=== PATIENT | male | born 1950 | race Caucasian/White ===

== ENCOUNTER 2018-01-06 10:44 | Inpatient (IN) ==
[2018-01-06] MEDS ORDERED: Sod Chloride 0.9% Inj 1,000 ML IV.SIG ONE (11:21)
[2018-01-06 11:36] LABS: Baso % (Auto) 0.3 % (0.0-2.0); Eos # (Auto) 0.1 th/mm3 (0.0-0.4); Eos % (Auto) 0.6 % (0.0-4.0); Hematocrit 27.8 % (39.0-51.0); Hemoglobin 9.1 gm/dL (13.0-17.0); Lymph # (Auto) 0.7 th/mm3 (1.0-4.8); Lymph % (Auto) 7.6 % (9.0-44.0); Mean Corpuscular HGB Conc 32.8 % (32.0-36.0); Mean Corpuscular Volume 70.2 fL (80.0-100.0); Mean Platelet Volume 7.6 fL (7.0-11.0); Mono # (Auto) 0.8 th/mm3 (0.0-0.9); Mono % (Auto) 8.5 % (0.0-8.0); Platelet Count 319 th/mm3 (150-450); Red Blood Count 3.96 mil/mm3 (4.50-5.90); White Blood Count 9.7 th/mm3 (4.0-11.0)
[2018-01-06] MEDS ORDERED: Morphine Inj 4 MG/ML Vial IV.PUSH ONE ×2 (11:47→15:01)
[2018-01-06 11:49] LABS: Activated Partial Thrombo Time 25.4 sec (23.4-31.7); INR 1.4 Ratio; Prothrombin Time 13.7 sec (9.8-11.6)
[2018-01-06 11:59] LABS: Alanine Aminotransferase 44 U/L (12-78); Albumin 2.7 g/dL (3.4-5.0); Anion Gap 12 meq/L (5-15); Aspartate Aminotransferase 96 U/L (15-37); Blood Urea Nitrogen 20 mg/dL (7-18); Calcium 8.8 mg/dL (8.5-10.1); Carbon Dioxide 21.3 meq/L (21.0-32.0); Chloride 96 meq/L (98-107); Glomerular Filtration Rate 73 mL/min (>89); Glucose,Random 168 mg/dL (74-106); Potassium 4.2 meq/L (3.5-5.1); Sodium 129 meq/L (136-145)
[2018-01-06 12:01] LABS: Alkaline Phosphatase 162 U/L (45-117); Total Protein 7.3 g/dL (6.4-8.2)
--- NOTE | 2018-01-06 12:56 | CT ---
EXAM DATE: 01/06/2018 12:37 PM EST AGE/SEX: 67 years / Male INDICATIONS: Mid quadrant pain radiating to right side. Shortness of breath for two weeks. CLINICAL DATA: This is the patient's initial encounter. Patient reports that signs and symptoms have been present for 2 weeks and indicates a pain score of 7/10. MEDICAL/SURGICAL HISTORY: . Liver cancer. Appendectomy. CABG. RADIATION DOSE: 18.19 CTDI (mGy) COMPARISON: No prior exams available for comparison. TECHNIQUE: Volumetric scanning was performed using a multi-row detector CT scanner during bolus infu jacqueline of 100 ml Omnipaque 350 (iohexol) nonionic water-soluble contrast as a cumulative dose for mult iple exams. The data was post processed with a variety of visualization algorithms including full vol ume maximum intensity projection and sliding thin slab reformation. Using automated exposure control and adjustment of the mA and/or kV according to patient size, radiation dose was kept as low as reaso nably achievable to obtain optimal diagnostic quality images. DICOM format image data is available e lectronically for review and comparison. FINDINGS: Pulmonary Arteries: No filling defects are seen in the pulmonary arteries out to the subsegmental ve ssels. The left and right pulmonary arteries are normal in diameter. Lung: An azygos fissure is identified in the right apex. There is focal nodular thickening along the fissure measuring 6 to 7 mm in thickness. The lungs are otherwise clear without evidence of acute ai rspace disease or other nodular opacities. Effusion: None. Mediastinum: No evidence of mediastinal or hilar adenopathy. Coronary arteries are heavily calcified . Other: Multiple low density lesions are seen throughout the liver. The left adrenal gland is enlarge d. CONCLUSION: 1. Nodular thickening of an azygos fissure which may be scarring however short-term follow-up may be indicated. 2. No evidence of acute airspace disease or pulmonary emboli. 3. Multiple low density lesions in the liver and enlarged left adrenal gland. Electronically signed by: Sanjay May MD 01/06/2018 12:55 PM EST
--- NOTE | 2018-01-06 13:05 | CT ---
EXAM DATE: 01/06/2018 12:40 PM EST AGE/SEX: 67 years / Male INDICATIONS: Mid quadrant pain radiating to right side. Shortness of breath for two weeks CLINICAL DATA: This is the patient's initial encounter. Patient reports that signs and symptoms have been present for 2 weeks and indicates a pain score of 7/10. MEDICAL/SURGICAL HISTORY: . Liver cancer. CABG. Appendectomy. ORAL CONTRAST: No oral contrast ingested. RADIATION DOSE: 16.05 CTDI (mGy) COMPARISON: No prior exams available for comparison. TECHNIQUE: Multiple contiguous axial images were obtained through the abdomen and pelvis following b olus infusion of 100 ml Omnipaque 350 (iohexol) nonionic water-soluble contrast as a cumulative dos e for multiple exams. No oral contrast ingested. Using automated exposure control and adjustment of the mA and/or kV according to patient size, radiation dose was kept as low as reasonably achievable t o obtain optimal diagnostic quality images. DICOM format image data is available electronically for review and comparison. FINDINGS: Lower Lungs: The visualized lower lungs are clear. Liver: Numerous space-occupying lesions ranging in size up to 7 cm are identified in the liver. Postc holecystectomy clips are noted. There is no evidence of biliary duct dilatation. Spleen: Splenomegaly. Spleen measures 15 cm in craniocaudad dimension. Pancreas: Unremarkable without mass or calcification. Kidneys: Normal in size and shape. No evidence of mass or hydronephrosis. Adrenal Glands: The left adrenal gland is enlarged measuring 4.2 x 2.8 cm in size. The right adrena l gland is unremarkable. Aorta: Eccentric calcified plaque is present throughout the aorta. Bowel/Mesentery: Anastomotic sutures identified in the low rectal region. The bowel loops are grossly unremarkable. The cecum and sigmoid colon have a normal configuration. Abdominal Wall: Intact. Retroperitoneum: Enlarged lymph nodes are identified in the rafael hepatis, peripancreatic region and upper retroperitoneum. Lymph nodes range in size up to 16 mm. Bladder: Contours are smooth. Reproductive Organs: No abnormal masses or calcifications seen. Inguinal: The inguinal region is unremarkable without evidence of adenopathy. Bony Structures: Unremarkable. CONCLUSION: 1. Numerous hepatic lesions characteristic of metastatic disease. 2. Enlarged left adrenal gland characteristic of metastatic disease. 3. Upper retroperitoneal, rafael hepatis and peripancreatic lymphadenopathy. 4. Splenomegaly. 5. Status post cholecystectomy. Electronically signed by: Sanjay May MD 01/06/2018 1:04 PM EST
--- NOTE | 2018-01-06 15:32 | ED ---
HPI General Chief Complaint: Abdominal Pain Stated Complaint: Abd Pain Time Seen by Provider: 01/06/18 10:54 Source: patient and family Mode of arrival: ambulatory Limitations: no limitations History of Present Illness HPI narrative: The patient is a 67-year-old male with past medical history significant of coronary artery disease status post CABG x3 and diabetes presented with complaint of abdominal pain for about a week. He is ex- withdrawal from [place] to help him with his doctor's visit provide me with an ultrasound that reveals possible metastatic disease of the liver. Patient had history of hep C status post treatment. MD complaint: Reports abdominal pain Onset (ago): week(s) (1) Pain Consistency: constant Location: Reports LLQ and RLQ Severity: severe Severity scale (1-10): 8 Quality: Reports aching Radiation: Reports none Migration to: Reports no migration Relieving factors: nothing Exacerbating factors: movement Context: Denies foreign travel, possible food poisoning, sick contacts, recent antibiotic use, recent surgery/procedure, recent injury and history of similar episodes Associated symptoms: Reports nausea; Denies vomiting, diarrhea, fever, chills, constipation, dysuria, hematemesis, hematochezia, melena and hematuria Related Data Home Medications Medication Instructions Recorded Confirmed aspirin [Aspir-81] 81 mg PO DAILY 01/06/18 01/06/18 atorvastatin 80 mg PO DAILY 01/06/18 01/06/18 cetirizine 10 mg PO DAILY 01/06/18 01/06/18 fenofibrate 160 mg PO DAILY 01/06/18 01/06/18 ferrous sulfate 325 mg PO DAILY 01/06/18 01/06/18 glimepiride 4 mg PO QAM 01/06/18 01/06/18 lisinopril 10 mg PO DAILY 01/06/18 01/06/18 metformin 500 mg PO BID 01/06/18 01/06/18 metoprolol tartrate 50 mg PO BID 01/06/18 01/06/18 tadalafil [Cialis] 5 mg PO DAILY 01/06/18 01/06/18 trazodone 150 mg PO DAILY 01/06/18 01/06/18 Allergies Allergy/AdvReac Type Severity Reaction Status Date / Time No Known Allergies Allergy Verified 01/06/18 11:03 Review of Systems ROS: all other systems reviewed are negative [facility] Medical History Medical History Carpal tunnel syndrome (Acute) Cholecystectomy planned (Acute) Hepatitis C virus infection cured after antiviral drug therapy (Acute) Type 2 diabetes mellitus (Acute) Surgical History Surgical History History of open heart surgery (Acute) Social History Social History Substance History: No History of Abuse Smoking Status: Former smoker How Often Do You Have a Drink Containing Alcohol: Never Recent Travel in [facility] within the Last 8 Weeks: No Recent Out of Country Travel within the Last 8 Weeks: No Immunization History Tetanus Immunization: >5 Years Exam Narrative Exam Narrative: GENERAL:Alert and oriented in moderate distress due to pain SKIN: Focused skin assessment warm/dry. HEAD: Atraumatic. Normocephalic. EYES: Pupils equal and round. No scleral icterus. No injection or drainage. ENT: No nasal bleeding or discharge. Mucous membranes pink and moist. NECK: Trachea midline. No JVD. CARDIOVASCULAR: Sinus tachycardia with regular rhythm. No murmur appreciated. RESPIRATORY: Tachypnea without accessory muscle use. Clear to auscultation. Breath sounds equal bilaterally. GASTROINTESTINAL: Abdomen soft, tenderness to palpation over the left lower right lower quadrant with some mild distention. Distended. Hepatic and splenic margins palpable. MUSCULOSKELETAL: No obvious deformities. No clubbing. No cyanosis. No edema. NEUROLOGICAL: Awake and alert. No obvious cranial nerve deficits. Motor grossly within normal limits. Normal speech. PSYCHIATRIC: Appropriate mood and affect; insight and judgment normal. Course Initial Documented Vital Signs Temperature 98.7 F 01/06/18 10:45 Pulse Rate 127 H 01/06/18 10:45 Respiratory Rate 32 H 01/06/18 10:45 Blood Pressure 157/70 H 01/06/18 10:45 Pulse Oximetry 97 01/06/18 10:45 Last Documented Vital Signs Temperature 98.7 F 01/06/18 10:45 Pulse Rate 127 H 01/06/18 10:45 Respiratory Rate 32 H 01/06/18 10:45 Blood Pressure 157/70 H 01/06/18 10:45 Pulse Oximetry 97 01/06/18 10:45 Medical Decision Making MDM Narrative Medical decision making narrative: Patient also has hypo-natremia which was addressed with for pulmonary emboli in addition to that we also obtained a CT of abdomen and pelvis that revealed metastatic disease in the liver and adrenal glands.Patient on arrival with tachycardia and tachypnea as well as complaint of exertional dyspnea which in the setting of malignancy may be secondary to PE. Will obtain a CT Zuri of the chest that was negative fluids. He was given several doses of analgesics. Anemia of 9.1. Not appearing septic. Mild dehydration with a BUN of 20 creatinine of 1.02 was also noted. Liver enzymes include AST of 96 alk phos 162 and ALT within normal limits. Patient will be admitted for intractable pain hyponatremia as well as his tachycardia and tachypnea which improved with interventions in the emergency department. Not appearing septic alert and oriented. Medical Screen Exam Complete: Yes Emergency Medical Condition: Yes Medical Records Medical records reviewed: Yes I reviewed the patient's medical records. Lab Data Lab results reviewed: Yes I reviewed the patient's lab results. Result diagrams: 01/06/18 11:12 01/06/18 11:12 Lab Results 01/06/18 01/06/18 01/06/18 Range/Units 11:12 11:12 11:12 WBC 9.7 (4.0-11.0) th/mm3 RBC 3.96 L (4.50-5.90) mil/mm3 Hgb 9.1 L (13.0-17.0) gm/dL Hct 27.8 L (39.0-51.0) % MCV 70.2 L (80.0-100.0) fL MCH 23.0 L (27.0-34.0) pg MCHC 32.8 (32.0-36.0) % RDW 15.0 (11.6-17.2) % Plt Count 319 (150-450) th/mm3 MPV 7.6 (7.0-11.0) fL Neut % (Auto) 83.0 H (16.0-70.0) % Lymph % (Auto) 7.6 L (9.0-44.0) % [place] % (Auto) 8.5 H (0.0-8.0) % Eos % (Auto) 0.6 (0.0-4.0) % Baso % (Auto) 0.3 (0.0-2.0) % Neut # (Auto) 8.0 H (1.8-7.7) th/mm3 Lymph # (Auto) 0.7 L (1.0-4.8) th/mm3 [place] # (Auto) 0.8 (0.0-0.9) th/mm3 Eos # (Auto) 0.1 (0.0-0.4) th/mm3 Baso # (Auto) 0.0 (0.0-0.2) th/mm3 WBC Differential . Differential Comment Auto diff final PT 13.7 H (9.8-11.6) sec INR 1.4 Ratio APTT 25.4 (23.4-31.7) sec Sodium 129 L (136-145) meq/L Potassium 4.2 (3.5-5.1) meq/L Chloride 96 L (98-107) meq/L Carbon Dioxide 21.3 (21.0-32.0) meq/L Anion Gap 12 (5-15) meq/L BUN 20 H (7-18) mg/dL Creatinine 1.02 (0.60-1.30) mg/dL Estimated GFR 73 L (>89) mL/min Random Glucose 168 H (74-106) mg/dL Calcium 8.8 (8.5-10.1) mg/dL Total Bilirubin 0.8 (0.2-1.0) mg/dL AST 96 H (15-37) U/L ALT 44 (12-78) U/L Alkaline Phosphatase 162 H (45-117) U/L Troponin I (0.02-0.05) ng/mL B-Natriuretic Peptide (0-100) pg/mL Total Protein 7.3 (6.4-8.2) g/dL Albumin 2.7 L (3.4-5.0) g/dL 01/06/18 01/06/18 Range/Units 11:12 11:12 WBC (4.0-11.0) th/mm3 RBC (4.50-5.90) mil/mm3 Hgb (13.0-17.0) gm/dL Hct (39.0-51.0) % MCV (80.0-100.0) fL MCH (27.0-34.0) pg MCHC (32.0-36.0) % RDW (11.6-17.2) % Plt Count (150-450) th/mm3 MPV (7.0-11.0) fL Neut % (Auto) (16.0-70.0) % Lymph % (Auto) (9.0-44.0) % [place] % (Auto) (0.0-8.0) % Eos % (Auto) (0.0-4.0) % Baso % (Auto) (0.0-2.0) % Neut # (Auto) (1.8-7.7) th/mm3 Lymph # (Auto) (1.0-4.8) th/mm3 [place] # (Auto) (0.0-0.9) th/mm3 Eos # (Auto) (0.0-0.4) th/mm3 Baso # (Auto) (0.0-0.2) th/mm3 WBC Differential Differential Comment PT (9.8-11.6) sec INR Ratio APTT (23.4-31.7) sec Sodium (136-145) meq/L Potassium (3.5-5.1) meq/L Chloride (98-107) meq/L Carbon Dioxide (21.0-32.0) meq/L Anion Gap (5-15) meq/L BUN (7-18) mg/dL Creatinine (0.60-1.30) mg/dL Estimated GFR (>89) mL/min Random Glucose (74-106) mg/dL Calcium (8.5-10.1) mg/dL Total Bilirubin (0.2-1.0) mg/dL AST (15-37) U/L ALT (12-78) U/L Alkaline Phosphatase (45-117) U/L Troponin I Less than 0.02 L (0.02-0.05) ng/mL B-Natriuretic Peptide 77 (0-100) pg/mL Total Protein (6.4-8.2) g/dL Albumin (3.4-5.0) g/dL Imaging Data Radiologist's impression: Abdomen/Pelvis CT 01/06/18 11:04 CONCLUSION: 1. Numerous hepatic lesions characteristic of metastatic disease. 2. Enlarged left adrenal gland characteristic of metastatic disease. 3. Upper retroperitoneal, rafael hepatis and peripancreatic lymphadenopathy. 4. Splenomegaly. 5. Status post cholecystectomy. Chest CTA 01/06/18 11:04 CONCLUSION: 1. Nodular thickening of an azygos fissure which may be scarring however short- term follow-up may be indicated. 2. No evidence of acute airspace disease or pulmonary emboli. 3. Multiple low density lesions in the liver and enlarged left adrenal gland. ECG Data EKG Prior to Arrival: No Attestation: I personally reviewed and interpreted this ECG as follows: Interpretation: Normal sinus rhythm 97 bpm MT interval 121ms QTC is 399ms normal axis no specific ST-T wave abnormalities. No signs of acute ischemia. Discharge Plan Discharge Disposition Patient Disposition: 30 Still Patient Discharge Condition Condition: Stable Discharge Details Diagnosis: Intractable lower abdominal pain, Acute hyponatremia, Anemia, Acute dehydration Physicians Team ED Provider: José Christopher Primary Care Provider: Jana Dukes Attending Provider: Brett Guerra Discharge Interventions Interventions: Vital Signs Last Done: 01/06/18 10:45 Status ED Status: Admitted Patient
--- NOTE | 2018-01-06 15:33 | P.HPIM ---
History of Present Illness [facility] Physician: Jana Dukes MD Chief Complaint: Worsening abdominal pain and shortness of breath History of Present Illness: 67-year-old male with a medical history significant for hepatitis C status post treatment, coronary artery disease status post CABG, diabetes, hypertension who presented to the hospital with complaint of worsening abdominal pain, shortness of breath. Patient recently had an ultrasound of the abdomen that was ordered by his PCP which showed metastatic liver disease. He reports he has been increasingly declining at home due to worsening abdominal pain and shortness of breath due to the pain. He states he is to the point where he can no longer care for himself. His ex- came into town and brought him to the emergency room when she realized how sick he was. He does not note any change in his bowel movements. He has been very fatigued and sleeping a lot. Abdominal CT in the emergency room revealed numerous hepatic lesions characteristic of metastatic disease. He also has a lesion on his adrenal gland. Patient was also found to be hyponatremic. He was tachypneic and tachycardic on presentation. He has been given IV morphine and IV fluid with some improvement in his symptoms. Inpatient Certification: I certify that the inpatient services were ordered in accordance with Medicare regulations governing the order. This includes certification that hospital inpatient services are reasonable and necessary and in the case of services not specified as inpatient-only under 42 CFR 419.22(n), that they are appropriately provided as inpatient services in accordance to with the 2-midnight benchmark under 43 CFR 412.3(e) Review of Systems All other systems reviewed negative except as stated in HPI PMFSH - History History Provided By: Patient - Medical History Medical History: Medical History (Last Updated 01/06/18 @ 16:12 by Brett Guerra MD) CAD (coronary artery disease) Carpal tunnel syndrome Hepatitis C virus infection cured after antiviral drug therapy Type 2 diabetes mellitus - Surgical History Surgical History: Surgical History (Last Updated 01/06/18 @ 16:12 by Brett Guerra MD) History of open heart surgery Hx of cholecystectomy - Family History Family History: Family History (Last Updated 01/06/18 @ 16:14 by Brett Guerra MD) Mother Lung cancer - Tobacco History Smoking Status: Former smoker - Alcohol History How Often Do You Have a Drink Containing Alcohol: Never - Substance Use History Substance History: No History of Abuse - Travel History Recent Travel in the [place] Within the Last 8 Weeks: No Recent Travel Out of the Country Within the Last 8 Weeks: No - Immunization History Tetanus Immunization: >5 Years Medications and Allergies Active Medications: Active Medications Aspirin (Ecotrin) 81 mg PO DAILY [facility] Atorvastatin Calcium (Lipitor) 80 mg PO DAILY [facility] Cetirizine HCl (Zyrtec) 10 mg PO DAILY [facility] Fenofibrate (Tricor) 145 mg PO DAILY [facility] Ferrous Sulfate (Ferosul) 325 mg PO DAILY [facility] Lisinopril (Prinivil) 10 mg PO DAILY [facility] Metformin HCl (Glucophage) 500 mg PO BIDPC [facility] Metoprolol Tartrate (Lopressor) 50 mg PO BID [facility] Trazodone HCl (Desyrel) 150 mg PO DAILY [facility] Allergies Allergy/AdvReac Type Severity Reaction Status Date / Time No Known Allergies Allergy Verified 01/06/18 11:03 Home Medications Medication Instructions Recorded Confirmed Type aspirin [Aspir-81] 81 mg PO DAILY 01/06/18 01/06/18 History atorvastatin 80 mg PO DAILY 01/06/18 01/06/18 History cetirizine 10 mg PO DAILY 01/06/18 01/06/18 History fenofibrate 160 mg PO DAILY 01/06/18 01/06/18 History ferrous sulfate 325 mg PO DAILY 01/06/18 01/06/18 History glimepiride 4 mg PO QAM 01/06/18 01/06/18 History lisinopril 10 mg PO DAILY 01/06/18 01/06/18 History metformin 500 mg PO BID 01/06/18 01/06/18 History metoprolol tartrate 50 mg PO BID 01/06/18 01/06/18 History tadalafil [Cialis] 5 mg PO DAILY 01/06/18 01/06/18 History trazodone 150 mg PO DAILY 01/06/18 01/06/18 History Exam Vital signs: Vital Signs 01/06/18 10:45 Temperature 98.7 F Pulse Rate 127 H Respiratory Rate 32 H Blood Pressure 157/70 H Pulse Oximetry 97 Intake & Output 01/05/18 01/06/18 01/06/18 18:59 06:59 18:59 Intake Total 1000 / 1000 Balance 1000 / 1000 Weight 79.379 kg Intake: IV 1000 / 1000 NS Inj 1,000 ML @ Wide Open IV. 1000 / 1000 SIG BOLUS ONE Rx#:[id number] Narrative: CONSTITUTIONAL/GENERAL: This is an adequately nourished patient, somnolent but no acute distress. Vital signs reviewed SKIN: Mild jaundice. Not diaphoretic. HEAD: Atraumatic. Normocephalic. EYES: Pupils equal and round and reactive. Extra ocular motions are intact. No scleral icterus. No injection or drainage. NECK: Trachea midline. Neck is supple, non-tender. No palpable thyroid enlargement or nodularity. CARDIOVASCULAR: Normal rate and regular rhythm without murmurs, gallops, or rubs. No JVD. Peripheral pulses 2+ and symmetric. RESPIRATORY/CHEST: Diminished breath sounds at the bases otherwise clear to auscultation bilaterally GASTROINTESTINAL: Abdomen is distended. Diffusely tender to palpation. No guarding or rebound tenderness. Bowel sounds present. MUSCULOSKELETAL: Extremities without clubbing, cyanosis, or edema. No joint tenderness or effusion noted. No calf tenderness. No mottling or clubbing. NEUROLOGICAL: Somnolent. Motor and sensory grossly within normal limits. Follows commands. Move all extremities spontaneously. No focal deficits. PSYCHIATRIC: No obvious mood problems. No apparent hallucinations or other psychotic thought process. Results - Labs CBC & Chem 7: 01/06/18 11:12 01/06/18 11:12 Labs: Short CBC 01/06/18 Range/Units 11:12 WBC 9.7 (4.0-11.0) th/mm3 Hgb 9.1 L (13.0-17.0) gm/dL Hct 27.8 L (39.0-51.0) % Plt Count 319 (150-450) th/mm3 [facility] 01/06/18 11:12 Sodium 129 L Potassium 4.2 Chloride 96 L Carbon Dioxide 21.3 BUN 20 H Creatinine 1.02 Calcium 8.8 Cardiac Enzymes 01/06/18 Range/Units 11:12 Troponin I Less than 0.02 L (0.02-0.05) ng/mL Liver Function 01/06/18 Range/Units 11:12 Total Bilirubin 0.8 (0.2-1.0) mg/dL AST 96 H (15-37) U/L ALT 44 (12-78) U/L Alkaline Phosphatase 162 H (45-117) U/L Albumin 2.7 L (3.4-5.0) g/dL - Imaging Impressions Abdomen/Pelvis CT 01/06/18 11:04 CONCLUSION: 1. Numerous hepatic lesions characteristic of metastatic disease. 2. Enlarged left adrenal gland characteristic of metastatic disease. 3. Upper retroperitoneal, rafael hepatis and peripancreatic lymphadenopathy. 4. Splenomegaly. 5. Status post cholecystectomy. Chest CTA 01/06/18 11:04 CONCLUSION: 1. Nodular thickening of an azygos fissure which may be scarring however short- term follow-up may be indicated. 2. No evidence of acute airspace disease or pulmonary emboli. 3. Multiple low density lesions in the liver and enlarged left adrenal gland. Caprini VTE Risk Assessment Caprini VTE Risk Assessment: Moderate/High Risk (score >= 2) VTE Pharmacological Exception Reason: End Stage Liver Disease Caprini Risk Assessment Model: Point Value = 1 Point Value = 2 Point Value = 3 Point Value = 5 Age 41-60 Minor surgery BMI > 25 kg/m2 Swollen legs Varicose veins or History of unexplained or recurrent spontaneous Oral contraceptives or hormone replacement Sepsis (< 1 month) Serious lung disease, including pneumonia (< 1 month) Abnormal pulmonary function Acute myocardial infarction Congestive heart failure (< 1 month) History of inflammatory bowel disease Medical patient at bed rest Age 61-74 Arthroscopic surgery Major open surgery (> 45 min) Laparoscopic surgery (> 45 min) Malignancy Confined to bed (> 72 hours) Immobilizing plaster cast Central venous access Age >= 75 History of VTE Family history of VTE Factor V Leiden Prothrombin [id number] Lupus anticoagulant Anticardiolipin antibodies Elevated serum homocysteine Heparin-induced thrombocytopenia Other congenital or acquired thrombophilia Stroke (< 1 month) Elective arthroplasty Hip, pelvis, or leg fracture Acute spinal cord injury (< 1 month) Prophylaxis Regimen: Total Risk Factor Score Risk Level Prophylaxis Regimen 0-1 Low Early ambulation 2 Moderate Order ONE of the following: *Sequential Compression Device (SCD) *Heparin 5000 units SQ BID 3-4 Higher Order ONE of the following medications: *Heparin 5000 units SQ TID *Enoxaparin/Lovenox 40 mg SQ daily (WT < 150 kg, CrCl > 30 mL/min) *Enoxaparin/Lovenox 30 mg SQ daily (WT < 150 kg, CrCl > 10-29 mL/min) *Enoxaparin/Lovenox 30 mg SQ BID (WT < 150 kg, CrCl > 30 mL/min) AND/OR *Sequential Compression Device (SCD) 5 or more Highest Order ONE of the following medications: *Heparin 5000 units SQ TID (Preferred with Epidurals) *Enoxaparin/Lovenox 40 mg SQ daily (WT < 150 kg, CrCl > 30 mL/min) *Enoxaparin/Lovenox 30 mg SQ daily (WT < 150 kg, CrCl > 10-29 mL/min) *Enoxaparin/Lovenox 30 mg SQ BID (WT < 150 kg, CrCl > 30 mL/min) AND *Sequential Compression Device (SCD) Assessment and Plan - Plan 67-year-old male admitted with worsening abdominal pain, relatively new evidence of metastatic liver disease. Intractable abdominal pain/metastasis to the liver and adrenal gland: Primary unknown. - Consult oncology for assistance. - Consult GI. Patient previously seen by Dr. Adams. He reports his last colonoscopy was over 4 years ago and there were polyps but he does not remember the results. - Pain control with Morphine as needed. - Check ammonia. Seems to have early hepatic encephalopathy. Hyponatremia: Likely hypovolemic hyponatremia. - He has been given a liter of normal saline since he arrived to the ED. - Follow-up labs in a.m. At risk for fluid overload given liver disease. Type 2 diabetes: - Hold oral hypoglycemic agents. - Sliding scale insulin with Accu-Cheks. Microcytic anemia: - Check iron panel. Hemoccult stool in the ED negative. History of CAD/CABG: - Continue aspirin, statin, and beta-moshe. Hypertension: - Continue lisinopril, beta-moshe GI prophylaxis: Stool softener PRN constipation. DVT PPx: Lovenox Discussed Condition With: ED physician.
[2018-01-06] MEDS ORDERED: Acetaminophen 325 MG Tablet PO PRN (15:47)
[2018-01-06] MEDS ORDERED: Bisacodyl 10 MG Supp RECTAL PRN (15:47)
[2018-01-06 17:28] LABS: % Iron Saturation 5.7 % (20-50); Iron 14 mcg/dL (65-175); Total Iron Binding Capacity 246 mcg/dL (250-450)
[2018-01-06] MEDS ORDERED: PEG 3350/E-Lyte Soln 4000 ML Bottle PO ONE (17:30)
[2018-01-06 17:52] LABS: Ferritin 242 ng/mL (26-388); Vitamin B12 1495 pg/mL (193-986)
[2018-01-06] MEDS: Morphine Sulfate Inj 2 MG/ML Vial IV.PUSH PRN (18:38)
--- NOTE | 2018-01-06 18:56 | P.CONGI ---
History of Present Illness Consult date: 01/06/18 Consult reason: Metastatic disease involving the liver Chief complaint: intractable abdominal pain, Hyponatremia History of Present Illness: This patient is a 67-year-old male with past medical history significant for hepatitis C posttreatment, coronary artery disease status post CABG, diabetes and hypertension. Surgical history includes CABG and cholecystectomy. Patient presented to the emergency room at [facility] with complaint of abdominal pain. Patient states that he was sent to the hospital by his PCP due to a recent ultrasound that showed metastatic liver disease. Upon consultation, patient reports generalized abdominal pain mostly right upper quadrant times 1 week. Patient states pain has been severe over the last 2-3 nights. Patient describes pain as sharp and states it is constant in nature. Patient endorses very little appetite with nausea and denies vomiting. Patient endorses having a colonoscopy 5 years ago where polyps were found to be benign. Patient denies any history of ever having had EGD in the past. Patient denies any use of tobacco or alcohol products. Patient denies any known family history for any gastrointestinal diseases or disorders. Patient denies use of NSAIDs. Patient denies any noted bleeding. He states he has a normal soft brown bowel movement every day to every other day but has not had a bowel movement for 2-3 days prior to admission. Our service has been consulted to evaluate patient for metastatic liver disease. <Elo Ramirez - Last Filed: 01/06/18 18:43> Review of Systems All other systems reviewed negative except as stated in HPI <Elo Ramirez - Last Filed: 01/06/18 18:43> PMFSH - History History Provided By: Patient - Medical History Medical History: Medical History (Last Updated 01/06/18 @ 16:12 by Brett Guerra MD) CAD (coronary artery disease) Carpal tunnel syndrome Hepatitis C virus infection cured after antiviral drug therapy Type 2 diabetes mellitus - Surgical History Surgical History: Surgical History (Last Updated 01/06/18 @ 16:12 by Brett Guerra MD) History of open heart surgery Hx of cholecystectomy - Family History Family History: Family History (Last Updated 01/06/18 @ 16:14 by Brett Guerra MD) Mother Lung cancer - Tobacco History Second Hand Smoke Exposure: No Tobacco Use In Past 30 Days: No Smoking Status: Former smoker Tobacco Type: Cigarettes - Alcohol History How Often Do You Have a Drink Containing Alcohol: Never - Substance Use History Substance History: No History of Abuse - Travel History Recent Travel in the [place] Within the Last 8 Weeks: No Recent Travel Out of the Country Within the Last 8 Weeks: No - Immunization History Tetanus Immunization: Unsure Hx Influenza Vaccine This Season: No <Elo Ramirez - Last Filed: 01/06/18 18:43> - Medical History Medical History: Medical History (Last Updated 01/06/18 @ 16:12 by Brett Guerra MD) CAD (coronary artery disease) Carpal tunnel syndrome Hepatitis C virus infection cured after antiviral drug therapy Type 2 diabetes mellitus - Surgical History Surgical History: Surgical History (Last Updated 01/06/18 @ 16:12 by Brett Guerra MD) History of open heart surgery Hx of cholecystectomy - Family History Family History: Family History (Last Updated 01/06/18 @ 16:14 by Brett Guerra MD) Mother Lung cancer <Kamille Brooks - Last Filed: 01/07/18 10:44> Medications and Allergies Active Medications: Active Medications Acetaminophen (Tylenol) 650 mg PO Q4H PRN PRN Reason: Temp > 100.4 Al Hydroxide/Mg Hydroxide (Milk Of Magnesia Liq) 30 ml PO Q12H PRN PRN Reason: Mild Constipation Aspirin (Ecotrin) 81 mg PO DAILY [facility] Atorvastatin Calcium (Lipitor) 80 mg PO DAILY [facility] Bisacodyl (Dulcolax Supp) 10 mg RECTAL DAILY PRN PRN Reason: SEVERE CONSITIPATION Cetirizine HCl (Zyrtec) 10 mg PO DAILY [facility] Fenofibrate (Tricor) 145 mg PO DAILY [facility] Ferrous Sulfate (Ferosul) 325 mg PO DAILY [facility] Lactulose (Lactulose Liq) 30 ml PO DAILY PRN PRN Reason: SEVERE CONSITIPATION Lisinopril (Prinivil) 10 mg PO DAILY [facility] Metformin HCl (Glucophage) 500 mg PO BIDPC [facility] Metoprolol Tartrate (Lopressor) 50 mg PO BID [facility] Morphine Sulfate (Msir) 15 mg PO Q6H PRN PRN Reason: PAIN SCALE 6 TO 10 Morphine Sulfate (Morphine Inj) 2 mg IV.PUSH Q4H PRN PRN Reason: BREAKTHROUGH PAIN Last Admin: 01/06/18 18:38 Dose: 2 mg Ondansetron HCl (Zofran Inj) 4 mg IV.PUSH Q6H PRN PRN Reason: NAUSEA OR VOMITING Sennosides (Senokot) 17.2 mg PO Q12H PRN PRN Reason: Moderate Constipation Trazodone HCl (Desyrel) 150 mg PO DAILY [facility] <Elo Ramirez - Last Filed: 01/06/18 18:43> Active Medications: Active Medications Acetaminophen (Tylenol) 650 mg PO Q4H PRN PRN Reason: Temp > 100.4 Al Hydroxide/Mg Hydroxide (Milk Of Magnesia Liq) 30 ml PO Q12H PRN PRN Reason: Mild Constipation Aspirin (Ecotrin) 81 mg PO DAILY [facility] Atorvastatin Calcium (Lipitor) 80 mg PO DAILY [facility] Last Admin: 01/07/18 09:30 Dose: Not Given Bisacodyl (Dulcolax Supp) 10 mg RECTAL DAILY PRN PRN Reason: SEVERE CONSITIPATION Cetirizine HCl (Zyrtec) 10 mg PO DAILY [facility] Last Admin: 01/07/18 09:30 Dose: Not Given Fenofibrate (Tricor) 145 mg PO DAILY [facility] Last Admin: 01/07/18 09:30 Dose: Not Given Ferrous Sulfate (Ferosul) 325 mg PO DAILY [facility] Last Admin: 01/07/18 09:29 Dose: Not Given Sodium Chloride (Ns Inj) 500 mls @ 30 mls/hr IV.SIG .Q10H [facility] Lactated Ringer's (Lr 1000 Ml Inj) 1,000 mls @ 30 mls/hr IV.SIG .Q24H [facility] Stop: 01/08/18 04:14 Lactulose (Lactulose Liq) 30 ml PO DAILY PRN PRN Reason: SEVERE CONSITIPATION Lisinopril (Prinivil) 10 mg PO DAILY [facility] Last Admin: 01/07/18 08:22 Dose: 10 mg [facility] Last Admin: 01/07/18 09:30 Dose: Not Given Metoprolol Tartrate (Lopressor) 50 mg PO BID [facility] Last Admin: 01/07/18 08:22 Dose: 50 mg Morphine Sulfate (Msir) 15 mg PO Q6H PRN PRN Reason: PAIN SCALE 6 TO 10 Last Admin: 01/07/18 05:37 Dose: 15 mg Morphine Sulfate (Morphine Inj) 2 mg IV.PUSH Q4H PRN PRN Reason: BREAKTHROUGH PAIN Last Admin: 01/06/18 18:38 Dose: 2 mg Ondansetron HCl (Zofran Inj) 4 mg IV.PUSH Q6H PRN PRN Reason: NAUSEA OR VOMITING Last Admin: 01/06/18 22:33 Dose: 4 mg Sennosides (Senokot) 17.2 mg PO Q12H PRN PRN Reason: Moderate Constipation Trazodone HCl (Desyrel) 150 mg PO DAILY [facility] Last Admin: 01/07/18 09:29 Dose: Not Given <Kamille Brooks - Last Filed: 01/07/18 10:44> Allergies Allergy/AdvReac Type Severity Reaction Status Date / Time No Known Allergies Allergy Verified 01/06/18 11:03 Home Medications Medication Instructions Recorded Confirmed Type aspirin [Aspir-81] 81 mg PO DAILY 01/06/18 01/06/18 History atorvastatin 80 mg PO DAILY 01/06/18 01/06/18 History cetirizine 10 mg PO DAILY 01/06/18 01/06/18 History fenofibrate 160 mg PO DAILY 01/06/18 01/06/18 History ferrous sulfate 325 mg PO DAILY 01/06/18 01/06/18 History glimepiride 4 mg PO QAM 01/06/18 01/06/18 History lisinopril 10 mg PO DAILY 01/06/18 01/06/18 History metformin 500 mg PO BID 01/06/18 01/06/18 History metoprolol tartrate 50 mg PO BID 01/06/18 01/06/18 History tadalafil [Cialis] 5 mg PO DAILY 01/06/18 01/06/18 History trazodone 150 mg PO DAILY 01/06/18 01/06/18 History Exam Vital signs: Vital Signs 01/06/18 10:45 01/06/18 16:28 01/06/18 17:09 Temperature 98.7 F 98.0 F Pulse Rate 127 H 90 88 Respiratory Rate 32 H 18 20 Blood Pressure 157/70 H 156/68 H 159/72 H Pulse Oximetry 97 99 01/06/18 18:41 Temperature Pulse Rate Respiratory Rate 17 Blood Pressure Pulse Oximetry Intake & Output 01/05/18 01/06/18 01/06/18 18:59 06:59 18:59 Intake Total 1000 / 1000 Balance 1000 / 1000 Weight 77.3 kg Intake: IV 1000 / 1000 NS Inj 1,000 ML @ Wide Open IV. 1000 / 1000 SIG BOLUS ONE Rx#:[id number] Other: Weight On Admission 77.3 kg - Constitutional no acute distress, chronically ill appearing - Routine HEENT Exam Head: Present: normocephalic Eye: Absent: conjunctival icterus - Routine Respiratory Exam Present: CTA bilaterally. Absent: accessory muscle use - Routine Abdominal Exam Present: soft, normoactive bowel sounds, tenderness. Absent: distended, guarding, firm - Routine Skin Exam Present: dry, warm - Routine Neurological Exam Present: alert, oriented X3 <Elo Ramirez - Last Filed: 01/06/18 18:43> Vital signs: Vital Signs 01/06/18 10:45 01/06/18 16:28 01/06/18 17:09 Temperature 98.7 F 98.0 F Pulse Rate 127 H 90 88 Respiratory Rate 32 H 18 20 Blood Pressure 157/70 H 156/68 H 159/72 H Pulse Oximetry 97 99 01/06/18 18:41 01/06/18 19:17 01/06/18 20:00 Temperature 97.7 F Pulse Rate 96 H Respiratory Rate 17 17 20 Blood Pressure 148/64 H Pulse Oximetry 97 01/07/18 00:00 01/07/18 01:06 01/07/18 04:00 Temperature 98.7 F 98.3 F Pulse Rate 89 78 Respiratory Rate 20 16 20 Blood Pressure 136/75 149/65 H Pulse Oximetry 98 97 01/07/18 07:46 Temperature 98.4 F Pulse Rate 82 Respiratory Rate 20 Blood Pressure 120/57 L Pulse Oximetry 90 L Intake & Output 01/06/18 01/07/18 01/07/18 18:59 06:59 18:59 Intake Total 1600 / 1600 Balance 1600 / 1600 Weight 77.3 kg 77.6 kg Intake: IV 1000 / 1000 NS Inj 1,000 ML @ Wide Open IV. 1000 / 1000 SIG BOLUS ONE Rx#:[id number] Oral 600 / 600 Other: # Voids 5 Date of Last Bowel Movement 01/04/18 01/06/18 # Bowel Movements 2 Weight On Admission 77.3 kg <Todd,Mohammad A - Last Filed: 01/07/18 10:44> Results - Labs CBC & Chem 7: 01/06/18 11:12 01/06/18 11:12 Labs: Laboratory Results - last 24 hr 01/06/18 01/06/18 01/06/18 11:12 11:12 11:12 WBC 9.7 RBC 3.96 L Hgb 9.1 L Hct 27.8 L MCV 70.2 L MCH 23.0 L MCHC 32.8 RDW 15.0 Plt Count 319 MPV 7.6 Neut % (Auto) 83.0 H Lymph % (Auto) 7.6 L Ector % (Auto) 8.5 H Eos % (Auto) 0.6 Baso % (Auto) 0.3 Neut # (Auto) 8.0 H Lymph # (Auto) 0.7 L Ector # (Auto) 0.8 Eos # (Auto) 0.1 Baso # (Auto) 0.0 WBC Differential . Differential Comment Auto diff final PT 13.7 H INR 1.4 APTT 25.4 Sodium 129 L Potassium 4.2 Chloride 96 L Carbon Dioxide 21.3 Anion Gap 12 BUN 20 H Creatinine 1.02 Estimated GFR 73 L Random Glucose 168 H Calcium 8.8 Iron TIBC % Saturation Ferritin Total Bilirubin 0.8 AST 96 H ALT 44 Alkaline Phosphatase 162 H Ammonia Troponin I B-Natriuretic Peptide Total Protein 7.3 Albumin 2.7 L Vitamin B12 Folate 01/06/18 01/06/18 01/06/18 11:12 11:12 16:00 WBC RBC Hgb Hct MCV MCH MCHC RDW Plt Count MPV Neut % (Auto) Lymph % (Auto) Ector % (Auto) Eos % (Auto) Baso % (Auto) Neut # (Auto) Lymph # (Auto) Ector # (Auto) Eos # (Auto) Baso # (Auto) WBC Differential Differential Comment PT INR APTT Sodium Potassium Chloride Carbon Dioxide Anion Gap BUN Creatinine Estimated GFR Random Glucose Calcium Iron TIBC % Saturation Ferritin Total Bilirubin AST ALT Alkaline Phosphatase Ammonia 10 L Troponin I Less than 0.02 L B-Natriuretic Peptide 77 Total Protein Albumin Vitamin B12 Folate 01/06/18 16:00 WBC RBC Hgb Hct MCV MCH MCHC RDW Plt Count MPV Neut % (Auto) Lymph % (Auto) Ector % (Auto) Eos % (Auto) Baso % (Auto) Neut # (Auto) Lymph # (Auto) Ector # (Auto) Eos # (Auto) Baso # (Auto) WBC Differential Differential Comment PT INR APTT Sodium Potassium Chloride Carbon Dioxide Anion Gap BUN Creatinine Estimated GFR Random Glucose Calcium Iron 14 L TIBC 246 L % Saturation 5.7 L Ferritin 242 Total Bilirubin AST ALT Alkaline Phosphatase Ammonia Troponin I B-Natriuretic Peptide Total Protein Albumin Vitamin B12 1495 H Folate Greater than 20.0 H - Imaging Impressions Abdomen/Pelvis CT 01/06/18 11:04 CONCLUSION: 1. Numerous hepatic lesions characteristic of metastatic disease. 2. Enlarged left adrenal gland characteristic of metastatic disease. 3. Upper retroperitoneal, rafael hepatis and peripancreatic lymphadenopathy. 4. Splenomegaly. 5. Status post cholecystectomy. Chest CTA 01/06/18 11:04 CONCLUSION: 1. Nodular thickening of an azygos fissure which may be scarring however short- term follow-up may be indicated. 2. No evidence of acute airspace disease or pulmonary emboli. 3. Multiple low density lesions in the liver and enlarged left adrenal gland. <Elo Ramirez - Last Filed: 01/06/18 18:43> - Labs CBC & Chem 7: 01/07/18 06:39 01/07/18 06:39 Labs: Laboratory Results - last 24 hr 01/06/18 01/06/18 01/06/18 11:12 11:12 11:12 WBC 9.7 RBC 3.96 L Hgb 9.1 L Hct 27.8 L MCV 70.2 L MCH 23.0 L MCHC 32.8 RDW 15.0 Plt Count 319 MPV 7.6 Neut % (Auto) 83.0 H Lymph % (Auto) 7.6 L Ector % (Auto) 8.5 H Eos % (Auto) 0.6 Baso % (Auto) 0.3 Neut # (Auto) 8.0 H Lymph # (Auto) 0.7 L Ector # (Auto) 0.8 Eos # (Auto) 0.1 Baso # (Auto) 0.0 WBC Differential . Differential Comment Auto diff final PT 13.7 H INR 1.4 APTT 25.4 Sodium 129 L Potassium 4.2 Chloride 96 L Carbon Dioxide 21.3 Anion Gap 12 BUN 20 H Creatinine 1.02 Estimated GFR 73 L POC Glucose Random Glucose 168 H Calcium 8.8 Iron TIBC % Saturation Ferritin Total Bilirubin 0.8 AST 96 H ALT 44 Alkaline Phosphatase 162 H Ammonia Troponin I B-Natriuretic Peptide Total Protein 7.3 Albumin 2.7 L Tumor Marker AFP Carcinoembryonic Ag CA 19-9 Antigen Vitamin B12 Folate 01/06/18 01/06/18 01/06/18 11:12 11:12 16:00 WBC RBC Hgb Hct MCV MCH MCHC RDW Plt Count MPV Neut % (Auto) Lymph % (Auto) Ector % (Auto) Eos % (Auto) Baso % (Auto) Neut # (Auto) Lymph # (Auto) Ector # (Auto) Eos # (Auto) Baso # (Auto) WBC Differential Differential Comment PT INR APTT Sodium Potassium Chloride Carbon Dioxide Anion Gap BUN Creatinine Estimated GFR POC Glucose Random Glucose Calcium Iron TIBC % Saturation Ferritin Total Bilirubin AST ALT Alkaline Phosphatase Ammonia 10 L Troponin I Less than 0.02 L B-Natriuretic Peptide 77 Total Protein Albumin Tumor Marker AFP Carcinoembryonic Ag CA 19-9 Antigen Vitamin B12 Folate 01/06/18 01/06/18 01/07/18 16:00 22:43 06:39 WBC 7.6 RBC 3.75 L Hgb 8.7 L Hct 26.7 L MCV 71.1 L MCH 23.2 L MCHC 32.6 RDW 15.0 Plt Count 324 MPV 7.8 Neut % (Auto) 80.0 H Lymph % (Auto) 9.5 Ector % (Auto) 9.0 H Eos % (Auto) 1.2 Baso % (Auto) 0.3 Neut # (Auto) 6.1 Lymph # (Auto) 0.7 L Ector # (Auto) 0.7 Eos # (Auto) 0.1 Baso # (Auto) 0.0 WBC Differential . Differential Comment Auto diff final PT INR APTT Sodium Potassium Chloride Carbon Dioxide Anion Gap BUN Creatinine Estimated GFR POC Glucose 133 H Random Glucose Calcium Iron 14 L TIBC 246 L % Saturation 5.7 L Ferritin 242 Total Bilirubin AST ALT Alkaline Phosphatase Ammonia Troponin I B-Natriuretic Peptide Total Protein Albumin Tumor Marker AFP Carcinoembryonic Ag CA 19-9 Antigen Vitamin B12 1495 H Folate Greater than 20.0 H 01/07/18 01/07/18 01/07/18 06:39 06:39 08:20 WBC RBC Hgb Hct MCV MCH MCHC RDW Plt Count MPV Neut % (Auto) Lymph % (Auto) Ector % (Auto) Eos % (Auto) Baso % (Auto) Neut # (Auto) Lymph # (Auto) Ector # (Auto) Eos # (Auto) Baso # (Auto) WBC Differential Differential Comment PT INR APTT Sodium 133 L Potassium 4.1 Chloride 100 Carbon Dioxide 22.8 Anion Gap 10 BUN 17 Creatinine 0.95 Estimated GFR 79 L POC Glucose 144 H Random Glucose 121 H Calcium 8.6 Iron TIBC % Saturation Ferritin Total Bilirubin 0.6 AST 91 H ALT 45 Alkaline Phosphatase 172 H Ammonia Troponin I B-Natriuretic Peptide Total Protein 6.8 Albumin 2.6 L Tumor Marker AFP 1.0 Carcinoembryonic Ag 42.9 H CA 19-9 Antigen Less than 1.2 Vitamin B12 Folate - Imaging Impressions Abdomen/Pelvis CT 01/06/18 11:04 CONCLUSION: 1. Numerous hepatic lesions characteristic of metastatic disease. 2. Enlarged left adrenal gland characteristic of metastatic disease. 3. Upper retroperitoneal, rfaael hepatis and peripancreatic lymphadenopathy. 4. Splenomegaly. 5. Status post cholecystectomy. Chest CTA 01/06/18 11:04 CONCLUSION: 1. Nodular thickening of an azygos fissure which may be scarring however short- term follow-up may be indicated. 2. No evidence of acute airspace disease or pulmonary emboli. 3. Multiple low density lesions in the liver and enlarged left adrenal gland. <Kamille Brooks - Last Filed: 01/07/18 10:44> Assessment and Plan (1) Intractable lower abdominal pain Status: Acute Code(s): R10.30 - Lower abdominal pain, unspecified - Plan his patient is a 67-year-old male with past medical history significant for hepatitis C posttreatment, coronary artery disease status post CABG, diabetes and hypertension. Surgical history includes CABG and cholecystectomy. Patient presented to the emergency room at [facility] with complaint of abdominal pain. Patient states that he was sent to the hospital by his PCP due to a recent ultrasound that showed metastatic liver disease. Upon consultation, patient reports generalized abdominal pain mostly right upper quadrant times 1 week. Patient states pain has been severe over the last 2-3 nights. Patient describes pain as sharp and states it is constant in nature. Patient endorses very little appetite with nausea and denies vomiting. Patient endorses having a colonoscopy 5 years ago where polyps were found to be benign. Patient denies any history of ever having had EGD in the past. Patient denies any use of tobacco or alcohol products. Patient denies any known family history for any gastrointestinal diseases or disorders. Patient denies use of NSAIDs. Patient denies any noted bleeding. He states he has a normal soft brown bowel movement every day to every other day but has not had a bowel movement for 2-3 days prior to admission. Our service has been consulted to evaluate patient for abdominal pain and metastatic liver disease. Intractable abdominal pain Patient endorses 1 week history of generalized abdominal pain mostly on the right upper quadrant. Patient states pain severe over the last 2-3 nights prior to admission. 01/06/2018 CT abdomen and pelvis: 1. Numerous hepatic lesions characteristic of metastatic disease. 2. Enlarged left adrenal gland characteristic of metastatic disease. 3. Upper retroperitoneal, rafael hepatis and peripancreatic lymphadenopathy. 4. Splenomegaly. 5. Status post cholecystectomy. WBC 9.7 hemoglobin 9.1 hematocrit 27.8 platelet count 319 INR 1.4 total bilirubin 0.8 AST 96 ALT 44 alk phos 162 ammonia less than 10 Plan -N.p.o. after midnight -Obtain consent for EGD and colonoscopy -EGD and colonoscopy scheduled for 01/07/2018 -GoLYTELY prep -Antiemetics and analgesics as per attending -Hold aspirin a.m. 01/07/2018 -Supportive care -Further recommendations to follow This patient has been seen by myself and Dr. Brooks and this note is written on his behalf - Attending Attestation Dr. Brooks <Elo Ramirez - Last Filed: 01/06/18 18:43> (1) Intractable lower abdominal pain Status: Acute Code(s): R10.30 - Lower abdominal pain, unspecified - Attending Attestation Seen and examined, plan as above, will proceed with Panendoscopy to role out primary lesion. Further recommendations to follow. Thank you for the consult. <Kamille Brooks - Last Filed: 01/07/18 10:44>
--- NOTE | 2018-01-06 19:22 | MB ---
cc: Jeffrey Nichols MD DATE: 01/06/2018 ATTENDING PHYSICIAN: Brett Guerra MD REASON FOR CONSULTATION: Oncology consult to render an opinion on a patient with liver masses. HISTORY OF PRESENT ILLNESS: The patient is a 67-year-old male with history of hepatitis C, treated Harvoni 4 years ago and reportedly in remission, presented to the hospital with complaint of increased abdominal pain. On further questioning he has intermittent right upper quadrant pain for several months. Over the last 4 weeks the abdominal pain has become more constant. It is a sharp pain. He also developed nausea and vomiting. He decreased oral intake because of abdominal bloating. He has lost about 10 pounds. He has increased weakness and fatigue. He is sleeping more. He stated he has less stool output and he attributes that to eating less. He denies any melena or hematochezia. He recently was found to have anemia and his primary physician gave him iron supplement. He stated that stool was a little dark after he took the iron supplement. He saw his primary doctor recently and a liver ultrasound was done, which reportedly showed multiple liver masses. His ex- came to check in on him and found that he was very sick and brought him to the emergency room. On presentation, a CT showed numerous hepatic lesion with abdominal adenopathy and left adrenal gland enlargement. The patient states that he has dyspnea on exertion. He denies significant cough. He denies any chest pain or palpitations. He has no headache or focal weakness. He denies any change in urinary habits. PAST MEDICAL HISTORY: 1. Hepatitis C, treated with Harvoni 4 years ago. 2. Coronary artery disease. 3. Diabetes mellitus. 4. Hypertension. 5. Carpal tunnel syndrome. 6. Anemia. PAST SURGICAL HISTORY: Coronary artery bypass graft surgery, cholecystectomy, colonoscopy about 4 years ago, reportedly benign polyps was noted, head and neck surgery. FAMILY HISTORY: Mother had lung cancer. He has a brother, but he has no contact with him. He has a son and daughter, all healthy. SOCIAL HISTORY: Smoked roughly for 20 years, but quit 30 years ago. He also quit drinking alcohol 30 years ago. ALLERGIES: NO KNOWN DRUG ALLERGIES. MEDICATIONS: 1. Aspirin. 2. Lipitor. 3. Tricor. 4. Ferrous sulfate. 5. Prinivil. 6. Glucophage. 7. Lopressor. 8. Desyrel. REVIEW OF SYSTEMS: CONSTITUTIONAL: As above. EYES: Negative. ENT: Negative. CARDIOVASCULAR: No chest pressure or palpitation. RESPIRATORY: As above. GASTROINTESTINAL: As above. GENITOURINARY: As above. MUSCULOSKELETAL: Negative. HEMATOLOGIC: As above. ENDOCRINE: Negative. DERMATOLOGY: Negative. PSYCHIATRIC: Negative. NEUROLOGIC: Negative. PHYSICAL EXAMINATION: VITAL SIGNS: Temperature 98, blood pressure 159/72, O2 saturation 99% on room air. GENERAL: He is alert, oriented x3, in no acute distress, looks pale. HEENT: Atraumatic, normocephalic. Pupils are equal, round, regular. Extraocular muscles intact. No scleral icterus. Oropharynx dry mucosa. No lesion, no thrush. No mucositis. NECK: No thyromegaly. No palpable mass. LYMPHATIC: No palpable cervical, clavicular, axillary, or inguinal lymph nodes. CARDIOVASCULAR: Regular S1, S2. No murmur. LUNGS: Clear to auscultation bilaterally. No wheeze or rhonchi. ABDOMEN: Soft, tender in the upper abdomen. No rebound or rigidity. Positive bowel sounds. EXTREMITIES: No cyanosis, clubbing, or edema. BACK: No vertebral tenderness. SKIN: No rash. NEUROLOGIC: Nonfocal. LABORATORY DATA: WBC 9.7, hemoglobin 9.1, platelet count 319. INR 1.4. Creatinine 1.02. ASSESSMENT: 1. Multiple liver masses worrisome for metastatic disease. He has had right upper quadrant pain intermittently for several months. Over the last 4 weeks the pain become more constant. He also has nausea and vomiting. He lost about 10 pounds. He had anemia with microcytosis worrisome for iron deficiency anemia. He, however, denies any gross gastrointestinal bleed. His colonoscopy 4 years ago did not show any masses, but reportedly had polyps. CT of the chest did not show any metastatic disease. A CT of the abdomen and pelvis showed numerous hepatic lesions, largest measured 7 cm. There were also multiple retroperitoneal enlarged lymph nodes. There was an enlarged left adrenal gland lesion measured 4.1 cm, which could also be metastatic disease. I suspect he possibly has a primary GI tumor. I am going to check his tumor marker. We will consult radiology to biopsy the liver. He may need an EGD and colonoscopy, depending on the biopsy results. 2. Left adrenal gland lesion measured 4.1 cm. This could be metastatic disease and less likely to be a primary tumor. 3. Anemia with microcytosis suggestive of iron deficiency anemia. Iron study is pending at this point. The patient denies any gross gastrointestinal bleed. He was taking iron supplement and the stool was a little darker. 4. History of hepatitis C, treated with Harvoni 4 years ago, reportedly went into remission. His liver enzymes are still slightly elevated, but that could be due to the metastatic liver disease. 5. Coronary artery disease. 6. Diabetes mellitus. 7. Hypertension. RECOMMENDATIONS: 1. Check tumor markers. 2. Consult radiology for biopsy of the liver mass. 3. He may need a GI evaluation for EGD and colonoscopy. 4. Iron study and anemia workup is pending. 5. Extensive discussion with the patient and he agrees to proceed with the plan. Thank you, Dr. Guerra, for asking me to see this patient. MD ARGELIA Cross/ , 06:20 PM , 06:36 PM LINDY
[2018-01-06] MEDS ORDERED: Magnesium Citrate Liq 300 ML Bottle PO ONE (22:10)
[2018-01-06] MEDS: Metoprolol Tartrate 50 MG Tablet PO SCH (22:19)
[2018-01-06] MEDS: Morphine Sulfate 15 MG IR Tablet PO PRN (22:20)
[2018-01-07] MEDS ORDERED: Chlorhexidine Gluconate 2% 1 Pack (2 Cloths) TOPICAL ONE (04:14)
[2018-01-07] MEDS ORDERED: Sodium Chlor 0.9% Inj 500 ML IV.SIG SCH (05:00)
[2018-01-07] MEDS: Morphine Sulfate 15 MG IR Tablet PO PRN ×3 (05:37→20:45)
[2018-01-07 07:32] LABS: Baso % (Auto) 0.3 % (0.0-2.0); Eos # (Auto) 0.1 th/mm3 (0.0-0.4); Eos % (Auto) 1.2 % (0.0-4.0); Hematocrit 26.7 % (39.0-51.0); Hemoglobin 8.7 gm/dL (13.0-17.0); Lymph # (Auto) 0.7 th/mm3 (1.0-4.8); Lymph % (Auto) 9.5 % (9.0-44.0); Mean Corpuscular HGB Conc 32.6 % (32.0-36.0); Mean Corpuscular Hemoglobin 23.2 pg (27.0-34.0); Mean Corpuscular Volume 71.1 fL (80.0-100.0); Mean Platelet Volume 7.8 fL (7.0-11.0); Mono # (Auto) 0.7 th/mm3 (0.0-0.9); Neut # (Auto) 6.1 th/mm3 (1.8-7.7); Platelet Count 324 th/mm3 (150-450); Red Blood Count 3.75 mil/mm3 (4.50-5.90); White Blood Count 7.6 th/mm3 (4.0-11.0)
[2018-01-07 08:05] LABS: Albumin 2.6 g/dL (3.4-5.0); Anion Gap 10 meq/L (5-15); Aspartate Aminotransferase 91 U/L (15-37); Blood Urea Nitrogen 17 mg/dL (7-18); Calcium 8.6 mg/dL (8.5-10.1); Carbon Dioxide 22.8 meq/L (21.0-32.0); Chloride 100 meq/L (98-107); Glomerular Filtration Rate 79 mL/min (>89); Glucose,Random 121 mg/dL (74-106); Potassium 4.1 meq/L (3.5-5.1); Sodium 133 meq/L (136-145)
[2018-01-07 08:06] LABS: Alanine Aminotransferase 45 U/L (12-78)
[2018-01-07 08:10] LABS: Alkaline Phosphatase 172 U/L (45-117); Carcinoembryonic Antigen 42.9 ng/mL (0.2-5.0); Total Protein 6.8 g/dL (6.4-8.2)
[2018-01-07] MEDS: Metoprolol Tartrate 50 MG Tablet PO SCH ×2 (08:22→20:47)
[2018-01-07] MEDS: Lisinopril 10 MG Tablet PO SCH (08:22)
[2018-01-07] MEDS ORDERED: fentaNYL Citrate Inj 250 MCG/5 ML Ampul ONE (09:00)
[2018-01-07] MEDS: traZODone 50 MG Tablet PO SCH (09:29)
[2018-01-07] MEDS: Ferrous Sulfate 325 MG Tablet PO SCH (09:29)
[2018-01-07] MEDS: Fenofibrate 145 MG Tablet PO SCH (09:30)
--- NOTE | 2018-01-07 10:39 | GIPROC ---
[facility] [address] [facility]. [facility], [address] EGD PROCEDURE REPORT EXAM DATE: 01/07/2018 PATIENT NAME: Cr Greene MR #: [id number] BIRTHDATE: 1950 ATTENDING: Kamille Brooks MD ORDER #: [id number] LIME KILN OPERATOR: Iesha Gregorio and Karen Gerber STATUS: inpatient INDICATIONS: The patient is a 67 yr old male here for an EGD due to abdominal pain in the right upper quadrant PROCEDURE PERFORMED: EGD w/ biopsy MEDICATIONS: Per Anesthesia and None. TOPICAL ANESTHETIC: CONSENT: The patient understands the risks and benefits of the procedure and understands that these risks include, but are not limited to: sedation, allergic reaction, infection, perforation and/or bleeding. Alternative means of evaluation and treatment include, among others: physical exam, x-rays, and/or surgical intervention. The patient elects to proceed with this endoscopic procedure. medical equipment was checked for proper function. Hand hygiene and appropriate measures for infection prevention was taken. After the risks, benefits and alternatives of the procedure were thoroughly explained, Informed consent was verified, confirmed and timeout was successfully executed by the treatment team. The patient was anesthetized with topical anesthesia and the EC-3490Li (Pedi C) endoscope was introduced through the mouth and advanced to the third portion of the duodenum. Retroflexion was performed and was normal The gastroscope was then slowly withdrawn and removed. ESOPHAGUS: The esophagus was otherwise normal. STOMACH: There was mild gastritis in the gastric antrum. Multiple biopsies were performed using cold forceps. Sample sent for histology. DUODENUM: The duodenal mucosa appeared normal. ADVERSE EVENTS: There were no complications. IMPRESSIONS: 1. The esophagus was otherwise normal 2. There was mild gastritis in the gastric antrum; multiple biopsies were performed 3. Normal duodenal mucosa 4. Retroflexion was performed and was normal RECOMMENDATIONS: 1. Continue PPI 2. Await biopsy results. Biopsy results will not be ready for 7-10 days. If you don't hear from us in two weeks, call our office for biopsy results. PATIENT CONDITION: stable DISPOSITION: Observation REPEAT EXAM: NONE Kamille Brooks MD eSigned: Kamille Brooks MD 01/07/2018 10:38 AM cc: PATIENT NAME: Cr Greene Sofy MR#: [id number]
--- NOTE | 2018-01-07 10:42 | GIPROC ---
[facility] [address] [facility]. [facility], [address] COLONOSCOPY PROCEDURE REPORT EXAM DATE: 01/07/2018 PATIENT NAME: Cr Greene MR #: [id number] BIRTHDATE: 1950 ENDOSCOPIST: Kamille Brooks MD ORDER #: [id number] ORDER FILLER: Iesha Gregorio and Karen Gerber STATUS: inpatient INDICATIONS: The patient is a 67 yr old male here for a colonoscopy due to abdominal pain in the right quadrant and an abnormal CT PROCEDURE PERFORMED: Colonoscopy with biopsy MEDICATIONS: Per Anesthesia and None. PREP QUALITY: fair PREP TYPE:Magnesium Citrate ESTIMATED BLOOD LOSS: None CONSENT: The patient understands the risks and benefits of the procedure and understands that these risks include, but are not limited to: sedation, allergic reaction, infection, perforation and/or bleeding. Alternative means of evaluation and treatment include, among others: physical exam, x-rays, and/or surgical intervention. The patient elects to proceed with this endoscopic procedure. medical equipment was checked for proper function. Hand hygiene and appropriate measures for infection prevention was taken. After the risks, benefits and alternatives of the procedure were thoroughly explained, Informed consent was verified, confirmed and timeout was successfully executed by the treatment team. A digital exam revealed no abnormalities of the rectum The Pentax EC-3490Li endoscope was introduced through the anus and advanced to the cecum, which was identified by both the appendix and ileocecal valve. The instrument was then slowly withdrawn as the colon was fully examined. COLON FINDINGS: A near circumferential ulcerated, firm and fungating mass was found at the hepatic flexure. Multiple biopsies were performed using cold forceps. Small internal hemorrhoids were found. Retroflexed views revealed no abnormalities The scope was then completely withdrawn from the patient and the procedure terminated. PROCEDURE WITHDRAWAL TIME:8minutes ADVERSE EVENTS: There were no complications. IMPRESSIONS: 1. Near circumferential mass was found at the hepatic flexure; multiple biopsies were performed using cold forceps 2. Small internal hemorrhoids RECOMMENDATIONS: Await biopsy results. Biopsy results will not be ready for 7-10 days. If you don't hear from us in two weeks, call our office for results. RECALL: Colonoscopy, pending biopsy results Kamille Brooks MD eSigned: Kamille Brooks MD 01/07/2018 10:41 AM cc:
--- NOTE | 2018-01-07 12:14 | ECG ---
Date Performed: 01/06/2018 Time Performed: 12:54:19 PTAGE: 67 years EKG: Sinus rhythm NORMAL ECG NO PREVIOUS TRACING DOCTOR: Larry Morse Interpretating Date/Time 01/07/2018 12:12:15
--- NOTE | 2018-01-07 15:01 | P.DIET ---
Nutritional Evaluation Type of nutrition evaluation: initial Nutrition screening: Weight Loss > 10 lbs Subjective Subjective Comments: Reports poor appetite and weight loss. Prefers Gluten free, no hx of Celiac. Objective - Diagnosis Intractable Abdominal Pain, Hyponatremia - Objective Body Mass Index: 27.6 % IBW: 120 (IBW = 142#) Body Weight Used for Calculations: Actual (77.6 kg) Energy Needs - Lower Range (kCal/kg): 28 Energy Needs - Upper Range (kCal/kg): 32 Lower Limit kCal/kg (kCals): 2,173 Upper Limit kCal/kg (kCals): 2,483 Lower Limit Protein Factor (Grams per Kg): 1.0 Upper Limit Protein Factor (Grams per Kg): 1.5 Lower Protein Needs (Protein): 78 Upper Protein Needs (Protein): 116 Fluid Factor (ml/kg): 32 Estimated Fluid Needs (ml): 2,483 Dietitian Reviewed in Medical Record: Current diet, Curent medications, Intake & Output, Labs, Medical history Diet Order: Regular Objective Comments: Hx includes Hep C s/p treatment, CAD s/p CABG, DM, HTN Assessment Assessment: Pt is at high nutrition risk 2' to met liver dz, weight loss and reported poor po intake. Pt had EGD/Colonoscopy today and diet will be regular at dinner time. Hx of DM noted, if CHO-controlled diet is needed, recommend [address]. Pt prefers gluten free and is able to communicate preferences to Dietary when ordering. RD will monitor po intake and assess for the need of supplements. Recommendations: [address] following Dietitian to Monitor: Lab values, Intake & Output, Diet tolerance, Weight change , PO Intake, Medical course
--- NOTE | 2018-01-07 15:37 | P.PNONC ---
Subjective Interval history: Late entry. I saw the patient in the morning. He still has abdominal pain but better control. He denies any chest pain or palpitation. He has no shortness of breath or cough. He is awaiting EGD and colonoscopy. Objective Vital Signs/Intake & Output: Vital Signs 01/06/18 16:28 01/06/18 17:09 01/06/18 18:41 Temperature 98.0 F Pulse Rate 90 88 Respiratory Rate 18 20 17 Blood Pressure 156/68 H 159/72 H Pulse Oximetry 99 01/06/18 19:17 01/06/18 20:00 01/07/18 00:00 Temperature 97.7 F 98.7 F Pulse Rate 96 H 89 Respiratory Rate 17 20 20 Blood Pressure 148/64 H 136/75 Pulse Oximetry 97 98 01/07/18 01:06 01/07/18 04:00 01/07/18 07:46 Temperature 98.3 F 98.4 F Pulse Rate 78 82 Respiratory Rate 16 20 20 Blood Pressure 149/65 H 120/57 L Pulse Oximetry 97 90 L 01/07/18 10:45 01/07/18 12:00 Temperature 97.9 F 97.8 F Pulse Rate 77 84 Respiratory Rate 16 20 Blood Pressure 151/71 H 118/58 L Pulse Oximetry 94 L 100 Intake & Output 01/06/18 01/07/18 01/07/18 18:59 06:59 18:59 Intake Total 1600 / 1600 600 / 600 Balance 1600 / 1600 600 / 600 Weight 77.3 kg 77.6 kg Intake: IV 1000 / 1000 NS Inj 1,000 ML @ Wide Open IV. 1000 / 1000 SIG BOLUS ONE Rx#:[id number] Oral 600 / 600 Anesthesia Amount 600 / 600 Other: # Voids 5 Date of Last Bowel Movement 01/04/18 01/06/18 # Bowel Movements 2 Weight On Admission 77.3 kg Result Diagrams: 01/07/18 06:39 01/07/18 06:39 Laboratory Results: Laboratory Results - last 24 hr 01/06/18 01/06/18 01/06/18 16:00 16:00 22:43 WBC RBC Hgb Hct MCV MCH MCHC RDW Plt Count MPV Neut % (Auto) Lymph % (Auto) [place] % (Auto) Eos % (Auto) Baso % (Auto) Neut # (Auto) Lymph # (Auto) [place] # (Auto) Eos # (Auto) Baso # (Auto) WBC Differential Differential Comment Sodium Potassium Chloride Carbon Dioxide Anion Gap BUN Creatinine Estimated GFR POC Glucose 133 H Random Glucose Calcium Iron 14 L TIBC 246 L % Saturation 5.7 L Ferritin 242 Total Bilirubin AST ALT Alkaline Phosphatase Ammonia 10 L Total Protein Albumin Tumor Marker AFP Carcinoembryonic Ag CA 19-9 Antigen Vitamin B12 1495 H Folate Greater than 20.0 H 01/07/18 01/07/18 01/07/18 06:39 06:39 06:39 WBC 7.6 RBC 3.75 L Hgb 8.7 L Hct 26.7 L MCV 71.1 L MCH 23.2 L MCHC 32.6 RDW 15.0 Plt Count 324 MPV 7.8 Neut % (Auto) 80.0 H Lymph % (Auto) 9.5 [place] % (Auto) 9.0 H Eos % (Auto) 1.2 Baso % (Auto) 0.3 Neut # (Auto) 6.1 Lymph # (Auto) 0.[address] [place] # (Auto) 0.7 Eos # (Auto) 0.1 Baso # (Auto) 0.0 WBC Differential . Differential Comment Auto diff final Sodium 133 L Potassium 4.1 Chloride 100 Carbon Dioxide 22.8 Anion Gap 10 BUN 17 Creatinine 0.95 Estimated GFR 79 L POC Glucose Random Glucose 121 H Calcium 8.6 Iron TIBC % Saturation Ferritin Total Bilirubin 0.6 AST 91 H ALT 45 Alkaline Phosphatase 172 H Ammonia Total Protein 6.8 Albumin 2.6 L Tumor Marker AFP 1.0 Carcinoembryonic Ag 42.9 H CA 19-9 Antigen Less than 1.2 Vitamin B12 Folate 01/07/18 01/07/18 08:20 11:35 WBC RBC Hgb Hct MCV MCH MCHC RDW Plt Count MPV Neut % (Auto) Lymph % (Auto) [place] % (Auto) Eos % (Auto) Baso % (Auto) Neut # (Auto) Lymph # (Auto) [place] # (Auto) Eos # (Auto) Baso # (Auto) WBC Differential Differential Comment Sodium Potassium Chloride Carbon Dioxide Anion Gap BUN Creatinine Estimated GFR POC Glucose 144 H 153 H Random Glucose Calcium Iron TIBC % Saturation Ferritin Total Bilirubin AST ALT Alkaline Phosphatase Ammonia Total Protein Albumin Tumor Marker AFP Carcinoembryonic Ag CA 19-9 Antigen Vitamin B12 Folate Medications: Active Medications Generic Name Dose Route Start Last Admin Trade Name Freq PRN Reason Stop Dose Admin Atorvastatin Calcium 80 mg 01/07/18 09:00 01/07/18 09:30 Lipitor PO Not Given DAILY [facility] Cetirizine HCl 10 mg 01/07/18 09:00 01/07/18 09:30 Zyrtec PO Not Given DAILY [facility] Fenofibrate 145 mg 01/07/18 09:00 01/07/18 09:30 Tricor PO Not Given DAILY [facility] Ferrous Sulfate 325 mg 01/07/18 09:00 01/07/18 09:29 Ferosul PO Not Given DAILY [facility] Lactated Ringer's 1,000 mls @ 30 mls/hr 01/07/18 04:15 01/07/18 09:50 Lr 1000 Ml Inj IV.SIG 01/08/18 04:14 30 mls/hr .Q24H [place] Administration Lisinopril 10 mg 01/07/18 09:00 01/07/18 08:22 Prinivil PO 10 mg DAILY [facility] Administration Metformin HCl 500 mg 01/06/18 21:00 01/07/18 09:30 [facility] Tartrate 50 mg 01/06/18 21:00 01/07/18 08:22 Lopressor PO 50 mg BID [facility] Administration Morphine Sulfate 15 mg 01/06/18 16:25 01/07/18 14:57 Msir PO 15 mg Q6H PRN Administration PAIN SCALE 6 TO 10 Morphine Sulfate 2 mg 01/06/18 16:25 01/06/18 18:38 Morphine Inj IV.PUSH 2 mg Q4H PRN Administration BREAKTHROUGH PAIN Ondansetron HCl 4 mg 01/06/18 15:47 01/06/18 22:33 Zofran Inj IV.PUSH 4 mg Q6H PRN Administration NAUSEA OR VOMITING Trazodone HCl 150 mg 01/07/18 09:00 01/07/18 09:29 Desyrel PO Not Given DAILY [facility] Objective Remarks: GENERAL: Well-nourished, well-developed patient. SKIN: Warm and dry. HEAD: Normocephalic. EYES: No scleral icterus. No injection or drainage. NECK: Supple, trachea midline. No JVD or lymphadenopathy. LYMPHATIC: No adenopathy. CARDIOVASCULAR: Regular rate and rhythm without murmurs. RESPIRATORY: Breath sounds equal bilaterally. No accessory muscle use. GASTROINTESTINAL: Abdomen is tender in the upper abdomen more so on the right side. No rebound rigidity. EXTREMITIES: No cyanosis, or edema. MUSCULOSKELETAL: Adequate muscle tone. NEUROLOGICAL: No obvious focal deficit. Awake, alert, and oriented x3. PSYCHIATRIC: Appropriate mood and affect; insight and judgment normal. Assessment/Plan - Plan 1. Multiple liver masses worrisome for metastatic disease. He has had right upper quadrant pain intermittently for several months. Over the last 4 weeks the pain become more constant. He also has nausea and vomiting. He lost about 10 pounds. He had anemia with microcytosis worrisome for iron deficiency anemia. He, however, denies any gross gastrointestinal bleed. His colonoscopy 4 years ago did not show any masses, but reportedly had polyps. CT of the chest did not show any metastatic disease. A CT of the abdomen and pelvis showed numerous hepatic lesions, largest measured 7 cm. There were also multiple retroperitoneal enlarged lymph nodes. There was an enlarged left adrenal gland lesion measured 4.1 cm, which could also be metastatic disease. I suspect he possibly has a primary GI tumor. January 07: CEA elevated at 42.9 with normal alpha-fetoprotein and CA 19 9. This is suggestive of primary GI tumor. He is going to have EGD and colonoscopy today. 2. Left adrenal gland lesion measured 4.1 cm. This could be metastatic disease and less likely to be a primary tumor. 3. Anemia with microcytosis suggestive of iron deficiency anemia. The patient denies any gross gastrointestinal bleed. He was taking iron supplement and the stool was a little darker. 4. History of hepatitis C, treated with Harvoni 4 years ago, reportedly went into remission. His liver enzymes are still slightly elevated, but that could be due to the metastatic liver disease. RECOMMENDATIONS: 1. Reviewed tumor markers. 2. Await EGD and colonoscopy. 3. We will biopsy liver mass if EGD and colonoscopy are unremarkable.
--- NOTE | 2018-01-07 17:22 | P.PNIM ---
Subjective Interval history: Patient reports abdominal pain is improved overall. He has not eaten yet. No vomiting. Mild nausea but this is also improving. Physical Exam Vital signs: Vital Signs 01/06/18 18:41 01/06/18 19:17 01/06/18 20:00 Temperature 97.7 F Pulse Rate 96 H Respiratory Rate 17 17 20 Blood Pressure 148/64 H Pulse Oximetry 97 01/07/18 00:00 01/07/18 01:06 01/07/18 04:00 Temperature 98.7 F 98.3 F Pulse Rate 89 78 Respiratory Rate 20 16 20 Blood Pressure 136/75 149/65 H Pulse Oximetry 98 97 01/07/18 07:46 01/07/18 10:45 01/07/18 12:00 Temperature 98.4 F 97.9 F 97.8 F Pulse Rate 82 77 84 Respiratory Rate 20 16 20 Blood Pressure 120/57 L 151/71 H 118/58 L Pulse Oximetry 90 L 94 L 100 01/07/18 16:00 Temperature 98.9 F Pulse Rate 88 Respiratory Rate 20 Blood Pressure 144/65 H Pulse Oximetry 96 Intake & Output 01/06/18 01/07/18 01/07/18 18:59 06:59 18:59 Intake Total 1600 / 1600 600 / 600 Balance 1600 / 1600 600 / 600 Weight 77.3 kg 77.6 kg Intake: IV 1000 / 1000 NS Inj 1,000 ML @ Wide Open IV. 1000 / 1000 SIG BOLUS ONE Rx#:[id number] Oral 600 / 600 Anesthesia Amount 600 / 600 Other: # Voids 5 Date of Last Bowel Movement 01/04/18 01/06/18 # Bowel Movements 2 Weight On Admission 77.3 kg Narrative: CONSTITUTIONAL/GENERAL: This is an adequately nourished patient in no acute distress. Vital signs reviewed CARDIOVASCULAR: Normal rate and regular rhythm without significant murmurs. RESPIRATORY/CHEST: Diminished breath sounds at the bases otherwise clear to auscultation bilaterally GASTROINTESTINAL: Abdomen is distended. Mild, diffuse tenderness to palpation. No guarding or rebound tenderness. Bowel sounds present. MUSCULOSKELETAL: Extremities without clubbing, cyanosis, or edema. NEUROLOGICAL: Motor and sensory grossly within normal limits. Move all extremities spontaneously. No focal deficits. PSYCHIATRIC: No obvious mood problems. No apparent hallucinations or other psychotic thought process. Results - Labs CBC & Chem 7: 01/07/18 06:39 01/07/18 06:39 Laboratory Results - last 24 hr 01/06/18 01/06/18 01/07/18 16:00 22:43 06:39 WBC 7.6 RBC 3.75 L Hgb 8.7 L Hct 26.7 L MCV 71.1 L MCH 23.2 L MCHC 32.6 RDW 15.0 Plt Count 324 MPV 7.8 Neut % (Auto) 80.0 H Lymph % (Auto) 9.5 Divide % (Auto) 9.0 H Eos % (Auto) 1.2 Baso % (Auto) 0.3 Neut # (Auto) 6.1 Lymph # (Auto) 0.7 L Divide # (Auto) 0.7 Eos # (Auto) 0.1 Baso # (Auto) 0.0 WBC Differential . Differential Comment Auto diff final Sodium Potassium Chloride Carbon Dioxide Anion Gap BUN Creatinine Estimated GFR POC Glucose 133 H Random Glucose Calcium Iron 14 L TIBC 246 L % Saturation 5.7 L Ferritin 242 Total Bilirubin AST ALT Alkaline Phosphatase Total Protein Albumin Tumor Marker AFP Carcinoembryonic Ag CA 19-9 Antigen Vitamin B12 1495 H Folate Greater than 20.0 H 01/07/18 01/07/18 01/07/18 06:39 06:39 08:20 WBC RBC Hgb Hct MCV MCH MCHC RDW Plt Count MPV Neut % (Auto) Lymph % (Auto) Divide % (Auto) Eos % (Auto) Baso % (Auto) Neut # (Auto) Lymph # (Auto) Divide # (Auto) Eos # (Auto) Baso # (Auto) WBC Differential Differential Comment Sodium 133 L Potassium 4.1 Chloride 100 Carbon Dioxide 22.8 Anion Gap 10 BUN 17 Creatinine 0.95 Estimated GFR 79 L POC Glucose 144 H Random Glucose 121 H Calcium 8.6 Iron TIBC % Saturation Ferritin Total Bilirubin 0.6 AST 91 H ALT 45 Alkaline Phosphatase 172 H Total Protein 6.8 Albumin 2.6 L Tumor Marker AFP 1.0 Carcinoembryonic Ag 42.9 H CA 19-9 Antigen Less than 1.2 Vitamin B12 Folate 01/07/18 01/07/18 11:35 16:26 WBC RBC Hgb Hct MCV MCH MCHC RDW Plt Count MPV Neut % (Auto) Lymph % (Auto) Divide % (Auto) Eos % (Auto) Baso % (Auto) Neut # (Auto) Lymph # (Auto) Divide # (Auto) Eos # (Auto) Baso # (Auto) WBC Differential Differential Comment Sodium Potassium Chloride Carbon Dioxide Anion Gap BUN Creatinine Estimated GFR POC Glucose 153 H 123 H Random Glucose Calcium Iron TIBC % Saturation Ferritin Total Bilirubin AST ALT Alkaline Phosphatase Total Protein Albumin Tumor Marker AFP Carcinoembryonic Ag CA 19-9 Antigen Vitamin B12 Folate Assessment and Plan - Plan 67-year-old male admitted with worsening abdominal pain, relatively new evidence of metastatic liver disease. Intractable abdominal pain/metastasis to the liver and adrenal gland: Primary is probably colon - Appreciate Oncology and GI input - S/P Colonoscopy and EGD, A near circumferential ulcerated, firm and fungating mass was found at the hepatic flexure. Multiple biopsies were performed using cold forceps. - Pain better control with Morphine as needed. - Awaiting pathology. -Advance diet as tolerated. Hyponatremia: Likely hypovolemic hyponatremia. - Improved with IVF Type 2 diabetes: - Hold oral hypoglycemic agents. - Sliding scale insulin with Accu-Cheks. Microcytic anemia: - Iron panel pending. Hemoccult stool in the ED negative. History of CAD/CABG: - Continue aspirin, statin, and beta-moshe. Hypertension: - Continue lisinopril, beta-moshe GI prophylaxis: Stool softener PRN constipation. DVT PPx: Lovenox
[2018-01-08] MEDS: Morphine Sulfate 15 MG IR Tablet PO PRN ×3 (07:50→20:52)
--- NOTE | 2018-01-08 08:01 | P.PNONC ---
Subjective Interval history: Patient still has abdominal pain mostly in the right upper quadrant. He had colonoscopy and EGD yesterday. He denies any chest pain or shortness of breath. Objective Vital Signs/Intake & Output: Vital Signs 01/07/18 10:45 01/07/18 12:00 01/07/18 16:00 Temperature 97.9 F 97.8 F 98.9 F Pulse Rate 77 84 88 Respiratory Rate 16 20 20 Blood Pressure 151/71 H 118/58 L 144/65 H Pulse Oximetry 94 L 100 96 01/07/18 20:00 01/08/18 00:00 01/08/18 04:00 Temperature 98.8 F 98.6 F 98.1 F Pulse Rate 91 H 90 83 Respiratory Rate 18 18 18 Blood Pressure 134/65 136/68 136/59 L Pulse Oximetry 97 99 95 Intake & Output 01/07/18 01/08/18 01/08/18 18:59 06:59 18:59 Intake Total 600 / 600 Balance 600 / 600 Weight 78.8 kg Intake: Anesthesia Amount 600 / 600 Other: # Voids 3 2 # Urine Diapers 0 Date of Last Bowel Movement 01/07/18 Result Diagrams: 01/07/18 06:39 01/07/18 06:39 Laboratory Results: Laboratory Results - last 24 hr 01/07/18 01/07/18 01/07/18 06:39 06:39 08:20 Sodium 133 L Potassium 4.1 Chloride 100 Carbon Dioxide 22.8 Anion Gap 10 BUN 17 Creatinine 0.95 Estimated GFR 79 L POC Glucose 144 H Random Glucose 121 H Calcium 8.6 Total Bilirubin 0.6 AST 91 H ALT 45 Alkaline Phosphatase 172 H Total Protein 6.8 Albumin 2.6 L Tumor Marker AFP 1.0 Carcinoembryonic Ag 42.9 H CA 19-9 Antigen Less than 1.2 01/07/18 01/07/18 01/07/18 11:35 16:26 20:50 Sodium Potassium Chloride Carbon Dioxide Anion Gap BUN Creatinine Estimated GFR POC Glucose 153 H 123 H 163 H Random Glucose Calcium Total Bilirubin AST ALT Alkaline Phosphatase Total Protein Albumin Tumor Marker AFP Carcinoembryonic Ag CA 19-9 Antigen Medications: Active Medications Generic Name Dose Route Start Last Admin Trade Name Freq PRN Reason Stop Dose Admin Atorvastatin Calcium 80 mg 01/07/18 09:00 01/07/18 09:30 Lipitor PO Not Given DAILY [facility] Cetirizine HCl 10 mg 01/07/18 09:00 01/07/18 09:30 Zyrtec PO Not Given DAILY [facility] Fenofibrate 145 mg 01/07/18 09:00 01/07/18 09:30 Tricor PO Not Given DAILY [facility] Ferrous Sulfate 325 mg 01/07/18 09:00 01/07/18 09:29 Ferosul PO Not Given DAILY [facility] Sodium Chloride 500 mls @ 30 mls/hr 01/07/18 05:00 01/07/18 19:30 Ns Inj IV.SIG Not Given .Q10H [facility] Lisinopril 10 mg 01/07/18 09:00 01/07/18 08:22 Prinivil PO 10 mg DAILY [facility] Administration Metformin HCl 500 mg 01/06/18 21:00 01/07/18 17:39 Glucophage PO 500 mg BIDPC [facility] Administration Metoprolol Tartrate 50 mg 01/06/18 21:00 01/07/18 20:47 Lopressor PO 50 mg BID [facility] Administration Morphine Sulfate 15 mg 01/06/18 16:25 01/08/18 07:50 Msir PO 15 mg Q6H PRN Administration PAIN SCALE 6 TO 10 Morphine Sulfate 2 mg 01/06/18 16:25 01/06/18 18:38 Morphine Inj IV.PUSH 2 mg Q4H PRN Administration BREAKTHROUGH PAIN Ondansetron HCl 4 mg 01/06/18 15:47 01/06/18 22:33 Zofran Inj IV.PUSH 4 mg Q6H PRN Administration NAUSEA OR VOMITING Trazodone HCl 150 mg 01/07/18 09:00 01/07/18 09:29 Desyrel PO Not Given DAILY [facility] Objective Remarks: GENERAL: Well-nourished, well-developed patient. SKIN: Warm and dry. HEAD: Normocephalic. EYES: No scleral icterus. No injection or drainage. NECK: Supple, trachea midline. No JVD or lymphadenopathy. LYMPHATIC: No adenopathy. CARDIOVASCULAR: Regular rate and rhythm without murmurs. RESPIRATORY: Breath sounds equal bilaterally. No accessory muscle use. GASTROINTESTINAL: Abdomen soft, tender in the upper abdomen more so in the right upper quadrant. It is slightly distended. EXTREMITIES: No cyanosis, or edema. MUSCULOSKELETAL: Adequate muscle tone. NEUROLOGICAL: No obvious focal deficit. Awake, alert, and oriented x3. PSYCHIATRIC: Appropriate mood and affect; insight and judgment normal. Assessment/Plan - Plan 1. Multiple liver masses worrisome for metastatic disease. He has had right upper quadrant pain intermittently for several months. Over the last 4 weeks the pain become more constant. He also has nausea and vomiting. He lost about 10 pounds. He had anemia with microcytosis worrisome for iron deficiency anemia. He, however, denies any gross gastrointestinal bleed. His colonoscopy 4 years ago did not show any masses, but reportedly had polyps. CT of the chest did not show any metastatic disease. A CT of the abdomen and pelvis showed numerous hepatic lesions, largest measured 7 cm. There were also multiple retroperitoneal enlarged lymph nodes. There was an enlarged left adrenal gland lesion measured 4.1 cm, which could also be metastatic disease. I suspect he possibly has a primary GI tumor. January 07: CEA elevated at 42.9 with normal alpha-fetoprotein and CA 19 9. This is suggestive of primary GI tumor. He is going to have EGD and colonoscopy today. January 08:. Colonoscopy yesterday showed near circumferential mass at the hepatic flexure Worrisome for colon cancer. Biopsy was done and pathology is pending at this time. It appears that patient has primary colon cancer with metastasis to liver. EGD did not show any obvious mass. 2. Left adrenal gland lesion measured 4.1 cm. This could be metastatic disease and less likely to be a primary tumor. 3. Anemia with microcytosis suggestive of iron deficiency anemia. The patient denies any gross gastrointestinal bleed. He was taking iron supplement and the stool was a little darker. 4. History of hepatitis C, treated with Harvoni 4 years ago, reportedly went into remission. His liver enzymes are still slightly elevated, but that could be due to the metastatic liver disease. RECOMMENDATIONS: 1. Reviewed tumor markers. 2. Review EGD and colonoscopy result with patient. Pathology is pending. 3. We will biopsy liver mass if pathology from colon biopsy is inconclusive.
[2018-01-08] MEDS: Metoprolol Tartrate 50 MG Tablet PO SCH ×2 (09:35→20:47)
[2018-01-08] MEDS: Lisinopril 10 MG Tablet PO SCH (09:35)
[2018-01-08] MEDS: traZODone 50 MG Tablet PO SCH (09:35)
[2018-01-08] MEDS: Fenofibrate 145 MG Tablet PO SCH (09:35)
[2018-01-08] MEDS: Ferrous Sulfate 325 MG Tablet PO SCH (09:35)
--- NOTE | 2018-01-08 12:57 | P.PNIM ---
Subjective Interval history: Pt found sitting in chair in room, dressed in shirt/pajamas, NAD. Pt reports that he is feeling a little better physically and has good appetite, but describes his mood as "down" about his current health situation. Continues to endorse abdominal pain, distention, early satiety with nausea, sob and had an incontinence episode of diarrhea in bed last night. Endorses intermittent mild itching in upper extremity. Denies BURGER, fever, sore throat, chest pain, vomiting , constipation, melena/hematochezia, tenesmus, edema, delirium sx, SI/HI. Nurse Lanie reports pt seems depressed and worried, but seems to have slept well and has good appetite. She also reports that she believes there is an incorrect order in chart to give Trazodone q AM. Will report to attending Dr. Guerra her concern. Patient seen and examined. Medical student notes reviewed. Awaiting pathology, if he can tolerate PO, may consider DC home for further workup outpatient. Physical Exam Vital signs: Vital Signs 01/07/18 16:00 01/07/18 20:00 01/08/18 00:00 Temperature 98.9 F 98.8 F 98.6 F Pulse Rate 88 91 H 90 Respiratory Rate 20 18 18 Blood Pressure 144/65 H 134/65 136/68 Pulse Oximetry 96 97 99 01/08/18 04:00 01/08/18 08:00 01/08/18 12:00 Temperature 98.1 F 97.0 F L 97.5 F L Pulse Rate 83 84 85 Respiratory Rate 18 18 20 Blood Pressure 136/59 L 148/67 H 119/58 L Pulse Oximetry 95 97 96 Intake & Output 01/07/18 01/08/18 01/08/18 18:59 06:59 18:59 Intake Total 600 / 600 Balance 600 / 600 Weight 78.8 kg Intake: Anesthesia Amount 600 / 600 Other: # Voids 3 2 # Urine Diapers 0 Date of Last Bowel Movement 01/07/18 01/07/18 Narrative: Gen: pt sitting upright in chair in room, dressed in shirt/pajama pants, NAD, alert, oriented x4, cooperative HEENT: Normocephalic, Atraumatic, No conjunctival pallor, Nonicteric Sclera, No Cervical or Supraclavicular LAD Cardio: RRR, Normal S1/S2, No murmurs/rubs/gallops, Post Tibial and Dorsalis Pedis Intact +2 bilaterally, Extremities warm to touch, No edema Lungs: Clear posteriorly/anteriorly bilaterally, No rales/rhonchi/crackles/ wheezes noted GI: +BS all 4 quadrants, Distended, Tender to palpation throughout but worse over LUQ and LLQ, Negative Fluid Wave or Shifting Dullness Skin: Slight Jaundice, No rash noted, Reports Mild Itching in UE Psych: Mood ("Down"), Mood Congruent/Appropriate Affect, Good Insight/Judgment/ Reliability, Denies Anxiety, Denies a/v/t hallucinations, SI/HI Results - Labs CBC & Chem 7: 01/07/18 06:39 01/07/18 06:39 Laboratory Results - last 24 hr 01/07/18 01/07/18 01/08/18 16:26 20:50 07:49 POC Glucose 123 H 163 H 32 L* 01/08/18 07:53 POC Glucose 119 H Assessment and Plan - Plan 67 Y/O male admitted with worsening abdominal pain and evidence of metastatic disease to the liver and adrenal gland. Colonoscopy revealed a fungating colon mass, likely primary. 1) Metastasis to the liver and adrenal gland - primary is likely colon cancer * s/p Colonoscopy and EGD, A near circumferential ulcerated, firm and fungating mass was found at the hepatic flexure. Multiple biopsies were performed using cold forceps. Awaiting pathology. Appreciate Oncology input. If colon biopsy inconclusive, will need liver biopsy. May consider DC home for further workup outpatient if he can tolerate PO. 2) Intractable abdominal pain - likely due to hepatosplenomegaly and metastatic disease * Pain is slightly improved per pt, control with Morphine as needed. Change to q4hrs as needed. * Continue diet as tolerated 3) Hyponatremia - Likely hypovolemic hyponatremia. * Improved with IVF 4) Type 2 diabetes * Hold oral hypoglycemic agents. * Continue Sliding scale insulin with Accu-Cheks as ordered 5) Iron Deficiency Anemia * Serum Iron 14 (L), TIBC 246 (L), %Sat 5.7%(L), Ferritin 242 (N) * Continue Iron Supplement as directed * Follow CBC 6) History of CAD/CABG * Continue aspirin, statin, and beta-moshe 7) Hypertension * Continue lisinopril, beta-moshe * Monitor BP and HR 8) Hx of Hepatitis C * Treated w/ Shelly 4yrs ago, reportedly in remission * LFTs slightly elevated which may be secondary to liver metastasis and/or statins/fibrate therapy 9) GI prophylaxis * Stool softener PRN constipation. 10) Elevated Prothrombin Time/INR secondary to liver issues above. * Monitor for bleeds, melena/hematochezia, hematemesis The exam, history, and the medical decision-making described in the above note were completed with the assistance of the the medical student Mariangel Escamilla. I reviewed and agree with the findings presented. I attest that I had a face-to- face encounter with the patient on the same day, and personally performed and documented my assessment and findings in the medical record above.
[2018-01-09] MEDS: Morphine Sulfate 15 MG IR Tablet PO PRN ×5 (04:40→23:46)
--- NOTE | 2018-01-09 09:33 | P.PNONC ---
Subjective Interval history: Patient is complaining about his diet. He still has abdominal bloating and tenderness but controlled. He denies any nausea vomiting. He has no chest pain or shortness of breath. Objective Vital Signs/Intake & Output: Vital Signs 01/08/18 12:00 01/08/18 16:00 01/08/18 20:00 Temperature 97.5 F L 97.8 F 98.7 F Pulse Rate 85 78 90 Respiratory Rate 20 16 20 Blood Pressure 119/58 L 124/60 140/64 Pulse Oximetry 96 98 97 01/09/18 00:00 01/09/18 04:00 Temperature 98.7 F 100.2 F H Pulse Rate 88 84 Respiratory Rate 20 20 Blood Pressure 131/60 136/61 Pulse Oximetry 96 95 Intake & Output 01/08/18 01/09/18 01/09/18 18:59 06:59 18:59 Intake Total 100 / 100 Balance 100 / 100 Weight 78 kg Intake: Oral 100 / 100 Other: # Voids 2 Date of Last Bowel Movement 01/07/18 Result Diagrams: 01/07/18 06:39 01/07/18 06:39 Laboratory Results: Laboratory Results - last 24 hr 01/08/18 01/08/18 01/09/18 12:53 17:18 04:41 POC Glucose 141 H 147 H 157 H 01/09/18 08:19 POC Glucose 153 H Medications: Active Medications Generic Name Dose Route Start Last Admin Trade Name Freq PRN Reason Stop Dose Admin Aspirin 81 mg 01/07/18 09:00 01/08/18 09:35 Ecotrin PO 81 mg DAILY [facility] Administration Atorvastatin Calcium 80 mg 01/07/18 09:00 01/08/18 09:35 Lipitor PO 80 mg DAILY [facility] Administration Cetirizine HCl 10 mg 01/07/18 09:00 01/08/18 09:35 Zyrtec PO 10 mg DAILY [facility] Administration Fenofibrate 145 mg 01/07/18 09:00 01/08/18 09:35 Tricor PO 145 mg DAILY [facility] Administration Ferrous Sulfate 325 mg 01/07/18 09:00 01/08/18 09:35 Ferosul PO 325 mg DAILY [facility] Administration Sodium Chloride 500 mls @ 30 mls/hr 01/07/18 05:00 01/07/18 19:30 Ns Inj IV.SIG Not Given .Q10H [facility] Lisinopril 10 mg 01/07/18 09:00 01/08/18 09:35 Prinivil PO 10 mg DAILY [facility] Administration Metformin HCl 500 mg 01/06/18 21:00 01/08/18 18:44 Glucophage PO 500 mg BIDPC [facility] Administration Metoprolol Tartrate 50 mg 01/06/18 21:00 01/08/18 20:47 Lopressor PO 50 mg BID [facility] Administration Morphine Sulfate 2 mg 01/06/18 16:25 01/06/18 18:38 Morphine Inj IV.PUSH 2 mg Q4H PRN Administration BREAKTHROUGH PAIN Morphine Sulfate 15 mg 01/08/18 20:44 01/09/18 04:40 Msir PO 15 mg Q4H PRN Administration PAIN SCALE 6 TO 10 Ondansetron HCl 4 mg 01/06/18 15:47 01/06/18 22:33 Zofran Inj IV.PUSH 4 mg Q6H PRN Administration NAUSEA OR VOMITING Objective Remarks: GENERAL: Well-nourished, well-developed patient. SKIN: Warm and dry. HEAD: Normocephalic. EYES: No scleral icterus. No injection or drainage. NECK: Supple, trachea midline. No JVD or lymphadenopathy. LYMPHATIC: No adenopathy. CARDIOVASCULAR: Regular rate and rhythm without murmurs. RESPIRATORY: Breath sounds equal bilaterally. No accessory muscle use. GASTROINTESTINAL: Abdomen soft, tender in the upper abdomen especially in the right upper quadrant. nondistended. EXTREMITIES: No cyanosis, or edema. MUSCULOSKELETAL: Adequate muscle tone. NEUROLOGICAL: No obvious focal deficit. Awake, alert, and oriented x3. PSYCHIATRIC: Appropriate mood and affect; insight and judgment normal. Assessment/Plan - Plan 1. Multiple liver masses worrisome for metastatic disease. He has had right upper quadrant pain intermittently for several months. Over the last 4 weeks the pain become more constant. He also has nausea and vomiting. He lost about 10 pounds. He had anemia with microcytosis worrisome for iron deficiency anemia. He, however, denies any gross gastrointestinal bleed. His colonoscopy 4 years ago did not show any masses, but reportedly had polyps. CT of the chest did not show any metastatic disease. A CT of the abdomen and pelvis showed numerous hepatic lesions, largest measured 7 cm. There were also multiple retroperitoneal enlarged lymph nodes. There was an enlarged left adrenal gland lesion measured 4.1 cm, which could also be metastatic disease. I suspect he possibly has a primary GI tumor. January 07: CEA elevated at 42.9 with normal alpha-fetoprotein and CA 19 9. This is suggestive of primary GI tumor. He is going to have EGD and colonoscopy today. January 08:. Colonoscopy yesterday showed near circumferential mass at the hepatic flexure Worrisome for colon cancer. Biopsy was done and pathology is pending at this time. It appears that patient has primary colon cancer with metastasis to liver. EGD did not show any obvious mass. January 09: Biopsy from colonic mass is still pending. 2. Left adrenal gland lesion measured 4.1 cm. This could be metastatic disease and less likely to be a primary tumor. 3. Anemia with microcytosis suggestive of iron deficiency anemia. The patient denies any gross gastrointestinal bleed. He is taking iron supplement. 4. History of hepatitis C, treated with Harvoni 4 years ago, reportedly went into remission. His liver enzymes are still slightly elevated, but that could be due to the metastatic liver disease. RECOMMENDATIONS: 1. Await pathology. 2. Final recommendation will depend on the tissue diagnosis.
[2018-01-09] MEDS: Ferrous Sulfate 325 MG Tablet PO SCH (09:55)
[2018-01-09] MEDS: Lisinopril 10 MG Tablet PO SCH (09:55)
[2018-01-09] MEDS: Fenofibrate 145 MG Tablet PO SCH (09:55)
[2018-01-09] MEDS: Metoprolol Tartrate 50 MG Tablet PO SCH ×2 (09:55→21:18)
--- NOTE | 2018-01-09 11:52 | P.PNIM ---
Subjective Interval history: Pt found lying asleep in bed, in NAD. He states "my belly is giving me some trouble today" and endorses Constipation and increased bloating and abdominal discomfort since yesterday. Last BM was 2 days ago and mostly gas. He reports having a good appetite but also early satiety and only ate a small portion of eggs and cream of wheat for breakfast. Describes mood as "tired". Denies fever, BURGER, Sore Throat, Chest Pain, SOB, Diarrhea, Dysuria, Itching, or Rash. He would like to be changed from the gluten free diet and would like a stool softener to help with bowel movements. Physical Exam Vital signs: Vital Signs 01/08/18 12:00 01/08/18 16:00 01/08/18 20:00 Temperature 97.5 F L 97.8 F 98.7 F Pulse Rate 85 78 90 Respiratory Rate 20 16 20 Blood Pressure 119/58 L 124/60 140/64 Pulse Oximetry 96 98 97 01/09/18 00:00 01/09/18 04:00 01/09/18 08:00 Temperature 98.7 F 100.2 F H 97.8 F Pulse Rate 88 84 86 Respiratory Rate 20 20 20 Blood Pressure 131/60 136/61 132/63 Pulse Oximetry 96 95 97 Intake & Output 01/08/18 01/09/18 01/09/18 18:59 06:59 18:59 Intake Total 100 / 100 Balance 100 / 100 Weight 78 kg Intake: Oral 100 / 100 Other: # Voids 2 Date of Last Bowel Movement 01/07/18 01/07/18 Narrative: Gen: pt asleep in bed, dressed in shirt/pajama pants, NAD, alert, oriented x4, cooperative HEENT: Normocephalic, Atraumatic, No conjunctival pallor, Nonicteric Sclera Cardio: RRR, Normal S1/S2, No murmurs/rubs/gallops Lungs: Clear posteriorly/anteriorly bilaterally, No rales/rhonchi/crackles/ wheezes noted GI: +BS all 4 quadrants, Mildly Distended, Tender to palpation throughout but worse over LUQ and LLQ, Positive Shifting Dullness not previously noted, Minimal possible fluid wave, Less Rigid than yesterday Skin: Slight Jaundice, No rash noted Psych: Mood ("Tired"), Mood Congruent/Appropriate Affect, Good Insight/Judgment/ Reliability, Denies SI/HI Results - Labs CBC & Chem 7: 01/07/18 06:39 01/07/18 06:39 Laboratory Results - last 24 hr 01/08/18 01/08/18 01/09/18 12:53 17:18 04:41 POC Glucose 141 H 147 H 157 H 01/09/18 08:19 POC Glucose 153 H Assessment and Plan - Plan 67yo Male with Liver and Left Adrenal Gland Metastasis and Hepatosplenomegaly secondary to possible primary fungating lesion at hepatic flexure identified and biopsied via colonoscopy. Hx of Hep C, in remission per pt s/p Harvoni Treatment 3yrs ago. Now c/o constipation and early satiety. 1) Metastasis to the liver and adrenal gland - primary is likely colon cancer per GI report * s/p Colonoscopy and EGD, A near circumferential ulcerated, firm and fungating mass was found at the hepatic flexure. Multiple biopsies were performed using cold forceps. Awaiting pathology. * Monitor for Bowel Obstruction secondary to mass 2) Intractable abdominal pain - likely due to hepatosplenomegaly and metastatic disease * Pain is slightly improved per pt, control with Morphine as needed. * Change to Normal Diet, continue to feed as tolerated 3) Hyponatremia - Likely hypovolemic hyponatremia. * Improved with IVF * Monitor for AMS, Behavior Changes * Labs: Recheck CMP 4) Constipation - likely secondary to decreased PO intake and diet or paraneoplastic symptom, Last BM was 2 days ago per pt * Monitor for Small Bowel Obstruction * Start Stool Softener (Senokot) prn - *Nurse Milly reports she gave pt Senokot, also has Lactulose on board if no improvement * Imaging: Will consider X-ray or CT of Abdomen and Pelvis if no improvement or sx worsen to r/o SBO * Labs: LDH - r/o SBO, will consider if no improvement or sx worsen * If no improvement or worsening of sx, n/v, decreased flatulence, increased bloating/distention - contact Dr. Guerra and Dr. Brooks (GI) 5) Iron Deficiency Anemia * Serum Iron 14 (L), TIBC 246 (L), %Sat 5.7%(L), Ferritin 242 (N) * Continue Iron Supplement as directed * Labs: Recheck CBC 6) Type 2 diabetes * Hold oral hypoglycemic agents. * Continue Sliding scale insulin with Accu-Cheks as ordered 7) History of CAD/CABG * Continue aspirin, statin, and beta-moshe * Monitor for EKG changes, AMS 8) Hypertension * Stable, Continue lisinopril, beta-moshe * Monitor BP and HR 9) Hx of Hepatitis C * Treated w/ [facility] 4yrs ago, reportedly in remission * LFTs slightly elevated which may be secondary to liver metastasis and/or statins/fibrate therapy 10) GI prophylaxis * Stool softener PRN constipation. 11) Elevated Prothrombin Time - 13.7 * Monitor for bleeds, melena/hematochezia, hematemesis * Labs: PT/PTT, INR as directed - Attending Attestation The exam, history, and the medical decision-making described in the above note were completed with the assistance of the the medical student Mariangel Escamilla. I reviewed and agree with the findings presented. I attest that I had a face-to- face encounter with the patient on the same day, and personally performed and documented my assessment and findings in the medical record above. Patient seen and examined. Medical student notes reviewed. We will wait for final pathology and definite plan from oncology.
--- NOTE | 2018-01-09 15:58 | P.PNGI ---
Subjective Interval history: Patient laying supine in bed Reports continued generalized abdominal "soreness". Diet change to cardiac-dietary notified to assist patient with food choices <Elo Ramirez - Last Filed: 01/09/18 15:58> Physical Exam Vital signs: Vital Signs 01/08/18 16:00 01/08/18 20:00 01/09/18 00:00 Temperature 97.8 F 98.7 F 98.7 F Pulse Rate 78 90 88 Respiratory Rate 16 20 20 Blood Pressure 124/60 140/64 131/60 Pulse Oximetry 98 97 96 01/09/18 04:00 01/09/18 08:00 01/09/18 12:00 Temperature 100.2 F H 97.8 F 98.9 F Pulse Rate 84 86 83 Respiratory Rate 20 20 20 Blood Pressure 136/61 132/63 152/65 H Pulse Oximetry 95 97 96 Intake & Output 01/08/18 01/09/18 01/09/18 18:59 06:59 18:59 Intake Total 100 / 100 Balance 100 / 100 Weight 78 kg Intake: Oral 100 / 100 Other: # Voids 2 Date of Last Bowel Movement 01/07/18 01/07/18 - Constitutional chronically ill appearing - Routine HEENT Exam Head: Present: normocephalic - Routine Respiratory Exam Present: CTA bilaterally. Absent: accessory muscle use - Routine Cardiovascular Exam Present: S1, S2 - Routine Abdominal Exam Present: soft, normoactive bowel sounds. Absent: tenderness, guarding, firm - Routine Skin Exam Present: dry, warm - Routine Neurological Exam Present: alert <Elo Ramirez - Last Filed: 01/09/18 15:58> Vital signs: Vital Signs 01/08/18 20:00 01/09/18 00:00 01/09/18 04:00 Temperature 98.7 F 98.7 F 100.2 F H Pulse Rate 90 88 84 Respiratory Rate 20 20 20 Blood Pressure 140/64 131/60 136/61 Pulse Oximetry 97 96 95 01/09/18 08:00 01/09/18 12:00 Temperature 97.8 F 98.9 F Pulse Rate 86 83 Respiratory Rate 20 20 Blood Pressure 132/63 152/65 H Pulse Oximetry 97 96 Intake & Output 01/08/18 01/09/18 01/09/18 18:59 06:59 18:59 Intake Total 100 / 100 Balance 100 / 100 Weight 78 kg Intake: Oral 100 / 100 Other: # Voids 2 Date of Last Bowel Movement 01/07/18 01/07/18 <Kamille Brooks - Last Filed: 01/09/18 16:20> Results - Labs CBC & Chem 7: 01/07/18 06:39 01/07/18 06:39 Laboratory Results - last 24 hr 01/08/18 01/09/18 01/09/18 17:18 04:41 08:19 POC Glucose 147 H 157 H 153 H 01/09/18 12:32 POC Glucose 148 H <Elo Ramirez - Last Filed: 01/09/18 15:58> - Labs CBC & Chem 7: 01/07/18 06:39 01/07/18 06:39 Laboratory Results - last 24 hr 01/08/18 01/09/18 01/09/18 17:18 04:41 08:19 POC Glucose 147 H 157 H 153 H 01/09/18 12:32 POC Glucose 148 H <Kamille Brooks - Last Filed: 01/09/18 16:20> Assessment and Plan (1) Intractable lower abdominal pain Status: Acute Code(s): R10.30 - Lower abdominal pain, unspecified - Plan his patient is a 67-year-old male with past medical history significant for hepatitis C posttreatment, coronary artery disease status post CABG, diabetes and hypertension. Surgical history includes CABG and cholecystectomy. Patient presented to the emergency room at [facility] with complaint of abdominal pain. Patient states that he was sent to the hospital by his PCP due to a recent ultrasound that showed metastatic liver disease. Upon consultation, patient reports generalized abdominal pain mostly right upper quadrant times 1 week. Patient states pain has been severe over the last 2-3 nights. Patient describes pain as sharp and states it is constant in nature. Patient endorses very little appetite with nausea and denies vomiting. Patient endorses having a colonoscopy 5 years ago where polyps were found to be benign. Patient denies any history of ever having had EGD in the past. Patient denies any use of tobacco or alcohol products. Patient denies any known family history for any gastrointestinal diseases or disorders. Patient denies use of NSAIDs. Patient denies any noted bleeding. He states he has a normal soft brown bowel movement every day to every other day but has not had a bowel movement for 2-3 days prior to admission. Our service has been consulted to evaluate patient for abdominal pain and metastatic liver disease. Intractable abdominal pain Patient endorses 1 week history of generalized abdominal pain mostly on the right upper quadrant. Patient states pain severe over the last 2-3 nights prior to admission. 01/06/2018 CT abdomen and pelvis: 1. Numerous hepatic lesions characteristic of metastatic disease. 2. Enlarged left adrenal gland characteristic of metastatic disease. 3. Upper retroperitoneal, rafael hepatis and peripancreatic lymphadenopathy. 4. Splenomegaly. 5. Status post cholecystectomy. WBC 9.7 hemoglobin 9.1 hematocrit 27.8 platelet count 319 INR 1.4 total bilirubin 0.8 AST 96 ALT 44 alk phos 162 ammonia less than 10 01/09/2018 Abdominal pain Patient reports continued mild abdominal soreness. 01/07/2018 EGD: 1. The esophagus was otherwise normal 2. There was mild gastritis in the gastric antrum; multiple biopsies were performed 3. Normal duodenal mucosa 4. Retroflexion was performed and was normal 01/07/2018 colonoscopy: 1. Near circumferential mass was found at the hepatic flexure; multiple biopsies were performed using cold forceps 2. Small internal hemorrhoids Plan -Cardiac diet-diet as tolerated -Pantoprazole 40 mg po daily -Awaiting EGD and colonoscopy biopsies -Antiemetics and analgesics as per attending -Supportive care -GI will sign off, please reconsult as needed This patient has been seen by myself and Dr. Brooks and this note is written on his behalf - Attending Attestation Dr. Brooks <Elo Ramirez - Last Filed: 01/09/18 15:58> (1) Intractable lower abdominal pain Status: Acute Code(s): R10.30 - Lower abdominal pain, unspecified - Attending Attestation Agree with the above assessment and plan. Please notify us if needed again. <Kamille Brooks - Last Filed: 01/09/18 16:20>
[2018-01-09] MEDS: traZODone 50 MG Tablet PO SCH (21:18)
[2018-01-10] MEDS: Ferrous Sulfate 325 MG Tablet PO SCH (10:19)
[2018-01-10] MEDS: Lisinopril 10 MG Tablet PO SCH (10:19)
[2018-01-10] MEDS: Fenofibrate 145 MG Tablet PO SCH (10:19)
[2018-01-10] MEDS: Metoprolol Tartrate 50 MG Tablet PO SCH ×2 (10:20→21:25)
--- NOTE | 2018-01-10 11:54 | P.PNONC ---
Subjective Interval history: Patient lying in bed on approach, in no acute distress. He sits at bedside for evaluation. Reports continued abdominal tenderness. Would like pain medication adjusted to something that will not make him as groggy. Dr. Nichols discussed pathology findings with Dr. Peters, positive for malignancy, awaiting final stains. This was discussed with the pt, he is not receptive to conversation at this time. He states "come back when it is all final", discussed port placement-he states "whats my other options, I don't know about all that" Discussed with attending Dr. Guerra, patient has been in denial, his ex- has been discussing taking the patient back to [place]. Dr. Guerra will discuss with his ex- when she arrives. Objective Vital Signs/Intake & Output: Vital Signs 01/09/18 12:00 01/09/18 16:00 01/09/18 20:00 Temperature 98.9 F 99.7 F H 99.3 F Pulse Rate 83 81 87 Respiratory Rate 20 20 18 Blood Pressure 152/65 H 141/65 H 128/58 L Pulse Oximetry 96 97 96 01/10/18 00:00 01/10/18 04:00 01/10/18 08:00 Temperature 98.8 F 97.3 F L 97.5 F L Pulse Rate 80 77 80 Respiratory Rate 18 18 20 Blood Pressure 128/60 127/58 L 127/59 L Pulse Oximetry 96 96 96 Intake & Output 01/09/18 01/10/18 01/10/18 18:59 06:59 18:59 Weight 78.2 kg Other: # Voids 6 4 Date of Last Bowel Movement 01/09/18 01/10/18 # Bowel Movements 1 2 Result Diagrams: 01/10/18 11:43 01/10/18 11:43 Laboratory Results: Laboratory Results - last 24 hr 01/09/18 01/09/18 01/09/18 12:32 17:26 21:16 POC Glucose 148 H 137 H 142 H Medications: Active Medications Generic Name Dose Route Start Last Admin Trade Name Freq PRN Reason Stop Dose Admin Aspirin 81 mg 01/07/18 09:00 01/10/18 10:20 Ecotrin PO 81 mg DAILY [facility] Administration Atorvastatin Calcium 80 mg 01/07/18 09:00 01/10/18 10:20 Lipitor PO 80 mg DAILY [facility] Administration Cetirizine HCl 10 mg 01/07/18 09:00 01/10/18 10:20 Zyrtec PO 10 mg DAILY [facility] Administration Fenofibrate 145 mg 01/07/18 09:00 01/10/18 10:19 Tricor PO 145 mg DAILY [facility] Administration Ferrous Sulfate 325 mg 01/07/18 09:00 01/10/18 10:19 Ferosul PO 325 mg DAILY [facility] Administration Sodium Chloride 500 mls @ 30 mls/hr 01/07/18 05:00 01/07/18 19:30 Ns Inj IV.SIG Not Given .Q10H [facility] Lactulose 30 ml 01/06/18 15:47 01/09/18 14:31 Lactulose Liq PO 30 ml DAILY PRN Administration SEVERE CONSITIPATION Lisinopril 10 mg 01/07/18 09:00 01/10/18 10:19 Prinivil PO 10 mg DAILY [facility] Administration Metformin HCl 500 mg 01/06/18 21:00 01/10/18 10:19 Glucophage PO 500 mg BIDPC [facility] Administration Metoprolol Tartrate 50 mg 01/06/18 21:00 01/10/18 10:20 Lopressor PO 50 mg BID [facility] Administration Morphine Sulfate 2 mg 01/06/18 16:25 01/06/18 18:38 Morphine Inj IV.PUSH 2 mg Q4H PRN Administration BREAKTHROUGH PAIN Morphine Sulfate 15 mg 01/08/18 20:44 01/09/18 23:46 Msir PO 15 mg Q4H PRN Administration PAIN SCALE 6 TO 10 Ondansetron HCl 4 mg 01/06/18 15:47 01/06/18 22:33 Zofran Inj IV.PUSH 4 mg Q6H PRN Administration NAUSEA OR VOMITING Pantoprazole Sodium 40 mg 01/10/18 09:00 01/10/18 10:20 Protonix PO 40 mg DAILY [facility] Administration Sennosides 17.2 mg 01/06/18 15:47 01/09/18 12:39 Senokot PO 17.2 mg Q12H PRN Administration Moderate Constipation Trazodone HCl 100 mg 01/09/18 21:00 01/09/18 21:18 Desyrel PO 100 mg HS [facility] Administration Objective Remarks: GENERAL: Disheveled male patient, in no acute distress. SKIN: Warm and dry. HEAD: Normocephalic. EYES: No scleral icterus. No injection or drainage. NECK: Supple, trachea midline. No JVD or lymphadenopathy. CARDIOVASCULAR: Regular rate and rhythm without murmurs. RESPIRATORY: Posterior breath sounds clear, equal bilaterally. No accessory muscle use. GASTROINTESTINAL: Abdomen soft, tender, distended. EXTREMITIES: No cyanosis, or edema. MUSCULOSKELETAL: Adequate muscle tone. NEUROLOGICAL: No obvious focal deficit. Awake, alert, and oriented x3. PSYCHIATRIC: Flat affect. Assessment/Plan - Plan 1. Multiple liver masses worrisome for metastatic disease. He has had right upper quadrant pain intermittently for several months. Over the last 4 weeks the pain become more constant. He also has nausea and vomiting. He lost about 10 pounds. He had anemia with microcytosis worrisome for iron deficiency anemia. He, however, denies any gross gastrointestinal bleed. His colonoscopy 4 years ago did not show any masses, but reportedly had polyps. CT of the chest did not show any metastatic disease. A CT of the abdomen and pelvis showed numerous hepatic lesions, largest measured 7 cm. There were also multiple retroperitoneal enlarged lymph nodes. There was an enlarged left adrenal gland lesion measured 4.1 cm, which could also be metastatic disease. I suspect he possibly has a primary GI tumor. January 07: CEA elevated at 42.9 with normal alpha-fetoprotein and CA 19 9. This is suggestive of primary GI tumor. He is going to have EGD and colonoscopy today. January 08:. Colonoscopy yesterday showed near circumferential mass at the hepatic flexure Worrisome for colon cancer. Biopsy was done and pathology is pending at this time. It appears that patient has primary colon cancer with metastasis to liver. EGD did not show any obvious mass. January 09: Biopsy from colonic mass is still pending. 2. Left adrenal gland lesion measured 4.1 cm. This could be metastatic disease and less likely to be a primary tumor. 3. Anemia with microcytosis suggestive of iron deficiency anemia. The patient denies any gross gastrointestinal bleed. He is taking iron supplement. 4. History of hepatitis C, treated with Harvoni 4 years ago, reportedly went into remission. His liver enzymes are still slightly elevated, but that could be due to the metastatic liver disease. RECOMMENDATIONS: 1. Dr. Nichols spoke with Dr. Peters, pathology is malignant, awaiting final stains. discussed with pt, he is currently not receptive to this conversation until stains are finalized. Discussed possible port placement on Friday if he is still in the hospital. Patient undecided in regards to port at this time. Discussed with attending, Dr. Guerra, he reports the patient's ex- has been the main decision maker for the patient and she has mentioned taking him back up [place] with her upon discharge from the hospital. Dr. Guerra will discuss with her and see if they would like treatment here or return to home [place]. 2. Recommend port placement on Friday, if patient is agreeable. Once medically stable, from an oncology standpoint the patient may be discharged home. He will need outpatient follow-up with oncology for malignancy. Patient and family to decide if he will undergo treatment in [place] or up [place]. 3. Await final pathology staining. - Attending Statement The exam, history, and the medical decision-making described in the above note were completed with the assistance of the mid-level provider. I reviewed and agree with the findings presented. I attest that I had a [id number] encounter with the patient on the same day, and personally performed and documented my assessment and findings in the medical record. I met with the patient with his ex-. His CAT scan of the abdomen and pelvis was reviewed. I showed the images of the liver metastases. At the present time he is having increasing abdominal pain and distention. He had severe pain after he was given a laxative. He has a circumferential lesion. I am concerned that he may have an early obstruction. I am recommending a surgical consult. He may benefit from a laparoscopic, if possible, resection of the primary with anastomosis. Following this, within several weeks he could begin chemotherapy. Another approach would be to treat with chemotherapy first but one would not want to do this in the face of an obstruction. The above was also discussed with the hospitalist Dr. Guerra. The picture is most consistent with a colonic carcinoma based on the colonoscopy and the presence of signet ring cells on biopsy. I would also be careful about feeding and he might do better with clear liquids or possibly n.p.o. Will defer these decisions to the surgeon.
[2018-01-10 12:11] LABS: Hematocrit 26.5 % (39.0-51.0); Hemoglobin 8.8 gm/dL (13.0-17.0); Mean Corpuscular HGB Conc 33.2 % (32.0-36.0); Mean Corpuscular Hemoglobin 23.5 pg (27.0-34.0); Mean Corpuscular Volume 70.8 fL (80.0-100.0); Mean Platelet Volume 7.7 fL (7.0-11.0); Platelet Count 304 th/mm3 (150-450); Red Blood Count 3.74 mil/mm3 (4.50-5.90); Red Cell Distribution Width 16.1 % (11.6-17.2); White Blood Count 8.1 th/mm3 (4.0-11.0)
[2018-01-10 12:27] LABS: Calcium 8.2 mg/dL (8.5-10.1); Carbon Dioxide 25.4 meq/L (21.0-32.0); Potassium 4.8 meq/L (3.5-5.1)
[2018-01-10] MEDS: Morphine Sulfate 15 MG IR Tablet PO PRN ×2 (13:02→21:25)
--- NOTE | 2018-01-10 15:09 | P.PNIM ---
Subjective Interval history: Patient is having intermittent abdominal discomfort. No nausea or vomiting. Case discussed with oncology. Physical Exam Vital signs: Vital Signs 01/09/18 16:00 01/09/18 20:00 01/10/18 00:00 Temperature 99.7 F H 99.3 F 98.8 F Pulse Rate 81 87 80 Respiratory Rate 20 18 18 Blood Pressure 141/65 H 128/58 L 128/60 Pulse Oximetry 97 96 96 01/10/18 04:00 01/10/18 08:00 01/10/18 12:00 Temperature 97.3 F L 97.5 F L 97.7 F Pulse Rate 77 80 83 Respiratory Rate 18 20 20 Blood Pressure 127/58 L 127/59 L 125/65 Pulse Oximetry 96 96 98 Intake & Output 01/09/18 01/10/18 01/10/18 18:59 06:59 18:59 Weight 78.2 kg Other: # Voids 6 4 Date of Last Bowel Movement 01/09/18 01/10/18 # Bowel Movements 1 2 Narrative: GENERAL: This is a well-nourished, well-developed patient, in no acute distress. CARDIOVASCULAR: Normal rate and regular rhythm without murmurs, gallops, or rubs. RESPIRATORY: Good respiratory efforts. Breath sounds equal and clear to auscultation bilaterally. GASTROINTESTINAL: Abdomen soft, mild distention and diffusely tender to deep palpation. Normal active bowel sounds MUSCULOSKELETAL: Extremities without cyanosis, or edema. NEURO: Alert & Oriented x4 to person, place, time, situation. Moves all ext x4 PSYCH: Mood somewhat depressed. Results - Labs CBC & Chem 7: 01/10/18 11:43 01/10/18 11:43 Laboratory Results - last 24 hr 01/09/18 01/09/18 01/10/18 17:26 21:16 11:43 WBC 8.1 RBC 3.74 L Hgb 8.8 L Hct 26.5 L MCV 70.8 L MCH 23.5 L MCHC 33.2 RDW 16.1 Plt Count 304 MPV 7.7 Sodium Potassium Chloride Carbon Dioxide Anion Gap BUN Creatinine Estimated GFR POC Glucose 137 H 142 H Random Glucose Calcium 01/10/18 01/10/18 11:43 13:05 WBC RBC Hgb Hct MCV MCH MCHC RDW Plt Count MPV Sodium 131 L Potassium 4.8 Chloride 99 Carbon Dioxide 25.4 Anion Gap 7 BUN 21 H Creatinine 0.92 Estimated GFR 82 L POC Glucose 143 H Random Glucose 144 H Calcium 8.2 L Assessment and Plan - Plan 67 yo Male with Liver and Left Adrenal Gland Metastasis and Hepatosplenomegaly secondary to possible primary fungating lesion at hepatic flexure identified and biopsied via colonoscopy. Hx of Hep C, in remission per pt s/p Harvoni Treatment 3yrs ago. Now c/o constipation and early satiety. Colon cancer with metastasis to the liver and adrenal gland - [facility] On[facility] -s/p Colonoscopy and EGD, A near circumferential ulcerated, firm and fungating mass was found at the hepatic flexure. Multiple biopsies were performed using cold forceps. -Concern for partial bowel obstructions with risk of worsening obstruction. I discussed with Dr. Gordon. Agree with recommendations to consult general surgery to consider colon resection if indicated. Ideally laparoscopic if possible. Patient also need port placement. Change to liquid diet until he is evaluated by surgery. Hyponatremia - Likely hypovolemic hyponatremia. Liver disease also contributing. - Stable. Continue to monitor. - Follow AM labs. Iron Deficiency Anemia -Continue Iron Supplement Type 2 diabetes Hold oral hypoglycemic agents. Continue Sliding scale insulin with Accu-Cheks as ordered History of CAD/CABG Continue aspirin, statin, and beta-moshe Monitor for EKG changes, AMS Hypertension Stable, Continue lisinopril, beta-moshe Monitor BP and HR Hx of Hepatitis C Treated w/ Harvoni 4yrs ago, reportedly in remission LFTs slightly elevated which is likely to liver metastasis and/or statins/ fibrate therapy GI prophylaxis -Stool softener PRN constipation.
--- NOTE | 2018-01-10 17:45 | XR ---
EXAM DATE: 01/10/2018 5:42 PM EST AGE/SEX: 67 years / Male INDICATIONS: Abdominal Pain CLINICAL DATA: This is the patient's initial encounter. Patient reports that signs and symptoms have been present for 3 days and indicates a pain score of 5/10. MEDICAL/SURGICAL HISTORY: . Liver cancer. Appendectomy. CABG. COMPARISON: [facility] [place], CT ABDOMEN & PELVIS W CONTRAST, 01/06/2018. . FINDINGS: Supine and upright views of the abdomen were performed. The abdominal bowel gas pattern is within nor mal limits. No air-fluid levels are seen. Surgical clips in the right upper quadrant. Small phlebolit hs in the pelvis. No abnormal calcification is seen. The visualized lower lungs are clear. No evidenc e of free intraperitoneal gas. The osseous structures are intact. CONCLUSION: 1. Nonobstructive bowel gas pattern. Electronically signed by: Patrick Paz MD 01/10/2018 5:44 PM EST
--- NOTE | 2018-01-10 18:21 | P.CON ---
History of Present Illness Consult date: 01/10/18 Reason for Consult: Metastatic colon cancer Primary Care Provider: Jana Dukes MD Chief Complaint: Worsening abdominal pain and shortness of breath History of Present Illness: Patient is a 67-year-old male with multiple medical problems who presented with increasing abdominal pain and shortness of breath on 01/06/2018. Workup has demonstrated multiple hepatic lesions consistent with metastases and recent colonoscopy demonstrated carcinoma by biopsy in the hepatic flexure of the colon. I have been asked to see the patient to discuss possible surgical options. The patient develops pain whenever he is eating anything but has not had any vomiting. KUB was obtained by the undersigned after discussion with Dr. Rudy Gordon and there does not appear to be any evidence of obstruction at this time. There are no air-fluid levels or dilated loops of small bowel or colon proximal to the lesion. FOR[facility]LY [facility] - History History Provided By: Patient - Medical History Medical History: Medical History (Last Reviewed 01/08/18 @ 07:34 by Ezequiel Stoner) CAD (coronary artery disease) Carpal tunnel syndrome Hepatitis C virus infection cured after antiviral drug therapy Type 2 diabetes mellitus - Surgical History Surgical History: Surgical History (Last Reviewed 01/08/18 @ 07:34 by Ezequiel Stoner) History of open heart surgery Hx of cholecystectomy - Family History Family History: Family History (Last Reviewed 01/07/18 @ 10:50 by Brenda Herman) Mother Lung cancer - Tobacco History Second Hand Smoke Exposure: No Tobacco Use In Past 30 Days: No Smoking Status: Former smoker Tobacco Type: Cigarettes - Alcohol History How Often Do You Have a Drink Containing Alcohol: Never - Substance Use History Substance History: No History of Abuse - Travel History Recent Travel in the [place] Within the Last 8 Weeks: No Recent Travel Out of the Country Within the Last 8 Weeks: No - Immunization History Tetanus Immunization: Unsure Hx Influenza Vaccine This Season: No Medications and Allergies Active Medications: Active Medications Acetaminophen (Tylenol) 650 mg PO Q4H PRN PRN Reason: Temp > 100.4 Al Hydroxide/Mg Hydroxide (Milk Of Magnesia Liq) 30 ml PO Q12H PRN PRN Reason: Mild Constipation Aspirin (Ecotrin) 81 mg PO DAILY [facility] Last Admin: 01/10/18 10:20 Dose: 81 mg Atorvastatin Calcium (Lipitor) 80 mg PO DAILY [facility] Last Admin: 01/10/18 10:20 Dose: 80 mg Bisacodyl (Dulcolax Supp) 10 mg RECTAL DAILY PRN PRN Reason: SEVERE CONSITIPATION Cetirizine HCl (Zyrtec) 10 mg PO DAILY [facility] Last Admin: 01/10/18 10:20 Dose: 10 mg Fenofibrate (Tricor) 145 mg PO DAILY [facility] Last Admin: 01/10/18 10:19 Dose: 145 mg Ferrous Sulfate (Ferosul) 325 mg PO DAILY [facility] Last Admin: 01/10/18 10:19 Dose: 325 mg Sodium Chloride (Ns Inj) 500 mls @ 30 mls/hr IV.SIG .Q10H [facility] Last Admin: 01/07/18 19:30 Dose: Not Given Lactulose (Lactulose Liq) 30 ml PO DAILY PRN PRN Reason: SEVERE CONSITIPATION Last Admin: 01/09/18 14:31 Dose: 30 ml Lisinopril (Prinivil) 10 mg PO DAILY [facility] Last Admin: 01/10/18 10:19 Dose: 10 mg [facility] Admin: 01/10/18 10:19 Dose: 500 mg Metoprolol Tartrate (Lopressor) 50 mg PO BID [facility] Last Admin: 01/10/18 10:20 Dose: 50 mg Morphine Sulfate (Morphine Inj) 2 mg IV.PUSH Q4H PRN PRN Reason: BREAKTHROUGH PAIN Last Admin: 01/06/18 18:38 Dose: 2 mg Morphine Sulfate (Msir) 15 mg PO Q4H PRN PRN Reason: PAIN SCALE 6 TO 10 Last Admin: 01/10/18 13:02 Dose: 15 mg Ondansetron HCl (Zofran Inj) 4 mg IV.PUSH Q6H PRN PRN Reason: NAUSEA OR VOMITING Last Admin: 01/06/18 22:33 Dose: 4 mg Pantoprazole Sodium (Protonix) 40 mg PO DAILY [facility] Last Admin: 01/10/18 10:20 Dose: 40 mg Sennosides (Senokot) 17.2 mg PO Q12H PRN PRN Reason: Moderate Constipation Last Admin: 01/09/18 12:39 Dose: 17.2 mg Trazodone HCl (Desyrel) 100 mg PO [facility] Last Admin: 01/09/18 21:18 Dose: 100 mg Allergies Allergy/AdvReac Type Severity Reaction Status Date / Time No Known Allergies Allergy Verified 01/06/18 11:03 Home Medications Medication Instructions Recorded Confirmed Type aspirin [Aspir-81] 81 mg PO DAILY 01/06/18 01/06/18 History atorvastatin 80 mg PO DAILY 01/06/18 01/06/18 History cetirizine 10 mg PO DAILY 01/06/18 01/06/18 History fenofibrate 160 mg PO DAILY 01/06/18 01/06/18 History ferrous sulfate 325 mg PO DAILY 01/06/18 01/06/18 History glimepiride 4 mg PO QAM 01/06/18 01/06/18 History lisinopril 10 mg PO DAILY 01/06/18 01/06/18 History metformin 500 mg PO BID 01/06/18 01/06/18 History metoprolol tartrate 50 mg PO BID 01/06/18 01/06/18 History tadalafil [Cialis] 5 mg PO DAILY 01/06/18 01/06/18 History trazodone 150 mg PO DAILY 01/06/18 01/06/18 History Physical Exam Vital signs: Vital Signs 01/09/18 20:00 01/10/18 00:00 01/10/18 04:00 Temperature 99.3 F 98.8 F 97.3 F L Pulse Rate 87 80 77 Respiratory Rate 18 18 18 Blood Pressure 128/58 L 128/60 127/58 L Pulse Oximetry 96 96 96 01/10/18 08:00 01/10/18 12:00 Temperature 97.5 F L 97.7 F Pulse Rate 80 83 Respiratory Rate 20 20 Blood Pressure 127/59 L 125/65 Pulse Oximetry 96 98 Intake & Output 01/09/18 01/10/18 01/10/18 18:59 06:59 18:59 Weight 78.2 kg Other: # Voids 6 4 Date of Last Bowel Movement 01/09/18 01/10/18 01/10/18 # Bowel Movements 1 2 - Constitutional mild distress - Routine HEENT Exam Head: Present: normocephalic, atraumatic - Routine Neck Exam Present: supple - Routine Respiratory Exam Present: CTA bilaterally - Routine Cardiovascular Exam Present: RRR - Routine Abdominal Exam Present: soft, tenderness (Mild tenderness right upper quadrant epigastrium and left upper quadrant.), distended - Routine Skin Exam Present: intact - Routine Neurological Exam Present: alert, oriented X3 - Detailed Neurological Exam: Coma Scale Verbal Response: Oriented Motor Response: Obey commands - Routine Psychiatric Exam Present: normal affect, normal thought process, cooperative, good judgment, anxious Results - Labs CBC & Chem 7: 01/10/18 11:43 01/10/18 11:43 Labs: Laboratory Results - last 24 hr 01/09/18 01/10/18 01/10/18 21:16 11:43 11:43 WBC 8.1 RBC 3.74 L Hgb 8.8 L Hct 26.5 L MCV 70.8 L MCH 23.5 L MCHC 33.2 RDW 16.1 Plt Count 304 MPV 7.7 Sodium 131 L Potassium 4.8 Chloride 99 Carbon Dioxide 25.4 Anion Gap 7 BUN 21 H Creatinine 0.92 Estimated GFR 82 L POC Glucose 142 H Random Glucose 144 H Calcium 8.2 L 01/10/18 13:05 WBC RBC Hgb Hct MCV MCH MCHC RDW Plt Count MPV Sodium Potassium Chloride Carbon Dioxide Anion Gap BUN Creatinine Estimated GFR POC Glucose 143 H Random Glucose Calcium - Imaging Impressions Abdomen X-Ray 01/10/18 00:00 CONCLUSION: 1. Nonobstructive bowel gas pattern. Assessment and Plan - Assessment (1) Carcinoma of hepatic flexure Code(s): C18.3 - Malignant neoplasm of hepatic flexure Status: Acute Plan: Will gently hydrate patient and improve and nutrition as much as possible. I had a long discussion with the patient and his ex-; I indicated to them that the surgery would not be curative but simply palliative to prevent obstruction. He would need chemotherapy to treat the liver lesions with a fairly aggressive regimen. I did indicate that the surgery would assist in treating his anemia and would likely help prevent further blood loss. I preliminarily discussed risks of the surgery including but not limited to bleeding, infection, leakage, and possible need for resection of other areas if intra-abdominal metastatic disease was noted. I will attempt to place him on the operative schedule in the next couple of days, time permitting. Thank you Dr. Gordon for allowing me to participate in this patient's care. - Plan Discussed Condition With: Patient Dr. Gordon - Attending Attestation I attest that I had a [id number] encounter with the patient on the same day, and personally performed and documented my assessment and findings in the medical record. The following services were provided during this hospital visit: Chart data review, vital sign assessments/reviewing monitor data Review of consultation notes if present Medication orders/review and/or management Ordering and/or reviewing lab tests Ordering and/or interpreting/reviewing x-rays and/or diagnostic studies Care of the patient and discussion of the patient with the care team Documentation time To help prompt me to consider important information that might be impacting today's encounter and assessment, Information from prior notes written by myself or my colleagues may have been "brought forward/copy and pasted" into today's note.
[2018-01-10] MEDS: traZODone 50 MG Tablet PO SCH (21:25)
[2018-01-11] MEDS: Morphine Sulfate 15 MG IR Tablet PO PRN ×4 (01:37→22:28)
[2018-01-11] MEDS: Ferrous Sulfate 325 MG Tablet PO SCH (09:28)
[2018-01-11] MEDS: Fenofibrate 145 MG Tablet PO SCH (09:28)
[2018-01-11] MEDS: Lisinopril 10 MG Tablet PO SCH (09:28)
[2018-01-11] MEDS: Metoprolol Tartrate 50 MG Tablet PO SCH ×2 (09:28→21:18)
[2018-01-11 09:51] LABS: Hematocrit 29.4 % (39.0-51.0); Hemoglobin 9.6 gm/dL (13.0-17.0); Mean Corpuscular HGB Conc 32.7 % (32.0-36.0); Mean Corpuscular Hemoglobin 23.1 pg (27.0-34.0); Mean Corpuscular Volume 70.8 fL (80.0-100.0); Mean Platelet Volume 8.1 fL (7.0-11.0); Platelet Count 300 th/mm3 (150-450); Red Blood Count 4.15 mil/mm3 (4.50-5.90); Red Cell Distribution Width 16.1 % (11.6-17.2); White Blood Count 8.6 th/mm3 (4.0-11.0)
[2018-01-11 09:57] LABS: INR 1.3 Ratio; Prothrombin Time 12.9 sec (9.8-11.6)
[2018-01-11 10:07] LABS: Albumin 2.5 g/dL (3.4-5.0); Calcium 8.4 mg/dL (8.5-10.1); Carbon Dioxide 25.2 meq/L (21.0-32.0); Potassium 4.9 meq/L (3.5-5.1)
[2018-01-11 10:09] LABS: Total Protein 6.9 g/dL (6.4-8.2)
--- NOTE | 2018-01-11 11:22 | P.PNGS ---
Subjective Patient reports: tolerating liquids well Physical Exam Vital signs: Vital Signs 01/10/18 12:00 01/10/18 16:00 01/10/18 20:00 Temperature 97.7 F 98.5 F 97.4 F L Pulse Rate 83 83 87 Respiratory Rate 20 20 17 Blood Pressure 125/65 112/67 133/63 Pulse Oximetry 98 97 98 01/11/18 00:00 01/11/18 04:00 01/11/18 08:00 Temperature 98.2 F 98.0 F 98.0 F Pulse Rate 76 89 74 Respiratory Rate 20 16 20 Blood Pressure 120/57 L 144/60 H 153/78 H Pulse Oximetry 97 98 98 Intake & Output 01/10/18 01/11/18 01/11/18 18:59 06:59 18:59 Intake Total 360 / 360 Output Total 300 / 300 Balance 60 / 60 Weight 73.4 kg Intake: Oral 360 / 360 Output: Urine 300 / 300 Other: # Voids 6 5 Date of Last Bowel Movement 01/10/18 01/10/18 # Bowel Movements 3 - Routine Abdominal Exam Present: soft, normoactive bowel sounds Results - Labs 01/11/18 09:00 01/11/18 09:00 Laboratory Results - last 24 hr 01/10/18 01/10/18 01/10/18 11:43 11:43 13:05 WBC 8.1 RBC 3.74 L Hgb 8.8 L Hct 26.5 L MCV 70.8 L MCH 23.5 L MCHC 33.2 RDW 16.1 Plt Count 304 MPV 7.7 PT INR Sodium 131 L Potassium 4.8 Chloride 99 Carbon Dioxide 25.4 Anion Gap 7 BUN 21 H Creatinine 0.92 Estimated GFR 82 L POC Glucose 143 H Random Glucose 144 H Calcium 8.2 L Total Bilirubin Direct Bilirubin Indirect Bilirubin AST ALT Alkaline Phosphatase Total Protein Albumin 01/10/18 01/11/18 01/11/18 18:21 09:00 09:00 WBC 8.6 RBC 4.15 L Hgb 9.6 L Hct 29.4 L MCV 70.8 L MCH 23.1 L MCHC 32.7 RDW 16.1 Plt Count 300 MPV 8.1 PT 12.9 H INR 1.3 Sodium Potassium Chloride Carbon Dioxide Anion Gap BUN Creatinine Estimated GFR POC Glucose 165 H Random Glucose Calcium Total Bilirubin Direct Bilirubin Indirect Bilirubin AST ALT Alkaline Phosphatase Total Protein Albumin 11/25/18 11/25/18 09:00 09:25 WBC RBC Hgb Hct MCV MCH MCHC RDW Plt Count MPV PT INR Sodium 131 L Potassium 4.9 Chloride 99 Carbon Dioxide 25.2 Anion Gap 7 BUN 20 H Creatinine 0.90 Estimated GFR 84 L POC Glucose 121 H Random Glucose 124 H Calcium 8.4 L Total Bilirubin 0.7 Direct Bilirubin 0.4 H Indirect Bilirubin 0.3 AST 110 H ALT 51 Alkaline Phosphatase 212 H Total Protein 6.9 Albumin 2.5 L - Imaging Imaging: ITS Impressions Abdomen/Pelvis CT 01/06/18 11:04 CONCLUSION: 1. Numerous hepatic lesions characteristic of metastatic disease. 2. Enlarged left adrenal gland characteristic of metastatic disease. 3. Upper retroperitoneal, rafael hepatis and peripancreatic lymphadenopathy. 4. Splenomegaly. 5. Status post cholecystectomy. Chest CTA 01/06/18 11:04 CONCLUSION: 1. Nodular thickening of an azygos fissure which may be scarring however short- term follow-up may be indicated. 2. No evidence of acute airspace disease or pulmonary emboli. 3. Multiple low density lesions in the liver and enlarged left adrenal gland. Abdomen X-Ray 01/10/18 00:00 CONCLUSION: 1. Nonobstructive bowel gas pattern. Assessment and Plan - Assessment (1) Carcinoma of hepatic flexure Code(s): C18.3 - Malignant neoplasm of hepatic flexure Status: Acute - Plan PLAN OR this week with Dr Cotton Labs are ok
--- NOTE | 2018-01-11 11:46 | P.PNIM ---
Subjective Interval history: Pt found lying in bed dressed in shirt/pajamas, NAD, alert and oriented x4, Ex- at bedside. Pt describes mood as "better" and continues to endorse abdominal pain and early satiety. States he did not sleep well last night as he did not have Ambien or Trazodone. He appears to be much less confused and lethargic today than past few days, and Ex- agrees. It was discovered yesterday evening, that he was taking Ambien without the knowledge of staff in addition to his scheduled Trazodone, which explains the lethargy and confusion reported by . Denies BURGER, Fever, Chest Pain, Cough, SOB, Change in Bowel Movements, Dysuria, Rash, or Paraesthesias. He was seen by Dr. Cotton and is being scheduled for surgery, was placed on liquid diet per note in chart. Nurse Yana reports that she discussed the issue of having a nonprescribed med in room and it was removed by Ex- who took it home. Pt was c/o constipation , was given Milk of Magnesia and then c/o diarrhea. Pt has been cooperative and less lethargic. Physical Exam Vital signs: Vital Signs 01/10/18 12:00 01/10/18 16:00 01/10/18 20:00 Temperature 97.7 F 98.5 F 97.4 F L Pulse Rate 83 83 87 Respiratory Rate 20 20 17 Blood Pressure 125/65 112/67 133/63 Pulse Oximetry 98 97 98 01/11/18 00:00 01/11/18 04:00 01/11/18 08:00 Temperature 98.2 F 98.0 F 98.0 F Pulse Rate 76 89 74 Respiratory Rate 20 16 20 Blood Pressure 120/57 L 144/60 H 153/78 H Pulse Oximetry 97 98 98 Intake & Output 01/10/18 01/11/18 01/11/18 18:59 06:59 18:59 Intake Total 360 / 360 Output Total 300 / 300 Balance 60 / 60 Weight 73.4 kg Intake: Oral 360 / 360 Output: Urine 300 / 300 Other: # Voids 6 5 Date of Last Bowel Movement 01/10/18 01/10/18 # Bowel Movements 3 Narrative: GEN: WDWN, lying in bed dressed in shirt/pajamas, NAD, cooperative, pleasant, Ex - at bedside CARDIO: RRR Normal S1/S2 without murmurs, gallops, or rubs, Extremities warm to touch LUNGS: Good respiratory efforts. Breath sounds equal and clear to auscultation bilaterally. GI: Abdomen soft, mild distention and diffusely tender to deep palpation. Hypoactive BS in all 4 quadrants MSK: Extremities without cyanosis, or edema. NEURO: Alert & Oriented x4, Moves all ext x4 PSYCH: Mood "better", Good Insight/Judgement, Good Reliability, No delirium sx or confusion today. Results - Labs CBC & Chem 7: 01/11/18 09:00 01/11/18 09:00 Laboratory Results - last 24 hr 01/10/18 01/10/18 01/10/18 11:43 11:43 13:05 WBC 8.1 RBC 3.74 L Hgb 8.8 L Hct 26.5 L MCV 70.8 L MCH 23.5 L MCHC 33.2 RDW 16.1 Plt Count 304 MPV 7.7 PT INR Sodium 131 L Potassium 4.8 Chloride 99 Carbon Dioxide 25.4 Anion Gap 7 BUN 21 H Creatinine 0.92 Estimated GFR 82 L POC Glucose 143 H Random Glucose 144 H Calcium 8.2 L Total Bilirubin Direct Bilirubin Indirect Bilirubin AST ALT Alkaline Phosphatase Total Protein Albumin 01/10/18 01/11/18 01/11/18 18:21 09:00 09:00 WBC 8.6 RBC 4.15 L Hgb 9.6 L Hct 29.4 L MCV 70.8 L MCH 23.1 L MCHC 32.7 RDW 16.1 Plt Count 300 MPV 8.1 PT 12.9 H INR 1.3 Sodium Potassium Chloride Carbon Dioxide Anion Gap BUN Creatinine Estimated GFR POC Glucose 165 H Random Glucose Calcium Total Bilirubin Direct Bilirubin Indirect Bilirubin AST ALT Alkaline Phosphatase Total Protein Albumin 01/11/18 01/11/18 09:00 09:25 WBC RBC Hgb Hct MCV MCH MCHC RDW Plt Count MPV PT INR Sodium 131 L Potassium 4.9 Chloride 99 Carbon Dioxide 25.2 Anion Gap 7 BUN 20 H Creatinine 0.90 Estimated GFR 84 L POC Glucose 121 H Random Glucose 124 H Calcium 8.4 L Total Bilirubin 0.7 Direct Bilirubin 0.4 H Indirect Bilirubin 0.3 AST 110 H ALT 51 Alkaline Phosphatase 212 H Total Protein 6.9 Albumin 2.5 L - Imaging Impressions Abdomen X-Ray 01/10/18 00:00 CONCLUSION: 1. Nonobstructive bowel gas pattern. Assessment and Plan - Plan 67yo Male with Liver and Left Adrenal Gland Metastasis and Hepatosplenomegaly secondary to possible primary fungating lesion at hepatic flexure identified and biopsied via colonoscopy. preliminary pathology suggest malignancy. Hx of Hep C, in remission per pt s/p Harvoni Treatment 3yrs ago. Being scheduled for surgical resection of mass and port placement this week. 1) Metastasis to the liver and adrenal gland - primary is likely colon cancer per GI report * s/p Colonoscopy and EGD, A near circumferential ulcerated, firm and fungating mass was found at the hepatic flexure. Multiple biopsies were performed using cold forceps. * Monitor for Bowel Obstruction secondary to mass 2) Intractable abdominal pain - likely due to hepatosplenomegaly and metastatic disease * Pain is slightly improved per pt, control with Morphine as needed. * Change to Liquid Diet per Surgical Consult 3) Hyponatremia - no change, Likely hypovolemic hyponatremia. * Improved with IVF * Monitor for AMS, Behavior Changes * Labs: Recheck CMP 4) Constipation - likely secondary to decreased PO intake and diet or paraneoplastic symptom * KUB on 01/10/18 showed no obstruction, air-fluid levels, or dilation * Start Stool Softeners prn * If no improvement or worsening of sx, n/v, decreased flatulence, increased bloating/distention - contact Dr. Guerra and Dr. Brooks (GI) 5) Iron Deficiency Anemia - improving but still decreased Hemoglobin (9.6), HCT (29.4), RBC (4.15) * Serum Iron 14 (L), TIBC 246 (L), %Sat 5.7%(L), Ferritin 242 (N) * Continue Iron Supplement as directed 6) Type 2 diabetes * Hold oral hypoglycemic agents. * Continue Sliding scale insulin with Accu-Cheks as ordered 7) History of CAD/CABG * Continue aspirin, statin, and beta-moshe * Monitor for EKG changes, AMS * HOLD Aspirin - pt is being scheduled for surgery at beginning of week 8) Hypertension * Stable, Continue lisinopril, beta-moshe * Monitor BP and HR 9) Hx of Hepatitis C * Treated w/ Harvoni 3yrs ago, reportedly in remission * LFTs slightly elevated which may be secondary to liver metastasis and/or statins/fibrate therapy 10) GI prophylaxis * Stool softener PRN constipation. 11) Elevated Prothrombin Time - improving from 13.7 to 12.9, still elevated * Monitor for bleeds, melena/hematochezia, hematemesis * Labs: PT/PTT, INR as directed - Attending Attestation The exam, history, and the medical decision-making described in the above note were completed with the assistance of the the medical student Mariangel Escamilla. I reviewed and agree with the findings presented. I attest that I had a face-to- face encounter with the patient on the same day, and personally performed and documented my assessment and findings in the medical record above.
--- NOTE | 2018-01-11 15:28 | P.PNIM ---
Subjective Interval history: Patient is more awake today. He is tolerating a liquid diet. He is requesting Ambien at night to help him sleep. He states trazodone does not help him. Physical Exam Vital signs: Vital Signs 01/10/18 16:00 01/10/18 20:00 01/11/18 00:00 Temperature 98.5 F 97.4 F L 98.2 F Pulse Rate 83 87 76 Respiratory Rate 20 17 20 Blood Pressure 112/67 133/63 120/57 L Pulse Oximetry 97 98 97 01/11/18 04:00 01/11/18 08:00 01/11/18 11:57 Temperature 98.0 F 98.0 F 98.1 F Pulse Rate 89 74 78 Respiratory Rate 16 20 20 Blood Pressure 144/60 H 153/78 H 135/61 Pulse Oximetry 98 98 100 Intake & Output 01/10/18 01/11/18 01/11/18 18:59 06:59 18:59 Intake Total 360 / 360 Output Total 300 / 300 Balance 60 / 60 Weight 73.4 kg Intake: Oral 360 / 360 Output: Urine 300 / 300 Other: # Voids 6 5 Date of Last Bowel Movement 01/10/18 01/10/18 # Bowel Movements 3 Narrative: GENERAL: This is a well-nourished, well-developed patient, in no acute distress. CARDIOVASCULAR: Normal rate and regular rhythm without murmurs, gallops, or rubs. RESPIRATORY: Good respiratory efforts. Breath sounds equal and clear to auscultation bilaterally. GASTROINTESTINAL: Abdomen soft, mild distention and mild tenderness to palpation diffusely. Normal active bowel sounds MUSCULOSKELETAL: Extremities without cyanosis, or edema. NEURO: Alert & Oriented x4 to person, place, time, situation. Moves all ext x4 PSYCH: Mood somewhat depressed. Results - Labs CBC & Chem 7: 01/11/18 09:00 01/11/18 09:00 Laboratory Results - last 24 hr 01/10/18 01/11/18 01/11/18 18:21 09:00 09:00 WBC 8.6 RBC 4.15 L Hgb 9.6 L Hct 29.4 L MCV 70.8 L MCH 23.1 L MCHC 32.7 RDW 16.1 Plt Count 300 MPV 8.1 PT 12.9 H INR 1.3 Sodium Potassium Chloride Carbon Dioxide Anion Gap BUN Creatinine Estimated GFR POC Glucose 165 H Random Glucose Calcium Total Bilirubin Direct Bilirubin Indirect Bilirubin AST ALT Alkaline Phosphatase Total Protein Albumin 01/11/18 01/11/18 01/11/18 09:00 09:25 13:16 WBC RBC Hgb Hct MCV MCH MCHC RDW Plt Count MPV PT INR Sodium 131 L Potassium 4.9 Chloride 99 Carbon Dioxide 25.2 Anion Gap 7 BUN 20 H Creatinine 0.90 Estimated GFR 84 L POC Glucose 121 H 151 H Random Glucose 124 H Calcium 8.4 L Total Bilirubin 0.7 Direct Bilirubin 0.4 H Indirect Bilirubin 0.3 AST 110 H ALT 51 Alkaline Phosphatase 212 H Total Protein 6.9 Albumin 2.5 L - Imaging Impressions Abdomen X-Ray 01/10/18 00:00 CONCLUSION: 1. Nonobstructive bowel gas pattern. Assessment and Plan - Plan 67 yo Male with Liver and Left Adrenal Gland Metastasis and Hepatosplenomegaly secondary to possible primary fungating lesion at hepatic flexure identified and biopsied via colonoscopy. Hx of Hep C, in remission per pt s/p Harvoni Treatment 3yrs ago. Now c/o constipation and early satiety on presentation. Colon cancer with metastasis to the liver and adrenal gland - Oncology -s/p Colonoscopy and EGD, A near circumferential ulcerated, firm and fungating mass was found at the hepatic flexure. Multiple biopsies were performed using cold forceps. -Concern for partial bowel obstructions with risk of worsening obstruction. -Discussed with oncologist Dr. Gordon who recommended colon resection prior to initiation of chemotherapy. General surgery following and planning for colon resection and port placement this week. Hyponatremia - Likely hypovolemic hyponatremia. Liver disease also contributing. - Stable. Continue to monitor. - Follow AM labs. Iron Deficiency Anemia -Continue Iron Supplement Type 2 diabetes Hold oral hypoglycemic agents. Continue Sliding scale insulin with Accu-Cheks as ordered History of CAD/CABG Continue aspirin, statin, and beta-moshe Monitor for EKG changes, AMS Hypertension Stable, Continue lisinopril, beta-moshe Monitor BP and HR Insomnia: -Patient was taking Ambien from home in the hospital along with trazodone. He has been lethargic at times. He request that he does better with Ambien and trazodone does not help him much. I advised him to not use medications from home while in the hospital. Will discontinue trazodone and switch him over to Ambien at night as needed for insomnia. Hx of Hepatitis C Treated w/ [facility] 4yrs ago, reportedly in remission LFTs slightly elevated which is likely to liver metastasis and/or statins/ fibrate therapy GI prophylaxis -Stool softener PRN constipation.
[2018-01-12] MEDS: Morphine Sulfate 15 MG IR Tablet PO PRN ×5 (02:33→20:41)
[2018-01-12] MEDS: Lisinopril 10 MG Tablet PO SCH (10:11)
[2018-01-12] MEDS: Fenofibrate 145 MG Tablet PO SCH (10:11)
[2018-01-12] MEDS: Metoprolol Tartrate 50 MG Tablet PO SCH ×2 (10:12→20:41)
[2018-01-12] MEDS: Ferrous Sulfate 325 MG Tablet PO SCH (10:12)
--- NOTE | 2018-01-12 10:20 | P.PN ---
Subjective Interval history: Feeling bloated Tolerating clears Physical Exam Vital signs: Vital Signs 01/11/18 11:57 01/11/18 16:00 01/11/18 20:00 Temperature 98.1 F 98.2 F 97.8 F Pulse Rate 78 64 106 H Respiratory Rate 20 20 20 Blood Pressure 135/61 127/69 145/66 H Pulse Oximetry 100 96 98 01/12/18 00:00 01/12/18 04:00 01/12/18 08:00 Temperature 97.2 F L 97.7 F 98.0 F Pulse Rate 86 80 84 Respiratory Rate 19 17 20 Blood Pressure 147/62 H 148/68 H 142/63 H Pulse Oximetry 96 97 96 Intake & Output 01/11/18 01/12/18 01/12/18 18:59 06:59 18:59 Intake Total 2320 / 2320 1999 Output Total 600 / 600 Balance 1720 / 1720 1999 Weight 75.1 kg Intake: IV 1000 / 1000 1999 / 1999 LR 1000 mL Inj 1,000 ML @ 84 1000 / 1000 1999 / 1999 mls/hr IV.CONT .[id number] [facility] Rx# :[id number] Oral 720 / 720 Anesthesia Amount 600 / 600 Output: Urine 600 / 600 Other: # Voids 5 4 # Urine Diapers 0 Date of Last Bowel Movement 01/11/18 01/11/18 # Bowel Movements 3 - Constitutional no acute distress - Routine Abdominal Exam Present: soft, distended Comments: Nontender Results - Labs CBC & Chem 7: 01/11/18 09:00 01/11/18 09:00 Laboratory Results - last 24 hr 01/11/18 13:16 POC Glucose 151 H Assessment and Plan - Assessment (1) 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 Discussed risks of procedure with patient and ex-, including but not limited to: bleeding, infection, leakage, lung deflation, adhesion formation , and need for reoperation with possible need for colostomy. I have discussed remedies, consequences, alternatives and convalescence with them as well; they vocalize understanding and agree to proceed. - Plan Discussed Condition With: Patient Ex- Dr. Guerra - Attending Attestation I attest that I had a [id number] encounter with the patient on the same day, and personally performed and documented my assessment and findings in the medical record. The following services were provided during this hospital visit: Chart data review, vital sign assessments/reviewing monitor data Review of consultation notes if present Medication orders/review and/or management Ordering and/or reviewing lab tests Ordering and/or interpreting/reviewing x-rays and/or diagnostic studies Care of the patient and discussion of the patient with the care team Documentation time To help prompt me to consider important information that might be impacting today's encounter and assessment, Information from prior notes written by myself or my colleagues may have been "brought forward/copy and pasted" into today's note.
--- NOTE | 2018-01-12 12:37 | P.PNONC ---
Subjective Interval history: Afebrile. Sitting at bedside, visiting with family. Reports abdominal bloating, feeling extremely full "like I ate a steak and potatoes, but all I had was a half of an Ensure" denies bowel movement, passing gas. No nausea at this time. Pending colon resection and port placement with Dr. Cotton tomorrow. Objective Vital Signs/Intake & Output: Vital Signs 01/11/18 16:00 01/11/18 20:00 01/12/18 00:00 Temperature 98.2 F 97.8 F 97.2 F L Pulse Rate 64 106 H 86 Respiratory Rate 20 20 19 Blood Pressure 127/69 145/66 H 147/62 H Pulse Oximetry 96 98 96 01/12/18 04:00 01/12/18 08:00 Temperature 97.7 F 98.0 F Pulse Rate 80 84 Respiratory Rate 17 20 Blood Pressure 148/68 H 142/63 H Pulse Oximetry 97 96 Intake & Output 01/11/18 01/12/18 01/12/18 18:59 06:59 18:59 Intake Total 2320 / 2320 1999 Output Total 600 / 600 Balance 1720 / 1720 1999 Weight 75.1 kg Intake: IV 1000 / 1000 1999 / 2000 LR 1000 mL Inj 1,000 ML @ 84 1000 / 1000 2000 / 2000 mls/hr IV.CONT .[id number] [facility] Rx# :[id number] Oral 720 / 720 Anesthesia Amount 600 / 600 Output: Urine 600 / 600 Other: # Voids 5 4 # Urine Diapers 0 Date of Last Bowel Movement 01/11/18 01/11/18 01/11/18 # Bowel Movements 3 Result Diagrams: 01/11/18 09:00 01/11/18 09:00 Laboratory Results: Laboratory Results - last 24 hr 01/11/18 01/12/18 01/12/18 13:16 10:21 11:18 POC Glucose 151 H 193 H Blood Type O Positive Blood Type Recheck Required Medications: Active Medications Generic Name Dose Route Start Last Admin Trade Name Freq PRN Reason Stop Dose Admin Aspirin 81 mg 01/07/18 09:00 01/10/18 10:20 Ecotrin PO 81 mg DAILY [facility] Administration Atorvastatin Calcium 80 mg 01/07/18 09:00 01/12/18 10:12 Lipitor PO 80 mg DAILY [facility] Administration Cetirizine HCl 10 mg 01/07/18 09:00 01/12/18 10:11 Zyrtec PO 10 mg DAILY [facility] Administration Fenofibrate 145 mg 01/07/18 09:00 01/12/18 10:11 Tricor PO 145 mg DAILY [facility] Administration Ferrous Sulfate 325 mg 01/07/18 09:00 01/12/18 10:12 Ferosul PO 325 mg DAILY [facility] Administration Sodium Chloride 500 mls @ 30 mls/hr 01/07/18 05:00 01/07/18 19:30 Ns Inj IV.SIG Not Given .Q10H [facility] Lactated Ringer's 1,000 mls @ 84 mls/hr 01/10/18 18:30 01/12/18 06:11 Lr 1000 Ml Inj IV.CONT 84 mls/hr .[id number] [facility] Administration Lactulose 30 ml 01/06/18 15:47 01/09/18 14:31 Lactulose Liq PO 30 ml DAILY PRN Administration SEVERE CONSITIPATION Lisinopril 10 mg 01/07/18 09:00 01/12/18 10:11 Prinivil PO 10 mg DAILY [facility] Administration Metformin HCl 500 mg 01/06/18 21:00 01/12/18 10:11 Glucophage PO 500 mg BIDPC [facility] Administration Metoprolol Tartrate 50 mg 01/06/18 21:00 01/12/18 10:12 Lopressor PO 50 mg BID [facility] Administration Morphine Sulfate 2 mg 01/06/18 16:25 01/06/18 18:38 Morphine Inj IV.PUSH 2 mg Q4H PRN Administration BREAKTHROUGH PAIN Morphine Sulfate 15 mg 01/08/18 20:44 01/12/18 10:28 Msir PO 15 mg Q4H PRN Administration PAIN SCALE 6 TO 10 Ondansetron HCl 4 mg 01/06/18 15:47 01/06/18 22:33 Zofran Inj IV.PUSH 4 mg Q6H PRN Administration NAUSEA OR VOMITING Pantoprazole Sodium 40 mg 01/10/18 09:00 01/12/18 10:11 Protonix PO 40 mg DAILY [facility] Administration Sennosides 17.2 mg 01/06/18 15:47 01/09/18 12:39 Senokot PO 17.2 mg Q12H PRN Administration Moderate Constipation Objective Remarks: GENERAL: Disheveled male patient, in no acute distress. SKIN: Warm and dry. HEAD: Normocephalic. EYES: No scleral icterus. No injection or drainage. NECK: Supple, trachea midline. CARDIOVASCULAR: Regular rate and rhythm without murmurs. RESPIRATORY: Posterior breath sounds clear, equal bilaterally. No accessory muscle use. GASTROINTESTINAL: Abdomen tender, distended. EXTREMITIES: No cyanosis, or edema. MUSCULOSKELETAL: Adequate muscle tone. NEUROLOGICAL: No obvious focal deficit. Awake, alert, and oriented x3. Assessment/Plan - Plan 1. Multiple liver masses worrisome for metastatic disease. He has had right upper quadrant pain intermittently for several months. Over the last 4 weeks the pain become more constant. He also has nausea and vomiting. He lost about 10 pounds. He had anemia with microcytosis worrisome for iron deficiency anemia. He, however, denies any gross gastrointestinal bleed. His colonoscopy 4 years ago did not show any masses, but reportedly had polyps. CT of the chest did not show any metastatic disease. A CT of the abdomen and pelvis showed numerous hepatic lesions, largest measured 7 cm. There were also multiple retroperitoneal enlarged lymph nodes. There was an enlarged left adrenal gland lesion measured 4.1 cm, which could also be metastatic disease. I suspect he possibly has a primary GI tumor. January 07: CEA elevated at 42.9 with normal alpha-fetoprotein and CA 19 9. This is suggestive of primary GI tumor. He is going to have EGD and colonoscopy today. January 08:. Colonoscopy yesterday showed near circumferential mass at the hepatic flexure Worrisome for colon cancer. Biopsy was done and pathology is pending at this time. It appears that patient has primary colon cancer with metastasis to liver. EGD did not show any obvious mass. January 09: Biopsy from colonic mass is still pending. 2. Left adrenal gland lesion measured 4.1 cm. This could be metastatic disease and less likely to be a primary tumor. 3. Anemia with microcytosis suggestive of iron deficiency anemia. The patient denies any gross gastrointestinal bleed. He is taking iron supplement. 4. History of hepatitis C, treated with Harvoni 4 years ago, reportedly went into remission. His liver enzymes are still slightly elevated, but that could be due to the metastatic liver disease. RECOMMENDATIONS: 1. Pathology is malignant, awaiting final stains. Patient pending colon resection, liver biopsy and port placement tomorrow with Dr. Cotton. 2. Await final pathology staining. 3. Continue supportive care. - Attending Statement The exam, history, and the medical decision-making described in the above note were completed with the assistance of the mid-level provider. I reviewed and agree with the findings presented. I attest that I had a [id number] encounter with the patient on the same day, and personally performed and documented my assessment and findings in the medical record.No BM. Abdominal pain better controlled. Biopsy path is pending. Await resection of colonic mass for impending obstruction. Will need palliative chemo after recover from surgery. He is going to have port placement as well. Discussed with .
--- NOTE | 2018-01-12 17:27 | P.PNIM ---
Subjective Interval history: Patient reports he feels bloated today. Pain control with medications. No nausea or vomiting. Physical Exam Vital signs: Vital Signs 01/11/18 20:00 01/12/18 00:00 01/12/18 04:00 Temperature 97.8 F 97.2 F L 97.7 F Pulse Rate 106 H 86 80 Respiratory Rate 20 19 17 Blood Pressure 145/66 H 147/62 H 148/68 H Pulse Oximetry 98 96 97 01/12/18 08:00 01/12/18 12:00 Temperature 98.0 F 97.6 F Pulse Rate 84 80 Respiratory Rate 20 20 Blood Pressure 142/63 H 122/75 Pulse Oximetry 96 100 Intake & Output 01/11/18 01/12/18 01/12/18 18:59 06:59 18:59 Intake Total 2320 / 2320 1999 Output Total 600 / 600 Balance 1720 / 1720 1999 Weight 75.1 kg Intake: IV 1000 / 1000 1999 / 1999 LR 1000 mL Inj 1,000 ML @ 84 1000 / 1000 2000 / 2000 mls/hr IV.CONT .[id number] [facility] Rx# :[id number] Oral 720 / 720 Anesthesia Amount 600 / 600 Output: Urine 600 / 600 Other: # Voids 5 4 # Urine Diapers 0 Date of Last Bowel Movement 01/11/18 01/11/18 01/11/18 # Bowel Movements 3 Narrative: GENERAL: This is a well-nourished, well-developed patient, in no apparent distress. CARDIOVASCULAR: Normal rate and regular rhythm without murmurs, gallops, or rubs. RESPIRATORY: Good respiratory efforts. Breath sounds equal and clear to auscultation bilaterally. GASTROINTESTINAL: Abdomen is distended, diffusely tender to palpation, no rebound tenderness. Hypoactive bowel sounds. MUSCULOSKELETAL: Extremities without cyanosis, or edema. NEURO: Alert & Oriented x4 to person, place, time, situation. Moves all ext x4 PSYCH: Appropriate mood and affect. Results - Labs CBC & Chem 7: 01/11/18 09:00 01/11/18 09:00 Laboratory Results - last 24 hr 01/12/18 01/12/18 10:21 11:18 POC Glucose 193 H Blood Type O Positive Blood Type Recheck Required Antibody Screen Negative Assessment and Plan - Plan 67 yo Male with Liver and Left Adrenal Gland Metastasis and Hepatosplenomegaly secondary to possible primary fungating lesion at hepatic flexure identified and biopsied via colonoscopy. Hx of Hep C, in remission per pt s/p Harvoni Treatment 3yrs ago. Now c/o constipation and early satiety on presentation. Colon cancer with metastasis to the liver and adrenal gland - [facility] -s/p Colonoscopy and EGD, A near circumferential ulcerated, firm and fungating mass was found at the hepatic flexure. Multiple biopsies were performed using cold forceps. -Concern for partial bowel obstructions with risk of worsening obstruction. -Discussed with oncologist Dr. Gordon who recommended colon resection prior to initiation of chemotherapy. General surgery following and planning for colon resection, liver biopsy and port placement tomorrow. Discussed with Dr. Cotton. -Clear liquid diet. N.p.o. at midnight. Hyponatremia - Likely hypovolemic hyponatremia. Liver disease also contributing. - Stable. Continue to monitor. - Follow AM labs. Iron Deficiency Anemia -Continue Iron Supplement Type 2 diabetes Metformin Continue Sliding scale insulin with Accu-Cheks as ordered History of CAD/CABG Continue aspirin, statin, and beta-moshe Monitor for EKG changes, AMS Hypertension Stable, Continue lisinopril, beta-moshe Monitor BP and HR Insomnia: -Patient was taking Ambien from home in the hospital along with trazodone. He has been lethargic at times. He request that he does better with Ambien and trazodone does not help him much. I advised him to not use medications from home while in the hospital. Trazodone discontinued and he can use Ambien at night as needed for insomnia. Hx of Hepatitis C Treated w/ Harvoni 4yrs ago, reportedly in remission LFTs slightly elevated which is likely to liver metastasis and/or statins/ fibrate therapy GI prophylaxis -Stool softener PRN constipation. Discharge Planning: OR in a.m.
[2018-01-12] MEDS: Zolpidem Tartrate 5 MG Tablet PO PRN (21:33)
[2018-01-13] MEDS: Morphine Sulfate 15 MG IR Tablet PO PRN ×2 (01:34→05:50)
[2018-01-13] MEDS ORDERED: Metoprolol Tartrate 25 MG Tablet PO ONE (04:46)
[2018-01-13] MEDS ORDERED: Chlorhexidine Gluconate 2% 1 Pack (2 Cloths) TOPICAL ONE (04:46)
[2018-01-13] MEDS ORDERED: Sodium Chlor 0.9% Inj 500 ML IV.SIG SCH (05:00)
[2018-01-13 05:44] LABS: Hematocrit 26.9 % (39.0-51.0); Hemoglobin 8.9 gm/dL (13.0-17.0); Mean Corpuscular HGB Conc 33.1 % (32.0-36.0); Mean Corpuscular Hemoglobin 23.1 pg (27.0-34.0); Mean Corpuscular Volume 69.9 fL (80.0-100.0); Platelet Count 287 th/mm3 (150-450); Red Blood Count 3.85 mil/mm3 (4.50-5.90); Red Cell Distribution Width 15.6 % (11.6-17.2); White Blood Count 9.1 th/mm3 (4.0-11.0)
[2018-01-13 06:02] LABS: Calcium 8.3 mg/dL (8.5-10.1); Carbon Dioxide 26.3 meq/L (21.0-32.0); Potassium 5.2 meq/L (3.5-5.1)
[2018-01-13] MEDS ORDERED: Bupivacaine/Epinephrine Inj 0.25% 50 ML Vial ONE (07:20)
[2018-01-13] MEDS ORDERED: Lidocaine 1%/Epinephrine 1:100,000 Inj 30 ML Vial ONE (07:32)
[2018-01-13] MEDS ORDERED: Heparin 10,000 UNITS/10 ML Vial (for IV use) ONE (07:33)
[2018-01-13] MEDS ORDERED: ceFAZolin Inj 500 MG Vial ONE (07:36)
--- NOTE | 2018-01-13 08:07 | P.PNONC ---
Subjective Interval history: Patient is anxious about going for surgery today. Family at the bedside. Patient denies chest pain or shortness of breath. Objective Vital Signs/Intake & Output: Vital Signs 01/12/18 12:00 01/12/18 16:00 01/12/18 19:15 Temperature 97.6 F 97.2 F L 97.9 F Pulse Rate 80 87 100 H Respiratory Rate 20 20 18 Blood Pressure 122/75 137/63 129/61 Pulse Oximetry 100 99 100 01/13/18 00:05 01/13/18 04:00 Temperature 98.7 F 98.0 F Pulse Rate 85 93 H Respiratory Rate 18 20 Blood Pressure 149/62 H 157/72 H Pulse Oximetry 98 98 Intake & Output 01/12/18 01/13/18 01/13/18 18:59 06:59 18:59 Intake Total 1450 / 1450 1360 / 1360 Balance 1450 / 1450 1360 / 1360 Weight 77 kg Intake: IV 1000 / 1000 1000 / 1000 LR 1000 mL Inj 1,000 ML @ 84 1000 / 1000 1000 / 1000 mls/hr IV.CONT .[id number] [facility] Rx# :[id number] Oral 450 / 450 360 / 360 Other: # Voids 5 4 Date of Last Bowel Movement 01/11/18 01/11/18 01/11/18 # Bowel Movements 0 Result Diagrams: 01/13/18 05:20 01/13/18 05:20 Laboratory Results: Laboratory Results - last 24 hr 01/12/18 01/12/18 01/12/18 10:21 11:18 18:10 WBC RBC Hgb Hct MCV MCH MCHC RDW Plt Count MPV Sodium Potassium Chloride Carbon Dioxide Anion Gap BUN Creatinine Estimated GFR POC Glucose 193 H 117 H Random Glucose Calcium Blood Type O Positive Blood Type Recheck Required Antibody Screen Negative 01/12/18 01/13/18 01/13/18 20:44 05:20 05:20 WBC 9.1 RBC 3.85 L Hgb 8.9 L Hct 26.9 L MCV 69.9 L MCH 23.1 L MCHC 33.1 RDW 15.6 Plt Count 287 MPV 8.0 Sodium 131 L Potassium 5.2 H Chloride 101 Carbon Dioxide 26.3 Anion Gap 4 L BUN 18 Creatinine 0.91 Estimated GFR 83 L POC Glucose 174 H Random Glucose 122 H Calcium 8.3 L Blood Type Blood Type Recheck Antibody Screen Medications: Active Medications Generic Name Dose Route Start Last Admin Trade Name Freq PRN Reason Stop Dose Admin Aspirin 81 mg 01/07/18 09:00 01/10/18 10:20 Ecotrin PO 81 mg DAILY [facility] Administration Atorvastatin Calcium 80 mg 01/07/18 09:00 01/12/18 10:12 Lipitor PO 80 mg DAILY [facility] Administration Cetirizine HCl 10 mg 01/07/18 09:00 01/12/18 10:11 Zyrtec PO 10 mg DAILY [facility] Administration Fenofibrate 145 mg 01/07/18 09:00 01/12/18 10:11 Tricor PO 145 mg DAILY [facility] Administration Ferrous Sulfate 325 mg 01/07/18 09:00 01/12/18 10:12 Ferosul PO 325 mg DAILY [facility] Administration Sodium Chloride 500 mls @ 30 mls/hr 01/07/18 05:00 01/07/18 19:30 Ns Inj IV.SIG Not Given .Q10H [facility] Lactated Ringer's 1,000 mls @ 84 mls/hr 01/10/18 18:30 01/13/18 05:56 Lr 1000 Ml Inj IV.CONT 84 mls/hr .[id number] [facility] Administration Lactated Ringer's 1,000 mls @ 30 mls/hr 01/13/18 05:00 01/13/18 05:51 Lr 1000 Ml Inj IV.SIG 01/14/18 04:59 Not Given .Q24H [facility] Lactulose 30 ml 01/06/18 15:47 01/09/18 14:31 Lactulose Liq PO 30 ml DAILY PRN Administration SEVERE CONSITIPATION Lisinopril 10 mg 01/07/18 09:00 01/12/18 10:11 Prinivil PO 10 mg DAILY [facility] Administration Metformin HCl 500 mg 01/06/18 21:00 01/12/18 18:05 Glucophage PO 500 mg BIDPC [facility] Administration Metoprolol Tartrate 50 mg 01/06/18 21:00 01/12/18 20:41 Lopressor PO 50 mg BID [facility] Administration Morphine Sulfate 2 mg 01/06/18 16:25 01/06/18 18:38 Morphine Inj IV.PUSH 2 mg Q4H PRN Administration BREAKTHROUGH PAIN Morphine Sulfate 15 mg 01/08/18 20:44 01/13/18 05:50 Msir PO 15 mg Q4H PRN Administration PAIN SCALE 6 TO 10 Ondansetron HCl 4 mg 01/06/18 15:47 01/06/18 22:33 Zofran Inj IV.PUSH 4 mg Q6H PRN Administration NAUSEA OR VOMITING Pantoprazole Sodium 40 mg 01/10/18 09:00 01/12/18 10:11 Protonix PO 40 mg DAILY [facility] Administration Sennosides 17.2 mg 01/06/18 15:47 01/09/18 12:39 Senokot PO 17.2 mg Q12H PRN Administration Moderate Constipation Zolpidem Tartrate 5 mg 01/11/18 15:25 01/12/18 21:33 Ambien PO 5 mg HS PRN Administration INSOMNIA Objective Remarks: GENERAL: Well-nourished, well-developed patient. SKIN: Warm and dry. HEAD: Normocephalic. EYES: No scleral icterus. No injection or drainage. NECK: Supple, trachea midline. No JVD or lymphadenopathy. LYMPHATIC: No adenopathy. CARDIOVASCULAR: Regular rate and rhythm without murmurs. RESPIRATORY: Breath sounds equal bilaterally. No accessory muscle use. GASTROINTESTINAL: Abdomen soft, slightly tender in the right upper quadrant. Positive bowel sounds. EXTREMITIES: No cyanosis, or edema. MUSCULOSKELETAL: Adequate muscle tone. NEUROLOGICAL: No obvious focal deficit. Awake, alert, and oriented x3. PSYCHIATRIC: Appropriate mood and affect; insight and judgment normal. Assessment/Plan - Plan 1. Multiple liver masses worrisome for metastatic disease. He has had right upper quadrant pain intermittently for several months. Over the last 4 weeks the pain become more constant. He also has nausea and vomiting. He lost about 10 pounds. He had anemia with microcytosis worrisome for iron deficiency anemia. He, however, denies any gross gastrointestinal bleed. His colonoscopy 4 years ago did not show any masses, but reportedly had polyps. CT of the chest did not show any metastatic disease. A CT of the abdomen and pelvis showed numerous hepatic lesions, largest measured 7 cm. There were also multiple retroperitoneal enlarged lymph nodes. There was an enlarged left adrenal gland lesion measured 4.1 cm, which could also be metastatic disease. I suspect he possibly has a primary GI tumor. January 07: CEA elevated at 42.9 with normal alpha-fetoprotein and CA 19 9. This is suggestive of primary GI tumor. He is going to have EGD and colonoscopy today. January 08:. Colonoscopy yesterday showed near circumferential mass at the hepatic flexure Worrisome for colon cancer. Biopsy was done and pathology is pending at this time. It appears that patient has primary colon cancer with metastasis to liver. EGD did not show any obvious mass. January 09: Biopsy from colonic mass is still pending. 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 Gastric cancer cannot be ruled out but EGD did not reveal any gastric mass. Patient is going to have surgery today for impending obstruction. He is also going to have port placement for eventual chemotherapy. 2. Left adrenal gland lesion measured 4.1 cm. This could be metastatic disease and less likely to be a primary tumor. 3. Anemia with microcytosis suggestive of iron deficiency anemia. The patient denies any gross gastrointestinal bleed. He is taking iron supplement. 4. History of hepatitis C, treated with Harvoni 4 years ago, reportedly went into remission. His liver enzymes are still slightly elevated, but that could be due to the metastatic liver disease. RECOMMENDATIONS: 1. Patient is going to have colon resection for impending obstruction, liver biopsy and port placement today. 2. He is going to need palliative chemotherapy once recovered from surgery.. 3. Continue supportive care.
[2018-01-13] MEDS ORDERED: ceFAZolin 1 GM Premix Inj 1 GM/50 ML IV.SIG ONE (09:00)
[2018-01-13] MEDS ORDERED: *Meperidine Inj 25 MG/ML Vial PERIprocedural Use ONLY ONE (11:36)
[2018-01-13] MEDS ORDERED: *morphine SULFATE 4 MG/ML PERIprocedure ONLY ONE ×3 (11:36→12:07)
--- NOTE | 2018-01-13 11:42 | P.OP ---
- Preoperative Diagnosis (1) Carcinoma of hepatic flexure - Postoperative Diagnosis (1) Carcinoma of hepatic flexure Date of procedure: 01/13/18 Procedure: Xobryz-n-Prrm placement with intraoperative use of fluoroscopy Resection of hepatic flexure of the colon Emeterio-Cut liver biopsy right lobe of liver x2 Anesthesia: AMPARO Surgeon: Ezequiel Cotton MD Software Validation Technician: Xochitl Hein CFA Estimated blood loss (mL): 100 IV fluids (mL): 2,800 Pathology: other (Distal ascending colon and proximal transverse colon; Emeterio-Cut liver biopsies x2) Operation and Findings: Patient was taken to the operating room and placed on the operating table in the supine position. After an adequate level of general endotracheal anesthesia was achieved the neck and chest were shaved, prepped and draped bilaterally. Timeout was taken, confirming the correct patient, site, and procedures to be performed. The patient was placed in slight Trendelenburg position and the left subclavian region infiltrated with local anesthetic. An 18-gauge needle was passed into the subclavian vein on the first attempt and a guidewire was threaded. Real- time fluoroscopy demonstrated the guidewire to be coursing into the superior vena cava. An Xngiji-i-Ices pocket was then created inferior to this after infiltrating with local anesthetic. An incision was made in the skin in the pocket created with electrocautery. The catheter was brought through a short tunnel from the percutaneous puncture site to the pocket. An introducer and sheath were then passed over the guidewire and seen to pass smoothly into the superior vena cava by fluoroscopy. The introducer and guidewire were removed and the catheter passed down the sheath. The sheath was peeled away and the catheter withdrawn to a level in the superior vena cava. The catheter was trimmed to length and fixed to the port. This was placed into the pocket. The port was fixed to the pocket with 2 2-0 Prolene sutures. The port pocket was reinspected and seen to be hemostatic. Good blood return was achieved from the port and the port was re-flushed with 5 ml of 100 units/ml heparinized saline. The port pocket was closed in 2 layers with interrupted 3-0 Vicryl suture as was the percutaneous puncture site. The skin was closed with a 5-0 PDS suture in a running subcuticular fashion. Sponge, needle and instrument counts were reported to be correct. Wound was dressed with Steri-Strips. Attention was then turned to the abdomen. A 5 mm trocar was inserted just above the umbilicus and entered the abdominal cavity under direct vision utilizing the laparoscope uneventfully. The upper abdomen was visualized. Omentum was seen to be plastered to the anterior surface of the right lobe of the liver. A second 5 mm trocar was placed in the left upper quadrant and entered the abdominal cavity under direct vision uneventfully. Attempts at manipulation of the omentum revealed that this was affixed to tumor in the liver. Was felt that further laparoscopic manipulations would not be of any benefit to the patient and at this point an upper midline incision was made after removing the trocars. The peritoneal cavity was entered uneventfully. Wound protector was applied and the Bookwalter retractor brought up. Careful examination of the abdomen revealed no tumor in the pelvis or small bowel. Large tumor burden was noted in the liver. A small tumor in the hepatic flexure the colon was noted and was causing partial obstruction of the colon. Dissection was carried out proximal and distal to this after the omentum was taken off of the liver utilizing the harmonic scalpel. The colon was divided proximal to the tumor and distal after mobilizing the entire hepatic flexure utilizing blunt dissection and the harmonic scalpel. Care was taken to avoid any dissection near the duodenum. When this had been completed, the colon was also then dissected with the blood supply ligated and divided. The specimen was passed off the table. The ascending colon and distal transverse colon were then placed side to side. 2 colotomies were made and the stapler fired down the antimesenteric border. The staple line was seen to be hemostatic. The toe of the staple line was reinforced with a 3-0 silk suture. The colocolostomy was then closed with a DX 60 type stapler. One small bleeding point on a corner was controlled with a 3- 0 silk suture ligature. When this was completed, the mesenteric defect was closed with 3-0 silk sutures in a kyefft-np-kuetf fashion. The abdomen was then irrigated with warm saline and this was then all aspirated. The liver was then biopsied in the right lobe with a Emeterio-Cut needle. 2 cores were taken with good specimen obtained. These sites were made hemostatic with electrocautery. The abdomen was then closed with a running number #1 PDS looped suture. Local anesthetic was injected into the fascia. The skin was closed with henrik. The wound was dressed with a jatinder dressing. Sponge, needle, and instrument counts were reported to be correct. The patient was extubated and taken back to the recovery room in stable condition.
[2018-01-13] MEDS ORDERED: Naloxone Inj 0.4 MG/ML Vial IV.PUSH PRN (11:43)
[2018-01-13] MEDS ORDERED: Naloxone Inj 0.4 MG/ML Vial ONE (11:46)
[2018-01-13] MEDS ORDERED: Sugammadex Inj 200 MG/2 ML Vial IV.PUSH ONE (11:49)
--- NOTE | 2018-01-13 12:13 | XR ---
EXAM DATE: 01/13/2018 12:08 PM EST AGE/SEX: 67 years / Male INDICATIONS: Post infusor placement. CLINICAL DATA: This is the patient's subsequent encounter. Patient reports that signs and symptoms h ave been present for 1 week and indicates a pain score of 10/10. MEDICAL/SURGICAL HISTORY: Diabetes mellitus type II. Hepatitis C. CAD. CABG. Cholecystectomy . COMPARISON: POI, XR CHEST PA AND LAT, 01/01/2018. . FINDINGS: The patient is post median sternotomy. The cardiac and mediastinal contours are within normal limits. The lungs appear clear. The visualized bony structures are grossly intact. There is an Mkuvee-v-Kmow in the left chest. The tip of the catheter tubing overlies the SVC. CONCLUSION: Ggevth-r-Vqhh appears in satisfactory position. No pneumothorax identified. Electronically signed by: Jc Joel MD 01/13/2018 12:12 PM EST
[2018-01-13] MEDS ORDERED: *HYDROmorphone PF Inj 1 MG/ML Ampul PERIprocedural Use ONLY ONE ×3 (12:15→12:47)
[2018-01-13] MEDS ORDERED: HYDROmorphone PF Inj 2 MG/ML Vial ONE ×3 (13:03→15:45)
[2018-01-13] MEDS: Morphine Inj 30 MG/30 ML PCA.VIAL PCA PRN (13:33)
[2018-01-13] MEDS: Sodium Chloride 0.9% 2 ML Flush BID IV.FLUSH SCH ×2 (14:19→21:21)
[2018-01-13] MEDS: Ferrous Sulfate 325 MG Tablet PO SCH (14:19)
[2018-01-13] MEDS: Fenofibrate 145 MG Tablet PO SCH (14:19)
[2018-01-13] MEDS: Metoprolol Tartrate 50 MG Tablet PO SCH ×2 (14:39→21:21)
[2018-01-13] MEDS: Lisinopril 10 MG Tablet PO SCH (14:39)
[2018-01-13] MEDS: Morphine Sulfate Inj 2 MG/ML Vial IV.PUSH PRN ×2 (17:17→22:04)
--- NOTE | 2018-01-13 17:22 | P.PNIM ---
Subjective Interval history: Patient seen postoperatively in his room. He complains of pain at the surgical site. I instructed him on using the CUSTOMER RESOLUTION SPECIALIST. He denies nausea. Tolerated some water during my visit. Physical Exam Vital signs: Vital Signs 01/12/18 19:15 01/13/18 00:05 01/13/18 04:00 Temperature 97.9 F 98.7 F 98.0 F Pulse Rate 100 H 85 93 H Respiratory Rate 18 18 20 Blood Pressure 129/61 149/62 H 157/72 H Pulse Oximetry 100 98 98 01/13/18 08:00 01/13/18 11:31 01/13/18 11:45 Temperature 98.4 F 97.3 F L Pulse Rate 95 H 125 H 137 H Respiratory Rate 20 30 H 18 Blood Pressure 146/67 H 205/74 H 186/85 H Pulse Oximetry 97 98 91 L 01/13/18 12:00 01/13/18 14:42 Temperature Pulse Rate 130 H Respiratory Rate 32 H 16 Blood Pressure 170/79 H Pulse Oximetry 99 Intake & Output 01/12/18 01/13/18 01/13/18 18:59 06:59 18:59 Intake Total 1450 / 1450 1360 / 1360 3010 / 3010 Output Total 1100 / 1100 Balance 1450 / 1450 1360 / 1360 1910 / 1910 Weight 77 kg Intake: IV 1000 / 1000 1000 / 1000 150 / 150 LR 1000 mL Inj 1,000 ML @ 84 1000 / 1000 1000 / 1000 mls/hr IV.CONT .[id number] [facility] Rx# :[id number] Ancef 1 GM Premix Inj 1 gm In 50 / 50 50 ml @ 100 mls/hr IV.SIG ONCE ONE Rx#:[id number] Flagyl 500 MG Inj 100 ML @ 0 100 / 100 mls/hr IV.SIG .STK-MED ONE Rx#: [id number] Oral 450 / 450 360 / 360 60 / 60 Anesthesia Amount 2800 / 2800 Output: Estimated Blood Loss 100 / 100 Urine Amount (Catheter) 1000 / 1000 Indwelling Urethral Catheter 1000 / 1000 Other: # Voids 5 4 Date of Last Bowel Movement 01/11/18 01/11/18 01/11/18 # Bowel Movements 0 Narrative: GENERAL: Somewhat drowsy. Postop. CARDIOVASCULAR: Normal rate and regular rhythm without murmurs, gallops, or rubs. RESPIRATORY: Breath sounds equal and clear to auscultation anteriorly. GASTROINTESTINAL: Midline abdominal SURI dressing in place. Abdomen is soft. Appropriately tender MUSCULOSKELETAL: Extremities without cyanosis, or edema. NEURO: Drowsy. Moves all ext x4 - Urinary Catheter Management Indwelling Urethral Catheter Cath placed during this visit: yes Reason for continuing: Hourly intake/output Insertion date: 01/13/18 Insertion time: 08:20 Results - Labs CBC & Chem 7: 01/13/18 05:20 01/13/18 05:20 Laboratory Results - last 24 hr 01/12/18 01/12/18 01/13/18 18:10 20:44 05:20 WBC 9.1 RBC 3.85 L Hgb 8.9 L Hct 26.9 L MCV 69.9 L MCH 23.1 L MCHC 33.1 RDW 15.6 Plt Count 287 MPV 8.0 Sodium Potassium Chloride Carbon Dioxide Anion Gap BUN Creatinine Estimated GFR POC Glucose 117 H 174 H Random Glucose Calcium MTS Gel Crossmatch 01/13/18 01/13/18 01/13/18 05:20 08:34 11:37 WBC RBC Hgb Hct MCV MCH MCHC RDW Plt Count MPV Sodium 131 L Potassium 5.2 H Chloride 101 Carbon Dioxide 26.3 Anion Gap 4 L BUN 18 Creatinine 0.91 Estimated GFR 83 L POC Glucose 175 H Random Glucose 122 H Calcium 8.3 L MTS Gel Crossmatch See Detail 01/13/18 16:46 WBC RBC Hgb Hct MCV MCH MCHC RDW Plt Count MPV Sodium Potassium Chloride Carbon Dioxide Anion Gap BUN Creatinine Estimated GFR POC Glucose 161 H Random Glucose Calcium MTS Gel Crossmatch - Imaging Impressions Chest X-Ray 01/13/18 00:00 CONCLUSION: Rfnshe-v-Idon appears in satisfactory position. No pneumothorax identified. Assessment and Plan - Plan 67 yo Male with Liver and Left Adrenal Gland Metastasis and Hepatosplenomegaly secondary to possible primary fungating lesion at hepatic flexure identified and biopsied via colonoscopy. Hx of Hep C, in remission per pt s/p Harvoni Treatment 3yrs ago. Patient presented with persistent abdominal pain and symptoms consistent with impending obstruction. He underwent colon resection with Dr. Cotton, Vdgreh-z-Qulq placement and Emeterio-Cut liver biopsy right lobe of liver x2 today 01/13/18. Colon cancer with metastasis to the liver and adrenal gland - S/P colon resection -s/p Colonoscopy and EGD, A near circumferential ulcerated, firm and fungating mass was found at the hepatic flexure. Multiple biopsies were performed using cold forceps. -Concern for partial bowel obstructions with risk of worsening obstruction. -Oncology recommended colon resection prior to initiation of chemotherapy. -General surgery following and patient underwent colon resection, liver biopsy and port placement -Will need palliative chemo once he recovers form the surgery - Diet per surgery. Pain control. Hyponatremia - Likely hypovolemic hyponatremia. Liver disease may be contributing. - Stable. Continue to monitor. - Follow AM labs. Iron Deficiency Anemia -Continue Iron Supplement Type 2 diabetes Metformin Continue Sliding scale insulin with Accu-Cheks as ordered History of CAD/CABG Continue aspirin, statin, and beta-moshe Monitor for EKG changes, AMS Hypertension Stable, Continue lisinopril, beta-moshe Monitor BP and HR Insomnia: -Patient was taking Ambien from home in the hospital along with trazodone. He has been lethargic at times. He does better with Ambien and trazodone does not help him much. I advised him to not use medications from home while in the hospital. Trazodone discontinued and he can use Ambien at night as needed for insomnia. Hx of Hepatitis C Treated heather/ Shelly 4yrs ago, reportedly in remission LFTs slightly elevated which is likely to liver metastasis and/or statins/ fibrate therapy GI prophylaxis -Stool softener PRN constipation. Discharge Planning: Should be able to return home when medically ready.
[2018-01-13] MEDS: Zolpidem Tartrate 5 MG Tablet PO PRN (23:00)
[2018-01-14] MEDS: Morphine Sulfate Inj 2 MG/ML Vial IV.PUSH PRN (02:06)
[2018-01-14] MEDS: Morphine Inj 30 MG/30 ML PCA.VIAL PCA PRN ×2 (02:47→11:33)
[2018-01-14 05:07] LABS: Hematocrit 30.4 % (39.0-51.0); Hemoglobin 9.6 gm/dL (13.0-17.0); Mean Corpuscular HGB Conc 31.6 % (32.0-36.0); Mean Corpuscular Hemoglobin 22.5 pg (27.0-34.0); Mean Corpuscular Volume 71.2 fL (80.0-100.0); Mean Platelet Volume 7.8 fL (7.0-11.0); Platelet Count 328 th/mm3 (150-450); Red Blood Count 4.26 mil/mm3 (4.50-5.90); Red Cell Distribution Width 16.2 % (11.6-17.2); White Blood Count 13.9 th/mm3 (4.0-11.0)
[2018-01-14 05:27] LABS: Calcium 7.7 mg/dL (8.5-10.1); Carbon Dioxide 21.1 meq/L (21.0-32.0); Potassium 5.8 meq/L (3.5-5.1)
--- NOTE | 2018-01-14 07:57 | P.PNONC ---
Subjective Interval history: Patient has pain around surgical site but controlled with GLOBAL MARKETING COORDINATOR pump. He is feeling tired and weak. He denies any chest pain or palpitation. He has no shortness of breath or cough. He remains afebrile. Objective Vital Signs/Intake & Output: Vital Signs 01/13/18 08:00 01/13/18 11:31 01/13/18 11:45 Temperature 98.4 F 97.3 F L Pulse Rate 95 H 125 H 137 H Respiratory Rate 20 30 H 18 Blood Pressure 146/67 H 205/74 H 186/85 H Pulse Oximetry 97 98 91 L 01/13/18 12:00 01/13/18 12:15 01/13/18 12:30 Temperature Pulse Rate 130 H 120 H 119 H Respiratory Rate 32 H 32 H 24 Blood Pressure 170/79 H 162/72 H 157/70 H Pulse Oximetry 99 100 100 01/13/18 12:45 01/13/18 13:00 01/13/18 13:15 Temperature Pulse Rate 121 H 125 H 124 H Respiratory Rate 22 22 20 Blood Pressure 140/58 L 152/69 H 137/60 Pulse Oximetry 98 98 97 01/13/18 13:30 01/13/18 14:00 01/13/18 14:42 Temperature 97.6 F Pulse Rate 127 H 126 H Respiratory Rate 20 16 16 Blood Pressure 141/64 H 136/60 Pulse Oximetry 97 97 01/13/18 15:00 01/13/18 16:00 01/13/18 20:00 Temperature 98.1 F 97.1 F L Pulse Rate 122 H 112 H 93 H Respiratory Rate 13 18 17 Blood Pressure 120/61 128/63 119/63 Pulse Oximetry 95 89 L 96 01/14/18 00:00 01/14/18 04:00 Temperature 97.1 F L 97.3 F L Pulse Rate 85 82 Respiratory Rate 17 17 Blood Pressure 120/63 136/65 Pulse Oximetry 97 96 Intake & Output 01/13/18 01/14/18 01/14/18 18:59 06:59 18:59 Intake Total 3010 / 3010 2900 / 2900 Output Total 1100 / 1100 375 / 375 Balance 1910 / 1910 2525 / 2525 Weight 77 kg Intake: IV 150 / 150 1400 / 1400 LR 1000 mL Inj 1,000 ML @ 84 1400 / 1400 mls/hr IV.CONT .[id number] [facility] Rx# :[id number] Ancef 1 GM Premix Inj 1 gm In 50 / 50 50 ml @ 100 mls/hr IV.SIG ONCE ONE Rx#:[id number] Flagyl 500 MG Inj 100 ML @ 0 100 / 100 mls/hr IV.SIG .STK-MED ONE Rx#: [id number] Oral 60 / 60 1500 / 1500 Anesthesia Amount 2800 / 2800 Output: Urine 375 / 375 Estimated Blood Loss 100 / 100 Urine Amount (Catheter) 1000 / 1000 Indwelling Urethral Catheter 1000 / 1000 Other: Date of Last Bowel Movement 01/11/18 Result Diagrams: 01/14/18 04:38 01/14/18 04:38 Laboratory Results: Laboratory Results - last 24 hr 01/13/18 01/13/18 01/13/18 08:34 11:37 16:46 WBC RBC Hgb Hct MCV MCH MCHC RDW Plt Count MPV Sodium Potassium Chloride Carbon Dioxide Anion Gap BUN Creatinine Estimated GFR POC Glucose 175 H 161 H Random Glucose Calcium MTS Gel Crossmatch See Detail 01/13/18 01/14/18 01/14/18 21:27 04:38 04:38 WBC 13.9 H D RBC 4.26 L Hgb 9.6 L Hct 30.4 L MCV 71.2 L MCH 22.5 L MCHC 31.6 L RDW 16.2 Plt Count 328 MPV 7.8 Sodium 133 L Potassium 5.8 H Chloride 104 Carbon Dioxide 21.1 Anion Gap 8 BUN 29 H Creatinine 1.45 H Estimated GFR 49 L POC Glucose 159 H Random Glucose 144 H Calcium 7.7 L MTS Gel Crossmatch Imaging Studies: Impressions Chest X-Ray 01/13/18 00:00 CONCLUSION: Jyfcze-r-Xhih appears in satisfactory position. No pneumothorax identified. Medications: Active Medications Generic Name Dose Route Start Last Admin Trade Name Freq PRN Reason Stop Dose Admin Aspirin 81 mg 01/07/18 09:00 01/10/18 10:20 Ecotrin PO 81 mg DAILY [facility] Administration Atorvastatin Calcium 80 mg 01/07/18 09:00 01/13/18 14:19 Lipitor PO Not Given DAILY [facility] Cetirizine HCl 10 mg 01/07/18 09:00 01/13/18 14:19 Zyrtec PO Not Given DAILY [facility] Fenofibrate 145 mg 01/07/18 09:00 01/13/18 14:19 Tricor PO Not Given DAILY [facility] Ferrous Sulfate 325 mg 01/07/18 09:00 01/13/18 14:19 Ferosul PO Not Given DAILY [facility] Lactated Ringer's 1,000 mls @ 84 mls/hr 01/10/18 18:30 01/14/18 06:39 Lr 1000 Ml Inj IV.CONT 84 mls/hr .[id number] [facility] Infusion Sodium Chloride 500 mls @ 30 mls/hr 01/13/18 05:00 01/13/18 16:01 Ns Inj IV.SIG Not Given .Q10H [facility] Morphine Sulfate 30 mg in 30 mls @ 0 mls/hr 01/13/18 11:43 01/14/18 02:47 Morphine Inj GLOBAL MARKETING COORDINATOR 0 mls/hr UNSCH PRN Administration per GLOBAL MARKETING COORDINATOR parameters 0 MG/HR Lactulose 30 ml 01/06/18 15:47 01/09/18 14:31 Lactulose Liq PO 30 ml DAILY PRN Administration SEVERE CONSITIPATION Lisinopril 10 mg 01/07/18 09:00 01/13/18 14:39 Prinivil PO Not Given DAILY [facility] Metformin HCl 500 mg 01/06/18 21:00 01/13/18 17:17 [facility] Metoprolol Tartrate 50 mg 01/06/18 21:00 01/13/18 21:21 Lopressor PO 50 mg BID [facility] Administration Morphine Sulfate 2 mg 01/06/18 16:25 01/14/18 02:06 Morphine Inj IV.PUSH 2 mg Q4H PRN Administration BREAKTHROUGH PAIN Ondansetron HCl 4 mg 01/06/18 15:47 01/06/18 22:33 Zofran Inj IV.PUSH 4 mg Q6H PRN Administration NAUSEA OR VOMITING Oxycodone/Acetaminophen 1 tab 01/14/18 05:22 01/14/18 05:47 Percocet 7.5/325 Mg PO 1 tab Q4H PRN Administration PAIN 6-10 Pantoprazole Sodium 40 mg 01/10/18 09:00 01/13/18 14:19 Protonix PO Not Given DAILY [facility] Sennosides 17.2 mg 01/06/18 15:47 01/09/18 12:39 Senokot PO 17.2 mg Q12H PRN Administration Moderate Constipation Sodium Chloride 2 ml 01/13/18 09:00 01/13/18 21:21 Ns Flush IV.FLUSH Not Given BID [facility] Zolpidem Tartrate 5 mg 01/11/18 15:25 01/13/18 23:00 Ambien PO 5 mg HS PRN Administration INSOMNIA Objective Remarks: GENERAL: Well-nourished, well-developed patient. Week. SKIN: Warm and dry. HEAD: Normocephalic. EYES: No scleral icterus. No injection or drainage. NECK: Supple, trachea midline. No JVD or lymphadenopathy. LYMPHATIC: No adenopathy. CARDIOVASCULAR: Regular rate and rhythm without murmurs. RESPIRATORY: Breath sounds equal bilaterally. No accessory muscle use. GASTROINTESTINAL: Abdomen soft, slightly distended. Decreased bowel sounds. Surgical site no bleeding noted. EXTREMITIES: No cyanosis, or edema. SCD in place. MUSCULOSKELETAL: Adequate muscle tone. NEUROLOGICAL: No obvious focal deficit. Awake, alert, and oriented x3. PSYCHIATRIC: Appropriate mood and affect; insight and judgment normal. Assessment/Plan - Plan 1. Multiple liver masses worrisome for metastatic disease. He has had right upper quadrant pain intermittently for several months. Over the last 4 weeks the pain become more constant. He also has nausea and vomiting. He lost about 10 pounds. He had anemia with microcytosis worrisome for iron deficiency anemia. He, however, denies any gross gastrointestinal bleed. His colonoscopy 4 years ago did not show any masses, but reportedly had polyps. CT of the chest did not show any metastatic disease. A CT of the abdomen and pelvis showed numerous hepatic lesions, largest measured 7 cm. There were also multiple retroperitoneal enlarged lymph nodes. There was an enlarged left adrenal gland lesion measured 4.1 cm, which could also be metastatic disease. I suspect he possibly has a primary GI tumor. January 07: CEA elevated at 42.9 with normal alpha-fetoprotein and CA 19 9. This is suggestive of primary GI tumor. He is going to have EGD and colonoscopy today. January 08:. Colonoscopy yesterday showed near circumferential mass at the hepatic flexure Worrisome for colon cancer. Biopsy was done and pathology is pending at this time. It appears that patient has primary colon cancer with metastasis to liver. EGD did not show any obvious mass. January 09: Biopsy from colonic mass is still pending. 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 Gastric cancer cannot be ruled out but EGD did not reveal any gastric mass. Patient is going to have surgery today for impending obstruction. He is also going to have port placement for eventual chemotherapy. January 14: Postop day 1. Patient had resection of hepatic flexure colonic mass and liver biopsy. He also had port placement. During surgery large tumor burden was noted in the liver with a small tumor in the hepatic flexure causing partial obstruction. The omentum was fixed to the liver mass. Final pathology pending. 2. Left adrenal gland lesion measured 4.1 cm. This could be metastatic disease and less likely to be a primary tumor. 3. Anemia with microcytosis suggestive of iron deficiency anemia. The patient denies any gross gastrointestinal bleed. He is taking iron supplement. 4. History of hepatitis C, treated with Harvoni 4 years ago, reportedly went into remission. His liver enzymes are still slightly elevated, but that could be due to the metastatic liver disease. RECOMMENDATIONS: 1. Discussed surgical finding with patient. Final pathology is pending. We discussed the pathology from colon biopsy which showed poorly differentiated carcinoma of colonic origin. I told patient he is going to need palliative chemotherapy once he recovers from surgery. 2. Continue supportive care.
[2018-01-14] MEDS: Ferrous Sulfate 325 MG Tablet PO SCH (09:53)
[2018-01-14] MEDS: Lisinopril 10 MG Tablet PO SCH (09:53)
[2018-01-14] MEDS: Sodium Chloride 0.9% 2 ML Flush BID IV.FLUSH SCH ×2 (09:53→20:34)
[2018-01-14] MEDS: Fenofibrate 145 MG Tablet PO SCH (09:53)
[2018-01-14] MEDS: Metoprolol Tartrate 50 MG Tablet PO SCH ×2 (09:53→20:34)
--- NOTE | 2018-01-14 10:46 | P.PN ---
Subjective Interval history: Follow-up colon cancer status post resection. Pain control currently on MEDICAL PHYSIOLOGIST. Family concern re AMS . Pt awake states he did not sleep well dw GS and RN Physical Exam Vital signs: Vital Signs 01/13/18 11:31 01/13/18 11:45 01/13/18 12:00 Temperature 97.3 F L Pulse Rate 125 H 137 H 130 H Respiratory Rate 30 H 18 32 H Blood Pressure 205/74 H 186/85 H 170/79 H Pulse Oximetry 98 91 L 99 01/13/18 12:15 01/13/18 12:30 01/13/18 12:45 Temperature Pulse Rate 120 H 119 H 121 H Respiratory Rate 32 H 24 22 Blood Pressure 162/72 H 157/70 H 140/58 L Pulse Oximetry 100 100 98 01/13/18 13:00 01/13/18 13:15 01/13/18 13:30 Temperature 97.6 F Pulse Rate 125 H 124 H 127 H Respiratory Rate 22 20 20 Blood Pressure 152/69 H 137/60 141/64 H Pulse Oximetry 98 97 97 01/13/18 14:00 01/13/18 14:42 01/13/18 15:00 Temperature Pulse Rate 126 H 122 H Respiratory Rate 16 16 13 Blood Pressure 136/60 120/61 Pulse Oximetry 97 95 01/13/18 16:00 01/13/18 20:00 01/14/18 00:00 Temperature 98.1 F 97.1 F L 97.1 F L Pulse Rate 112 H 93 H 85 Respiratory Rate 18 17 17 Blood Pressure 128/63 119/63 120/63 Pulse Oximetry 89 L 96 97 01/14/18 04:00 01/14/18 08:00 Temperature 97.3 F L 97.5 F L Pulse Rate 82 85 Respiratory Rate 17 18 Blood Pressure 136/65 116/56 L Pulse Oximetry 96 95 Intake & Output 01/13/18 01/14/18 01/14/18 18:59 06:59 18:59 Intake Total 3010 / 3010 2900 / 2900 405.1 / 405.1 Output Total 1100 / 1100 375 / 375 Balance 0 / 191 2525 / 2525 405.1 / 405.1 Weight 77 kg Intake: IV 150 / 150 1400 / 1400 405.1 / 405.1 LR 1000 mL Inj 1,000 ML @ 84 1400 / 1400 405.1 / 405.1 mls/hr IV.CONT .[id number] [facility] Rx# :[id number] Ancef 1 GM Premix Inj 1 gm In 50 / 50 50 ml @ 100 mls/hr IV.SIG ONCE ONE Rx#:[id number] Flagyl 500 MG Inj 100 ML @ 0 100 / 100 mls/hr IV.SIG .STK-MED ONE Rx#: [id number] Oral 60 / 60 1500 / 1500 Anesthesia Amount 2800 / 2800 Output: Urine 375 / 375 Estimated Blood Loss 100 / 100 Urine Amount (Catheter) 1000 / 1000 Indwelling Urethral Catheter 1000 / 1000 Other: Date of Last Bowel Movement 01/11/18 Narrative: GENERAL: WD WN in ND weak looking CARDIOVASCULAR: Normal rate and regular rhythm without murmurs, gallops, or rubs. RESPIRATORY: Breath sounds equal and clear to auscultation anteriorly. GASTROINTESTINAL: Midline abdominal SURI dressing in place. Abdomen is soft. Appropriately tender MUSCULOSKELETAL: Extremities without cyanosis BLE edema. NEURO: AWake. Moves all ext x4 - Urinary Catheter Management Indwelling Urethral Catheter Cath placed during this visit: yes Reason for continuing: Hourly intake/output Insertion date: 01/13/18 Insertion time: 08:20 Results - Labs CBC & Chem 7: 01/14/18 04:38 01/14/18 04:38 Laboratory Results - last 24 hr 01/13/18 01/13/18 01/13/18 11:37 16:46 21:27 WBC RBC Hgb Hct MCV MCH MCHC RDW Plt Count MPV Sodium Potassium Chloride Carbon Dioxide Anion Gap BUN Creatinine Estimated GFR POC Glucose 175 H 161 H 159 H Random Glucose Calcium 01/14/18 01/14/18 01/14/18 04:38 04:38 07:55 WBC 13.9 H D RBC 4.26 L Hgb 9.6 L Hct 30.4 L MCV 71.2 L MCH 22.5 L MCHC 31.6 L RDW 16.2 Plt Count 328 MPV 7.8 Sodium 133 L Potassium 5.8 H Chloride 104 Carbon Dioxide 21.1 Anion Gap 8 BUN 29 H Creatinine 1.45 H Estimated GFR 49 L POC Glucose 131 H Random Glucose 144 H Calcium 7.7 L - Imaging ITS Impressions Abdomen/Pelvis CT 01/06/18 11:04 CONCLUSION: 1. Numerous hepatic lesions characteristic of metastatic disease. 2. Enlarged left adrenal gland characteristic of metastatic disease. 3. Upper retroperitoneal, rafael hepatis and peripancreatic lymphadenopathy. 4. Splenomegaly. 5. Status post cholecystectomy. Chest CTA 01/06/18 11:04 CONCLUSION: 1. Nodular thickening of an azygos fissure which may be scarring however short- term follow-up may be indicated. 2. No evidence of acute airspace disease or pulmonary emboli. 3. Multiple low density lesions in the liver and enlarged left adrenal gland. Abdomen X-Ray 01/10/18 00:00 CONCLUSION: 1. Nonobstructive bowel gas pattern. Chest X-Ray 01/13/18 00:00 CONCLUSION: [id number] appears in satisfactory position. No pneumothorax identified. - Procedures resection of colonic mass, liver biopsy and Cihbtz-a-Estn placement Assessment and Plan - Plan 67 yo Male with Liver and Left Adrenal Gland Metastasis and Hepatosplenomegaly secondary to possible primary fungating lesion at hepatic flexure identified and biopsied via colonoscopy. Hx of Hep C, in remission per pt s/p Harvoni Treatment 3yrs ago. Patient presented with persistent abdominal pain and symptoms consistent with impending obstruction. He underwent colon resection with Dr. Cotton, Diugdd-b-Opuu placement and Emeterio-Cut liver biopsy right lobe of liver x2 01/13/18. Colon cancer with metastasis to the liver and adrenal gland - S/P colon resection -s/p Colonoscopy and EGD, A near circumferential ulcerated, firm and fungating mass was found at the hepatic flexure. Multiple biopsies were performed using cold forceps. -Concern for partial bowel obstructions with risk of worsening obstruction. -Oncology recommended colon resection prior to initiation of palliative chemotherapy when he recovers from surgery. -General surgery following and patient underwent colon resection, liver biopsy and port placement -Diet per surgery. 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 Liver disease may be contributing. - Stable. Continue to monitor. - Follow labs. Acute kidney injury with hyperkalemia. Monitor on telemetry discontinue LR and lisinopril. Start NS will give one-time dose of IV calcium and IV sodium bicarb. Rpt BMP 7 pm. Boswell for strict I/O Iron Deficiency Anemia -Continue Iron Supplement Type 2 diabetes Metformin held Continue Sliding scale insulin with Accu-Cheks as ordered History of CAD/CABG Continue beta-moshe. Hold Lipitor secondary to transaminitis. Restart Asa if ok with GS Monitor for EKG changes Hypertension Stable, Continue beta-moshe Monitor BP and HR Insomnia: -Patient was taking Ambien from home in the hospital along with trazodone. He has been lethargic at times. He does better with Ambien and trazodone does not help him much. I advised him to not use medications from home while in the hospital. Trazodone discontinued and he can use Ambien at night as needed for insomnia. Hx of Hepatitis C Treated heather/ Shelly 4yrs ago, reportedly in remission LFTs slightly elevated which is likely to liver metastasis and/or statins/ fibrate therapy BLE edema. US doppler to ck for DVT. SQ heparin for proph GI prophylaxis -Stool softener PRN constipation.
--- NOTE | 2018-01-14 12:39 | P.DIET ---
Nutritional Evaluation Type of nutrition evaluation: follow-up Nutrition screening: Weight Loss > 10 lbs Subjective Subjective Comments: Reports poor appetite and weight loss. Prefers Gluten free, no hx of Celiac. Objective - Diagnosis Intractable Abdominal Pain, Hyponatremia - Objective % IBW: 120 (IBW = 142#) Body Weight Used for Calculations: Actual (77.6 kg) Energy Needs - Lower Range (kCal/kg): 28 Energy Needs - Upper Range (kCal/kg): 32 Lower Limit kCal/kg (kCals): 2,173 Upper Limit kCal/kg (kCals): 2,483 Lower Limit Protein Factor (Grams per Kg): 1.0 Upper Limit Protein Factor (Grams per Kg): 1.5 Lower Protein Needs (Protein): 78 Upper Protein Needs (Protein): 116 Fluid Factor (ml/kg): 32 Estimated Fluid Needs (ml): 2,483 Dietitian Reviewed in Medical Record: Current diet, Curent medications, Intake & Output, Labs, Medical history Diet Order: Full Liquid Objective Comments: Hx includes Hep C s/p treatment, CAD s/p CABG, DM, HTN 01/07 Colonoscopy with biopsy Esophagogastroduodenoscopy with biopsy 01/13 Diagnostic and exploratory lap with proximal transverse colectomy and liver biopsy Assessment Assessment: Pt is at high nutrition risk 2' to met liver dz, weight loss and reported poor po intake. Pt is POD #1 for resection of colon CA and diet is full liquids at this time. Hx of DM noted, if CHO-controlled diet is needed, recommend 2200 ADA. Pt prefers gluten free and is able to communicate preferences to Dietary when ordering. RD will monitor po intake and assess for the need of supplements. Labs, wts and clinical course reviewed. CBW = 77 kg Recommendations: 2200 ADA, advance per Surgery RD following Dietitian to Monitor: Lab values, Intake & Output, Diet tolerance, Weight change , PO Intake, Diet advancement, Medical course
[2018-01-14] MEDS ORDERED: Calcium Chloride Inj 1 GM in Sodium Chlor 0.9% Inj 100 ML IV.SIG ONE (14:00)
[2018-01-14] MEDS: Sod Chloride 0.9% Inj 1,000 ML IV.CONT SCH ×3 (14:27→23:18)
[2018-01-14] MEDS: Heparin - SQ 10,000 UNITS/ML Vial SQ SCH ×2 (14:45→20:34)
--- NOTE | 2018-01-14 14:54 | P.PNGS ---
Subjective Interval history: Up to chair Family at the bedside Physical Exam Vital signs: Vital Signs 01/13/18 15:00 01/13/18 16:00 01/13/18 20:00 Temperature 98.1 F 97.1 F L Pulse Rate 122 H 112 H 93 H Respiratory Rate 13 18 17 Blood Pressure 120/61 128/63 119/63 Pulse Oximetry 95 89 L 96 01/14/18 00:00 01/14/18 04:00 01/14/18 08:00 Temperature 97.1 F L 97.3 F L 97.5 F L Pulse Rate 85 82 85 Respiratory Rate 17 17 18 Blood Pressure 120/63 136/65 116/56 L Pulse Oximetry 97 96 95 01/14/18 12:00 01/14/18 14:32 Temperature 97.2 F L Pulse Rate 80 Respiratory Rate 18 16 Blood Pressure 109/54 L Pulse Oximetry 98 Intake & Output 01/13/18 01/14/18 01/14/18 18:59 06:59 18:59 Intake Total 3010 / 3010 2900 / 2900 554.1 / 554.1 Output Total 1100 / 1100 375 / 375 Balance 1910 / 1910 2525 / 2525 554.1 / 554.1 Weight 77 kg Intake: IV 150 / 150 1400 / 1400 554.1 / 554.1 LR 1000 mL Inj 1,000 ML @ 84 1400 / 1400 554.1 / 554.1 mls/hr IV.CONT .[id number] [facility] Rx# :[id number] Ancef 1 GM Premix Inj 1 gm In 50 / 50 50 ml @ 100 mls/hr IV.SIG ONCE ONE Rx#:[id number] Flagyl 500 MG Inj 100 ML @ 0 100 / 100 mls/hr IV.SIG .STK-MED ONE Rx#: [id number] Oral 60 / 60 1500 / 1500 Anesthesia Amount 2800 / 2800 Output: Urine 375 / 375 Estimated Blood Loss 100 / 100 Urine Amount (Catheter) 1000 / 1000 Indwelling Urethral Catheter 1000 / 1000 Other: Date of Last Bowel Movement 01/11/18 01/11/18 Narrative: Alert and awake Abd: soft; tender to palpation; SURI in place with minimal drainage but good seal Mild BLE edema - Urinary Catheter Management Indwelling Urethral Catheter Cath placed during this visit: yes Reason for continuing: Hourly intake/output Insertion date: 01/13/18 Insertion time: 08:20 Results - Labs 01/20/18 06:33 01/20/18 06:33 Laboratory Results - last 24 hr 01/13/18 01/13/18 01/14/18 16:46 21:27 04:38 WBC 13.9 H D RBC 4.26 L Hgb 9.6 L Hct 30.4 L MCV 71.2 L MCH 22.5 L MCHC 31.6 L RDW 16.2 Plt Count 328 MPV 7.8 Sodium Potassium Chloride Carbon Dioxide Anion Gap BUN Creatinine Estimated GFR POC Glucose 161 H 159 H Random Glucose Calcium 01/14/18 01/14/18 04:38 07:55 WBC RBC Hgb Hct MCV MCH MCHC RDW Plt Count MPV Sodium 133 L Potassium 5.8 H Chloride 104 Carbon Dioxide 21.1 Anion Gap 8 BUN 29 H Creatinine 1.45 H Estimated GFR 49 L POC Glucose 131 H Random Glucose 144 H Calcium 7.7 L - Imaging Imaging: ITS Impressions Abdomen/Pelvis CT 01/06/18 11:04 CONCLUSION: 1. Numerous hepatic lesions characteristic of metastatic disease. 2. Enlarged left adrenal gland characteristic of metastatic disease. 3. Upper retroperitoneal, rafael hepatis and peripancreatic lymphadenopathy. 4. Splenomegaly. 5. Status post cholecystectomy. Chest CTA 01/06/18 11:04 CONCLUSION: 1. Nodular thickening of an azygos fissure which may be scarring however short- term follow-up may be indicated. 2. No evidence of acute airspace disease or pulmonary emboli. 3. Multiple low density lesions in the liver and enlarged left adrenal gland. Abdomen X-Ray 01/10/18 00:00 CONCLUSION: 1. Nonobstructive bowel gas pattern. Chest X-Ray 01/13/18 00:00 CONCLUSION: Bgemhl-j-Tkpc appears in satisfactory position. No pneumothorax identified. Assessment and Plan - Assessment (1) Carcinoma of hepatic flexure Code(s): C18.3 - Malignant neoplasm of hepatic flexure Status: Acute Plan: 67 year with carcinoma of the hepatic flexure; POD1 Egwlop-y-Cuvb placement; Resection of hepatic flexure of the colon; Emeterio-Cut liver biopsy right lobe of liver x2 -Continue full liquids as tolerated -UOP low---keep Boswell--- added 500 cc bolus -K high---recheck at 1900 -IVF -US BLE to r/o DVT -Start subq heparin -Recheck CBC/CMP in AM -PT Concern about declining renal function; will monitor K+ later today and give lasix Need to continue close monitoring The exam, history, and the medical decision-making described in the above note were completed with the assistance of the mid-level provider. I reviewed and agree with the findings presented. I attest that I had a [id number] encounter with the patient on the same day, and personally performed and documented my assessment and findings in the medical record.
[2018-01-14] MEDS ORDERED: Sodium Chlor 0.9% Inj 500 ML IV.SIG SCH (15:00)
--- NOTE | 2018-01-14 17:31 | US ---
EXAM DATE: 01/14/2018 5:28 PM EST AGE/SEX: 67 years / Male INDICATIONS: Bilateral leg swelling. CLINICAL DATA: This is the patient's initial encounter. Patient reports that signs and symptoms have been present for 3 days and indicates a pain score of 2/10. MEDICAL/SURGICAL HISTORY: Diabetes mellitus type II. Hepatitis C. Carpal tunnel syndrome. Samuel nary artery disease. Cholecystectomy. Open heart surgery. COMPARISON: No prior exams available for comparison. TECHNIQUE: Venous ultrasound of both lower extremities was performed from the inguinal ligament to t he proximal calf. Real-time, color Doppler and spectral tracing, compression and augmentation techni ques were used. FINDINGS: Right Leg: Normal compression of the deep venous system from the inguinal region to the proximal parviz f. No echogenic clot is seen. Normal response of the venous system to augmentation and respiration. Left Leg: Normal compression of the deep venous system from the inguinal region to the proximal calf . No echogenic clot is seen. Normal response of the venous system to augmentation and respiration. Other: None. CONCLUSION: 1. The study is negative for bilateral lower extremity deep venous thrombosis. Electronically signed by: Antonio Hernadez MD 01/14/2018 5:30 PM EST
[2018-01-15 03:25] LABS: Baso % (Auto) 0.1 % (0.0-2.0); Eos % (Auto) 0.2 % (0.0-4.0); Hematocrit 27.4 % (39.0-51.0); Hemoglobin 8.8 gm/dL (13.0-17.0); Lymph % (Auto) 7.2 % (9.0-44.0); Mean Corpuscular HGB Conc 32.1 % (32.0-36.0); Mean Corpuscular Hemoglobin 22.4 pg (27.0-34.0); Mean Corpuscular Volume 69.9 fL (80.0-100.0); Mean Platelet Volume 8.2 fL (7.0-11.0); Mono % (Auto) 7.1 % (0.0-8.0); Neut # (Auto) 11.8 th/mm3 (1.8-7.7); Neut % (Auto) 85.4 % (16.0-70.0); Platelet Count 366 th/mm3 (150-450); Red Blood Count 3.92 mil/mm3 (4.50-5.90); White Blood Count 13.9 th/mm3 (4.0-11.0)
[2018-01-15 03:55] LABS: Alanine Aminotransferase 362 U/L (12-78); Albumin 1.9 g/dL (3.4-5.0); Alkaline Phosphatase 162 U/L (45-117); Anion Gap 10 meq/L (5-15); Aspartate Aminotransferase 1181 U/L (15-37); Blood Urea Nitrogen 48 mg/dL (7-18); Calcium 7.6 mg/dL (8.5-10.1); Carbon Dioxide 20.3 meq/L (21.0-32.0); Chloride 103 meq/L (98-107); Glomerular Filtration Rate 27 mL/min (>89); Glucose,Random 148 mg/dL (74-106); Potassium 6.3 meq/L (3.5-5.1); Sodium 133 meq/L (136-145); Total Protein 5.2 g/dL (6.4-8.2)
--- NOTE | 2018-01-15 04:14 | CT ---
EXAM DATE: 01/15/2018 4:07 AM EST AGE/SEX: 67 years / Male INDICATIONS: Abdominal pain. CLINICAL DATA: This is the patient's initial encounter. Patient reports that signs and symptoms have been present for 1 day and indicates a pain score of 10/10. MEDICAL/SURGICAL HISTORY: Hepatitis C. Diabetes. CAD. Cholecystectomy. Colectomy. Liver biops y. RADIATION DOSE: 15.81 CTDI (mGy) COMPARISON: [facility] – [place], CT ABDOMEN & PELVIS W CONTRAST, 01/06/2018. . TECHNIQUE: Multiple contiguous axial images were obtained through the abdomen. Images were obtained using multiple row detector helical technique. Using automated exposure control and adjustment of the mA and/or kV according to patient size, radiation dose was kept as low as reasonably achievable to o btain optimal diagnostic quality images. DICOM format image data is available electronically for rev iew and comparison. FINDINGS: Compare January 06. Small bilateral pleural effusions have developed. There is extensive metastatic liver as noted previously. No acute findings in the spleen, adrenals or pancreas. Stable enlarged adr enal gland. Stable upper retroperitoneal the measuring up to about 1.6 cm in diameter. There is recent laparotomy there is air in the soft tissues of the anterior abdominal wall and a smal l amount of free air. There are postoperative changes of a right-sided hemicolectomy. Air-fluid level in the stomach. Mild diffuse ileus. Trace free fluid. Boswell catheter present in the bladder. CONCLUSION: 1. Recent laparotomy and right hemicolectomy with subcutaneous air in the anterior abdominal wall an d a small amount of free air. 2. Extensive metastatic disease in the liver. Stable enlarged left adrenal gland. 3. New small bilateral pleural effusions and basilar atelectasis. Mild ileus. Electronically signed by: Ruperto Rodriguez MD 01/15/2018 4:13 AM EST
[2018-01-15] MEDS ORDERED: Sod Chloride 0.9% Inj 1,000 ML IV.SIG SCH (05:00)
[2018-01-15 05:03] LABS: Amorphous Sediment,Urine Rare /hpf; Bacteria,Urine Few /hpf; Bilirubin,Urine Negative (Negative); Clarity,Urine Turbid (Clear); Color,Urine Amber (Yellw/Straw); Glucose,Urine (UA) Negative (Negative); Hyaline Casts,Urine INNUM /lpf (0-3); Leukocyte Esterase,Urine Moderate (Negative); Mucus,Urine Few /lpf (Occasional); Nitrite,Urine Negative (Negative); Specific Gravity,Urine 1.017 (1.002-1.035); Squamous Epithelial Cell,Urine 4 /hpf (0-5)
[2018-01-15] MEDS: Sod Chloride 0.9% Inj 1,000 ML IV.CONT SCH ×2 (07:35→08:27)
[2018-01-15] MEDS: Morphine Inj 30 MG/30 ML PCA.VIAL PCA PRN (08:25)
[2018-01-15] MEDS: Ferrous Sulfate 325 MG Tablet PO SCH (08:28)
[2018-01-15] MEDS: Metoprolol Tartrate 50 MG Tablet PO SCH ×2 (08:28→20:27)
[2018-01-15] MEDS: Heparin - SQ 10,000 UNITS/ML Vial SQ SCH (08:29)
[2018-01-15] MEDS: Fenofibrate 145 MG Tablet PO SCH (08:29)
[2018-01-15] MEDS: Sodium Chloride 0.9% 2 ML Flush BID IV.FLUSH SCH ×2 (08:29→20:27)
[2018-01-15] MEDS ORDERED: Calcium Chloride Inj 1 GM in Sodium Chlor 0.9% Inj 100 ML IV.SIG ONE (09:08)
--- NOTE | 2018-01-15 09:14 | P.PN ---
Subjective Interval history: Follow-up acute kidney injury. Repeat abdominal CT shows mild ileus. Doppler sonogram shows no DVT. Worsening renal function with hyperkalemia with decreased urine output patient received IV Lasix last night. Patient complains of abdominal pain and mild shortness of breath. Seen with and daughter. Discussed with general surgery Physical Exam Vital signs: Vital Signs 01/14/18 12:00 01/14/18 14:32 01/14/18 16:00 Temperature 97.2 F L 97.3 F L Pulse Rate 80 75 Respiratory Rate 18 16 17 Blood Pressure 109/54 L 114/57 L Pulse Oximetry 98 97 01/14/18 20:00 01/15/18 00:00 01/15/18 04:00 Temperature 97.1 F L 97.6 F 97.4 F L Pulse Rate 77 75 77 Respiratory Rate 18 18 18 Blood Pressure 115/58 L 116/58 L 105/54 L Pulse Oximetry 93 L 95 96 01/15/18 08:00 Temperature 97.7 F Pulse Rate 85 Respiratory Rate 17 Blood Pressure 103/53 L Pulse Oximetry 90 L Intake & Output 01/14/18 01/15/18 01/15/18 18:59 06:59 18:59 Intake Total 1884.1 / 1884.1 1800 / 1800 1280 / 1280 Output Total 75 / 75 60 / 60 Balance 1809.1 / 1809.1 1800 / 1800 1220 / 1220 Weight 77.1 kg Intake: IV 1164.1 / 1164.1 900 / 900 800 / 800 LR 1000 mL Inj 1,000 ML @ 84 554.1 / 554.1 mls/hr IV.CONT .[id number] [facility] Rx# :[id number] NS Inj 1,000 ML @ 125 mls/hr IV 900 / 900 800 / 800 .CONT .Q8H [facility] Rx#:[id number] Calcium Chloride Inj 1 GM In NS 110 / 110 Inj 100 ML @ 110 mls/hr IV.SIG ONCE ONE Rx#:[id number] NS Inj 500 ML @ 1000 mls/hr IV. 500 / 500 SIG BOLUS [facility] Rx#:[id number] Oral 720 / 720 900 / 900 480 / 480 Output: Urine Amount (Catheter) 75 / 75 60 / 60 Indwelling Urethral Catheter 75 / 75 60 / 60 Other: Date of Last Bowel Movement 01/11/18 Narrative: GENERAL: WD WN in ND weak looking CARDIOVASCULAR: Normal rate and regular rhythm without murmurs, gallops, or rubs. RESPIRATORY: Breath sounds equal and clear to auscultation anteriorly. GASTROINTESTINAL: Midline abdominal SURI dressing in place. Abdomen is soft. Appropriately tender MUSCULOSKELETAL: Extremities without cyanosis BLE edema. NEURO: AWake. Moves all ext x4 - Urinary Catheter Management Indwelling Urethral Catheter Cath placed during this visit: yes, but has since been removed by the nurse Reason for continuing: Hourly intake/output Insertion date: 01/15/18 Insertion time: 03:30 Removal date: 01/14/18 Removal time: 03:20 Results - Labs CBC & Chem 7: 01/15/18 03:07 01/15/18 10:48 Laboratory Results - last 24 hr 01/13/18 01/14/18 01/15/18 08:34 21:36 03:07 WBC RBC Hgb Hct MCV MCH MCHC RDW Plt Count MPV Neut % (Auto) Lymph % (Auto) [place] % (Auto) Eos % (Auto) Baso % (Auto) Neut # (Auto) Lymph # (Auto) [place] # (Auto) Eos # (Auto) Baso # (Auto) WBC Differential Differential Comment Sodium Potassium 6.4 H Chloride Carbon Dioxide Anion Gap BUN Creatinine Estimated GFR Random Glucose Calcium Magnesium 2.3 Total Bilirubin AST ALT Alkaline Phosphatase Total Protein Albumin Urine Color Urine Clarity Urine pH Ur Specific [place] Urine Protein Urine Glucose (UA) Urine Ketones Urine Occult Blood Urine Nitrate Urine Bilirubin Urine Urobilinogen Ur Leukocyte Esterase Urine RBC Urine WBC Ur Squamous Epith Cells Amorphous Sediment Urine Bacteria Hyaline Casts Granular Casts Waxy Casts Urine Mucus Micro UA Comment Ur Microscopic Review Urine Culture Comments MTS Gel Crossmatch See Detail 01/15/18 01/15/18 01/15/18 03:07 03:07 04:35 WBC 13.9 H RBC 3.92 L Hgb 8.8 L Hct 27.4 L MCV 69.9 L MCH 22.4 L MCHC 32.1 RDW 16.0 Plt Count 366 MPV 8.2 Neut % (Auto) 85.4 H Lymph % (Auto) 7.2 L [place] % (Auto) 7.1 Eos % (Auto) 0.2 Baso % (Auto) 0.1 Neut # (Auto) 11.8 H Lymph # (Auto) 1.0 [place] # (Auto) 1.0 H Eos # (Auto) 0.0 Baso # (Auto) 0.0 WBC Differential . Differential Comment Auto diff final Sodium 133 L Potassium 6.3 H Chloride 103 Carbon Dioxide 20.3 L Anion Gap 10 BUN 48 H Creatinine 2.45 H Estimated GFR 27 L Random Glucose 148 H Calcium 7.6 L Magnesium Total Bilirubin 1.0 AST 1181 H ALT 362 H Alkaline Phosphatase 162 H Total Protein 5.2 L D Albumin 1.9 L Urine Color Lorna Urine Clarity Turbid H Urine pH 5.0 Ur Specific [place] 1.017 Urine Protein 100 H Urine Glucose (UA) Negative Urine Ketones Negative Urine Occult Blood Moderate H Urine Nitrate Negative Urine Bilirubin Negative Urine Urobilinogen 2.0 H Ur Leukocyte Esterase Moderate H Urine RBC Urine WBC 31 H Ur Squamous Epith Cells 4 Amorphous Sediment Rare H Urine Bacteria Few H Hyaline Casts Innum Granular Casts 12 Waxy Casts 4 Urine Mucus Few H Micro UA Comment Cath-culture ind Ur Microscopic Review Not Reportable Urine Culture Comments Cath-cult indicated MTS Gel Crossmatch - Imaging Impressions Venous Doppler Study 01/14/18 00:00 CONCLUSION: 1. The study is negative for bilateral lower extremity deep venous thrombosis. Abdomen/Pelvis CT 01/15/18 00:00 CONCLUSION: 1. Recent laparotomy and right hemicolectomy with subcutaneous air in the anterior abdominal wall and a small amount of free air. 2. Extensive metastatic disease in the liver. Stable enlarged left adrenal gland. 3. New small bilateral pleural effusions and basilar atelectasis. Mild ileus. - Procedures resection of colonic mass, liver biopsy and Crhacr-c-Otda placement Vas-Cath placement Assessment and Plan - Plan 67 yo Male with Liver and Left Adrenal Gland Metastasis and Hepatosplenomegaly secondary to possible primary fungating lesion at hepatic flexure identified and biopsied via colonoscopy. Hx of Hep C, in remission per pt s/p Harvoni Treatment 3yrs ago. Patient presented with persistent abdominal pain and symptoms consistent with impending obstruction. He underwent colon resection with Dr. Cotton, Ujhqsp-t-Lxxa placement and Emeterio-Cut liver biopsy right lobe of liver x2 01/13/18. Colon cancer with metastasis to the liver and adrenal gland - S/P colon resection -s/p Colonoscopy and EGD, A near circumferential ulcerated, firm and fungating mass was found at the hepatic flexure. Multiple biopsies were performed using cold forceps. -Concern for partial bowel obstructions with risk of worsening obstruction. -Oncology recommended colon resection prior to initiation of palliative chemotherapy when he recovers from surgery. -General surgery following and patient underwent colon resection, liver biopsy and port placement -Diet per surgery. 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 Will monitor Hyponatremia - Likely hypovolemic hyponatremia. Liver disease may be contributing. - Stable. Continue to monitor. - Follow labs. Acute kidney injury with hyperkalemia. Worse with decreased urine output. Will give another fluid bolus of 500 cc received one liter early this morning. Then sodium bicarb drip at 150 cc an hour. Monitor for fluid overload repeat CT shows small bilateral pleural effusions. Treat hyperkalemia with IV calcium , IV insulin, IV bicarb and nebulization. Kayexalate p.o. x1. Stat EKG and continue to monitor on telemetry. Nephrology has been consulted recommended urgent hemodialysis Vas-Cath has been placed. Elbert for strict I/O Iron Deficiency Anemia -Continue Iron Supplement Type 2 diabetes Metformin held Continue Sliding scale insulin with Accu-Cheks as ordered History of CAD/CABG Continue beta-moshe. Hold Lipitor secondary to transaminitis. Restart Asa if ok with GS Monitor for EKG changes Hypertension Stable, Continue beta-moshe Monitor BP and HR Insomnia: -Patient was taking Ambien from home in the hospital along with trazodone. He has been lethargic at times. He does better with Ambien and trazodone does not help him much. I advised him to not use medications from home while in the hospital. Trazodone discontinued and he can use Ambien at night as needed for insomnia. Hx of Hepatitis C Treated w/ Shelly 4yrs ago, reportedly in remission LFTs slightly elevated which is likely to liver metastasis and/or statins/ fibrate therapy. Worse today status post liver biopsy BLE edema. US doppler negative for DVT. SQ heparin for proph when cleared by general surgery GI prophylaxis -Stool softener PRN constipation. Discharge Planning: Patient is clinically worse consider transfer to ICU
[2018-01-15] MEDS ORDERED: RESP: Albuterol Concentrated 2.5 MG/0.5 ML Neb NEB ONE (09:30)
[2018-01-15] MEDS ORDERED: Sodium Chlor 0.9% Inj 500 ML IV.SIG ONE (09:34)
[2018-01-15] MEDS ORDERED: Dextrose 50% in Water 50 ML Vial IV.PUSH ONE (10:00)
[2018-01-15] MEDS ORDERED: Sodium Polystyrene Sulfonate/Sorbitol Liq 15 GM/60 ML UDC PO ONE (10:00)
--- NOTE | 2018-01-15 10:33 | US ---
EXAM DATE: 01/15/2018 10:13 AM EST AGE/SEX: 67 years / Male INDICATIONS: Increased BUN/Creatinine. CLINICAL DATA: This is the patient's initial encounter. Patient reports that signs and symptoms have been present for 1 day and indicates a pain score of 3/10. MEDICAL/SURGICAL HISTORY: Diabetes mellitus type II. Hepatitis C. Coronary artery disease. Car pal tunnel syndrome. Cholecystectomy. Open heart surgery. COMPARISON: [facility] [place], CT ABDOMEN & PELVIS W/O CONTRAST, 01/15/2018. . MEASUREMENTS: Right Kidney:__10.1 x 5.1 x 4.9 cm Left Kidney:__10.6 x 5.1 x 4.8 cm FINDINGS: Right Kidney: Normal echotexture and cortical thickness. No mass or hydronephrosis. Left Kidney: Normal echotexture and cortical thickness. No mass or hydronephrosis. Bladder: Boswell catheter is present. Bladder decompressed. Other: Trace amount of free fluid adjacent to the liver. Hypoechoic mass is partially seen within th e liver parenchyma better seen on the prior CT.. CONCLUSION: 1. No obstruction. The kidneys are sonographically unremarkable. 2. Metastatic lesions involving the liver previously described and better seen on the prior CT. 3. Trace amount of ascites. Electronically signed by: Stevo Philippe MD 01/15/2018 10:31 AM EST
--- NOTE | 2018-01-15 10:33 | P.CONNP ---
<Raegan Bryan - Last Filed: 01/15/18 15:51> History of Present Illness Reason for Consult: SHAYE Primary Care Provider: Jana Dukes MD Chief Complaint: Worsening abdominal pain and shortness of breath History of Present Illness: Patient is a 67 year old male with a medical history of hepatitis C post-treatment, coronary artery disease status post CABG, diabetes and hypertension. Surgical history includes CABG and cholecystectomy. Patient is a former tobacco smoker and denies alcohol use. Patient presented to the ED 01/06 with increasing abdominal pain and shortness of breath. Workup has demonstrated multiple hepatic lesions consistent with metastases and recent colonoscopy demonstrated carcinoma by biopsy in the hepatic flexure of the colon. On 01/13 patient had [id number] placement, Resection of hepatic flexure of the colon, Emeterio-Cut liver biopsy right lobe of liver x2. After surgery patient stated his urine output was decreasing. Per the nurse, patient has had three different johns cath's placed since his procedure. Patient was complaining of lower abdominal pain. His Creatinine is 2.45. His potassium is 6.3. Patient was given D50, Insulin, Kayexalate, Sodium Bicarb, Albuterol, Calcium chloride this morning. Renal ultrasound was unremarkable, no obstructions. Consult to IR was placed for VasCath placement. Patient to be dialyzed today. Review of Systems All other systems reviewed negative except as stated in HPI PMFSH - History History Provided By: Patient - Medical History Medical History: Medical History (Last Reviewed 01/14/18 @ 12:14 by Brenda Herman) CAD (coronary artery disease) Carpal tunnel syndrome Hepatitis C virus infection cured after antiviral drug therapy Type 2 diabetes mellitus - Surgical History Surgical History: Surgical History (Last Reviewed 01/14/18 @ 12:14 by Brenda Herman) History of open heart surgery Hx of cholecystectomy - Family History Family History: Family History (Last Reviewed 01/14/18 @ 12:14 by Brenda Herman) Mother Lung cancer - Tobacco History Second Hand Smoke Exposure: No Tobacco Use In Past 30 Days: No Smoking Status: Former smoker Tobacco Type: Cigarettes - Alcohol History How Often Do You Have a Drink Containing Alcohol: Never - Substance Use History Substance History: No History of Abuse - Travel History Recent Travel in the [place] Within the Last 8 Weeks: No Recent Travel Out of the Country Within the Last 8 Weeks: No - Immunization History Tetanus Immunization: Unsure Hx Influenza Vaccine This Season: No Medications and Allergies Allergies Allergy/AdvReac Type Severity Reaction Status Date / Time No Known Allergies Allergy Verified 01/06/18 11:03 Home Medications Medication Instructions Recorded Confirmed Type aspirin [Aspir-81] 81 mg PO DAILY 01/06/18 01/06/18 History atorvastatin 80 mg PO DAILY 01/06/18 01/06/18 History cetirizine 10 mg PO DAILY 01/06/18 01/06/18 History fenofibrate 160 mg PO DAILY 01/06/18 01/06/18 History ferrous sulfate 325 mg PO DAILY 01/06/18 01/06/18 History glimepiride 4 mg PO QAM 01/06/18 01/06/18 History lisinopril 10 mg PO DAILY 01/06/18 01/06/18 History metformin 500 mg PO BID 01/06/18 01/06/18 History metoprolol tartrate 50 mg PO BID 01/06/18 01/06/18 History tadalafil [Cialis] 5 mg PO DAILY 01/06/18 01/06/18 History trazodone 150 mg PO DAILY 01/06/18 01/06/18 History Active Medications: Active Medications Acetaminophen (Tylenol) 650 mg PO Q4H PRN PRN Reason: Temp > 100.4 Aspirin (Ecotrin) 81 mg PO DAILY [facility] Last Admin: 01/10/18 10:20 Dose: 81 mg Atorvastatin Calcium (Lipitor) 80 mg PO DAILY [facility] Last Admin: 01/14/18 09:53 Dose: 80 mg Bisacodyl (Dulcolax Supp) 10 mg RECTAL DAILY PRN PRN Reason: SEVERE CONSITIPATION Cetirizine HCl (Zyrtec) 10 mg PO DAILY [facility] Last Admin: 01/15/18 08:28 Dose: 10 mg Fenofibrate (Tricor) 145 mg PO DAILY [facility] Last Admin: 01/15/18 08:29 Dose: 145 mg Ferrous Sulfate (Ferosul) 325 mg PO DAILY [facility] Last Admin: 01/15/18 08:28 Dose: 325 mg Heparin Sodium (Porcine) (Heparin Inj) 5,000 units SQ Q12HR [facility] Last Admin: 01/15/18 08:29 Dose: 5,000 units Sodium Chloride (Ns Inj) 500 mls @ 30 mls/hr IV.SIG .Q10H [facility] Last Admin: 01/13/18 16:01 Dose: Not Given Morphine Sulfate (Morphine Inj) 30 mg in 30 mls @ 0 mls/hr RN DIABETES EDUCATOR UNSCH PRN PRN Reason: per RN DIABETES EDUCATOR parameters Last Admin: 01/15/18 08:25 Dose: 0 mls/hr Sodium Bicarbonate 75 meq/ (Sodium Chloride) 1,000 mls @ 100 mls/hr IV.CONT .Q10H [facility] Lactulose (Lactulose Liq) 30 ml PO DAILY PRN PRN Reason: SEVERE CONSITIPATION Last Admin: 01/09/18 14:31 Dose: 30 ml Lisinopril (Prinivil) 10 mg PO DAILY [facility] Last Admin: 01/14/18 09:53 Dose: 10 mg Metformin [facility] (Glucophage) [facility] Last Admin: 01/14/18 09:53 Dose: 500 mg Metoprolol Tartrate (Lopressor) 50 mg PO BID [facility] Last Admin: 01/15/18 08:28 Dose: 50 mg Morphine Sulfate (Morphine Inj) 2 mg IV.PUSH Q4H PRN PRN Reason: BREAKTHROUGH PAIN Last Admin: 01/14/18 02:06 Dose: 2 mg Naloxone HCl (Narcan Inj) 0.4 mg IV.PUSH PRN PRN PRN Reason: Resp rate < 10 Ondansetron HCl (Zofran Inj) 4 mg IV.PUSH Q6H PRN PRN Reason: NAUSEA OR VOMITING Last Admin: 01/06/18 22:33 Dose: 4 mg Oxycodone/Acetaminophen (Percocet 7.5/325 Mg) 1 tab PO Q4H PRN PRN Reason: PAIN 6-10 Last Admin: 01/15/18 08:30 Dose: 1 tab Pantoprazole Sodium (Protonix) 40 mg PO DAILY [facility] Last Admin: 01/15/18 08:29 Dose: 40 mg Sennosides (Senokot) 17.2 mg PO Q12H PRN PRN Reason: Moderate Constipation Last Admin: 01/09/18 12:39 Dose: 17.2 mg Sodium Chloride (Ns Flush) 2 ml IV.FLUSH BID [facility] Last Admin: 01/15/18 08:29 Dose: Not Given Sodium Chloride (Ns Flush) 2 ml IV.FLUSH PRN PRN PRN Reason: FLUSH AFTER USING IV ACCESS Zolpidem Tartrate (Ambien) 5 mg PO HS PRN PRN Reason: INSOMNIA Last Admin: 01/13/18 23:00 Dose: 5 mg Exam Vital signs: Vital Signs 01/14/18 12:00 01/14/18 14:32 01/14/18 16:00 Temperature 97.2 F L 97.3 F L Pulse Rate 80 75 Respiratory Rate 18 16 17 Blood Pressure 109/54 L 114/57 L Pulse Oximetry 98 97 01/14/18 20:00 01/15/18 00:00 01/15/18 04:00 Temperature 97.1 F L 97.6 F 97.4 F L Pulse Rate 77 75 77 Respiratory Rate 18 18 18 Blood Pressure 115/58 L 116/58 L 105/54 L Pulse Oximetry 93 L 95 96 01/15/18 08:00 Temperature 97.7 F Pulse Rate 85 Respiratory Rate 17 Blood Pressure 103/53 L Pulse Oximetry 90 L Intake & Output 01/14/18 01/15/18 01/15/18 18:59 06:59 18:59 Intake Total 1884.1 / 1884.1 1800 / 1800 2430 / 2430 Output Total 75 / 75 60 / 60 Balance 1809.1 / 1809.1 1800 / 1800 2370 / 2370 Weight 77.1 kg Intake: IV 1164.1 / 1164.1 900 / 900 1950 / 1950 LR 1000 mL Inj 1,000 ML @ 84 554.1 / 554.1 mls/hr IV.CONT .[id number] [facility] Rx# :[id number] NS Inj 1,000 ML @ 125 mls/hr IV 900 / 900 950 / 950 .CONT .Q8H [facility] Rx#:[id number] Calcium Chloride Inj 1 GM In NS 110 / 110 Inj 100 ML @ 110 mls/hr IV.SIG ONCE ONE Rx#:[id number] NS Inj 1,000 ML @ 1000 mls/hr 1000 / 1000 IV.SIG BOLUS [facility] Rx#:[id number] NS Inj 500 ML @ 1000 mls/hr IV. 500 / 500 SIG BOLUS [facility] Rx#:[id number] Oral 720 / 720 900 / 900 480 / 480 Output: Urine Amount (Catheter) 75 / 75 60 / 60 Indwelling Urethral Catheter 75 / 75 60 / 60 Other: Date of Last Bowel Movement 01/11/18 - Constitutional mild distress - Routine HEENT Exam Head: Present: normocephalic Eye: Present: EOMI, PERRL ENT: Present: mucous membranes moist - Routine Neck Exam Present: trachea midline. Absent: tracheal deviation - Routine Respiratory Exam Present: CTA bilaterally. Absent: accessory muscle use - Routine Cardiovascular Exam Present: RRR. Absent: murmur - Routine Abdominal Exam Present: normoactive bowel sounds, tenderness Comments: Midline abdominal dressing in place - Routine Extremities Exam Present: edema - Routine Neurological Exam Present: alert, oriented X3 Results - Lab Results 01/15/18 03:07 01/15/18 10:48 Most recent lab results Calcium 7.6 mg/dL (8.5-10.1) L 01/15/18 03:07 Magnesium 2.3 mg/dL (1.5-2.5) 01/15/18 03:07 Assessment and Plan - Plan Acute kidney injury SHAYE could be due to dehydration. Patient has decreased urine output. Renal ultrasound was unremarkable, no obstruction. Patient's Creatinine is 2.45. Patient's K was 6.3 this morning. Patient on EKG, continue to monitor on telemetry. Patient's IV fluid was switched from LR to 1/ 2NS + 75meq Sodium Bicarb. Johns cath in place, strict I/O. Monitor fluid and electrolytes. Consult was placed to IR for VasCath placement, patient to be dialyzed today. Avoid nephrotoxic agents. Colon cancer with metastasis to the liver and adrenal gland s/p Colonoscopy and EGD, A near circumferential ulcerated, firm and fungating mass was found at the hepatic flexure. Oncology recommended colon resection prior to initiation of palliative chemotherapy when he recovers from surgery. General surgery following and patient underwent [id number] placement, Resection of hepatic flexure of the colon, Emeterio-Cut liver biopsy right lobe of liver x2. Follow-up abdomen CT showed recent laparotomy and right hemicolectomy with subcutaneous air in the anterior abdominal wall and a small amount of free air, extensive metastatic disease in the liver, stable enlarged left adrenal gland, new small bilateral pleural effusions and basilar atelectasis and mild ileus. Hypertension Monitor BP. Patient on beta-moshe. Lisinopril held. Iron Deficiency Anemia Hgb is 8.8. Continue Iron Supplement. Type 2 diabetes Continue insulin to maintain blood glucose level between 140 and 180. Metformin held. <Bill Deras - Last Filed: 01/15/18 21:08> History of Present Illness Primary Care Provider: Jana Dukes MD [facility] - Medical History Medical History: Medical History (Last Reviewed 01/14/18 @ 12:14 by Brenda Herman) CAD (coronary artery disease) Carpal tunnel syndrome Hepatitis C virus infection cured after antiviral drug therapy Type 2 diabetes mellitus - Surgical History Surgical History: Surgical History (Last Reviewed 01/14/18 @ 12:14 by Brenda Herman) History of open heart surgery Hx of cholecystectomy - Family History Family History: Family History (Last Reviewed 01/14/18 @ 12:14 by Brenda Herman) Mother Lung cancer Medications and Allergies Active Medications: Active Medications Acetaminophen (Tylenol) 650 mg PO Q4H PRN PRN Reason: Temp > 100.4 Acetaminophen (Tylenol) 650 mg PO UNSCH PRN PRN Reason: SEE LABEL COMMENTS Aspirin (Ecotrin) 81 mg PO DAILY [facility] Last Admin: 01/10/18 10:20 Dose: 81 mg Atorvastatin Calcium (Lipitor) 80 mg PO DAILY [facility] Last Admin: 01/14/18 09:53 Dose: 80 mg Bisacodyl (Dulcolax Supp) 10 mg RECTAL DAILY PRN PRN Reason: SEVERE CONSITIPATION Cetirizine HCl (Zyrtec) 10 mg PO DAILY [facility] Last Admin: 01/15/18 08:28 Dose: 10 mg Clonidine HCl (Catapres) 0.1 mg PO UNSCH PRN PRN Reason: SEE LABEL COMMENTS Diphenhydramine HCl (Benadryl) 25 mg PO UNSCH PRN PRN Reason: SEE LABEL COMMENTS Fenofibrate (Tricor) 145 mg PO DAILY [facility] Last Admin: 01/15/18 08:29 Dose: 145 mg Ferrous Sulfate (Ferosul) 325 mg PO DAILY [facility] Last Admin: 01/15/18 08:28 Dose: 325 mg Gelatin (Gelfoam 12 Mm/7 Mm Topical) 1 foam TOPICAL PRN PRN PRN Reason: help stop bleeding from site Gentamicin Sulfate (Gentamicin Inj) 20 mg OTHER WITH DIALYSIS PRN PRN Reason: Dwell Gentamycin Lock Last Admin: 01/15/18 16:46 Dose: 20 mg Heparin Sodium (Porcine) (Heparin Inj) 5,000 units SQ Q12HR [facility] Last Admin: 01/15/18 08:29 Dose: 5,000 units Heparin Sodium (Porcine) (Heparin Inj) 8,000 units OTHER WITH DIALYSIS PRN PRN Reason: for machine prime Heparin Sodium (Porcine) (Heparin Inj) 1,000 units OTHER WITH DIALYSIS PRN PRN Reason: Dwell Heparin to Fill Catheter Last Admin: 01/15/18 16:47 Dose: 1,000 units Heparin Sodium (Porcine) (Heparin Central Flush) 0 unit IV.FLUSH DAILY PRN PRN Reason: SEE DOSE INSTRUCTIONS Sodium Chloride (Ns Inj) 500 mls @ 30 mls/hr IV.SIG .Q10H [facility] Last Admin: 01/13/18 16:01 Dose: Not Given Morphine Sulfate (Morphine Inj) 30 mg in 30 mls @ 0 mls/hr RN DIABETES EDUCATOR UNSCH PRN PRN Reason: per RN DIABETES EDUCATOR parameters Last Infusion: 01/15/18 18:05 Dose: 0 mls/hr Sodium Bicarbonate 75 meq/ (Sodium Chloride) 1,000 mls @ 100 mls/hr IV.CONT .Q10H [facility] Last Admin: 01/15/18 10:43 Dose: 100 mls/hr Albumin Human (Flexbumin 25% Inj) 100 mls @ 60 mls/hr IV.SIG WITH DIALYSIS PRN PRN Reason: hypotension / volume replace Sodium Chloride (Ns Inj) 1,000 mls @ 200 mls/hr OTHER .Q5H PRN PRN Reason: for dialyzer flush PRN Sodium Chloride (Ns Inj) 1,000 mls @ 0 mls/hr IV.CONT .Q0M PRN PRN Reason: hypotension / volume replace Sodium Chloride (Ns Inj) 1,000 mls @ 0 mls/hr OTHER .Q0M PRN PRN Reason: for prime and rinse back Lactulose (Lactulose Liq) 30 ml PO DAILY PRN PRN Reason: SEVERE CONSITIPATION Last Admin: 01/09/18 14:31 Dose: 30 ml Lisinopril (Prinivil) 10 mg PO DAILY [facility] Last Admin: 01/14/18 09:53 Dose: 10 mg Mannitol (Mannitol Inj) 12.5 gm IV.PUSH UNSCH PRN PRN Reason: hypotension / volume replace Metformin [facility] (Glucophage) [facility] Last Admin: 01/14/18 09:53 Dose: 500 mg Metoprolol Tartrate (Lopressor) 50 mg PO BID [facility] Last Admin: 01/15/18 20:27 Dose: 50 mg Morphine Sulfate (Morphine Inj) 2 mg IV.PUSH Q4H PRN PRN Reason: BREAKTHROUGH PAIN Last Admin: 01/14/18 02:06 Dose: 2 mg Naloxone HCl (Narcan Inj) 0.4 mg IV.PUSH PRN PRN PRN Reason: Resp rate < 10 Nitroglycerin (Nitrostat Sl) 0.4 mg SL Q5M PRN PRN Reason: CHEST PAIN Ondansetron HCl (Zofran Inj) 4 mg IV.PUSH Q6H PRN PRN Reason: NAUSEA OR VOMITING Last Admin: 01/06/18 22:33 Dose: 4 mg Ondansetron HCl (Zofran Inj) 4 mg IV.PUSH UNSCH PRN PRN Reason: NAUSEA OR VOMITING Oxycodone/Acetaminophen (Percocet 7.5/325 Mg) 1 tab PO Q4H PRN PRN Reason: PAIN 6-10 Last Admin: 01/15/18 18:23 Dose: 1 tab Pantoprazole Sodium (Protonix) 40 mg PO DAILY [facility] Last Admin: 01/15/18 08:29 Dose: 40 mg Sennosides (Senokot) 17.2 mg PO Q12H PRN PRN Reason: Moderate Constipation Last Admin: 01/09/18 12:39 Dose: 17.2 mg Sodium Chloride (Ns Flush) 2 ml IV.FLUSH BID [facility] Last Admin: 01/15/18 20:27 Dose: Not Given Sodium Chloride (Ns Flush) 2 ml IV.FLUSH PRN PRN PRN Reason: FLUSH AFTER USING IV ACCESS Sodium Chloride (Ns Flush) 5 ml IV.FLUSH PRN PRN PRN Reason: flush each lumen during HD Zolpidem Tartrate (Ambien) 5 mg PO HS PRN PRN Reason: INSOMNIA Last Admin: 01/13/18 23:00 Dose: 5 mg Exam Vital signs: Vital Signs 01/15/18 00:00 01/15/18 04:00 01/15/18 08:00 Temperature 97.6 F 97.4 F L 97.7 F Pulse Rate 75 77 85 Respiratory Rate 18 18 17 Blood Pressure 116/58 L 105/54 L 103/53 L Pulse Oximetry 95 96 90 L 01/15/18 08:31 01/15/18 12:00 01/15/18 13:17 Temperature 97.5 F L Pulse Rate 80 86 86 Respiratory Rate 17 16 Blood Pressure 155/65 H Pulse Oximetry 94 L 89 L 90 L Intake & Output 01/15/18 01/15/18 01/16/18 06:59 18:59 06:59 Intake Total 1800 / 1800 3040 / 3040 Output Total 1060 / 1060 Balance 1800 / 1800 1979 / 1979 Weight 77.1 kg Intake: IV 900 / 900 2560 / 2560 NS Inj 1,000 ML @ 125 mls/hr IV 900 / 900 950 / 950 .CONT .Q8H [facility] Rx#:[id number] Calcium Chloride Inj 1 GM In NS 110 / 110 Inj 100 ML @ 110 mls/hr IV.SIG ONCE ONE Rx#:[id number] NS Inj 1,000 ML @ 1000 mls/hr 1000 / 1000 IV.SIG BOLUS [facility] Rx#:[id number] NS Inj 500 ML @ Wide Open IV. 500 / 500 SIG BOLUS ONE Rx#:[id number] Oral 900 / 900 480 / 480 Output: Hemodialysis Amount 1000 / 1000 Urine Amount (Catheter) 60 / 60 Indwelling Urethral Catheter 60 / 60 Other: Date of Last Bowel Movement 01/11/18 Results - Lab Results 01/15/18 03:07 01/15/18 10:48 Most recent lab results Calcium 7.7 mg/dL (8.5-10.1) L 01/15/18 10:48 Magnesium 2.3 mg/dL (1.5-2.5) 01/15/18 03:07 Assessment and Plan - Attending Attestation patient was seen and examined. Discussed with family at the bedside. Etiology of SHAYE is uncertain, but he also has elevated liver enzymes suggesting ischemic hepatitis (in addition to liver dysfunction due to liver mets). SHAYE therefore could be secondary to ischemic insult: there is a possibility that he suffered hypotensive episodes. He is oliguric. Hyperkalemic. Extensive liver mets: poor prognosis. Dialyzed emergently today.
[2018-01-15] MEDS ORDERED: Sod Chloride 0.9% Inj 1,000 ML OTHER PRN ×2 (10:40)
[2018-01-15] MEDS ORDERED: Gelatin 12 MM/7 MM Topical Foam TOPICAL PRN (10:40)
[2018-01-15] MEDS ORDERED: Sod Chloride 0.9% Inj 1,000 ML IV.CONT PRN (10:40)
[2018-01-15] MEDS ORDERED: Heparin 10,000 UNITS/10 ML Vial (for IV use) OTHER PRN ×2 (10:40)
[2018-01-15] MEDS ORDERED: Acetaminophen 325 MG Tablet PO PRN (10:40)
[2018-01-15] MEDS: Sodium Bicarbonate 8.4% Inj 75 MEQ in Sodium Chloride 0.45 % Inj 925 ML IV.CONT SCH ×2 (10:43→20:43)
[2018-01-15 11:20] LABS: Calcium 7.7 mg/dL (8.5-10.1); Carbon Dioxide 19.2 meq/L (21.0-32.0); Potassium 6.3 meq/L (3.5-5.1)
--- NOTE | 2018-01-15 11:23 | P.PNONC ---
Subjective Interval history: Patient lying in bed, in no acute distress. He is awake and oriented x3. His speech is slightly slurred. No other neurologic findings. He continues on MASONRY INSTALLER pain pump. Multiple staff members at bedside, including phlebotomy, 2 RNs, patient's daughter and his ex-. Patient appears overwhelmed. Per RN patient is going to have dialysis today. Family given update and all questions were answered. Objective Vital Signs/Intake & Output: Vital Signs 01/14/18 12:00 01/14/18 14:32 01/14/18 16:00 Temperature 97.2 F L 97.3 F L Pulse Rate 80 75 Respiratory Rate 18 16 17 Blood Pressure 109/54 L 114/57 L Pulse Oximetry 98 97 01/14/18 20:00 01/15/18 00:00 01/15/18 04:00 Temperature 97.1 F L 97.6 F 97.4 F L Pulse Rate 77 75 77 Respiratory Rate 18 18 18 Blood Pressure 115/58 L 116/58 L 105/54 L Pulse Oximetry 93 L 95 96 01/15/18 08:00 Temperature 97.7 F Pulse Rate 85 Respiratory Rate 17 Blood Pressure 103/53 L Pulse Oximetry 90 L Intake & Output 01/14/18 01/15/18 01/15/18 18:59 06:59 18:59 Intake Total 1884.1 / 1884.1 1800 / 1800 2430 / 2430 Output Total 75 / 75 60 / 60 Balance 1809.1 / 1809.1 1800 / 1800 2370 / 2370 Weight 77.1 kg Intake: IV 1164.1 / 1164.1 900 / 900 1950 / 1950 LR 1000 mL Inj 1,000 ML @ 84 554.1 / 554.1 mls/hr IV.CONT .[id number] [facility] Rx# :[id number] NS Inj 1,000 ML @ 125 mls/hr IV 900 / 900 950 / 950 .CONT .Q8H [facility] Rx#:[id number] Calcium Chloride Inj 1 GM In NS 110 / 110 Inj 100 ML @ 110 mls/hr IV.SIG ONCE ONE Rx#:[id number] NS Inj 1,000 ML @ 1000 mls/hr 1000 / 1000 IV.SIG BOLUS [facility] Rx#:[id number] NS Inj 500 ML @ 1000 mls/hr IV. 500 / 500 SIG BOLUS [facility] Rx#:[id number] Oral 720 / 720 900 / 900 480 / 480 Output: Urine Amount (Catheter) 75 / 75 60 / 60 Indwelling Urethral Catheter 75 / 75 60 / 60 Other: Date of Last Bowel Movement 01/11/18 Result Diagrams: 01/15/18 03:07 01/15/18 10:48 Laboratory Results: Laboratory Results - last 24 hr 01/13/18 01/14/18 01/15/18 08:34 21:36 03:07 WBC RBC Hgb Hct MCV MCH MCHC RDW Plt Count MPV Neut % (Auto) Lymph % (Auto) [place] % (Auto) Eos % (Auto) Baso % (Auto) Neut # (Auto) Lymph # (Auto) [place] # (Auto) Eos # (Auto) Baso # (Auto) WBC Differential Differential Comment Sodium Potassium 6.4 H Chloride Carbon Dioxide Anion Gap BUN Creatinine Estimated GFR Random Glucose Calcium Magnesium 2.3 Total Bilirubin AST ALT Alkaline Phosphatase Total Protein Albumin Urine Color Urine Clarity Urine pH Ur Specific [place] Urine Protein Urine Glucose (UA) Urine Ketones Urine Occult Blood Urine Nitrate Urine Bilirubin Urine Urobilinogen Ur Leukocyte Esterase Urine RBC Urine WBC Ur Squamous Epith Cells Amorphous Sediment Urine Bacteria Hyaline Casts Granular Casts Waxy Casts Urine Mucus Micro UA Comment Ur Microscopic Review Urine Culture Comments MTS Gel Crossmatch See Detail 01/15/18 01/15/18 01/15/18 03:07 03:07 04:35 WBC 13.9 H RBC 3.92 L Hgb 8.8 L Hct 27.4 L MCV 69.9 L MCH 22.4 L MCHC 32.1 RDW 16.0 Plt Count 366 MPV 8.2 Neut % (Auto) 85.4 H Lymph % (Auto) 7.2 L [place] % (Auto) 7.1 Eos % (Auto) 0.2 Baso % (Auto) 0.1 Neut # (Auto) 11.8 H Lymph # (Auto) 1.0 [place] # (Auto) 1.0 H Eos # (Auto) 0.0 Baso # (Auto) 0.0 WBC Differential . Differential Comment Auto diff final Sodium 133 L Potassium 6.3 H Chloride 103 Carbon Dioxide 20.3 L Anion Gap 10 BUN 48 H Creatinine 2.45 H Estimated GFR 27 L Random Glucose 148 H Calcium 7.6 L Magnesium Total Bilirubin 1.0 AST 1181 H ALT 362 H Alkaline Phosphatase 162 H Total Protein 5.2 L D Albumin 1.9 L Urine Color Lorna Urine Clarity Turbid H Urine pH 5.0 Ur Specific [place] 1.017 Urine Protein 100 H Urine Glucose (UA) Negative Urine Ketones Negative Urine Occult Blood Moderate H Urine Nitrate Negative Urine Bilirubin Negative Urine Urobilinogen 2.0 H Ur Leukocyte Esterase Moderate H Urine RBC Urine WBC 31 H Ur Squamous Epith Cells 4 Amorphous Sediment Rare H Urine Bacteria Few H Hyaline Casts Innum Granular Casts 12 Waxy Casts 4 Urine Mucus Few H Micro UA Comment Cath-culture ind Ur Microscopic Review Not Reportable Urine Culture Comments Cath-cult indicated MTS Gel Crossmatch Imaging Studies: Impressions Venous Doppler Study 01/14/18 00:00 CONCLUSION: 1. The study is negative for bilateral lower extremity deep venous thrombosis. Abdomen/Bladder Ultrasound 01/15/18 00:00 CONCLUSION: 1. No obstruction. The kidneys are sonographically unremarkable. 2. Metastatic lesions involving the liver previously described and better seen on the prior CT. 3. Trace amount of ascites. Abdomen/Pelvis CT 01/15/18 00:00 CONCLUSION: 1. Recent laparotomy and right hemicolectomy with subcutaneous air in the anterior abdominal wall and a small amount of free air. 2. Extensive metastatic disease in the liver. Stable enlarged left adrenal gland. 3. New small bilateral pleural effusions and basilar atelectasis. Mild ileus. Medications: Active Medications Generic Name Dose Route Start Last Admin Trade Name Freq PRN Reason Stop Dose Admin Aspirin 81 mg 01/07/18 09:00 01/10/18 10:20 Ecotrin PO 81 mg DAILY [facility] Administration Atorvastatin Calcium 80 mg 01/07/18 09:00 01/14/18 09:53 Lipitor PO 80 mg DAILY [facility] Administration Cetirizine HCl 10 mg 01/07/18 09:00 01/15/18 08:28 Zyrtec PO 10 mg DAILY [facility] Administration Fenofibrate 145 mg 01/07/18 09:00 01/15/18 08:29 Tricor PO 145 mg DAILY [facility] Administration Ferrous Sulfate 325 mg 01/07/18 09:00 01/15/18 08:28 Ferosul PO 325 mg DAILY [facility] Administration Heparin Sodium (Porcine) 5,000 units 01/14/18 14:15 01/15/18 08:29 Heparin Inj SQ 5,000 units Q12HR [facility] Administration Sodium Chloride 500 mls @ 30 mls/hr 01/13/18 05:00 01/13/18 16:01 Ns Inj IV.SIG Not Given .Q10H [facility] Morphine Sulfate 30 mg in 30 mls @ 0 mls/hr 01/13/18 11:43 01/15/18 08:25 Morphine Inj [employer]ON[employer] INSTALLER 0 mls/hr UNSCH PRN Administration per [employer]ONRY INSTALLER parameters 0 MG/HR Sodium Bicarbonate 75 meq/ 1,000 mls @ 100 mls/hr 01/15/18 11:00 01/15/18 10: 43 Sodium Chloride IV.CONT 100 mls/hr .Q10H [facility] Administration Lactulose 30 ml 01/06/18 15:47 01/09/18 14:31 Lactulose Liq PO 30 ml DAILY PRN Administration SEVERE CONSITIPATION Lisinopril 10 mg 01/07/18 09:00 01/14/18 09:53 Prinivil PO 10 mg DAILY [facility] Administration Metformin HCl 500 mg 01/06/18 21:00 01/14/18 09:53 Glucophage PO 500 mg BIDPC [facility] Administration Metoprolol Tartrate 50 mg 01/06/18 21:00 01/15/18 08:28 Lopressor PO 50 mg BID [facility] Administration Morphine Sulfate 2 mg 01/06/18 16:25 01/14/18 02:06 Morphine Inj IV.PUSH 2 mg Q4H PRN Administration BREAKTHROUGH PAIN Ondansetron HCl 4 mg 01/06/18 15:47 01/06/18 22:33 Zofran Inj IV.PUSH 4 mg Q6H PRN Administration NAUSEA OR VOMITING Oxycodone/Acetaminophen 1 tab 01/14/18 05:22 01/15/18 08:30 Percocet 7.5/325 Mg PO 1 tab Q4H PRN Administration PAIN 6-10 Pantoprazole Sodium 40 mg 01/10/18 09:00 01/15/18 08:29 Protonix PO 40 mg DAILY [facility] Administration Sennosides 17.2 mg 01/06/18 15:47 01/09/18 12:39 Senokot PO 17.2 mg Q12H PRN Administration Moderate Constipation Sodium Chloride 2 ml 01/13/18 09:00 01/15/18 08:29 Ns Flush IV.FLUSH Not Given BID [facility] Zolpidem Tartrate 5 mg 01/11/18 15:25 01/13/18 23:00 Ambien PO 5 mg HS PRN Administration INSOMNIA Objective Remarks: GENERAL: Ill-appearing male patient, in no acute distress. SKIN: Warm and dry. HEAD: Normocephalic. Mouth with dry mucous membranes. EYES: No scleral icterus. No injection or drainage. NECK: Supple, trachea midline. CARDIOVASCULAR: Regular rate and rhythm without murmurs. RESPIRATORY: Breath sounds equal bilaterally. No accessory muscle use. GASTROINTESTINAL: Abdomen distended. Surgical site no bleeding noted. EXTREMITIES: No cyanosis, or edema. SCD in place. MUSCULOSKELETAL: Adequate muscle tone. NEUROLOGICAL: Awake, alert, and oriented x3. Speech slightly slurred. PSYCHIATRIC: Appropriate mood and affect; insight and judgment normal. Assessment/Plan - Plan 1. Multiple liver masses worrisome for metastatic disease. He has had right upper quadrant pain intermittently for several months. Over the last 4 weeks the pain become more constant. He also has nausea and vomiting. He lost about 10 pounds. He had anemia with microcytosis worrisome for iron deficiency anemia. He, however, denies any gross gastrointestinal bleed. His colonoscopy 4 years ago did not show any masses, but reportedly had polyps. CT of the chest did not show any metastatic disease. A CT of the abdomen and pelvis showed numerous hepatic lesions, largest measured 7 cm. There were also multiple retroperitoneal enlarged lymph nodes. There was an enlarged left adrenal gland lesion measured 4.1 cm, which could also be metastatic disease. I suspect he possibly has a primary GI tumor. January 07: CEA elevated at 42.9 with normal alpha-fetoprotein and CA 19 9. This is suggestive of primary GI tumor. He is going to have EGD and colonoscopy today. January 08:. Colonoscopy yesterday showed near circumferential mass at the hepatic flexure Worrisome for colon cancer. Biopsy was done and pathology is pending at this time. It appears that patient has primary colon cancer with metastasis to liver. EGD did not show any obvious mass. January 09: Biopsy from colonic mass is still pending. 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 Gastric cancer cannot be ruled out but EGD did not reveal any gastric mass. Patient is going to have surgery today for impending obstruction. He is also going to have port placement for eventual chemotherapy. January 14: Postop day 1. Patient had resection of hepatic flexure colonic mass and liver biopsy. He also had port placement. During surgery large tumor burden was noted in the liver with a small tumor in the hepatic flexure causing partial obstruction. The omentum was fixed to the liver mass. Final pathology pending. January 15: Postop day 2. Worsening renal function, patient going for dialysis today. Potassium 6.3, currently being treated for this, nephrology has been consulted. Liver enzymes have increased significantly. Total bilirubin 1.0. 2. Left adrenal gland lesion measured 4.1 cm. This could be metastatic disease and less likely to be a primary tumor. 3. Anemia with microcytosis suggestive of iron deficiency anemia. The patient denies any gross gastrointestinal bleed. He is taking iron supplement. 4. History of hepatitis C, treated with Harvoni 4 years ago, reportedly went into remission. His liver enzymes are still slightly elevated, but that could be due to the metastatic liver disease. RECOMMENDATIONS: 1. Colonic mass showed poorly differentiated carcinoma, liver biopsy path pending. Once the patient has recovered from surgery he will receive palliative chemotherapy. 2. Acute kidney injury with hyperkalemia, per RN patient to receive dialysis today. Management per attending and nephrology. Oliguric. 3. Liver enzymes increased significantly; AST 110->1181, ALT 51->362, ALk phos 212->162. Bilirubin 1.0. 4. Pain management, currently on MASONRY INSTALLER pump. - Attending Statement The exam, history, and the medical decision-making described in the above note were completed with the assistance of the mid-level provider. I reviewed and agree with the findings presented. I attest that I had a [id number] encounter with the patient on the same day, and personally performed and documented my assessment and findings in the medical record. Late entry. I saw patient in the morning. He was complaining of abdominal pain. He is still on MASONRY INSTALLER pump. His creatinine trending up. His liver enzymes also trended up likely due to metastatic liver disease as well as recent liver biopsy. He is awaiting nephrology evaluation. I have discussed the diagnosis, staging, prognosis and treatment option with his daughter at the bedside. They are planning of bringing patient back [place] to [place] to have his treatment.
[2018-01-15] MEDS ORDERED: *Heparin 10,000 UNITS/10 ML Vial Periprocedural ONLY ONE (11:48)
[2018-01-15] MEDS ORDERED: Heparin Central Flush 100 UNIT/ML 5 ML Vial IV.FLUSH PRN (13:47)
--- NOTE | 2018-01-15 13:50 | P.RAD ---
Post Procedure Progress Note - Pre Procedure Diagnosis (1) Acute kidney failure - Post Procedure Diagnosis (1) Acute kidney failure - Procedure Information Procedure Date: 01/15/18 Supervising Radiologist: Stevo Philippe Jr, MD Proceduralist/Assist: Trent Mendez Estimated blood loss (mL): 0 - Plan of Activity Patient to Unit: Nursing Unit Patient Condition: Good See PACS Report for procedural detail/treatment. [facility] Radiology Procedures right Internal Jugular Hemodialysis Catheter Non-Tunneled Placement Device: dual lumen [place]: 14 - Additional Detail Findings: BALA Rios placed and in good position. OK to use. Plan: To dialysis
[2018-01-15] MEDS ORDERED: Sodium Bicarbonate 8.4% Inj 50 MEQ in Sodium Chloride 0.45 % Inj 1,000 ML IV.CONT SCH (14:00)
--- NOTE | 2018-01-15 14:27 | P.PNGS ---
Subjective Interval history: Seen about 0800 Patient in chair No acute distress Daughter at bedside YESSI Rizzo at bedside Physical Exam Vital signs: Vital Signs 01/14/18 14:32 01/14/18 16:00 01/14/18 20:00 Temperature 97.3 F L 97.1 F L Pulse Rate 75 77 Respiratory Rate 16 17 18 Blood Pressure 114/57 L 115/58 L Pulse Oximetry 97 93 L 01/15/18 00:00 01/15/18 04:00 01/15/18 08:00 Temperature 97.6 F 97.4 F L 97.7 F Pulse Rate 75 77 85 Respiratory Rate 18 18 17 Blood Pressure 116/58 L 105/54 L 103/53 L Pulse Oximetry 95 96 90 L 01/15/18 12:00 01/15/18 13:17 Temperature 97.5 F L Pulse Rate 86 86 Respiratory Rate 17 16 Blood Pressure 155/65 H Pulse Oximetry 89 L 90 L Intake & Output 01/14/18 01/15/18 01/15/18 18:59 06:59 18:59 Intake Total 1884.1 / 1884.1 1800 / 1800 3040 / 3040 Output Total 75 / 75 60 / 60 Balance 1809.1 / 1809.1 1800 / 1800 2980 / 2980 Weight 77.1 kg Intake: IV 1164.1 / 1164.1 900 / 900 2560 / 2560 LR 1000 mL Inj 1,000 ML @ 84 554.1 / 554.1 mls/hr IV.CONT .[id number] [facility] Rx# :[id number] NS Inj 1,000 ML @ 125 mls/hr IV 900 / 900 950 / 950 .CONT .Q8H [facility] Rx#:[id number] Calcium Chloride Inj 1 GM In NS 110 / 110 110 / 110 Inj 100 ML @ 110 mls/hr IV.SIG ONCE ONE Rx#:[id number] NS Inj 1,000 ML @ 1000 mls/hr 1000 / 1000 IV.SIG BOLUS [facility] Rx#:[id number] NS Inj 500 ML @ Wide Open IV. 500 / 500 500 / 500 SIG BOLUS ONE Rx#:[id number] Oral 720 / 720 900 / 900 480 / 480 Output: Urine Amount (Catheter) 75 / 75 60 / 60 Indwelling Urethral Catheter 75 / 75 60 / 60 Other: Date of Last Bowel Movement 01/11/18 Narrative: Alert and awake Cardio: RRR Resp: CTAB Abd: mildly distended; SURI in place with good seal; minimally tender to palpation BLE with edema - Urinary Catheter Management Indwelling Urethral Catheter Cath placed during this visit: yes, but has since been removed by the nurse Reason for continuing: Hourly intake/output Insertion date: 01/15/18 Insertion time: 03:30 Removal date: 01/14/18 Removal time: 03:20 Results - Labs 01/20/18 06:33 01/20/18 06:33 Laboratory Results - last 24 hr 01/13/18 01/14/18 01/15/18 08:34 21:36 03:07 WBC RBC Hgb Hct MCV MCH MCHC RDW Plt Count MPV Neut % (Auto) Lymph % (Auto) [place] % (Auto) Eos % (Auto) Baso % (Auto) Neut # (Auto) Lymph # (Auto) [place] # (Auto) Eos # (Auto) Baso # (Auto) WBC Differential Differential Comment Sodium Potassium 6.4 H Chloride Carbon Dioxide Anion Gap BUN Creatinine Estimated GFR Random Glucose Calcium Magnesium 2.3 Total Bilirubin AST ALT Alkaline Phosphatase Total Protein Albumin Urine Color Urine Clarity Urine pH Ur Specific [place] Urine Protein Urine Glucose (UA) Urine Ketones Urine Occult Blood Urine Nitrate Urine Bilirubin Urine Urobilinogen Ur Leukocyte Esterase Urine RBC Urine WBC Ur Squamous Epith Cells Amorphous Sediment Urine Bacteria Hyaline Casts Granular Casts Waxy Casts Urine Mucus Micro UA Comment Ur Microscopic Review Urine Culture Comments Urine Eosinophils MTS Gel Crossmatch See Detail 01/15/18 01/15/18 01/15/18 03:07 03:07 04:35 WBC 13.9 H RBC 3.92 L Hgb 8.8 L Hct 27.4 L MCV 69.9 L MCH 22.4 L MCHC 32.1 RDW 16.0 Plt Count 366 MPV 8.2 Neut % (Auto) 85.4 H Lymph % (Auto) 7.2 L [place] % (Auto) 7.1 Eos % (Auto) 0.2 Baso % (Auto) 0.1 Neut # (Auto) 11.8 H Lymph # (Auto) 1.0 [place] # (Auto) 1.0 H Eos # (Auto) 0.0 Baso # (Auto) 0.0 WBC Differential . Differential Comment Auto diff final Sodium 133 L Potassium 6.3 H Chloride 103 Carbon Dioxide 20.3 L Anion Gap 10 BUN 48 H Creatinine 2.45 H Estimated GFR 27 L Random Glucose 148 H Calcium 7.6 L Magnesium Total Bilirubin 1.0 AST 1181 H ALT 362 H Alkaline Phosphatase 162 H Total Protein 5.2 L D Albumin 1.9 L Urine Color Lorna Urine Clarity Turbid H Urine pH 5.0 Ur Specific [place] 1.017 Urine Protein 100 H Urine Glucose (UA) Negative Urine Ketones Negative Urine Occult Blood Moderate H Urine Nitrate Negative Urine Bilirubin Negative Urine Urobilinogen 2.0 H Ur Leukocyte Esterase Moderate H Urine RBC Urine WBC 31 H Ur Squamous Epith Cells 4 Amorphous Sediment Rare H Urine Bacteria Few H Hyaline Casts Innum Granular Casts 12 Waxy Casts 4 Urine Mucus Few H Micro UA Comment Cath-culture ind Ur Microscopic Review Not Reportable Urine Culture Comments Cath-cult indicated Urine Eosinophils MTS Gel Crossmatch 01/15/18 01/15/18 10:48 11:47 WBC RBC Hgb Hct MCV MCH MCHC RDW Plt Count MPV Neut % (Auto) Lymph % (Auto) [place] % (Auto) Eos % (Auto) Baso % (Auto) Neut # (Auto) Lymph # (Auto) [place] # (Auto) Eos # (Auto) Baso # (Auto) WBC Differential Differential Comment Sodium 133 L Potassium 6.3 H Chloride 105 Carbon Dioxide 19.2 L Anion Gap 9 BUN 51 H Creatinine 2.58 H Estimated GFR 25 L Random Glucose 133 H Calcium 7.7 L Magnesium Total Bilirubin AST ALT Alkaline Phosphatase Total Protein Albumin Urine Color Urine Clarity Urine pH Ur Specific [place] Urine Protein Urine Glucose (UA) Urine Ketones Urine Occult Blood Urine Nitrate Urine Bilirubin Urine Urobilinogen Ur Leukocyte Esterase Urine RBC Urine WBC Ur Squamous Epith Cells Amorphous Sediment Urine Bacteria Hyaline Casts Granular Casts Waxy Casts Urine Mucus Micro UA Comment Ur Microscopic Review Urine Culture Comments Urine Eosinophils None seen MTS Gel Crossmatch - Imaging Imaging: ITS Impressions Chest CTA 01/06/18 11:04 CONCLUSION: 1. Nodular thickening of an azygos fissure which may be scarring however short- term follow-up may be indicated. 2. No evidence of acute airspace disease or pulmonary emboli. 3. Multiple low density lesions in the liver and enlarged left adrenal gland. Abdomen X-Ray 01/10/18 00:00 CONCLUSION: 1. Nonobstructive bowel gas pattern. Chest X-Ray 01/13/18 00:00 CONCLUSION: [id number] appears in satisfactory position. No pneumothorax identified. Venous Doppler Study 01/14/18 00:00 CONCLUSION: 1. The study is negative for bilateral lower extremity deep venous thrombosis. Abdomen/Bladder Ultrasound 01/15/18 00:00 CONCLUSION: 1. No obstruction. The kidneys are sonographically unremarkable. 2. Metastatic lesions involving the liver previously described and better seen on the prior CT. 3. Trace amount of ascites. Abdomen/Pelvis CT 01/15/18 00:00 CONCLUSION: 1. Recent laparotomy and right hemicolectomy with subcutaneous air in the anterior abdominal wall and a small amount of free air. 2. Extensive metastatic disease in the liver. Stable enlarged left adrenal gland. 3. New small bilateral pleural effusions and basilar atelectasis. Mild ileus. Assessment and Plan - Assessment (1) Carcinoma of hepatic flexure Code(s): C18.3 - Malignant neoplasm of hepatic flexure Status: Acute Plan: 67 year with carcinoma of the hepatic flexure; POD2 [id number] placement; Resection of hepatic flexure of the colon; Emeterio-Cut liver biopsy right lobe of liver x2 -Creatine up today; consult to Nephrology --- talked with Raegan ARGUETA -IR consulted for Vascath placement -Patient to start dialysis today -UOP continues to be low despite Lasix---keep [place] -US BLE shows no DVT -Hold subq heparin for today due to to the need for Vascath placement -PT -Discussed extensively with Dr. Carvajal, Raegan ARGUETA, So DICKSON and daughter Zamzam at the bedside Renal function deteriorated; no nephrotoxic antibiotics used; likely from CT contrast with metformin use. Had BLE swelling; simply tissue edema/fluid and not DVT. Will have dialysis for volume and electrolyte filtration. Wound - SURI intact with minimal drainage on bandage. The exam, history, and the medical decision-making described in the above note were completed with the assistance of the mid-level provider. I reviewed and agree with the findings presented. I attest that I had a [id number] encounter with the patient on the same day, and personally performed and documented my assessment and findings in the medical record.
[2018-01-15 15:14] LABS: CKMB Percent 2.5 % (0.0-4.0); Creatine Kinase MB 8.8 ng/mL (0.5-3.6)
--- NOTE | 2018-01-15 15:58 | IR ---
EXAM DATE: 01/15/2018 12:36 PM EST AGE/SEX: 67 years / Male INDICATIONS: Patient presents with Acute Kidney Failure in need of non-tunneled Dialysis Catheter pl acement. CLINICAL DATA: This is the patient's initial encounter. Patient reports that signs and symptoms have been present for 1 week and indicates a pain score of 0/10. MEDICAL/SURGICAL HISTORY: . CAD, Carpal Tunnel Syndrome, Hepatitis C, Type 2 Diabetes, Hyperten jacqueline . CABG, Cholecystectomy. COMPARISON: . FLUORO TIME (min): 0.67 IMAGE SERIES: 3 ACCESS SITE: Right internal jugular vein DEVICE(S): 14 [place] double lumen 15 cm Schon catheter . . PROCEDURE : 1. Ultrasound guided venipuncture. 2. Fluoroscopic guidance. 3. Central line placement. The risks, benefits and alternatives to the procedure were explained and verbal and written consent w as obtained. The site was prepped in sterile fashion. Full sterile technique was used, including ca p, mask, sterile gloves and gown and a large sterile sheet. Hand hygiene and 2% chlorhexidine prep w as utilized per protocol for cutaneous antisepsis with appropriate dry time for site. Sterile gel an d sterile probe cover were utilized for ultrasound guidance. The skin and subcutaneous tissues were infiltrated with local anesthetic solution. A suitable site a kameron the vein was selected with ultrasound and fluoroscopic guidance. A small incision was made. Th e vein was accessed under direct ultrasound visualization using the micropuncture technique. The joel ropuncture set was exchanged for a 0.035 wire. The tract was dilated. The catheter was advanced int o position under direct fluoroscopic visualization, and was advanced with the tip at the junction of the superior vena cava and rt atrium. The catheter was fixed in place with suture and a sterile dres sing was applied. The patient tolerated the procedure well and there were no complications. CONCLUSION: 1. Uncomplicated line placement as above. Electronically signed by: Stevo Philippe MD 01/15/2018 3:56 PM EST
[2018-01-15 20:16] LABS: Hepatitis A IgM Antibody Nonreactive (Nonreactive); Hepatitits B Surface Antigen Nonreactive (Nonreactive)
[2018-01-15] MEDS: Zolpidem Tartrate 5 MG Tablet PO PRN (23:22)
[2018-01-16] MEDS: Morphine Inj 30 MG/30 ML PCA.VIAL PCA PRN ×2 (06:00→08:01)
[2018-01-16 06:13] LABS: Baso % (Auto) 0.1 % (0.0-2.0); Eos % (Auto) 0.3 % (0.0-4.0); Hematocrit 23.6 % (39.0-51.0); Hemoglobin 7.9 gm/dL (13.0-17.0); Lymph # (Auto) 0.7 th/mm3 (1.0-4.8); Lymph % (Auto) 11.5 % (9.0-44.0); Mean Corpuscular HGB Conc 33.3 % (32.0-36.0); Mean Corpuscular Hemoglobin 22.9 pg (27.0-34.0); Mean Corpuscular Volume 68.9 fL (80.0-100.0); Mean Platelet Volume 8.2 fL (7.0-11.0); Mono # (Auto) 0.7 th/mm3 (0.0-0.9); Mono % (Auto) 10.8 % (0.0-8.0); Neut # (Auto) 4.7 th/mm3 (1.8-7.7); Neut % (Auto) 77.3 % (16.0-70.0); Platelet Count 224 th/mm3 (150-450); Red Blood Count 3.42 mil/mm3 (4.50-5.90); Red Cell Distribution Width 16.2 % (11.6-17.2); White Blood Count 6.1 th/mm3 (4.0-11.0)
[2018-01-16] MEDS: Sodium Bicarbonate 8.4% Inj 75 MEQ in Sodium Chloride 0.45 % Inj 925 ML IV.CONT SCH (06:43)
[2018-01-16 06:59] LABS: Albumin 1.8 g/dL (3.4-5.0); Calcium 6.8 mg/dL (8.5-10.1); Carbon Dioxide 27.5 meq/L (21.0-32.0); Magnesium 2.1 mg/dL (1.5-2.5); Phosphorus 4.2 mg/dL (2.5-4.9); Potassium 4.5 meq/L (3.5-5.1); Total Protein 4.9 g/dL (6.4-8.2)
--- NOTE | 2018-01-16 07:48 | P.PNONC ---
Subjective Interval history: Patient still complaining of abdominal pain and asking for more pain medication. Family however stated that patient was quite sedated with the pain medication. He denies any chest pain. He denies any significant shortness of breath. He had hemodialysis yesterday. Objective Vital Signs/Intake & Output: Vital Signs 01/15/18 08:00 01/15/18 08:31 01/15/18 12:00 Temperature 97.7 F 97.5 F L Pulse Rate 85 80 86 Respiratory Rate 17 17 Blood Pressure 103/53 L 155/65 H Pulse Oximetry 90 L 94 L 89 L 01/15/18 13:17 01/15/18 20:00 01/15/18 22:56 Temperature 97.8 F 97.3 F L Pulse Rate 86 82 Respiratory Rate 16 13 Blood Pressure 101/53 L Pulse Oximetry 90 L 91 L 01/16/18 00:00 01/16/18 00:04 01/16/18 04:24 Temperature 97.2 F L Pulse Rate 82 80 Respiratory Rate 15 16 Blood Pressure 102/58 L Pulse Oximetry 95 01/16/18 06:30 Temperature Pulse Rate Respiratory Rate 16 Blood Pressure Pulse Oximetry Intake & Output 01/15/18 01/16/18 01/16/18 18:59 06:59 18:59 Intake Total 3040 / 3040 2200 / 2200 Output Total 1060 / 1060 100 / 100 Balance 1979 / 1979 2100 / 2100 Weight 90.3 kg Intake: IV 2560 / 2560 1999 / 1999 NS Inj 1,000 ML @ 125 mls/hr IV 950 / 950 .CONT .Q8H [facility] Rx#:[id number] Sodium Bicarbonate 8.4% Inj 75 1999 / 1999 MEQ In 1/2 Normal Saline Inj 925 ML @ 100 mls/hr IV.CONT . Q10H [facility] Rx#:[id number] Calcium Chloride Inj 1 GM In NS 110 / 110 Inj 100 ML @ 110 mls/hr IV.SIG ONCE ONE Rx#:[id number] NS Inj 1,000 ML @ 1000 mls/hr 1000 / 1000 IV.SIG BOLUS [facility] Rx#:[id number] NS Inj 500 ML @ Wide Open IV. 500 / 500 SIG BOLUS ONE Rx#:[id number] Oral 480 / 480 200 / 200 Output: Urine 100 / 100 Hemodialysis Amount 1000 / 1000 Urine Amount (Catheter) 60 / 60 Indwelling Urethral Catheter 60 / 60 Other: Date of Last Bowel Movement 01/11/18 01/11/18 Result Diagrams: 01/16/18 05:07 01/16/18 05:07 Laboratory Results: Laboratory Results - last 24 hr 01/15/18 01/15/18 01/15/18 10:48 10:48 11:47 WBC RBC Hgb Hct MCV MCH MCHC RDW Plt Count MPV Neut % (Auto) Lymph % (Auto) [place] % (Auto) Eos % (Auto) Baso % (Auto) Neut # (Auto) Lymph # (Auto) [place] # (Auto) Eos # (Auto) Baso # (Auto) WBC Differential Differential Comment Sodium 133 L Potassium 6.3 H Chloride 105 Carbon Dioxide 19.2 L Anion Gap 9 BUN 51 H Creatinine 2.58 H Estimated GFR 25 L Random Glucose 133 H Calcium 7.7 L Calcium Adj for Albumin Phosphorus Magnesium Total Bilirubin AST ALT Alkaline Phosphatase Total Creatine Kinase 346 H CK-MB (CK-2) 8.8 H CK-MB (CK-2) % 2.5 Total Protein Albumin Urine Eosinophils None seen Hepatitis A IgM Ab Hep Bs Antigen Hep B Core IgM Ab Hep C IgG Ab 01/15/18 01/16/18 01/16/18 15:00 05:07 05:07 WBC 6.1 RBC 3.42 L Hgb 7.9 L Hct 23.6 L MCV 68.9 L MCH 22.9 L MCHC 33.3 RDW 16.2 Plt Count 224 D MPV 8.2 Neut % (Auto) 77.3 H Lymph % (Auto) 11.5 [place] % (Auto) 10.8 H Eos % (Auto) 0.3 Baso % (Auto) 0.1 Neut # (Auto) 4.7 Lymph # (Auto) 0.7 L [place] # (Auto) 0.7 Eos # (Auto) 0.0 Baso # (Auto) 0.0 WBC Differential . Differential Comment Auto diff final Sodium 137 Potassium 4.5 D Chloride 101 Carbon Dioxide 27.5 Anion Gap 9 BUN 47 H Creatinine 2.49 H Estimated GFR 26 L Random Glucose 93 Calcium 6.8 L* D Calcium Adj for Albumin 7.9 L Phosphorus 4.2 Magnesium 2.1 Total Bilirubin 0.9 AST 1163 H ALT 433 H Alkaline Phosphatase 221 H Total Creatine Kinase 276 CK-MB (CK-2) CK-MB (CK-2) % Total Protein 4.9 L Albumin 1.8 L Urine Eosinophils Hepatitis A IgM Ab Nonreactive Hep Bs Antigen Nonreactive Hep B Core IgM Ab Nonreactive Hep C IgG Ab Reactive H Imaging Studies: Impressions Abdomen/Bladder Ultrasound 01/15/18 00:00 CONCLUSION: 1. No obstruction. The kidneys are sonographically unremarkable. 2. Metastatic lesions involving the liver previously described and better seen on the prior CT. 3. Trace amount of ascites. Catheter Placement 01/15/18 10:39 CONCLUSION: 1. Uncomplicated line placement as above. Medications: Active Medications Generic Name Dose Route Start Last Admin Trade Name Freq PRN Reason Stop Dose Admin Aspirin 81 mg 01/07/18 09:00 01/10/18 10:20 Ecotrin PO 81 mg DAILY [facility] Administration Atorvastatin Calcium 80 mg 01/07/18 09:00 01/14/18 09:53 Lipitor PO 80 mg DAILY [facility] Administration Cetirizine HCl 10 mg 01/07/18 09:00 01/15/18 08:28 Zyrtec PO 10 mg DAILY [facility] Administration Fenofibrate 145 mg 01/07/18 09:00 01/15/18 08:29 Tricor PO 145 mg DAILY [facility] Administration Ferrous Sulfate 325 mg 01/07/18 09:00 01/15/18 08:28 Ferosul PO 325 mg DAILY [facility] Administration Gentamicin Sulfate 20 mg 01/15/18 10:40 01/15/18 16:46 Gentamicin Inj OTHER 20 mg WITH DIALYSIS PRN Administration Dwell Gentamycin Lock Heparin Sodium (Porcine) 5,000 units 01/14/18 14:15 01/15/18 08:29 Heparin Inj SQ 5,000 units Q12HR [facility] Administration Heparin Sodium (Porcine) 1,000 units 01/15/18 10:40 01/15/18 16:47 Heparin Inj OTHER 1,000 units WITH DIALYSIS PRN Administration Dwell Heparin to Fill Catheter Sodium Chloride 500 mls @ 30 mls/hr 01/13/18 05:00 01/13/18 16:01 Ns Inj IV.SIG Not Given .Q10H [facility] Morphine Sulfate 30 mg in 30 mls @ 0 mls/hr 01/13/18 11:43 01/16/18 06:00 Morphine Inj FIOS LINE INSTALLER 0 mls/hr UNSCH PRN Administration per FIOS LINE INSTALLER parameters 0 MG/HR Sodium Bicarbonate 75 meq/ 1,000 mls @ 100 mls/hr 01/15/18 11:00 01/16/18 06: 43 Sodium Chloride IV.CONT 100 mls/hr .Q10H [facility] Administration Lactulose 30 ml 01/06/18 15:47 01/09/18 14:31 Lactulose Liq PO 30 ml DAILY PRN Administration SEVERE CONSITIPATION Lisinopril 10 mg 01/07/18 09:00 01/14/18 09:53 Prinivil PO 10 mg DAILY [facility] Administration Metformin HCl 500 mg 01/06/18 21:00 01/14/18 09:53 Glucophage PO 500 mg BIDPC [facility] Administration Metoprolol Tartrate 50 mg 01/06/18 21:00 01/15/18 20:27 Lopressor PO 50 mg BID [facility] Administration Morphine Sulfate 2 mg 01/06/18 16:25 01/14/18 02:06 Morphine Inj IV.PUSH 2 mg Q4H PRN Administration BREAKTHROUGH PAIN Ondansetron HCl 4 mg 01/06/18 15:47 01/06/18 22:33 Zofran Inj IV.PUSH 4 mg Q6H PRN Administration NAUSEA OR VOMITING Oxycodone/Acetaminophen 1 tab 01/14/18 05:22 01/16/18 03:54 Percocet 7.5/325 Mg PO 1 tab Q4H PRN Administration PAIN 6-10 Pantoprazole Sodium 40 mg 01/10/18 09:00 01/15/18 08:29 Protonix PO 40 mg DAILY [facility] Administration Sennosides 17.2 mg 01/06/18 15:47 01/09/18 12:39 Senokot PO 17.2 mg Q12H PRN Administration Moderate Constipation Sodium Chloride 2 ml 01/13/18 09:00 01/15/18 20:27 Ns Flush IV.FLUSH Not Given BID [facility] Zolpidem Tartrate 5 mg 01/11/18 15:25 01/15/18 23:22 Ambien PO 5 mg HS PRN Administration INSOMNIA Objective Remarks: GENERAL: Well-nourished, well-developed patient. Weak. SKIN: Warm and dry. HEAD: Normocephalic. EYES: No scleral icterus. No injection or drainage. NECK: Supple, trachea midline. No JVD or lymphadenopathy. LYMPHATIC: No adenopathy. CARDIOVASCULAR: Regular rate and rhythm without murmurs. RESPIRATORY: Breath sounds equal bilaterally anteriorly. No accessory muscle use. GASTROINTESTINAL: Abdomen distended, hypoactive bowel sounds, diffuse tenderness. No rebound or rigidity. nondistended. EXTREMITIES: No cyanosis, or edema. MUSCULOSKELETAL: Adequate muscle tone. NEUROLOGICAL: No obvious focal deficit. Awake, alert, and oriented x3. Assessment/Plan - Plan 1. Multiple liver masses worrisome for metastatic disease. He has had right upper quadrant pain intermittently for several months. Over the last 4 weeks the pain become more constant. He also has nausea and vomiting. He lost about 10 pounds. He had anemia with microcytosis worrisome for iron deficiency anemia. He, however, denies any gross gastrointestinal bleed. His colonoscopy 4 years ago did not show any masses, but reportedly had polyps. CT of the chest did not show any metastatic disease. A CT of the abdomen and pelvis showed numerous hepatic lesions, largest measured 7 cm. There were also multiple retroperitoneal enlarged lymph nodes. There was an enlarged left adrenal gland lesion measured 4.1 cm, which could also be metastatic disease. I suspect he possibly has a primary GI tumor. January 07: CEA elevated at 42.9 with normal alpha-fetoprotein and CA 19 9. This is suggestive of primary GI tumor. He is going to have EGD and colonoscopy today. January 08:. Colonoscopy yesterday showed near circumferential mass at the hepatic flexure Worrisome for colon cancer. Biopsy was done and pathology is pending at this time. It appears that patient has primary colon cancer with metastasis to liver. EGD did not show any obvious mass. January 09: Biopsy from colonic mass is still pending. 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 Gastric cancer cannot be ruled out but EGD did not reveal any gastric mass. Patient is going to have surgery today for impending obstruction. He is also going to have port placement for eventual chemotherapy. January 14: Postop day 1. Patient had resection of hepatic flexure colonic mass and liver biopsy. He also had port placement. During surgery large tumor burden was noted in the liver with a small tumor in the hepatic flexure causing partial obstruction. The omentum was fixed to the liver mass. Final pathology pending. January 15: Postop day 2. Worsening renal function, patient going for dialysis today. Potassium 6.3, currently being treated for this, nephrology has been consulted. Liver enzymes have increased significantly. Total bilirubin 1.0. January 16: Postop day 3. Patient had worsening renal function and started dialysis yesterday. Liver enzymes are still elevated. Final pathology from colon resection and liver biopsy is still pending. 2. Left adrenal gland lesion measured 4.1 cm. This could be metastatic disease and less likely to be a primary tumor. 3. Anemia with microcytosis suggestive of iron deficiency anemia. The patient denies any gross gastrointestinal bleed. 4. History of hepatitis C, treated with Harvoni 4 years ago, reportedly went into remission. His liver enzymes trended up again which could be due to metastatic disease in the liver versus activation hepatitis C. RECOMMENDATIONS: 1. Colonic mass showed poorly differentiated carcinoma, liver biopsy path pending. Once the patient has recovered from surgery he will receive palliative chemotherapy. Family is planning on bringing patient back to [place] for treatment. 2. Acute kidney injury with hyperkalemia,. Management per attending and nephrology. O 3. Monitor liver enzyme. 4. Pain management, currently on FIOS LINE INSTALLER pump per surgery.
[2018-01-16] MEDS: Ferrous Sulfate 325 MG Tablet PO SCH (08:03)
[2018-01-16] MEDS: Metoprolol Tartrate 50 MG Tablet PO SCH ×2 (08:03→21:29)
[2018-01-16] MEDS: Fenofibrate 145 MG Tablet PO SCH (08:03)
--- NOTE | 2018-01-16 08:04 | P.PNGS ---
Subjective Interval history: Up to chair Daughter and son at bedside Missed a dose of pain medication and having increased pain Physical Exam Vital signs: Vital Signs 01/15/18 08:31 01/15/18 12:00 01/15/18 13:17 Temperature 97.5 F L Pulse Rate 80 86 86 Respiratory Rate 17 16 Blood Pressure 155/65 H Pulse Oximetry 94 L 89 L 90 L 01/15/18 20:00 01/15/18 22:56 01/16/18 00:00 Temperature 97.8 F 97.3 F L 97.2 F L Pulse Rate 82 82 Respiratory Rate 13 15 Blood Pressure 101/53 L 102/58 L Pulse Oximetry 91 L 95 01/16/18 00:04 01/16/18 04:24 01/16/18 06:30 Temperature Pulse Rate 80 Respiratory Rate 16 16 Blood Pressure Pulse Oximetry Intake & Output 01/15/18 01/16/18 01/16/18 18:59 06:59 18:59 Intake Total 3040 / 3040 2200 / 2200 Output Total 1060 / 1060 100 / 100 Balance 1979 / 1979 2100 / 2100 Weight 90.3 kg Intake: IV 2560 / 2560 2000 / 2000 NS Inj 1,000 ML @ 125 mls/hr IV 950 / 950 .CONT .Q8H [facility] Rx#:[id number] Sodium Bicarbonate 8.4% Inj 75 2000 / 2000 MEQ In 1/2 Normal Saline Inj 925 ML @ 100 mls/hr IV.CONT . Q10H [facility] Rx#:[id number] Calcium Chloride Inj 1 GM In NS 110 / 110 Inj 100 ML @ 110 mls/hr IV.SIG ONCE ONE Rx#:[id number] NS Inj 1,000 ML @ 1000 mls/hr 1000 / 1000 IV.SIG BOLUS [facility] Rx#:[id number] NS Inj 500 ML @ Wide Open IV. 500 / 500 SIG BOLUS ONE Rx#:[id number] Oral 480 / 480 200 / 200 Output: Urine 100 / 100 Hemodialysis Amount 1000 / 1000 Urine Amount (Catheter) 60 / 60 Indwelling Urethral Catheter 60 / 60 Other: Date of Last Bowel Movement 01/11/18 01/11/18 Narrative: Alert and awake Resp: mild wheezing Abd: mildly distended; SURI in place BLE edema improved - Urinary Catheter Management Indwelling Urethral Catheter Cath placed during this visit: yes, but has since been removed by the nurse Reason for continuing: Hourly intake/output Insertion date: 01/15/18 Insertion time: 03:30 Removal date: 01/14/18 Removal time: 03:20 Results - Labs 01/20/18 06:33 01/20/18 06:33 Laboratory Results - last 24 hr 01/15/18 01/15/18 01/15/18 10:48 10:48 11:47 WBC RBC Hgb Hct MCV MCH MCHC RDW Plt Count MPV Neut % (Auto) Lymph % (Auto) [place] % (Auto) Eos % (Auto) Baso % (Auto) Neut # (Auto) Lymph # (Auto) [place] # (Auto) Eos # (Auto) Baso # (Auto) WBC Differential Differential Comment Sodium 133 L Potassium 6.3 H Chloride 105 Carbon Dioxide 19.2 L Anion Gap 9 BUN 51 H Creatinine 2.58 H Estimated GFR 25 L Random Glucose 133 H Calcium 7.7 L Calcium Adj for Albumin Phosphorus Magnesium Total Bilirubin AST ALT Alkaline Phosphatase Total Creatine Kinase 346 H CK-MB (CK-2) 8.8 H CK-MB (CK-2) % 2.5 Total Protein Albumin Urine Eosinophils None seen Hepatitis A IgM Ab Hep Bs Antigen Hep B Core IgM Ab Hep C IgG Ab 01/15/18 01/16/18 01/16/18 15:00 05:07 05:07 WBC 6.1 RBC 3.42 L Hgb 7.9 L Hct 23.6 L MCV 68.9 L MCH 22.9 L MCHC 33.3 RDW 16.2 Plt Count 224 D MPV 8.2 Neut % (Auto) 77.3 H Lymph % (Auto) 11.5 [place] % (Auto) 10.8 H Eos % (Auto) 0.3 Baso % (Auto) 0.1 Neut # (Auto) 4.7 Lymph # (Auto) 0.7 L [place] # (Auto) 0.7 Eos # (Auto) 0.0 Baso # (Auto) 0.0 WBC Differential . Differential Comment Auto diff final Sodium 137 Potassium 4.5 D Chloride 101 Carbon Dioxide 27.5 Anion Gap 9 BUN 47 H Creatinine 2.49 H Estimated GFR 26 L Random Glucose 93 Calcium 6.8 L* D Calcium Adj for Albumin 7.9 L Phosphorus 4.2 Magnesium 2.1 Total Bilirubin 0.9 AST 1163 H ALT 433 H Alkaline Phosphatase 221 H Total Creatine Kinase 276 CK-MB (CK-2) CK-MB (CK-2) % Total Protein 4.9 L Albumin 1.8 L Urine Eosinophils Hepatitis A IgM Ab Nonreactive Hep Bs Antigen Nonreactive Hep B Core IgM Ab Nonreactive Hep C IgG Ab Reactive H - Imaging Imaging: ITS Impressions Chest CTA 01/06/18 11:04 CONCLUSION: 1. Nodular thickening of an azygos fissure which may be scarring however short- term follow-up may be indicated. 2. No evidence of acute airspace disease or pulmonary emboli. 3. Multiple low density lesions in the liver and enlarged left adrenal gland. Abdomen X-Ray 01/10/18 00:00 CONCLUSION: 1. Nonobstructive bowel gas pattern. Chest X-Ray 01/13/18 00:00 CONCLUSION: Swrwtt-i-Caxk appears in satisfactory position. No pneumothorax identified. Venous Doppler Study 01/14/18 00:00 CONCLUSION: 1. The study is negative for bilateral lower extremity deep venous thrombosis. Abdomen/Bladder Ultrasound 01/15/18 00:00 CONCLUSION: 1. No obstruction. The kidneys are sonographically unremarkable. 2. Metastatic lesions involving the liver previously described and better seen on the prior CT. 3. Trace amount of ascites. Abdomen/Pelvis CT 01/15/18 00:00 CONCLUSION: 1. Recent laparotomy and right hemicolectomy with subcutaneous air in the anterior abdominal wall and a small amount of free air. 2. Extensive metastatic disease in the liver. Stable enlarged left adrenal gland. 3. New small bilateral pleural effusions and basilar atelectasis. Mild ileus. Catheter Placement 01/15/18 10:39 CONCLUSION: 1. Uncomplicated line placement as above. Assessment and Plan - Assessment (1) Carcinoma of hepatic flexure Code(s): C18.3 - Malignant neoplasm of hepatic flexure Status: Acute Plan: 67 year with carcinoma of the hepatic flexure; POD3 [id number] placement; Resection of hepatic flexure of the colon; Emeterio-Cut liver biopsy right lobe of liver x2 -Nephrology following; had HD yesterday; scheduled for HD again today -K now normal -UOP continues to be low ---keep Boswell -US BLE shows no DVT -Hold subq heparin for today; Hmg 7.9; recheck tomorrow -PT -Discussed plan with family at the bedside as well as YESSI Hankins As above; will remove more fluid today via dialysis Somewhat sleepy; need to change from morphine to small doses of dilaudid for pain control per nephrology. Abdomen moderately distended, but minimally tender; no BM yet. The exam, history, and the medical decision-making described in the above note were completed with the assistance of the mid-level provider. I reviewed and agree with the findings presented. I attest that I had a [id number] encounter with the patient on the same day, and personally performed and documented my assessment and findings in the medical record.
--- NOTE | 2018-01-16 08:33 | P.PN ---
Subjective Interval history: Follow-up acute renal failure with hyperkalemia. Called by RN secondary to elevated heart rate telemetry shows 140 bpm stat EKG ordered, patient complaining of surgical/abdominal pain. Still anuric going for hemodialysis today Physical Exam Vital signs: Vital Signs 01/15/18 12:00 01/15/18 13:17 01/15/18 20:00 Temperature 97.5 F L 97.8 F Pulse Rate 86 86 82 Respiratory Rate 17 16 13 Blood Pressure 155/65 H 101/53 L Pulse Oximetry 89 L 90 L 91 L 01/15/18 22:56 01/16/18 00:00 01/16/18 00:04 Temperature 97.3 F L 97.2 F L Pulse Rate 82 80 Respiratory Rate 15 Blood Pressure 102/58 L Pulse Oximetry 95 01/16/18 04:24 01/16/18 06:30 Temperature Pulse Rate Respiratory Rate 16 16 Blood Pressure Pulse Oximetry Intake & Output 01/15/18 01/16/18 01/16/18 18:59 06:59 18:59 Intake Total 3040 / 3040 2200 / 2200 Output Total 1060 / 1060 100 / 100 Balance 1979 / 1979 2100 / 2100 Weight 90.3 kg Intake: IV 2560 / 2560 2000 / 2000 NS Inj 1,000 ML @ 125 mls/hr IV 950 / 950 .CONT .Q8H [facility] Rx#:[id number] Sodium Bicarbonate 8.4% Inj 75 2000 / 2000 MEQ In 1/2 Normal Saline Inj 925 ML @ 100 mls/hr IV.CONT . Q10H [facility] Rx#:[id number] Calcium Chloride Inj 1 GM In NS 110 / 110 Inj 100 ML @ 110 mls/hr IV.SIG ONCE ONE Rx#:[id number] NS Inj 1,000 ML @ 1000 mls/hr 1000 / 1000 IV.SIG BOLUS [facility] Rx#:[id number] NS Inj 500 ML @ Wide Open IV. 500 / 500 SIG BOLUS ONE Rx#:[id number] Oral 480 / 480 200 / 200 Output: Urine 100 / 100 Hemodialysis Amount 1000 / 1000 Urine Amount (Catheter) 60 / 60 Indwelling Urethral Catheter 60 / 60 Other: Date of Last Bowel Movement 01/11/18 01/11/18 Narrative: GENERAL: WD WN in ND weak looking CARDIOVASCULAR: Normal rate and regular rhythm without murmurs, gallops, or rubs. RESPIRATORY: Breath sounds equal and clear to auscultation anteriorly. GASTROINTESTINAL: Midline abdominal SURI dressing in place. Abdomen is soft. Appropriately tender MUSCULOSKELETAL: Extremities without cyanosis BLE edema. NEURO: Awake. Moves all ext x4 - Urinary Catheter Management Indwelling Urethral Catheter Cath placed during this visit: yes, but has since been removed by the nurse Reason for continuing: Hourly intake/output Insertion date: 01/15/18 Insertion time: 03:30 Removal date: 01/14/18 Removal time: 03:20 Results - Labs CBC & Chem 7: 01/16/18 05:07 01/16/18 05:07 Laboratory Results - last 24 hr 01/15/18 01/15/18 01/15/18 10:48 10:48 11:47 WBC RBC Hgb Hct MCV MCH MCHC RDW Plt Count MPV Neut % (Auto) Lymph % (Auto) [place] % (Auto) Eos % (Auto) Baso % (Auto) Neut # (Auto) Lymph # (Auto) [place] # (Auto) Eos # (Auto) Baso # (Auto) WBC Differential Differential Comment Sodium 133 L Potassium 6.3 H Chloride 105 Carbon Dioxide 19.2 L Anion Gap 9 BUN 51 H Creatinine 2.58 H Estimated GFR 25 L Random Glucose 133 H Calcium 7.7 L Calcium Adj for Albumin Phosphorus Magnesium Total Bilirubin AST ALT Alkaline Phosphatase Total Creatine Kinase 346 H CK-MB (CK-2) 8.8 H CK-MB (CK-2) % 2.5 Total Protein Albumin Urine Eosinophils None seen Hepatitis A IgM Ab Hep Bs Antigen Hep B Core IgM Ab Hep C IgG Ab 01/15/18 01/16/18 01/16/18 15:00 05:07 05:07 WBC 6.1 RBC 3.42 L Hgb 7.9 L Hct 23.6 L MCV 68.9 L MCH 22.9 L MCHC 33.3 RDW 16.2 Plt Count 224 D MPV 8.2 Neut % (Auto) 77.3 H Lymph % (Auto) 11.5 [place] % (Auto) 10.8 H Eos % (Auto) 0.3 Baso % (Auto) 0.1 Neut # (Auto) 4.7 Lymph # (Auto) 0.7 L [place] # (Auto) 0.7 Eos # (Auto) 0.0 Baso # (Auto) 0.0 WBC Differential . Differential Comment Auto diff final Sodium 137 Potassium 4.5 D Chloride 101 Carbon Dioxide 27.5 Anion Gap 9 BUN 47 H Creatinine 2.49 H Estimated GFR 26 L Random Glucose 93 Calcium 6.8 L* D Calcium Adj for Albumin 7.9 L Phosphorus 4.2 Magnesium 2.1 Total Bilirubin 0.9 AST 1163 H ALT 433 H Alkaline Phosphatase 221 H Total Creatine Kinase 276 CK-MB (CK-2) CK-MB (CK-2) % Total Protein 4.9 L Albumin 1.8 L Urine Eosinophils Hepatitis A IgM Ab Nonreactive Hep Bs Antigen Nonreactive Hep B Core IgM Ab Nonreactive Hep C IgG Ab Reactive H - Imaging Impressions Abdomen/Bladder Ultrasound 01/15/18 00:00 CONCLUSION: 1. No obstruction. The kidneys are sonographically unremarkable. 2. Metastatic lesions involving the liver previously described and better seen on the prior CT. 3. Trace amount of ascites. Catheter Placement 01/15/18 10:39 CONCLUSION: 1. Uncomplicated line placement as above. - Procedures resection of colonic mass, liver biopsy and [id number] placement Vas-Cath placement Assessment and Plan - Plan 67 yo Male with Liver and Left Adrenal Gland Metastasis and Hepatosplenomegaly secondary to possible primary fungating lesion at hepatic flexure identified and biopsied via colonoscopy. Hx of Hep C, in remission per pt s/p Harvoni Treatment 3yrs ago. Patient presented with persistent abdominal pain and symptoms consistent with impending obstruction. He underwent colon resection with Dr. Cotton, [id number] placement and Emeterio-Cut liver biopsy right lobe of liver x2 01/13/18. Colon cancer with metastasis to the liver and adrenal gland - S/P colon resection -s/p Colonoscopy and EGD, A near circumferential ulcerated, firm and fungating mass was found at the hepatic flexure. Multiple biopsies were performed using cold forceps. -Concern for partial bowel obstructions with risk of worsening obstruction. -Oncology recommended colon resection prior to initiation of palliative chemotherapy when he recovers from surgery. -General surgery following and patient underwent colon resection, liver biopsy and port placement -Diet per surgery. Pain control dw GS, increase lock out time of MS [employer] -Follow-up abdomen CT shows ileus. Will monitor Hyponatremia - Likely hypovolemic hyponatremia. Liver disease may be contributing. - Stable. Continue to monitor. - Follow labs. Acute kidney injury with persistent hyperkalemia and anuria despite aggressive IV hydration and multiple treatments for hyperkalemia. Underwent urgent hemodialysis yesterday. Repeat hemodialysis today. Cautious IV hydration monitor for fluid overload. Boswell for strict I/O. Etiology ? Iron Deficiency Anemia -Continue Iron Supplement Type 2 diabetes Metformin held Continue Sliding scale insulin with Accu-Cheks as ordered History of CAD/CABG Continue beta-moshe. Hold Lipitor secondary to transaminitis. Restart Asa if ok with GS Monitor for EKG changes Check ECHO Hypertension Stable, Continue beta-moshe Monitor BP and HR Tachycardia on beta-moshe. Obtain stat EKG insomnia: -Patient was taking Ambien from home in the hospital along with trazodone. He has been lethargic at times. He does better with Ambien and trazodone does not help him much. I advised him to not use medications from home while in the hospital. Trazodone discontinued and he can use Ambien at night as needed for insomnia. Hx of Hepatitis C Treated w/ [facility] 4yrs ago, reportedly in remission LFTs slightly elevated which is likely to liver metastasis and/or statins/ fibrate therapy. Worse status post liver biopsy. Could also be ischemic BLE edema. US doppler negative for DVT. SQ heparin for proph when cleared by general surgery GI prophylaxis -Stool softener PRN constipation. Discharge Planning: Patient is clinically worse consider transfer to ICU
[2018-01-16] MEDS: Albumin Human 25% Inj 100 ML IV.SIG PRN ×2 (10:45→10:49)
--- NOTE | 2018-01-16 11:51 | P.PNNP ---
Subjective Interval history: Patient was seen, complaints of thirst and abdominal pain. Denied nausea, vomiting, diarrhea, chest pain. Patient had VasCath placed for dialysis yesterday. Patient received dialysis yesterday, 1 L removed. Patient to be dialyzed again today. Patient remains oliguric. Creatinine is 2.49. K has improved, K is 4.5. <Raegan Bryan - Last Filed: 01/16/18 12:12> Physical Exam Vital signs: Vital Signs 01/15/18 12:00 01/15/18 13:17 01/15/18 20:00 Temperature 97.5 F L 97.8 F Pulse Rate 86 86 82 Respiratory Rate 17 16 13 Blood Pressure 155/65 H 101/53 L Pulse Oximetry 89 L 90 L 91 L 01/15/18 22:56 01/16/18 00:00 01/16/18 00:04 Temperature 97.3 F L 97.2 F L Pulse Rate 82 80 Respiratory Rate 15 Blood Pressure 102/58 L Pulse Oximetry 95 01/16/18 04:24 01/16/18 06:30 01/16/18 08:00 Temperature 98.0 F Pulse Rate 110 H Respiratory Rate 16 16 17 Blood Pressure 127/71 Pulse Oximetry 90 L 01/16/18 10:26 Temperature Pulse Rate 81 Respiratory Rate Blood Pressure 127/71 Pulse Oximetry Intake & Output 01/15/18 01/16/18 01/16/18 18:59 06:59 18:59 Intake Total 3040 / 3040 2200 / 2200 100 / 100 Output Total 1060 / 1060 100 / 100 Balance 1979 / 1979 2100 / 2100 100 / 100 Weight 90.3 kg Intake: IV 2560 / 2560 2000 / 2000 100 / 100 NS Inj 1,000 ML @ 125 mls/hr IV 950 / 950 .CONT .Q8H [facility] Rx#:[id number] Sodium Bicarbonate 8.4% Inj 75 2000 / 2000 MEQ In 1/2 Normal Saline Inj 925 ML @ 100 mls/hr IV.CONT . Q10H [facility] Rx#:[id number] Flexbumin 25% Inj 100 ML @ 60 100 / 100 mls/hr IV.SIG WITH DIALYSIS PRN Rx#:[id number] Calcium Chloride Inj 1 GM In NS 110 / 110 Inj 100 ML @ 110 mls/hr IV.SIG ONCE ONE Rx#:[id number] NS Inj 1,000 ML @ 1000 mls/hr 1000 / 1000 IV.SIG BOLUS [facility] Rx#:[id number] NS Inj 500 ML @ Wide Open IV. 500 / 500 SIG BOLUS ONE Rx#:[id number] Oral 480 / 480 200 / 200 Output: Urine 100 / 100 Hemodialysis Amount 1000 / 1000 Urine Amount (Catheter) 60 / 60 Indwelling Urethral Catheter 60 / 60 Other: Date of Last Bowel Movement 01/11/18 01/11/18 - Constitutional mild distress - Routine HEENT Exam Head: Present: normocephalic Eye: Present: EOMI, PERRL ENT: Present: mucous membranes moist - Routine Neck Exam Present: trachea midline. Absent: tracheal deviation - Routine Respiratory Exam Present: accessory muscle use. Absent: respiratory distress - Routine Cardiovascular Exam Present: RRR - Routine Abdominal Exam Present: tenderness, distended, firm. Absent: soft - Routine Extremities Exam Present: edema, pulses intact, vascular access - Routine Neurological Exam Present: alert - Urinary Catheter Management Indwelling Urethral Catheter Cath placed during this visit: yes, but has since been removed by the nurse Reason for continuing: Hourly intake/output Insertion date: 01/15/18 Insertion time: 03:30 Removal date: 01/14/18 Removal time: 03:20 <Raegan Bryan - Last Filed: 01/16/18 12:12> Vital signs: Vital Signs 01/15/18 22:56 01/16/18 00:00 01/16/18 00:04 Temperature 97.3 F L 97.2 F L Pulse Rate 82 80 Respiratory Rate 15 Blood Pressure 102/58 L Pulse Oximetry 95 01/16/18 04:24 01/16/18 06:30 01/16/18 08:00 Temperature 98.0 F Pulse Rate 146 H Respiratory Rate 16 16 17 Blood Pressure 127/71 Pulse Oximetry 94 L 01/16/18 10:26 01/16/18 12:00 01/16/18 14:16 Temperature Pulse Rate 81 78 Respiratory Rate 16 Blood Pressure 127/71 Pulse Oximetry 01/16/18 14:18 01/16/18 14:46 01/16/18 16:00 Temperature 97.3 F L 97.3 F L Pulse Rate 90 77 Respiratory Rate 20 18 17 Blood Pressure 135/62 109/54 L Pulse Oximetry 99 97 01/16/18 17:00 01/16/18 17:02 01/16/18 17:17 Temperature 98.1 F 98.0 F 96.8 F L Pulse Rate 94 H 94 H 86 Respiratory Rate 20 20 19 Blood Pressure 115/74 115/74 113/63 Pulse Oximetry 100 01/16/18 20:00 01/16/18 21:18 Temperature 97.3 F L 98.3 F Pulse Rate 84 88 Respiratory Rate 20 18 Blood Pressure 114/56 L 138/64 Pulse Oximetry 97 Intake & Output 01/16/18 01/16/18 01/17/18 06:59 18:59 06:59 Intake Total 2200 / 2200 2030 / 2029 0 / 0 Output Total 100 / 100 1500 / 1500 Balance 2099 / 2099 530 / 530 0 / 0 Weight 90.3 kg Intake: IV 1999 1730 / 1730 Sodium Bicarbonate 8.4% Inj 75 1999 / 1999 630 / 630 MEQ In 1/2 Normal Saline Inj 925 ML @ 100 mls/hr IV.CONT . Q10H [facility] Rx#:[id number] Flexbumin 25% Inj 100 ML @ 60 1100 / 1100 mls/hr IV.SIG WITH DIALYSIS PRN Rx#:[id number] Oral 200 / 200 300 / 300 Intake (Blood Product) Amt 0 / 0 0 / 0 Rbc As-3 Leukoreduced Unit 0 / 0 0 / 0 [id number] Output: Urine 100 / 100 Hemodialysis Amount 1500 / 1500 Other: Date of Last Bowel Movement 01/11/18 01/11/18 - Urinary Catheter Management Indwelling Urethral Catheter Cath placed during this visit: no <Bill Deras - Last Filed: 01/16/18 21:40> Assessment and Plan - Plan Acute kidney injury Etiology of SHAYE is uncertain, but he also has elevated liver enzymes suggesting ischemic hepatitis (in addition to liver dysfunction due to liver mets). SHAYE therefore could be secondary to ischemic insult: there is a possibility that he suffered hypotensive episodes. He is oliguric. Patient dialyzed yesterday, 1 L removed. Patient to be dialyzed today. Hyperkalemia has improved, K is 4.5. Boswell cath in place, strict I/O. Monitor fluid and electrolytes. Avoid nephrotoxic agents. Colon cancer with metastasis to the liver and adrenal gland s/p Colonoscopy and EGD, A near circumferential ulcerated, firm and fungating mass was found at the hepatic flexure. Oncology recommended colon resection prior to initiation of palliative chemotherapy when he recovers from surgery. General surgery following and patient underwent [id number] placement, Resection of hepatic flexure of the colon, Emeterio-Cut liver biopsy right lobe of liver x2. Follow-up abdomen CT showed recent laparotomy and right hemicolectomy with subcutaneous air in the anterior abdominal wall and a small amount of free air, extensive metastatic disease in the liver, stable enlarged left adrenal gland, new small bilateral pleural effusions and basilar atelectasis and mild ileus. Hypertension Monitor BP. Patient on beta-moshe. Lisinopril held. Iron Deficiency Anemia Hgb is 8.8. Continue Iron Supplement. Type 2 diabetes Continue insulin to maintain blood glucose level between 140 and 180. Metformin held. <Raegan Bryan - Last Filed: 01/16/18 12:12> - Attending Attestation patient was seen and examined. Dialyzed again today. When I saw him, he appeared very sleepy, I discussed with surgery service as well as RN. Morphine needs to be switched to hydromorphone which may be safer in patients with renal failure. Overall his prognosis is very poor. <Bill Deras - Last Filed: 01/16/18 21:40>
[2018-01-16 12:22] LABS: ABG Base Excess 2.8 mmol/L (-2-2); ABG PCO2 49 mmHg (38-42); ABG PO2 131 mmHG (61-120)
[2018-01-16] MEDS ORDERED: Sodium Chlor 0.9% Inj 250 ML IV.SIG SCH (13:00)
--- NOTE | 2018-01-16 13:56 | ECG ---
Date Performed: 01/15/2018 Time Performed: 09:56:45 PTAGE: 67 years EKG: Sinus rhythm WITH SHORT AL INTERVAL POSSIBLE LEFT ATRIAL ENLARGEMENT BORDERLINE ECG Since the PREVIOUS TRACING , no significant change noted PREVIOUS TRACIN01/06/2018 12.54 DOCTOR: Sarwat Boyd Interpretating Date/Time 01/16/2018 13:51:11
[2018-01-16] MEDS: Sodium Chloride 0.9% 2 ML Flush BID IV.FLUSH SCH ×2 (14:27→21:30)
[2018-01-16] MEDS: Sod Chloride 0.9% Inj 1,000 ML IV.CONT SCH (14:28)
--- NOTE | 2018-01-16 15:25 | ECG ---
Date Performed: 01/16/2018 Time Performed: 08:31:39 PTAGE: 67 years EKG: SINUS TACHYCARDIA MODERATE ST DEPRESSION When compared to previous tracing, rate has increa sed with Nonspecific ST-T wave changes. Clinical correlation is recommended ABNORMAL ECG PREVIOUS TRACING : 01/15/2018 09.56 DOCTOR: Sarwat Boyd Interpretating Date/Time 01/16/2018 15:25:31
[2018-01-16] MEDS: Simethicone 125 MG Chew Tablet PO PRN (23:11)
[2018-01-16] MEDS: Zolpidem Tartrate 5 MG Tablet PO PRN (23:11)
[2018-01-16 23:18] LABS: Hematocrit 30.4 % (39.0-51.0); Hemoglobin 9.9 gm/dL (13.0-17.0)
[2018-01-17] MEDS: Metoprolol Tartrate 50 MG Tablet PO SCH ×2 (08:59→20:43)
[2018-01-17] MEDS: Simethicone 125 MG Chew Tablet PO PRN (08:59)
[2018-01-17] MEDS: Sodium Chloride 0.9% 2 ML Flush BID IV.FLUSH SCH ×2 (09:03→20:44)
[2018-01-17] MEDS: Ferrous Sulfate 325 MG Tablet PO SCH (09:03)
[2018-01-17] MEDS: HYDROmorphone PF Inj 0.5 MG/0.5 ML Syringe IV.PUSH PRN ×4 (09:03→22:11)
--- NOTE | 2018-01-17 09:30 | XR ---
EXAM DATE: 01/17/2018 9:26 AM EST AGE/SEX: 67 years / Male INDICATIONS: CHF. CLINICAL DATA: This is the patient's subsequent encounter. Patient reports that signs and symptoms h ave been present for 1 day and indicates a pain score of 0/10. MEDICAL/SURGICAL HISTORY: . Diabetes mellitus type II. Hepatitis C. Coronary artery disease. Ca rpal tunnel syndrome. Cholecystectomy. Open heart surgery. . COMPARISON: [facility] – [place]PIR[place] ONLY, 01/13/2018. . FINDINGS: There is a new platelike areas of atelectasis in both lung bases, right greater than left. Otherwise the rest the lung hampton are grossly clear. No definite pulmonary edema is demonstrated. No significa nt pleural effusions. The heart size is stable and within normal limits. There is a right-sided centr al line in place. No evidence of pneumothorax. There is evidence of previous cardiothoracic surgery. CONCLUSION: New bibasilar platelike infiltrates characteristic for atelectasis. Electronically signed by: Jacques Ruiz MD 01/17/2018 9:28 AM EST
[2018-01-17 10:39] LABS: Baso % (Auto) 0.1 % (0.0-2.0); Eos % (Auto) 0.7 % (0.0-4.0); Hematocrit 32.2 % (39.0-51.0); Hemoglobin 10.3 gm/dL (13.0-17.0); Lymph # (Auto) 0.5 th/mm3 (1.0-4.8); Lymph % (Auto) 9.3 % (9.0-44.0); Mean Corpuscular HGB Conc 32.1 % (32.0-36.0); Mean Corpuscular Hemoglobin 23.7 pg (27.0-34.0); Mean Corpuscular Volume 73.9 fL (80.0-100.0); Mono # (Auto) 0.7 th/mm3 (0.0-0.9); Neut # (Auto) 4.3 th/mm3 (1.8-7.7); Neut % (Auto) 77.9 % (16.0-70.0); Platelet Count 238 th/mm3 (150-450); Red Blood Count 4.36 mil/mm3 (4.50-5.90); Red Cell Distribution Width 18.9 % (11.6-17.2); White Blood Count 5.5 th/mm3 (4.0-11.0)
--- NOTE | 2018-01-17 10:55 | ECHRPT ---
Indication: CARDIOMYOPATHY CONCLUSIONS Normal left ventricular size. Wall thickness is normal. The left ventricular systolic function is normal with an estimated ejection fraction in the range of 55-60%. The left atrial size is mildly dilated. Mild mitral annular calcification. Trace mitral valve regurgitation. The estimated pulmonary arterial pressure is 53 mmHg. There is moderate tricuspid regurgitation. BP: / HR: Rhythm: MEASUREMENTS (Male / Female) Normal Values Technical Quality:Very technically difficult study 2D ECHO LV Diastolic Diameter PLAX 4.9 cm 4.2 - 5.9 / 3.9 - 5.3 cm LV Systolic Diameter PLAX 3.3 cm IVS Diastolic Thickness 1.2 cm 0.6 - 1.0 / 0.6 - 0.9 cm LVPW Diastolic Thickness 1.2 cm 0.6 - 1.0 / 0.6 - 0.9 cm LV Relative Wall Thickness 0.5 RV Internal Dim ED PLAX 2.3 cm LVOT Diameter 1.7 cm Aortic Root Diameter 2.5 cm LA Systolic Diameter LX 3.7 cm 3.0 - 4.0 / 2.7 - 3.8 cm LV Ejection Fraction MOD 4C 66.7 % LV Ejection Fraction 4C AL 67.9 % LV Ejection Fraction MOD 2C 37.5 % LV Ejection Fraction 2C AL 39.9 % M-MODE Aortic Root Diameter MM 3.1 cm LA Systolic Diameter MM 4.3 cm LA Ao Ratio MM 1.4 AV Cusp Separation MM 2.5 cm DOPPLER AV Peak Velocity 126.0 cm/s AV Peak Gradient 6.4 mmHg LVOT Peak Velocity 116.0 cm/s LVOT Peak Gradient 5.4 mmHg AV Area Cont Eq pk 2.1 cm Mitral E Point Velocity 54.3 cm/s Mitral A Point Velocity 61.7 cm/s Mitral E to A Ratio 0.9 LV E' Lateral Velocity 12.8 cm/s Mitral E to LV E' Lateral Ratio 4.2 LV E' Septal Velocity 5.9 cm/s Mitral E to LV E' Septal Ratio 9.1 TR Peak Velocity 328.0 cm/s TR Peak Gradient 43.0 mmHg Right Atrial Pressure 10.0 mmHg Pulmonary Artery Systolic Pressu 53.0 mmHg Right Ventricular Systolic Press 53.0 mmHg PV Peak Velocity 102.0 cm/s PV Peak Gradient 4.2 mmHg FINDINGS LEFT VENTRICLE Normal left ventricular size. Wall thickness is normal. The left ventricular systolic function is normal with an estimated ejection fraction in the range of 55-60%. RIGHT VENTRICLE Normal right ventricular size and systolic function. LEFT ATRIUM The left atrial size is mildly dilated. RIGHT ATRIUM The right atrial size is normal. ATRIAL SEPTUM Normal atrial septal thickness without atrial level shunting by limited color doppler interrogation. AORTA The aortic root and proximal ascending aorta are normal in size on limited imaging. MITRAL VALVE Mild mitral annular calcification. Trace mitral valve regurgitation. AORTIC VALVE Trileaflet aortic valve. No aortic valve stenosis or regurgitation. TRICUSPID VALVE The estimated pulmonary arterial pressure is 53 mmHg. There is moderate tricuspid regurgitation. PULMONARY VALVE No pulmonary valve regurgitation or stenosis. VESSELS The inferior vena cava is normal in size. PERICARDIUM No pericardial effusion. Frandy Ward MD, FACC, FSCAI (Electronically Signed) Final Date:17 January 2018 10:54
[2018-01-17 11:14] LABS: Alanine Aminotransferase 221 U/L (12-78); Albumin 2.3 g/dL (3.4-5.0); Anion Gap 14 meq/L (5-15); Aspartate Aminotransferase 306 U/L (15-37); Blood Urea Nitrogen 50 mg/dL (7-18); Calcium 7.6 mg/dL (8.5-10.1); Carbon Dioxide 22.4 meq/L (21.0-32.0); Chloride 100 meq/L (98-107); Glomerular Filtration Rate 24 mL/min (>89); Glucose,Random 145 mg/dL (74-106); Magnesium 2.4 mg/dL (1.5-2.5); Potassium 4.5 meq/L (3.5-5.1); Sodium 136 meq/L (136-145)
[2018-01-17 11:16] LABS: Alkaline Phosphatase 250 U/L (45-117); Total Protein 5.6 g/dL (6.4-8.2)
--- NOTE | 2018-01-17 11:26 | P.PNNP ---
Subjective Interval history: Resting comfortably with no complaints. Denies any shortness of breath, chest pain, nausea, or vomiting. Creatinine at 2.69 today. <Blessing Whiting - Last Filed: 01/17/18 11:18> Physical Exam Vital signs: Vital Signs 01/16/18 12:00 01/16/18 14:16 01/16/18 14:18 Temperature 97.3 F L Pulse Rate 78 90 Respiratory Rate 16 20 Blood Pressure 135/62 Pulse Oximetry 99 01/16/18 14:46 01/16/18 16:00 01/16/18 17:00 Temperature 97.3 F L 98.1 F Pulse Rate 77 94 H Respiratory Rate 18 17 20 Blood Pressure 109/54 L 115/74 Pulse Oximetry 97 01/16/18 17:02 01/16/18 17:17 01/16/18 20:00 Temperature 98.0 F 96.8 F L 97.3 F L Pulse Rate 94 H 86 84 Respiratory Rate 20 19 18 Blood Pressure 115/74 113/63 114/56 L Pulse Oximetry 100 95 01/16/18 21:18 01/17/18 00:00 01/17/18 04:00 Temperature 98.3 F 97.2 F L 97.8 F Pulse Rate 88 87 98 H Respiratory Rate 18 20 20 Blood Pressure 138/64 114/56 L 117/56 L Pulse Oximetry 97 95 01/17/18 09:35 Temperature Pulse Rate Respiratory Rate 18 Blood Pressure Pulse Oximetry Intake & Output 01/16/18 01/17/18 01/17/18 18:59 06:59 18:59 Intake Total 2029 0 / 0 Output Total 1500 / 1500 175 / 175 Balance 530 / 530 -175 / -175 Weight 87.7 kg Intake: IV 1730 / 1730 Sodium Bicarbonate 8.4% Inj 75 630 / 630 MEQ In 1/2 Normal Saline Inj 925 ML @ 100 mls/hr IV.CONT . Q10H [facility] Rx#:[id number] Flexbumin 25% Inj 100 ML @ 60 1100 / 1100 mls/hr IV.SIG WITH DIALYSIS PRN Rx#:[id number] Oral 300 / 300 Intake (Blood Product) Amt 0 / 0 0 / 0 Rbc As-3 Leukoreduced Unit 0 / 0 0 / 0 [id number] Output: Hemodialysis Amount 1500 / 1500 Urine Amount (Catheter) 175 / 175 Indwelling Urethral Catheter 175 / 175 Other: Date of Last Bowel Movement 01/11/18 01/11/18 Narrative: GENERAL: NAD CARDIOVASCULAR: Normal rate and regular rhythm without murmurs, gallops, or rubs. Right IJ vas cath RESPIRATORY: Breath sounds equal and clear to auscultation anteriorly. GASTROINTESTINAL: Midline abdominal SURI dressing in place. Abdomen is soft. Appropriately tender GENITOURINARY: Indwelling Boswell catheter MUSCULOSKELETAL: Extremities without cyanosis BLE edema. NEURO: Awake. Moves all ext x4 - Urinary Catheter Management Indwelling Urethral Catheter Cath placed during this visit: yes, but has since been removed by the nurse Reason for continuing: Hourly intake/output Insertion date: 01/15/18 Insertion time: 03:30 Removal date: 01/14/18 Removal time: 03:20 <Blessing Whiting - Last Filed: 01/17/18 11:18> Vital signs: Vital Signs 01/17/18 13:41 01/17/18 16:00 01/17/18 16:30 Temperature 97.6 F Pulse Rate 91 H Respiratory Rate 20 20 18 Blood Pressure 127/60 Pulse Oximetry 98 01/17/18 20:00 01/18/18 00:00 01/18/18 04:00 Temperature 96.1 F L 98.2 F 97.8 F Pulse Rate 94 H 92 H 99 H Respiratory Rate 21 20 20 Blood Pressure 127/68 148/70 H 163/65 H Pulse Oximetry 98 96 95 01/18/18 08:00 01/18/18 12:28 Temperature 97.2 F L Pulse Rate 102 H Respiratory Rate 18 Blood Pressure 152/67 H Pulse Oximetry 97 96 Intake & Output 01/17/18 01/18/18 01/18/18 18:59 06:59 18:59 Output Total 100 / 100 275 / 275 Balance -100 / -100 -275 / -275 Weight 86.1 kg Output: Urine 275 / 275 Urine Amount (Catheter) 100 / 100 Indwelling Urethral Catheter 100 / 100 - Urinary Catheter Management Indwelling Urethral Catheter Cath placed during this visit: no <Dayron Huff - Last Filed: 01/18/18 12:56> Assessment and Plan - Assessment (1) Acute kidney failure Code(s): N17.9 - Acute kidney failure, unspecified Status: Acute - Plan Acute kidney injury Etiology of SHAYE is uncertain, but he also has elevated liver enzymes suggesting ischemic hepatitis (in addition to liver dysfunction due to liver mets). SHAYE therefore could be secondary to ischemic insult: there is a possibility that he suffered hypotensive episodes. Hemodialysis started on 01/15 He remains oliguric, has indwelling Boswell catheter. Continue strict I/O. Avoid nephrotoxic agents, and monitor fluid and electrolytes. HD yesterday with UF of 1.5 liters. Plan for HD on Friday, unless hyperkalemic tomorrow. Lasix 40 mg BID ordered. Labs are in AM. Colon cancer with metastasis to the liver and adrenal gland s/p Colonoscopy and EGD, A near circumferential ulcerated, firm and fungating mass was found at the hepatic flexure. Oncology recommended colon resection prior to initiation of palliative chemotherapy when he recovers from surgery. General surgery following and patient underwent [id number] placement, Resection of hepatic flexure of the colon, Emeterio-Cut liver biopsy right lobe of liver x2. Follow-up abdomen CT showed recent laparotomy and right hemicolectomy with subcutaneous air in the anterior abdominal wall and a small amount of free air, extensive metastatic disease in the liver, stable enlarged left adrenal gland, new small bilateral pleural effusions and basilar atelectasis and mild ileus. Hypertension Monitor BP. Patient on beta-moshe. Lisinopril held. Iron Deficiency Anemia Hgb is 8.8. Continue Iron Supplement. Type 2 diabetes Continue insulin to maintain blood glucose level between 140 and 180. Metformin held. <Blessing Whiting - Last Filed: 01/17/18 11:18> - Assessment (1) Acute kidney failure Code(s): N17.9 - Acute kidney failure, unspecified Status: Acute - Plan Patient seen and examined, Urine out put is low. HD to continue as needed. <Dayron Huff - Last Filed: 01/18/18 12:56>
--- NOTE | 2018-01-17 12:15 | P.PN ---
Subjective Interval history: Heartburn +H pylori dw GI start tx will wait til regular po. ALso with anxiety. Requesting johns removal Physical Exam Vital signs: Vital Signs 01/16/18 14:16 01/16/18 14:18 01/16/18 14:46 Temperature 97.3 F L Pulse Rate 90 Respiratory Rate 16 20 18 Blood Pressure 135/62 Pulse Oximetry 99 01/16/18 16:00 01/16/18 17:00 01/16/18 17:02 Temperature 97.3 F L 98.1 F 98.0 F Pulse Rate 77 94 H 94 H Respiratory Rate 17 20 20 Blood Pressure 109/54 L 115/74 115/74 Pulse Oximetry 97 100 01/16/18 17:17 01/16/18 20:00 01/16/18 21:18 Temperature 96.8 F L 97.3 F L 98.3 F Pulse Rate 86 84 88 Respiratory Rate 19 18 18 Blood Pressure 113/63 114/56 L 138/64 Pulse Oximetry 95 01/17/18 00:00 01/17/18 04:00 01/17/18 08:00 Temperature 97.2 F L 97.8 F 97.5 F L Pulse Rate 87 98 H 95 H Respiratory Rate 20 20 24 Blood Pressure 114/56 L 117/56 L 140/53 L Pulse Oximetry 97 95 100 01/17/18 09:35 01/17/18 10:52 Temperature Pulse Rate Respiratory Rate 18 20 Blood Pressure Pulse Oximetry Intake & Output 01/16/18 01/17/18 01/17/18 18:59 06:59 18:59 Intake Total 2029 0 / 0 Output Total 1500 / 1500 175 / 175 Balance 530 / 530 -175 / -175 Weight 87.7 kg Intake: IV 1730 / 1730 Sodium Bicarbonate 8.4% Inj 75 630 / 630 MEQ In 1/2 Normal Saline Inj 925 ML @ 100 mls/hr IV.CONT . Q10H [facility] Rx#:[id number] Flexbumin 25% Inj 100 ML @ 60 1100 / 1100 mls/hr IV.SIG WITH DIALYSIS PRN Rx#:[id number] Oral 300 / 300 Intake (Blood Product) Amt 0 / 0 0 / 0 Rbc As-3 Leukoreduced Unit 0 / 0 0 / 0 [id number] Output: Hemodialysis Amount 1500 / 1500 Urine Amount (Catheter) 175 / 175 Indwelling Urethral Catheter 175 / 175 Other: Date of Last Bowel Movement 01/11/18 01/11/18 Narrative: GENERAL: NAD CARDIOVASCULAR: Normal rate and regular rhythm without murmurs, gallops, or rubs. Right IJ vas cath RESPIRATORY: Breath sounds equal and clear to auscultation anteriorly. GASTROINTESTINAL: Midline abdominal SURI dressing in place. Abdomen is soft. Appropriately tender GENITOURINARY: Indwelling Johns catheter MUSCULOSKELETAL: Extremities without cyanosis BLE edema. NEURO: Awake. Moves all ext x4 - Urinary Catheter Management Indwelling Urethral Catheter Cath placed during this visit: yes, but has since been removed by the nurse Reason for continuing: Hourly intake/output Insertion date: 01/15/18 Insertion time: 03:30 Removal date: 01/14/18 Removal time: 03:20 Results - Labs CBC & Chem 7: 01/17/18 09:29 01/17/18 09:29 Laboratory Results - last 24 hr 01/16/18 01/16/18 01/16/18 12:15 12:49 14:35 WBC RBC Hgb Hct MCV MCH MCHC RDW Plt Count MPV Neut % (Auto) Lymph % (Auto) [place] % (Auto) Eos % (Auto) Baso % (Auto) Neut # (Auto) Lymph # (Auto) [place] # (Auto) Eos # (Auto) Baso # (Auto) WBC Differential Differential Comment Puncture Site Left radial Patient Temperature 98.6 O2 Saturation 95 ABG pH 7.37 L ABG pCO2 49 H ABG pO2 131 H ABG HCO3 28 H ABG O2 Content 9.7 L ABG Base Excess 2.8 H ABG Methemoglobin 1.9 Irvin Test Present Hemoglobin 7.0 L* Carboxyhemoglobin 1.7 O2 Delivery Device Nasal cannula Liter Flow 6.00 Critical Value Yes Sodium Potassium Chloride Carbon Dioxide Anion Gap BUN Creatinine Estimated GFR POC Glucose 111 H Random Glucose Calcium Magnesium Total Bilirubin AST ALT Alkaline Phosphatase Total Protein Albumin Blood Type O Positive Antibody Screen Negative MTS Gel Crossmatch See Detail 01/16/18 01/17/18 01/17/18 22:44 09:29 09:29 WBC 5.5 RBC 4.36 L Hgb 9.9 L D 10.3 L Hct 30.4 L 32.2 L MCV 73.9 L D MCH 23.7 L MCHC 32.1 RDW 18.9 H D Plt Count 238 MPV 8.0 Neut % (Auto) 77.9 H Lymph % (Auto) 9.3 [place] % (Auto) 12.0 H Eos % (Auto) 0.7 Baso % (Auto) 0.1 Neut # (Auto) 4.3 Lymph # (Auto) 0.5 L [place] # (Auto) 0.7 Eos # (Auto) 0.0 Baso # (Auto) 0.0 WBC Differential . Differential Comment Auto diff final Puncture Site Patient Temperature O2 Saturation ABG pH ABG pCO2 ABG pO2 ABG HCO3 ABG O2 Content ABG Base Excess ABG Methemoglobin Irvin Test Hemoglobin Carboxyhemoglobin O2 Delivery Device Liter Flow Critical Value Sodium 136 Potassium 4.5 Chloride 100 Carbon Dioxide 22.4 Anion Gap 14 BUN 50 H Creatinine 2.69 H Estimated GFR 24 L POC Glucose Random Glucose 145 H Calcium 7.6 L D Magnesium 2.4 Total Bilirubin 1.3 H AST 306 H ALT 221 H Alkaline Phosphatase 250 H Total Protein 5.6 L D Albumin 2.3 L Blood Type Antibody Screen MTS Gel Crossmatch Microbiology 01/15/18 04:35 Catheterized Urine Urine Culture - Final No growth in 48 hours - Imaging Impressions Chest X-Ray 01/17/18 08:06 CONCLUSION: New bibasilar platelike infiltrates characteristic for atelectasis. - Procedures resection of colonic mass, liver biopsy and Eqhdlu-m-Bdop placement Vas-Cath placement Assessment and Plan - Plan 67 yo Male with Liver and Left Adrenal Gland Metastasis and Hepatosplenomegaly secondary to possible primary fungating lesion at hepatic flexure identified and biopsied via colonoscopy. Hx of Hep C, in remission per pt s/p Harvoni Treatment 3yrs ago. Patient presented with persistent abdominal pain and symptoms consistent with impending obstruction. He underwent colon resection with Dr. Cotton, Gzbsng-l-Zdde placement and Emeterio-Cut liver biopsy right lobe of liver x2 01/13/18. Colon cancer with metastasis to the liver and adrenal gland - S/P colon resection -s/p Colonoscopy and EGD, A near circumferential ulcerated, firm and fungating mass was found at the hepatic flexure. Multiple biopsies were performed using cold forceps. -Oncology recommended colon resection prior to initiation of palliative chemotherapy when he recovers from surgery. -General surgery following and patient underwent colon resection, liver biopsy and port placement -Diet per surgery. 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 Will monitor increase activity ct IVF still on liquid diet Hyponatremia - Likely hypovolemic hyponatremia. Liver disease may be contributing. - Stable. Continue to monitor. - Follow labs. Acute kidney injury with persistent hyperkalemia and anuria despite aggressive IV hydration and multiple treatments for hyperkalemia. Underwent hemodialysis x 2 . Sl improved UO Cautious IV hydration monitor for fluid overload. Dc Johns pt request. Avoid nephrotoxins Iron Deficiency Anemia -Continue Iron Supplement Type 2 diabetes Metformin held Continue Sliding scale insulin with Accu-Cheks as ordered History of CAD/CABG Continue beta-moshe. Hold Lipitor secondary to transaminitis. Restart Asa if ok with GS Monitor for EKG changes Check ECHO Hypertension Stable, Continue beta-moshe Monitor BP and HR insomnia: -Patient was taking Ambien from home in the hospital along with trazodone. He has been lethargic at times. He does better with Ambien and trazodone does not help him much. I advised him to not use medications from home while in the hospital. Trazodone discontinued and he can use Ambien at night as needed for insomnia. Add vistaril for anxiety Hx of Hepatitis C Treated heather/ [facility] 4yrs ago, reportedly in remission LFTs slightly elevated which is likely to liver metastasis and/or statins/ fibrate therapy. Worse status post liver biopsy. Could also be ischemic GERD. + H pylori. Increase PPI add Tums. Antireflux dw pt. DStart quadruple tx when tolerating reg diet. Clarithromycin has significant interactions BLE edema. US doppler negative for DVT. SQ heparin for proph when cleared by general surgery GI prophylaxis -Stool softener PRN constipation. Discharge Planning: Dw Onc, poor prognosis.
[2018-01-17] MEDS: Sodium Chloride 0.9% 2 ML Flush PRN IV.FLUSH ×2 (13:11→17:48)
--- NOTE | 2018-01-17 14:44 | P.PNONC ---
Subjective Interval history: Afebrile Patient reports he feels like he has a lot of gas pain Family at bedside concerned that he will not have a lot of supportive care after discharge No bleeding Objective Vital Signs/Intake & Output: Vital Signs 01/16/18 14:46 01/16/18 16:00 01/16/18 17:00 Temperature 97.3 F L 98.1 F Pulse Rate 77 94 H Respiratory Rate 18 17 20 Blood Pressure 109/54 L 115/74 Pulse Oximetry 97 01/16/18 17:02 01/16/18 17:17 01/16/18 20:00 Temperature 98.0 F 96.8 F L 97.3 F L Pulse Rate 94 H 86 84 Respiratory Rate 20 19 18 Blood Pressure 115/74 113/63 114/56 L Pulse Oximetry 100 95 01/16/18 21:18 01/17/18 00:00 01/17/18 04:00 Temperature 98.3 F 97.2 F L 97.8 F Pulse Rate 88 87 98 H Respiratory Rate 18 20 20 Blood Pressure 138/64 114/56 L 117/56 L Pulse Oximetry 97 95 01/17/18 08:00 01/17/18 09:35 01/17/18 10:52 Temperature 97.5 F L Pulse Rate 95 H Respiratory Rate 24 18 20 Blood Pressure 140/53 L Pulse Oximetry 100 01/17/18 12:00 Temperature 97.3 F L Pulse Rate 94 H Respiratory Rate 24 Blood Pressure 132/61 Pulse Oximetry 97 Intake & Output 01/16/18 01/17/18 01/17/18 18:59 06:59 18:59 Intake Total 2029 0 / 0 Output Total 1500 / 1500 175 / 175 100 / 100 Balance 530 / 530 -175 / -175 -100 / -100 Weight 193 lb 5.526 oz Intake: IV 1730 / 1730 Sodium Bicarbonate 8.4% Inj 75 630 / 630 MEQ In 1/2 Normal Saline Inj 925 ML @ 100 mls/hr IV.CONT . Q10H [facility] Rx#:[id number] Flexbumin 25% Inj 100 ML @ 60 1100 / 1100 mls/hr IV.SIG WITH DIALYSIS PRN Rx#:[id number] Oral 300 / 300 Intake (Blood Product) Amt 0 / 0 0 / 0 Rbc As-3 Leukoreduced Unit 0 / 0 0 / 0 [id number] Output: Hemodialysis Amount 1500 / 1500 Urine Amount (Catheter) 175 / 175 100 / 100 Indwelling Urethral Catheter 175 / 175 100 / 100 Other: Date of Last Bowel Movement 01/11/18 01/11/18 Result Diagrams: 01/17/18 09:29 01/17/18 09:29 Laboratory Results: Laboratory Results - last 24 hr 01/16/18 01/16/18 01/17/18 14:35 22:44 09:29 WBC RBC Hgb 9.9 L D Hct 30.4 L MCV MCH MCHC RDW Plt Count MPV Neut % (Auto) Lymph % (Auto) [place] % (Auto) Eos % (Auto) Baso % (Auto) Neut # (Auto) Lymph # (Auto) [place] # (Auto) Eos # (Auto) Baso # (Auto) WBC Differential Differential Comment Sodium 136 Potassium 4.5 Chloride 100 Carbon Dioxide 22.4 Anion Gap 14 BUN 50 H Creatinine 2.69 H Estimated GFR 24 L Random Glucose 145 H Calcium 7.6 L D Magnesium 2.4 Total Bilirubin 1.3 H AST 306 H ALT 221 H Alkaline Phosphatase 250 H Total Protein 5.6 L D Albumin 2.3 L Blood Type O Positive Antibody Screen Negative MTS Gel Crossmatch See Detail 01/17/18 09:29 WBC 5.5 RBC 4.36 L Hgb 10.3 L Hct 32.2 L MCV 73.9 L D MCH 23.7 L MCHC 32.1 RDW 18.9 H D Plt Count 238 MPV 8.0 Neut % (Auto) 77.9 H Lymph % (Auto) 9.3 [place] % (Auto) 12.0 H Eos % (Auto) 0.7 Baso % (Auto) 0.1 Neut # (Auto) 4.3 Lymph # (Auto) 0.5 L [place] # (Auto) 0.7 Eos # (Auto) 0.0 Baso # (Auto) 0.0 WBC Differential . Differential Comment Auto diff final Sodium Potassium Chloride Carbon Dioxide Anion Gap BUN Creatinine Estimated GFR Random Glucose Calcium Magnesium Total Bilirubin AST ALT Alkaline Phosphatase Total Protein Albumin Blood Type Antibody Screen MTS Gel Crossmatch Culture Results: Microbiology 01/15/18 04:35 Urine Culture - Final Catheterized Urine No growth in 48 hours Imaging Studies: Impressions Chest X-Ray 01/17/18 08:06 CONCLUSION: New bibasilar platelike infiltrates characteristic for atelectasis. Medications: Active Medications Generic Name Dose Route Start Last Admin Trade Name Freq PRN Reason Stop Dose Admin Aspirin 81 mg 01/07/18 09:00 01/10/18 10:20 Ecotrin PO 81 mg DAILY [facility] Administration Atorvastatin Calcium 80 mg 01/07/18 09:00 01/14/18 09:53 Lipitor PO 80 mg DAILY [facility] Administration Cetirizine HCl 10 mg 01/07/18 09:00 01/17/18 08:56 Zyrtec PO 10 mg DAILY [facility] Administration Ferrous Sulfate 325 mg 01/07/18 09:00 01/17/18 09:03 Ferosul PO 325 mg DAILY [facility] Administration Gentamicin Sulfate 20 mg 01/15/18 10:40 01/15/18 16:46 Gentamicin Inj OTHER 20 mg WITH DIALYSIS PRN Administration Dwell Gentamycin Lock Heparin Sodium (Porcine) 5,000 units 01/14/18 14:15 01/15/18 08:29 Heparin Inj SQ 5,000 units Q12HR [facility] Administration Heparin Sodium (Porcine) 1,000 units 01/15/18 10:40 01/15/18 16:47 Heparin Inj OTHER 1,000 units WITH DIALYSIS PRN Administration Dwell Heparin to Fill Catheter Hydromorphone HCl 0.5 mg 01/16/18 17:11 01/17/18 13:11 Dilaudid Pf Inj IV.PUSH 0.5 mg Q4H PRN Administration breakthrough pain Sodium Chloride 500 mls @ 30 mls/hr 01/13/18 05:00 01/13/18 16:01 Ns Inj IV.SIG Not Given .Q10H [facility] Albumin Human 100 mls @ 60 mls/hr 01/15/18 10:40 01/16/18 10:56 Flexbumin 25% Inj IV.SIG Infused WITH DIALYSIS PRN Infusion hypotension / volume replace Sodium Chloride 1,000 mls @ 20 mls/hr 01/16/18 12:05 01/16/18 18:51 Ns Inj IV.CONT 0 mls/hr .Q24H [facility] Infusion Lactulose 30 ml 01/06/18 15:47 01/09/18 14:31 Lactulose Liq PO 30 ml DAILY PRN Administration SEVERE CONSITIPATION Lisinopril 10 mg 01/07/18 09:00 01/14/18 09:53 Prinivil PO 10 mg DAILY [facility] Administration Metformin HCl 500 mg 01/06/18 21:00 01/14/18 09:53 Glucophage PO 500 mg BIDPC [facility] Administration Metoprolol Tartrate 50 mg 01/06/18 21:00 01/17/18 08:59 Lopressor PO 50 mg BID [facility] Administration Ondansetron HCl 4 mg 01/06/18 15:47 01/17/18 03:14 Zofran Inj IV.PUSH 4 mg Q6H PRN Administration NAUSEA OR VOMITING Oxycodone/Acetaminophen 1 tab 01/14/18 05:22 01/17/18 10:22 Percocet 7.5/325 Mg PO 1 tab Q4H PRN Administration PAIN 6-10 Sennosides 17.2 mg 01/06/18 15:47 01/09/18 12:39 Senokot PO 17.2 mg Q12H PRN Administration Moderate Constipation Simethicone 125 mg 01/16/18 22:35 01/17/18 08:59 Phazyme Chew PO 125 mg TID PRN Administration gas relief Sodium Chloride 2 ml 01/13/18 09:00 01/17/18 09:03 Ns Flush IV.FLUSH 2 ml BID [facility] Administration Sodium Chloride 2 ml 01/13/18 08:20 01/17/18 13:11 Ns Flush IV.FLUSH 2 ml PRN PRN Administration FLUSH AFTER USING IV ACCESS Zolpidem Tartrate 5 mg 01/11/18 15:25 01/16/18 23:11 Ambien PO 5 mg HS PRN Administration INSOMNIA Objective Remarks: GENERAL: Chronically ill-appearing older gentleman writhing in bed. SKIN: Warm and dry. HEAD: Normocephalic. EYES: No scleral icterus. No injection or drainage. NECK: Supple, trachea midline. No JVD or lymphadenopathy. CARDIOVASCULAR: Regular rate and rhythm without murmurs. RESPIRATORY: Breath sounds equal bilaterally. No accessory muscle use. GASTROINTESTINAL: Abdominal wound with dressing in place. No oozing. EXTREMITIES: No cyanosis, or edema. MUSCULOSKELETAL: Adequate muscle tone. NEUROLOGICAL: Mildly lethargic but easily oriented. Assessment/Plan - Plan 1. Multiple liver masses worrisome for metastatic disease. He has had right upper quadrant pain intermittently for several months. Over the last 4 weeks the pain become more constant. He also has nausea and vomiting. He lost about 10 pounds. He had anemia with microcytosis worrisome for iron deficiency anemia. He, however, denies any gross gastrointestinal bleed. His colonoscopy 4 years ago did not show any masses, but reportedly had polyps. CT of the chest did not show any metastatic disease. A CT of the abdomen and pelvis showed numerous hepatic lesions, largest measured 7 cm. There were also multiple retroperitoneal enlarged lymph nodes. There was an enlarged left adrenal gland lesion measured 4.1 cm, which could also be metastatic disease. I suspect he possibly has a primary GI tumor. January 07: CEA elevated at 42.9 with normal alpha-fetoprotein and CA 19 9. This is suggestive of primary GI tumor. He is going to have EGD and colonoscopy today. January 08:. Colonoscopy yesterday showed near circumferential mass at the hepatic flexure Worrisome for colon cancer. Biopsy was done and pathology is pending at this time. It appears that patient has primary colon cancer with metastasis to liver. EGD did not show any obvious mass. January 09: Biopsy from colonic mass is still pending. 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 Gastric cancer cannot be ruled out but EGD did not reveal any gastric mass. Patient is going to have surgery today for impending obstruction. He is also going to have port placement for eventual chemotherapy. January 14: Postop day 1. Patient had resection of hepatic flexure colonic mass and liver biopsy. He also had port placement. During surgery large tumor burden was noted in the liver with a small tumor in the hepatic flexure causing partial obstruction. The omentum was fixed to the liver mass. Final pathology pending. January 15: Postop day 2. Worsening renal function, patient going for dialysis today. Potassium 6.3, currently being treated for this, nephrology has been consulted. Liver enzymes have increased significantly. Total bilirubin 1.0. January 16: Postop day 3. Patient had worsening renal function and started dialysis yesterday. Liver enzymes are still elevated. Final pathology from colon resection and liver biopsy is still pending. January 17: Postop day 4. Liver pathology shows metastatic disease with colonic primary 2. Left adrenal gland lesion measured 4.1 cm. This could be metastatic disease and less likely to be a primary tumor. 3. Anemia with microcytosis suggestive of iron deficiency anemia. The patient denies any gross gastrointestinal bleed. 4. History of hepatitis C, treated with Harvoni 4 years ago, reportedly went into remission. His liver enzymes trended up again which could be due to metastatic disease in the liver versus activation hepatitis C. RECOMMENDATIONS: 1. Colonic mass showed poorly differentiated carcinoma, liver biopsy shows colonic primary. Once the patient has recovered from surgery he will receive palliative chemotherapy. Family is planning on bringing patient back to [place] for treatment. 2. Acute kidney injury with hyperkalemia,. Management per attending and nephrology. 3. Monitor liver enzyme. 4. Pain management per attending. He is no longer on the FIRING PIN GAUGER pump. - Attending Statement The exam, history, and the medical decision-making described in the above note were completed with the assistance of the mid-level provider. I reviewed and agree with the findings presented. I attest that I had a [id number] encounter with the patient on the same day, and personally performed and documented my assessment and findings in the medical record. Patient sitting the chair. He was able to walk around the room with assistance of his family. His ex- and daughter re at the bedside. Patient has no bowel movement and is not passing gas yet. Complaining of abdominal bloating. I reviewed the pathology with patient and family. Pathology showed colonic adenocarcinoma at the hepatic flexure with involvement of regional lymph nodes. Biopsy of liver also showed metastatic colonic carcinoma. The liver enzyme have trended down slightly. His creatinine is still elevated. Patient has stage IV metastatic disease and it is not curable. Palliative chemotherapy possibly could prolong his survival. Family is planning on bringing him back to [place] to have treatment.
[2018-01-17] MEDS: Sod Chloride 0.9% Inj 1,000 ML IV.CONT SCH (15:06)
--- NOTE | 2018-01-17 17:04 | P.PN ---
Subjective Interval history: Patient slightly less confused, but still appears sleepy. Reporting no flatus or BM yet. He states he is having a fair amount of abdominal pain. Physical Exam Vital signs: Vital Signs 01/16/18 17:02 01/16/18 17:17 01/16/18 20:00 Temperature 98.0 F 96.8 F L 97.3 F L Pulse Rate 94 H 86 84 Respiratory Rate 20 19 18 Blood Pressure 115/74 113/63 114/56 L Pulse Oximetry 100 95 01/16/18 21:18 01/17/18 00:00 01/17/18 04:00 Temperature 98.3 F 97.2 F L 97.8 F Pulse Rate 88 87 98 H Respiratory Rate 18 20 20 Blood Pressure 138/64 114/56 L 117/56 L Pulse Oximetry 97 95 01/17/18 08:00 01/17/18 09:35 01/17/18 10:52 Temperature 97.5 F L Pulse Rate 95 H Respiratory Rate 24 18 20 Blood Pressure 140/53 L Pulse Oximetry 100 01/17/18 12:00 01/17/18 13:41 01/17/18 16:00 Temperature 97.3 F L 97.6 F Pulse Rate 94 H 91 H Respiratory Rate 24 20 20 Blood Pressure 132/61 127/60 Pulse Oximetry 97 98 Intake & Output 01/16/18 01/17/18 01/17/18 18:59 06:59 18:59 Intake Total 2029 0 / 0 Output Total 1500 / 1500 175 / 175 100 / 100 Balance 530 / 530 -175 / -175 -100 / -100 Weight 87.7 kg Intake: IV 1730 / 1730 Sodium Bicarbonate 8.4% Inj 75 630 / 630 MEQ In 1/2 Normal Saline Inj 925 ML @ 100 mls/hr IV.CONT . Q10H [facility] Rx#:[id number] Flexbumin 25% Inj 100 ML @ 60 1100 / 1100 mls/hr IV.SIG WITH DIALYSIS PRN Rx#:[id number] Oral 300 / 300 Intake (Blood Product) Amt 0 / 0 0 / 0 Rbc As-3 Leukoreduced Unit 0 / 0 0 / 0 [id number] Output: Hemodialysis Amount 1500 / 1500 Urine Amount (Catheter) 175 / 175 100 / 100 Indwelling Urethral Catheter 175 / 175 100 / 100 Other: Date of Last Bowel Movement 01/11/18 01/11/18 - Routine Abdominal Exam Present: soft, tenderness (Minimal over abdomen), distended, wound (Clean with minimal drainage on jatinder dressing) - Urinary Catheter Management Indwelling Urethral Catheter Cath placed during this visit: yes, but has since been removed by the nurse Reason for continuing: Hourly intake/output Insertion date: 01/15/18 Insertion time: 03:30 Removal date: 01/14/18 Removal time: 03:20 Results - Labs CBC & Chem 7: 01/17/18 09:29 01/17/18 09:29 Laboratory Results - last 24 hr 01/16/18 01/16/18 01/17/18 14:35 22:44 09:29 WBC RBC Hgb 9.9 L D Hct 30.4 L MCV MCH MCHC RDW Plt Count MPV Neut % (Auto) Lymph % (Auto) [place] % (Auto) Eos % (Auto) Baso % (Auto) Neut # (Auto) Lymph # (Auto) [place] # (Auto) Eos # (Auto) Baso # (Auto) WBC Differential Differential Comment Sodium 136 Potassium 4.5 Chloride 100 Carbon Dioxide 22.4 Anion Gap 14 BUN 50 H Creatinine 2.69 H Estimated GFR 24 L Random Glucose 145 H Calcium 7.6 L D Magnesium 2.4 Total Bilirubin 1.3 H AST 306 H ALT 221 H Alkaline Phosphatase 250 H Total Protein 5.6 L D Albumin 2.3 L Blood Type O Positive Antibody Screen Negative MTS Gel Crossmatch See Detail 01/17/18 09:29 WBC 5.5 RBC 4.36 L Hgb 10.3 L Hct 32.2 L MCV 73.9 L D MCH 23.7 L MCHC 32.1 RDW 18.9 H D Plt Count 238 MPV 8.0 Neut % (Auto) 77.9 H Lymph % (Auto) 9.3 [place] % (Auto) 12.0 H Eos % (Auto) 0.7 Baso % (Auto) 0.1 Neut # (Auto) 4.3 Lymph # (Auto) 0.5 L [place] # (Auto) 0.7 Eos # (Auto) 0.0 Baso # (Auto) 0.0 WBC Differential . Differential Comment Auto diff final Sodium Potassium Chloride Carbon Dioxide Anion Gap BUN Creatinine Estimated GFR Random Glucose Calcium Magnesium Total Bilirubin AST ALT Alkaline Phosphatase Total Protein Albumin Blood Type Antibody Screen MTS Gel Crossmatch Microbiology 01/15/18 04:35 Catheterized Urine Urine Culture - Final No growth in 48 hours - Imaging Impressions Chest X-Ray 01/17/18 08:06 CONCLUSION: New bibasilar platelike infiltrates characteristic for atelectasis. - Procedures resection of colonic mass, liver biopsy and Skznrm-g-Yfag placement Vas-Cath placement Assessment and Plan - Assessment (1) Carcinoma of hepatic flexure Code(s): C18.3 - Malignant neoplasm of hepatic flexure Status: Acute Plan: POD #4 status post colon resection, Erklct-g-Gksq placement, liver biopsy. Transaminases are improving. Renal function is about the same. Minimal urine output. Await return of bowel function before feeding him. - Plan Discussed Condition With: Patient Ex- Children/daughter - Attending Attestation I attest that I had a [id number] encounter with the patient on the same day, and personally performed and documented my assessment and findings in the medical record. The following services were provided during this hospital visit: Chart data review, vital sign assessments/reviewing monitor data Review of consultation notes if present Medication orders/review and/or management Ordering and/or reviewing lab tests Ordering and/or interpreting/reviewing x-rays and/or diagnostic studies Care of the patient and discussion of the patient with the care team Documentation time To help prompt me to consider important information that might be impacting today's encounter and assessment, Information from prior notes written by myself or my colleagues may have been "brought forward/copy and pasted" into today's note.
[2018-01-17] MEDS: Zolpidem Tartrate 5 MG Tablet PO PRN (22:11)
[2018-01-18] MEDS: HYDROmorphone PF Inj 0.5 MG/0.5 ML Syringe IV.PUSH PRN ×2 (02:13→22:02)
[2018-01-18 07:36] LABS: Baso % (Auto) 0.1 % (0.0-2.0); Eos % (Auto) 0.1 % (0.0-4.0); Hemoglobin 10.7 gm/dL (13.0-17.0); Lymph # (Auto) 0.7 th/mm3 (1.0-4.8); Lymph % (Auto) 10.6 % (9.0-44.0); Mean Corpuscular HGB Conc 32.3 % (32.0-36.0); Mean Corpuscular Hemoglobin 23.6 pg (27.0-34.0); Mean Platelet Volume 8.2 fL (7.0-11.0); Mono # (Auto) 0.7 th/mm3 (0.0-0.9); Mono % (Auto) 11.3 % (0.0-8.0); Neut # (Auto) 5.1 th/mm3 (1.8-7.7); Neut % (Auto) 77.9 % (16.0-70.0); Platelet Count 232 th/mm3 (150-450); Red Blood Count 4.52 mil/mm3 (4.50-5.90); Red Cell Distribution Width 19.4 % (11.6-17.2); White Blood Count 6.5 th/mm3 (4.0-11.0)
[2018-01-18 08:17] LABS: Albumin 2.2 g/dL (3.4-5.0); Calcium 7.4 mg/dL (8.5-10.1); Carbon Dioxide 24.8 meq/L (21.0-32.0); Magnesium 2.6 mg/dL (1.5-2.5); Potassium 4.4 meq/L (3.5-5.1); Total Protein 5.8 g/dL (6.4-8.2)
[2018-01-18] MEDS: Ferrous Sulfate 325 MG Tablet PO SCH (09:12)
[2018-01-18] MEDS: Metoprolol Tartrate 50 MG Tablet PO SCH (09:12)
[2018-01-18] MEDS: Sodium Chloride 0.9% 2 ML Flush BID IV.FLUSH SCH ×2 (09:12→20:41)
--- NOTE | 2018-01-18 09:12 | P.PN ---
Subjective Interval history: Follow-up acute kidney injury. Obed called in resp distress on NC. No choking episodes not been eating , brown phlegm Physical Exam Vital signs: Vital Signs 01/17/18 09:35 01/17/18 10:52 01/17/18 12:00 Temperature 97.3 F L Pulse Rate 94 H Respiratory Rate 18 20 24 Blood Pressure 132/61 Pulse Oximetry 97 01/17/18 13:41 01/17/18 16:00 01/17/18 16:30 Temperature 97.6 F Pulse Rate 91 H Respiratory Rate 20 20 18 Blood Pressure 127/60 Pulse Oximetry 98 01/17/18 20:00 01/18/18 00:00 01/18/18 04:00 Temperature 96.1 F L 98.2 F 97.8 F Pulse Rate 94 H 92 H 99 H Respiratory Rate 21 20 20 Blood Pressure 127/68 148/70 H 163/65 H Pulse Oximetry 98 96 95 Intake & Output 01/17/18 01/18/18 01/18/18 18:59 06:59 18:59 Output Total 100 / 100 275 / 275 Balance -100 / -100 -275 / -275 Weight 86.1 kg Output: Urine 275 / 275 Urine Amount (Catheter) 100 / 100 Indwelling Urethral Catheter 100 / 100 Narrative: GENERAL: In distress CARDIOVASCULAR: Normal rate and regular rhythm without murmurs, gallops, or rubs. Right IJ vas cath RESPIRATORY: Breath sounds equal and clear to auscultation anteriorly. + rhonchi GASTROINTESTINAL: Midline abdominal SURI dressing in place. Abdomen is soft.+ BS. Appropriately tender GENITOURINARY: Swollen scrotum MUSCULOSKELETAL: Extremities without cyanosis BLE edema. NEURO: Lethargic. Moves all ext x4 - Urinary Catheter Management Indwelling Urethral Catheter Cath placed during this visit: yes, but has since been removed by the nurse Reason for continuing: Hourly intake/output Insertion date: 01/15/18 Insertion time: 03:30 Removal date: 01/14/18 Removal time: 03:20 Results - Labs CBC & Chem 7: 01/18/18 06:49 01/18/18 06:49 Laboratory Results - last 24 hr 01/17/18 01/17/18 01/18/18 09:29 09:29 06:49 WBC 5.5 6.5 RBC 4.36 L 4.52 Hgb 10.3 L 10.7 L Hct 32.2 L 33.0 L MCV 73.9 L D 73.0 L MCH 23.7 L 23.6 L MCHC 32.1 32.3 RDW 18.9 H D 19.4 H Plt Count 238 232 MPV 8.0 8.2 Neut % (Auto) 77.9 H 77.9 H Lymph % (Auto) 9.3 10.6 [place] % (Auto) 12.0 H 11.3 H Eos % (Auto) 0.7 0.1 Baso % (Auto) 0.1 0.1 Neut # (Auto) 4.3 5.1 Lymph # (Auto) 0.5 L 0.7 L [place] # (Auto) 0.7 0.7 Eos # (Auto) 0.0 0.0 Baso # (Auto) 0.0 0.0 WBC Differential . . Differential Comment Auto diff final Auto diff final Sodium 136 Potassium 4.5 Chloride 100 Carbon Dioxide 22.4 Anion Gap 14 BUN 50 H Creatinine 2.69 H Estimated GFR 24 L Random Glucose 145 H Calcium 7.6 L D Calcium Adj for Albumin Magnesium 2.4 Total Bilirubin 1.3 H AST 306 H ALT 221 H Alkaline Phosphatase 250 H Total Protein 5.6 L D Albumin 2.3 L 01/18/18 06:49 WBC RBC Hgb Hct MCV MCH MCHC RDW Plt Count MPV Neut % (Auto) Lymph % (Auto) [place] % (Auto) Eos % (Auto) Baso % (Auto) Neut # (Auto) Lymph # (Auto) [place] # (Auto) Eos # (Auto) Baso # (Auto) WBC Differential Differential Comment Sodium 136 Potassium 4.4 Chloride 100 Carbon Dioxide 24.8 Anion Gap 11 BUN 66 H Creatinine 2.64 H Estimated GFR 24 L Random Glucose 174 H Calcium 7.4 L* Calcium Adj for Albumin 8.1 L Magnesium 2.6 H Total Bilirubin 1.1 H AST 160 H ALT 163 H Alkaline Phosphatase 262 H Total Protein 5.8 L Albumin 2.2 L Microbiology 01/15/18 04:35 Catheterized Urine Urine Culture - Final No growth in 48 hours - Imaging Impressions Chest X-Ray 01/17/18 08:06 CONCLUSION: New bibasilar platelike infiltrates characteristic for atelectasis. - Procedures resection of colonic mass, liver biopsy and [id number] placement Vas-Cath placement Assessment and Plan - Plan 67 yo Male with Liver and Left Adrenal Gland Metastasis and Hepatosplenomegaly secondary to possible primary fungating lesion at hepatic flexure identified and biopsied via colonoscopy. Hx of Hep C, in remission per pt s/p Harvoni Treatment 3yrs ago. Patient presented with persistent abdominal pain and symptoms consistent with impending obstruction. He underwent colon resection with Dr. Cotton, [id number] placement and Emeterio-Cut liver biopsy right lobe of liver x2 01/13/18. Colon cancer with metastasis to the liver and adrenal gland - S/P colon resection -s/p Colonoscopy and EGD, A near circumferential ulcerated, firm and fungating mass was found at the hepatic flexure. Multiple biopsies were performed using cold forceps. -Oncology recommended colon resection prior to initiation of palliative chemotherapy when he recovers from surgery. -General surgery following and patient underwent colon resection, liver biopsy and port placement -Diet per surgery. Pain control dw GS, dc ACCESS CONTROL OFFICER ct Percocet and IV dilaudid -Follow-up abdomen CT shows ileus. Will monitor increase activity ct IVF -after NGT insertion, 2L gastric fluid returned. Pt looks better. Keep NPO and obtain A CT. TPN/PPN dietitian consult. CXR unchanged ABG unremarkable Hyponatremia - Likely hypovolemic hyponatremia. Liver disease may be contributing. - Stable. Continue to monitor. - Follow labs. Acute kidney injury with persistent hyperkalemia and anuria despite aggressive IV hydration and multiple treatments for hyperkalemia. Underwent hemodialysis x 2 . Sl improved UO, stable creatinine and resolved hyperkalemia. Cautious IV hydration monitor for fluid overload. Robert Boswell pt request. Avoid nephrotoxins Iron Deficiency Anemia -Continue Iron Supplement Type 2 diabetes Metformin held Continue Sliding scale insulin with Accu-Cheks as ordered History of CAD/CABG Continue beta-moshe. Hold Lipitor secondary to transaminitis. Restart Asa if ok with GS Monitor for EKG changes Unremarkable ECHO Hypertension Stable, Continue beta-moshe Monitor BP and HR insomnia: -Patient was taking Ambien from home in the hospital along with trazodone. He has been lethargic at times. He does better with Ambien and trazodone does not help him much. I advised him to not use medications from home while in the hospital. Trazodone discontinued and he can use Ambien at night as needed for insomnia. Add vistaril for anxiety Hx of Hepatitis C Treated w/ [facility] 4yrs ago, reportedly in remission LFTs slightly elevated which is likely to liver metastasis and/or statins/ fibrate therapy. Worse status post liver biopsy. Could also be ischemic GERD. + H pylori. Increase PPI add Tums. Antireflux dw pt. Start quadruple tx when tolerating reg diet. Clarithromycin has significant interactions BLE edema. US doppler negative for DVT. SQ heparin for proph when cleared by general surgery GI prophylaxis -Stool softener PRN constipation. Discharge Planning: Dw Onc, poor prognosis. transferred to ICU for close monitoring
--- NOTE | 2018-01-18 10:18 | P.PNGS ---
Subjective Patient reports: still having pain (lethargy, still with pain, sitting up in chair) Physical Exam Vital signs: Vital Signs 01/17/18 10:52 01/17/18 12:00 01/17/18 13:41 Temperature 97.3 F L Pulse Rate 94 H Respiratory Rate 20 24 20 Blood Pressure 132/61 Pulse Oximetry 97 01/17/18 16:00 01/17/18 16:30 01/17/18 20:00 Temperature 97.6 F 96.1 F L Pulse Rate 91 H 94 H Respiratory Rate 20 18 21 Blood Pressure 127/60 127/68 Pulse Oximetry 98 98 01/18/18 00:00 01/18/18 04:00 01/18/18 08:00 Temperature 98.2 F 97.8 F 97.2 F L Pulse Rate 92 H 99 H 102 H Respiratory Rate 20 20 20 Blood Pressure 148/70 H 163/65 H 152/67 H Pulse Oximetry 96 95 97 Intake & Output 01/17/18 01/18/18 01/18/18 18:59 06:59 18:59 Output Total 100 / 100 275 / 275 Balance -100 / -100 -275 / -275 Weight 86.1 kg Output: Urine 275 / 275 Urine Amount (Catheter) 100 / 100 Indwelling Urethral Catheter 100 / 100 - Routine Abdominal Exam Present: soft (distended jatinder in place) - Urinary Catheter Management Indwelling Urethral Catheter Cath placed during this visit: yes, but has since been removed by the nurse Reason for continuing: Hourly intake/output Insertion date: 01/15/18 Insertion time: 03:30 Removal date: 01/14/18 Removal time: 03:20 Results - Labs 01/18/18 06:49 01/18/18 06:49 Laboratory Results - last 24 hr 01/17/18 01/17/18 01/18/18 09:29 09:29 06:49 WBC 5.5 6.5 RBC 4.36 L 4.52 Hgb 10.3 L 10.7 L Hct 32.2 L 33.0 L MCV 73.9 L D 73.0 L MCH 23.7 L 23.6 L MCHC 32.1 32.3 RDW 18.9 H D 19.4 H Plt Count 238 232 MPV 8.0 8.2 Neut % (Auto) 77.9 H 77.9 H Lymph % (Auto) 9.3 10.6 [place] % (Auto) 12.0 H 11.3 H Eos % (Auto) 0.7 0.1 Baso % (Auto) 0.1 0.1 Neut # (Auto) 4.3 5.1 Lymph # (Auto) 0.5 L 0.7 L [place] # (Auto) 0.7 0.7 Eos # (Auto) 0.0 0.0 Baso # (Auto) 0.0 0.0 WBC Differential . . Differential Comment Auto diff final Auto diff final Sodium 136 Potassium 4.5 Chloride 100 Carbon Dioxide 22.4 Anion Gap 14 BUN 50 H Creatinine 2.69 H Estimated GFR 24 L Random Glucose 145 H Calcium 7.6 L D Calcium Adj for Albumin Magnesium 2.4 Total Bilirubin 1.3 H AST 306 H ALT 221 H Alkaline Phosphatase 250 H Total Protein 5.6 L D Albumin 2.3 L 01/18/18 06:49 WBC RBC Hgb Hct MCV MCH MCHC RDW Plt Count MPV Neut % (Auto) Lymph % (Auto) [place] % (Auto) Eos % (Auto) Baso % (Auto) Neut # (Auto) Lymph # (Auto) [place] # (Auto) Eos # (Auto) Baso # (Auto) WBC Differential Differential Comment Sodium 136 Potassium 4.4 Chloride 100 Carbon Dioxide 24.8 Anion Gap 11 BUN 66 H Creatinine 2.64 H Estimated GFR 24 L Random Glucose 174 H Calcium 7.4 L* Calcium Adj for Albumin 8.1 L Magnesium 2.6 H Total Bilirubin 1.1 H AST 160 H ALT 163 H Alkaline Phosphatase 262 H Total Protein 5.8 L Albumin 2.2 L - Imaging Imaging: ITS Impressions Chest CTA 01/06/18 11:04 CONCLUSION: 1. Nodular thickening of an azygos fissure which may be scarring however short- term follow-up may be indicated. 2. No evidence of acute airspace disease or pulmonary emboli. 3. Multiple low density lesions in the liver and enlarged left adrenal gland. Abdomen X-Ray 01/10/18 00:00 CONCLUSION: 1. Nonobstructive bowel gas pattern. Venous Doppler Study 01/14/18 00:00 CONCLUSION: 1. The study is negative for bilateral lower extremity deep venous thrombosis. Abdomen/Bladder Ultrasound 01/15/18 00:00 CONCLUSION: 1. No obstruction. The kidneys are sonographically unremarkable. 2. Metastatic lesions involving the liver previously described and better seen on the prior CT. 3. Trace amount of ascites. Abdomen/Pelvis CT 01/15/18 00:00 CONCLUSION: 1. Recent laparotomy and right hemicolectomy with subcutaneous air in the anterior abdominal wall and a small amount of free air. 2. Extensive metastatic disease in the liver. Stable enlarged left adrenal gland. 3. New small bilateral pleural effusions and basilar atelectasis. Mild ileus. Catheter Placement 01/15/18 10:39 CONCLUSION: 1. Uncomplicated line placement as above. Chest X-Ray 01/17/18 08:06 CONCLUSION: New bibasilar platelike infiltrates characteristic for atelectasis. Assessment and Plan - Assessment (1) Carcinoma of hepatic flexure Code(s): C18.3 - Malignant neoplasm of hepatic flexure Status: Acute Plan: 67 year with carcinoma of the hepatic flexure; POD5 [id number] placement; Resection of hepatic flexure of the colon; Emeterio-Cut liver biopsy right lobe of liver x2, labs appear better, blood surgar low -Nephrology following; HD scheduled for friday -defer to medicine for mgnt -PT -Discussed plan with family at the bedside - jatinder -pt will be transferred to [facility] pt will need NG placement and stat CTscan
--- NOTE | 2018-01-18 10:41 | P.PNONC ---
Subjective Interval history: Patient sitting in a chair and his ex- at the bedside. Patient is confused but not agitated. He is passing gas but no bowel movement yet. He will around the room yesterday one time. No report of chest pain or palpitation. No significant shortness of breath or cough. Still has abdominal pain. Objective Vital Signs/Intake & Output: Vital Signs 01/17/18 10:52 01/17/18 12:00 01/17/18 13:41 Temperature 97.3 F L Pulse Rate 94 H Respiratory Rate 20 24 20 Blood Pressure 132/61 Pulse Oximetry 97 01/17/18 16:00 01/17/18 16:30 01/17/18 20:00 Temperature 97.6 F 96.1 F L Pulse Rate 91 H 94 H Respiratory Rate 20 18 21 Blood Pressure 127/60 127/68 Pulse Oximetry 98 98 01/18/18 00:00 01/18/18 04:00 01/18/18 08:00 Temperature 98.2 F 97.8 F 97.2 F L Pulse Rate 92 H 99 H 102 H Respiratory Rate 20 20 18 Blood Pressure 148/70 H 163/65 H 152/67 H Pulse Oximetry 96 95 97 Intake & Output 01/17/18 01/18/18 01/18/18 18:59 06:59 18:59 Output Total 100 / 100 275 / 275 Balance -100 / -100 -275 / -275 Weight 86.1 kg Output: Urine 275 / 275 Urine Amount (Catheter) 100 / 100 Indwelling Urethral Catheter 100 / 100 Result Diagrams: 01/18/18 06:49 01/18/18 06:49 Laboratory Results: Laboratory Results - last 24 hr 01/17/18 01/17/18 01/18/18 09:29 09:29 06:49 WBC 5.5 6.5 RBC 4.36 L 4.52 Hgb 10.3 L 10.7 L Hct 32.2 L 33.0 L MCV 73.9 L D 73.0 L MCH 23.7 L 23.6 L MCHC 32.1 32.3 RDW 18.9 H D 19.4 H Plt Count 238 232 MPV 8.0 8.2 Neut % (Auto) 77.9 H 77.9 H Lymph % (Auto) 9.3 10.6 [place] % (Auto) 12.0 H 11.3 H Eos % (Auto) 0.7 0.1 Baso % (Auto) 0.1 0.1 Neut # (Auto) 4.3 5.1 Lymph # (Auto) 0.5 L 0.7 L [place] # (Auto) 0.7 0.7 Eos # (Auto) 0.0 0.0 Baso # (Auto) 0.0 0.0 WBC Differential . . Differential Comment Auto diff final Auto diff final Sodium 136 Potassium 4.5 Chloride 100 Carbon Dioxide 22.4 Anion Gap 14 BUN 50 H Creatinine 2.69 H Estimated GFR 24 L Random Glucose 145 H Calcium 7.6 L D Calcium Adj for Albumin Magnesium 2.4 Total Bilirubin 1.3 H AST 306 H ALT 221 H Alkaline Phosphatase 250 H Total Protein 5.6 L D Albumin 2.3 L 01/18/18 06:49 WBC RBC Hgb Hct MCV MCH MCHC RDW Plt Count MPV Neut % (Auto) Lymph % (Auto) [place] % (Auto) Eos % (Auto) Baso % (Auto) Neut # (Auto) Lymph # (Auto) [place] # (Auto) Eos # (Auto) Baso # (Auto) WBC Differential Differential Comment Sodium 136 Potassium 4.4 Chloride 100 Carbon Dioxide 24.8 Anion Gap 11 BUN 66 H Creatinine 2.64 H Estimated GFR 24 L Random Glucose 174 H Calcium 7.4 L* Calcium Adj for Albumin 8.1 L Magnesium 2.6 H Total Bilirubin 1.1 H AST 160 H ALT 163 H Alkaline Phosphatase 262 H Total Protein 5.8 L Albumin 2.2 L Culture Results: Microbiology 01/15/18 04:35 Urine Culture - Final Catheterized Urine No growth in 48 hours Medications: Active Medications Generic Name Dose Route Start Last Admin Trade Name Freq PRN Reason Stop Dose Admin Aspirin 81 mg 01/07/18 09:00 01/10/18 10:20 Ecotrin PO 81 mg DAILY MALCOLM Administration Atorvastatin Calcium 80 mg 01/07/18 09:00 01/14/18 09:53 Lipitor PO 80 mg DAILY MALCOLM Administration Calcium Carbonate 500 mg 01/17/18 12:16 01/17/18 20:43 Tums Chew CHEW 500 mg Q6H PRN Administration DYSPEPSIA OR HEARTBURN Cetirizine HCl 10 mg 01/07/18 09:00 01/18/18 09:12 Zyrtec PO 10 mg DAILY MALCOLM Administration Ferrous Sulfate 325 mg 01/07/18 09:00 12/02/18 09:12 Ferosul PO 325 mg DAILY MALCOLM Administration Furosemide 40 mg 01/17/18 18:00 01/18/18 09:11 Lasix Inj IV.PUSH 40 mg BID@0900,1800 MALCOLM Administration Gentamicin Sulfate 20 mg 01/15/18 10:40 01/15/18 16:46 Gentamicin Inj OTHER 20 mg WITH DIALYSIS PRN Administration Dwell Gentamycin Lock Heparin Sodium (Porcine) 5,000 units 01/14/18 14:15 01/15/18 08:29 Heparin Inj SQ 5,000 units Q12HR MALCOLM Administration Heparin Sodium (Porcine) 1,000 units 01/15/18 10:40 01/15/18 16:47 Heparin Inj OTHER 1,000 units WITH DIALYSIS PRN Administration Dwell Heparin to Fill Catheter Hydromorphone HCl 0.5 mg 01/16/18 17:11 01/18/18 02:13 Dilaudid Pf Inj IV.PUSH 0.5 mg Q4H PRN Administration breakthrough pain Hydroxyzine Pamoate 25 mg 01/17/18 12:20 01/17/18 23:34 Vistaril PO 25 mg Q8H PRN Administration ANXIETY AND/OR AGITATION Sodium Chloride 500 mls @ 30 mls/hr 01/13/18 05:00 01/13/18 16:01 Ns Inj IV.SIG Not Given .Q10H MALCOLM Albumin Human 100 mls @ 60 mls/hr 01/15/18 10:40 01/16/18 10:56 Flexbumin 25% Inj IV.SIG Infused WITH DIALYSIS PRN Infusion hypotension / volume replace Sodium Chloride 1,000 mls @ 20 mls/hr 01/16/18 12:05 01/17/18 15:06 Ns Inj IV.CONT Not Given .Q24H MALCOLM Lactulose 30 ml 01/06/18 15:47 01/09/18 14:31 Lactulose Liq PO 30 ml DAILY PRN Administration SEVERE CONSITIPATION Lisinopril 10 mg 01/07/18 09:00 01/14/18 09:53 Prinivil PO 10 mg DAILY MALCOLM Administration Metformin HCl 500 mg 01/06/18 21:00 01/14/18 09:53 Glucophage PO 500 mg BIDPC MALCOLM Administration Metoprolol Tartrate 50 mg 01/06/18 21:00 01/18/18 09:12 Lopressor PO 50 mg BID MALCOLM Administration Ondansetron HCl 4 mg 01/06/18 15:47 01/17/18 03:14 Zofran Inj IV.PUSH 4 mg Q6H PRN Administration NAUSEA OR VOMITING Oxycodone/Acetaminophen 1 tab 01/14/18 05:22 01/17/18 20:43 Percocet 7.5/325 Mg PO 1 tab Q4H PRN Administration PAIN 6-10 Pantoprazole Sodium 40 mg 01/17/18 21:00 01/18/18 09:12 Protonix PO 40 mg BID MALCOLM Administration Sennosides 17.2 mg 01/06/18 15:47 01/09/18 12:39 Senokot PO 17.2 mg Q12H PRN Administration Moderate Constipation Simethicone 125 mg 01/16/18 22:35 01/17/18 08:59 Phazyme Chew PO 125 mg TID PRN Administration gas relief Sodium Chloride 2 ml 01/13/18 09:00 01/18/18 09:12 Ns Flush IV.FLUSH 2 ml BID MALCOLM Administration Sodium Chloride 2 ml 01/13/18 08:20 01/17/18 17:48 Ns Flush IV.FLUSH 2 ml PRN PRN Administration FLUSH AFTER USING IV ACCESS Zolpidem Tartrate 5 mg 01/11/18 15:25 01/17/18 22:11 Ambien PO 5 mg HS PRN Administration INSOMNIA Objective Remarks: GENERAL: Well-nourished, well-developed patient. Slightly confused. SKIN: Warm and dry. HEAD: Normocephalic. EYES: No scleral icterus. No injection or drainage. NECK: Supple, trachea midline. No JVD or lymphadenopathy. LYMPHATIC: No adenopathy. CARDIOVASCULAR: Regular rate and rhythm without murmurs. RESPIRATORY: Breath sounds equal bilaterally. No accessory muscle use. GASTROINTESTINAL: Abdomen soft, distended. Hypoactive bowel sound. No bleeding from surgical site noted. EXTREMITIES: 2+ BLE edema. MUSCULOSKELETAL: Adequate muscle tone. NEUROLOGICAL: No obvious focal deficit. Mildly confused. Assessment/Plan - Plan 1. Multiple liver masses worrisome for metastatic disease. He has had right upper quadrant pain intermittently for several months. Over the last 4 weeks the pain become more constant. He also has nausea and vomiting. He lost about 10 pounds. He had anemia with microcytosis worrisome for iron deficiency anemia. He, however, denies any gross gastrointestinal bleed. His colonoscopy 4 years ago did not show any masses, but reportedly had polyps. CT of the chest did not show any metastatic disease. A CT of the abdomen and pelvis showed numerous hepatic lesions, largest measured 7 cm. There were also multiple retroperitoneal enlarged lymph nodes. There was an enlarged left adrenal gland lesion measured 4.1 cm, which could also be metastatic disease. I suspect he possibly has a primary GI tumor. January 07: CEA elevated at 42.9 with normal alpha-fetoprotein and CA 19 9. This is suggestive of primary GI tumor. He is going to have EGD and colonoscopy today. January 08:. Colonoscopy yesterday showed near circumferential mass at the hepatic flexure Worrisome for colon cancer. Biopsy was done and pathology is pending at this time. It appears that patient has primary colon cancer with metastasis to liver. EGD did not show any obvious mass. January 09: Biopsy from colonic mass is still pending. 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 Gastric cancer cannot be ruled out but EGD did not reveal any gastric mass. Patient is going to have surgery today for impending obstruction. He is also going to have port placement for eventual chemotherapy. January 14: Postop day 1. Patient had resection of hepatic flexure colonic mass and liver biopsy. He also had port placement. During surgery large tumor burden was noted in the liver with a small tumor in the hepatic flexure causing partial obstruction. The omentum was fixed to the liver mass. Final pathology pending. January 15: Postop day 2. Worsening renal function, patient going for dialysis today. Potassium 6.3, currently being treated for this, nephrology has been consulted. Liver enzymes have increased significantly. Total bilirubin 1.0. January 16: Postop day 3. Patient had worsening renal function and started dialysis yesterday. Liver enzymes are still elevated. Final pathology from colon resection and liver biopsy is still pending. January 17: Postop day 4. Liver pathology shows metastatic disease with colonic primary January 18: Postop day 5. Patient is mildly confused which may be medication induced. His liver enzymes continue to trend down. Creatinine stable. He is scheduled for dialysis tomorrow. 2. Left adrenal gland lesion measured 4.1 cm. This could be metastatic disease and less likely to be a primary tumor. 3. Anemia with microcytosis suggestive of iron deficiency anemia. The patient denies any gross gastrointestinal bleed. 4. History of hepatitis C, treated with Harvoni 4 years ago, reportedly went into remission. His liver enzymes trended up again which could be due to metastatic disease in the liver versus activation hepatitis C and liver biopsy. Liver enzyme is trending down. RECOMMENDATIONS: 1. Colonic mass showed poorly differentiated carcinoma, liver biopsy shows colonic primary. Once the patient has recovered from surgery he will receive palliative chemotherapy. Family is planning on bringing patient back to [place] for treatment. Discussed with his ex- and her questions answered. 2. Acute kidney injury with hyperkalemia,. Management per attending and nephrology. Planning for dialysis tomorrow. 3. Monitor liver enzyme. 4. Pain management per attending. He is no longer on the MAT GAUGER pump.
[2018-01-18] MEDS: Sod Chloride 0.9% Inj 1,000 ML IV.CONT SCH (12:19)
--- NOTE | 2018-01-18 12:35 | XR ---
EXAM DATE: 01/18/2018 12:30 PM EST AGE/SEX: 67 years / Male INDICATIONS: Halicat, shortness of breath. CLINICAL DATA: This is the patient's initial encounter. Patient reports that signs and symptoms have been present for 1 day and indicates a pain score of 4/10. MEDICAL/SURGICAL HISTORY: . Diabetes mellitus type II. Hepatitis C. Coronary artery disease. Ca rpal tunnel syndrome. Cholecystectomy. Open heart surgery. . COMPARISON: C, CHEST 1V SINGLE AP, 01/17/2018. . FINDINGS: Today's exam is compared to the prior study. There continue to be infiltrates and effusions in both l ower lung [place]. These findings are about the same compared to the prior exam. A right-sided and lef t-sided central line remains in place. There is no evidence of pneumothorax. There is evidence of pre vious cardiothoracic surgery. The bony structures are stable. CONCLUSION: No significant interval change with the bibasilar infiltrates and effusions compared to the prior exa mination. Electronically signed by: Jacques Ruiz MD 01/18/2018 12:34 PM EST
[2018-01-18 12:52] LABS: ABG Base Excess 0.2 mmol/L (-2-2); ABG PCO2 40 mmHg (38-42); ABG PO2 82 mmHg (61-120)
--- NOTE | 2018-01-18 16:36 | CT ---
EXAM DATE: 01/18/2018 4:27 PM EST AGE/SEX: 67 years / Male INDICATIONS: Abdominal distention. CLINICAL DATA: This is the patient's initial encounter. Patient reports that signs and symptoms have been present for 1 day and indicates a pain score of Nonresponsive. MEDICAL/SURGICAL HISTORY: Hepatitis C. Diabetes. Cholecystectomy. RADIATION DOSE: 15.39 CTDI (mGy) [place] [facility] [place]AST[place] 01/15/2018. . TECHNIQUE: Multiple contiguous axial images were obtained through the abdomen. Images were obtained using multiple row detector helical technique. Using automated exposure control and adjustment of the mA and/or kV according to patient size, radiation dose was kept as low as reasonably achievable to o btain optimal diagnostic quality images. DICOM format image data is available electronically for rev iew and comparison. FINDINGS: LOWER LUNGS: Persistent small bilateral pleural effusions with associated airspace consolidation at the lung bases. LIVER: Redemonstration of extensive metastatic disease throughout the liver. No intrahepatic ductal dilatation. There is trace amount of ascites with fluid primarily along the inferior margin of the li eduardo. SPLEEN: Homogeneous density without enlargement. PANCREAS: Grossly unremarkable. KIDNEYS: Kidneys are symmetrical in size without evidence for radiopaque renal calculi or hydronephr osis. No significant contour deforming renal abnormality. ADRENAL GLANDS: 1.7 cm left adrenal mass. AORTA: Promise-aneurysmal. Persistent scattered retroperitoneal adenopathy, primarily less than 1.5 cm. BOWEL/MESENTERY: Patient is status post partial right hemicolectomy with decreasing postoperative fr ee air. There are multiple loops of fluid-filled slightly distended small bowel with relative transit ion point in the mid abdomen. More distal small bowel loops are decompressed. Trace amount of ascites without focal drainable fluid collections. ABDOMINAL WALL: Midline surgical incision. Small fat-containing left inguinal hernia. BLADDER: Contours are smooth. REPRODUCTIVE: Grossly unremarkable. BONY STRUCTURES: Degenerative spondylosis of the lower lumbar spine. CONCLUSION: 1. Postoperative features of partial right hemicolectomy with decreasing postoperative free air. 2. Progressive fluid-filled slightly dilated loops of small bowel with relative transition point in the mid abdomen. Differential considerations include worsening adynamic ileus versus developing parti al small bowel obstruction. 3. Redemonstration of extensive hepatic metastatic disease with stable 1.7 cm left adrenal mass. 4. Stable small bilateral pleural effusions and associated bibasilar airspace disease, presumably co mpressive atelectasis. Electronically signed by: Patrick Paz MD 01/18/2018 4:35 PM EST
[2018-01-18] MEDS ORDERED: Sod Chloride 0.9% Inj 1,000 ML IV.SIG SCH (17:15)
--- NOTE | 2018-01-18 20:46 | P.PNNP ---
Subjective Interval history: Patient seen in the afternoon, has worsening SOB, and transferred to [facility]. Physical Exam Vital signs: Vital Signs 01/18/18 00:00 01/18/18 04:00 01/18/18 08:00 Temperature 98.2 F 97.8 F 97.2 F L Pulse Rate 92 H 99 H 102 H Respiratory Rate 20 20 18 Blood Pressure 148/70 H 163/65 H 152/67 H Pulse Oximetry 96 95 97 01/18/18 12:28 01/18/18 12:35 01/18/18 12:36 Temperature Pulse Rate 102 H 103 H Respiratory Rate 23 28 H Blood Pressure 181/90 H Pulse Oximetry 96 94 L 93 L 01/18/18 13:00 01/18/18 13:23 01/18/18 13:24 Temperature Pulse Rate 103 H 92 H 93 H Respiratory Rate 31 H 17 19 Blood Pressure 89/53 L 95/52 L Pulse Oximetry 93 L 98 99 01/18/18 14:00 01/18/18 14:23 01/18/18 15:00 Temperature Pulse Rate 91 H 90 89 Respiratory Rate 17 14 14 Blood Pressure 101/55 L Pulse Oximetry 98 97 98 01/18/18 15:11 01/18/18 15:23 01/18/18 16:00 Temperature Pulse Rate 90 91 H 103 H Respiratory Rate 16 14 23 Blood Pressure 107/54 L Pulse Oximetry 98 97 01/18/18 16:23 01/18/18 17:00 01/18/18 17:23 Temperature Pulse Rate 104 H 104 H 104 H Respiratory Rate 24 23 24 Blood Pressure 123/63 120/69 Pulse Oximetry 98 99 01/18/18 18:00 01/18/18 18:23 01/18/18 19:00 Temperature 97.8 F Pulse Rate 106 H 103 H 95 H Respiratory Rate 24 15 12 Blood Pressure 128/59 L Pulse Oximetry 99 97 01/18/18 19:23 01/18/18 20:00 01/18/18 20:28 Temperature 98.1 F Pulse Rate 96 H 103 H 104 H Respiratory Rate 12 23 22 Blood Pressure 104/55 L 104/55 L Pulse Oximetry 100 100 100 Intake & Output 01/18/18 01/18/18 01/19/18 06:59 18:59 06:59 Output Total 275 / 275 3200 / 3200 Balance -275 / -275 -3200 / -3200 Weight 86.1 kg Output: Urine 275 / 275 0 / 0 Gastric Drainage 3200 / 3200 Right Nare Nasogastric Tube 3200 / 3200 Other: Date of Last Bowel Movement 01/11/18 Narrative: GENERAL: In distress CARDIOVASCULAR: Normal rate and regular rhythm without murmurs, gallops, or rubs. Right IJ vas cath RESPIRATORY: Breath sounds equal and clear to auscultation anteriorly. + rhonchi GASTROINTESTINAL: Midline abdominal SURI dressing in place. Abdomen is soft.+ BS. Appropriately tender GENITOURINARY: Swollen scrotum MUSCULOSKELETAL: Extremities without cyanosis BLE edema. NEURO: Lethargic. Moves all ext x4 - Urinary Catheter Management Indwelling Urethral Catheter Cath placed during this visit: yes, but has since been removed by the nurse Reason for continuing: Hourly intake/output Insertion date: 01/15/18 Insertion time: 03:30 Removal date: 01/14/18 Removal time: 03:20 Assessment and Plan - Assessment (1) Acute kidney failure Code(s): N17.9 - Acute kidney failure, unspecified Status: Acute - Plan Patient with Acute kidney injury, Had HD done on Friday. Now transferred to [facility]. CT abd. noted. Creatinine is almost same. CXR showed some pleural effusion. No urgent need for HD now. To follow the urine out put and BMP. HD possibly in AM. Watch for renal recovery.
[2018-01-18] MEDS: Metoprolol Inj 5 MG/5 ML Vial IV.PUSH SCH (22:02)
[2018-01-19] MEDS: HYDROmorphone PF Inj 0.5 MG/0.5 ML Syringe IV.PUSH PRN ×5 (02:26→21:05)
[2018-01-19] MEDS: Pantoprazole Inj 40 MG Vial IV.PUSH SCH ×3 (02:27→13:18)
[2018-01-19] MEDS ORDERED: Metoprolol Inj 5 MG/5 ML Vial IV.PUSH ONE (04:11)
[2018-01-19 05:52] LABS: Baso % (Auto) 0.1 % (0.0-2.0); Eos % (Auto) 0.1 % (0.0-4.0); Hematocrit 30.5 % (39.0-51.0); Lymph # (Auto) 0.6 th/mm3 (1.0-4.8); Lymph % (Auto) 13.8 % (9.0-44.0); Mean Corpuscular HGB Conc 32.8 % (32.0-36.0); Mean Corpuscular Hemoglobin 23.9 pg (27.0-34.0); Mean Corpuscular Volume 72.9 fL (80.0-100.0); Mono # (Auto) 0.6 th/mm3 (0.0-0.9); Mono % (Auto) 12.9 % (0.0-8.0); Neut # (Auto) 3.3 th/mm3 (1.8-7.7); Neut % (Auto) 73.1 % (16.0-70.0); Platelet Count 141 th/mm3 (150-450); Red Blood Count 4.19 mil/mm3 (4.50-5.90); Red Cell Distribution Width 20.4 % (11.6-17.2); White Blood Count 4.5 th/mm3 (4.0-11.0)
[2018-01-19 06:25] LABS: Calcium 7.6 mg/dL (8.5-10.1); Carbon Dioxide 26.9 meq/L (21.0-32.0); Magnesium 2.8 mg/dL (1.5-2.5); Potassium 4.3 meq/L (3.5-5.1)
[2018-01-19] MEDS: Metoprolol Inj 5 MG/5 ML Vial IV.PUSH SCH ×4 (06:25→21:04)
[2018-01-19] MEDS: Ferrous Sulfate 325 MG Tablet PO SCH (08:21)
--- NOTE | 2018-01-19 09:01 | P.PN ---
Subjective Interval history: Follow-up ileus. He looks better after NGT insertion so far 3500 mL drain, 40 mL overnight. Urine output 350 mL overnight. Currently on NS at 50 cc an hour. Patient is awake and oriented states he is thirsty. Mild abdominal soreness. Passing gas per seen with family Physical Exam Vital signs: Vital Signs 01/18/18 12:28 01/18/18 12:35 01/18/18 12:36 Temperature Pulse Rate 102 H 103 H Respiratory Rate 23 28 H Blood Pressure 181/90 H Pulse Oximetry 96 94 L 93 L 01/18/18 13:00 01/18/18 13:23 01/18/18 13:24 Temperature Pulse Rate 103 H 92 H 93 H Respiratory Rate 31 H 17 19 Blood Pressure 89/53 L 95/52 L Pulse Oximetry 93 L 98 99 01/18/18 14:00 01/18/18 14:23 01/18/18 15:00 Temperature Pulse Rate 91 H 90 89 Respiratory Rate 17 14 14 Blood Pressure 101/55 L Pulse Oximetry 98 97 98 01/18/18 15:11 01/18/18 15:23 01/18/18 16:00 Temperature Pulse Rate 90 91 H 103 H Respiratory Rate 16 14 23 Blood Pressure 107/54 L Pulse Oximetry 98 97 01/18/18 16:23 01/18/18 17:00 01/18/18 17:23 Temperature Pulse Rate 104 H 104 H 104 H Respiratory Rate 24 23 24 Blood Pressure 123/63 120/69 Pulse Oximetry 98 99 01/18/18 18:00 01/18/18 18:23 01/18/18 19:00 Temperature 97.8 F Pulse Rate 106 H 103 H 95 H Respiratory Rate 24 15 12 Blood Pressure 128/59 L Pulse Oximetry 99 97 01/18/18 19:23 01/18/18 20:00 01/18/18 20:23 Temperature 98.1 F Pulse Rate 96 H 103 H 108 H Respiratory Rate 12 23 21 Blood Pressure 104/55 L 104/55 L 161/70 H Pulse Oximetry 100 100 97 01/18/18 20:28 01/18/18 21:00 01/18/18 21:23 Temperature Pulse Rate 104 H 110 H 112 H Respiratory Rate 22 31 H 22 Blood Pressure 153/63 H Pulse Oximetry 100 91 L 97 01/18/18 22:00 01/18/18 22:23 12/02/18 23:00 Temperature Pulse Rate 106 H 108 H 110 H Respiratory Rate 34 H 24 21 Blood Pressure 139/65 Pulse Oximetry 91 L 93 L 92 L 01/18/18 23:23 01/18/18 23:34 01/19/18 00:00 Temperature 98.3 F Pulse Rate 109 H 103 H Respiratory Rate 27 H 20 14 Blood Pressure 127/59 L 111/65 Pulse Oximetry 94 L 92 L 01/19/18 00:23 01/19/18 00:29 01/19/18 00:32 Temperature Pulse Rate 97 H 96 H 112 H Respiratory Rate 14 13 15 Blood Pressure 107/52 L 127/80 153/100 H Pulse Oximetry 98 97 100 01/19/18 00:45 01/19/18 00:50 01/19/18 00:54 Temperature Pulse Rate 93 H 93 H 128 H Respiratory Rate 14 14 30 H Blood Pressure 151/104 H 146/79 H 209/170 H Pulse Oximetry 99 100 100 01/19/18 00:58 01/19/18 01:00 01/19/18 01:23 Temperature Pulse Rate 99 H 99 H 92 H Respiratory Rate 14 14 14 Blood Pressure 134/72 123/74 116/56 L Pulse Oximetry 100 100 95 01/19/18 02:00 01/19/18 02:23 01/19/18 03:00 Temperature Pulse Rate 109 H 105 H 104 H Respiratory Rate 20 18 21 Blood Pressure 155/69 H Pulse Oximetry 100 100 01/19/18 03:23 01/19/18 04:00 01/19/18 04:23 Temperature 97.6 F Pulse Rate 150 H 145 H 98 H Respiratory Rate 18 15 19 Blood Pressure 138/67 148/68 H Pulse Oximetry 100 100 98 Intake & Output 01/18/18 01/19/18 01/19/18 18:59 06:59 18:59 Output Total 3200 / 3200 650 / 650 Balance -3200 / -3200 -650 / -650 Weight 88.5 kg Output: Urine 0 / 0 350 / 350 Gastric Drainage 3200 / 3200 300 / 300 Right Nare Nasogastric Tube 3200 / 3200 300 / 300 Other: Date of Last Bowel Movement 01/11/18 01/11/18 # Bowel Movements 0 Narrative: GENERAL: Well-developed, well-nourished with NGT in place CARDIOVASCULAR: Normal rate and regular rhythm without murmurs, gallops, or rubs. Right IJ vas cath RESPIRATORY: Breath sounds equal and clear to auscultation anteriorly. + rhonchi GASTROINTESTINAL: Midline abdominal SURI dressing in place. Abdomen is soft.+ BS. Appropriately tender GENITOURINARY: Swollen scrotum MUSCULOSKELETAL: Extremities without cyanosis BLE edema. NEURO: Alert and oriented. Moves all ext x4 - Urinary Catheter Management Indwelling Urethral Catheter Cath placed during this visit: yes, but has since been removed by the nurse Reason for continuing: Hourly intake/output Insertion date: 01/15/18 Insertion time: 03:30 Removal date: 01/14/18 Removal time: 03:20 Results - Labs CBC & Chem 7: 01/19/18 04:53 01/19/18 04:54 Laboratory Results - last 24 hr 01/18/18 01/18/18 01/18/18 12:09 12:18 12:55 WBC RBC Hgb Hct MCV MCH MCHC RDW Plt Count MPV Neut % (Auto) Lymph % (Auto) Cocke % (Auto) Eos % (Auto) Baso % (Auto) Neut # (Auto) Lymph # (Auto) Cocke # (Auto) Eos # (Auto) Baso # (Auto) WBC Differential Differential Comment APTT Puncture Site Left radial Patient Temperature 98.6 O2 Saturation 93 ABG pH 7.40 ABG pCO2 40 ABG pO2 82 ABG HCO3 24 ABG O2 Content 14.9 ABG Base Excess 0.2 ABG Methemoglobin 1.1 Irvin Test Y Hemoglobin 11.4 L Carboxyhemoglobin 1.5 O2 Delivery Device Nasal cannula Liter Flow 3.00 Critical Value No Sodium Potassium Chloride Carbon Dioxide Anion Gap BUN Creatinine Estimated GFR POC Glucose 185 H Random Glucose Lactic Acid Calcium Magnesium Ammonia 38 H 01/18/18 01/18/18 01/19/18 13:25 13:25 04:53 WBC 4.5 RBC 4.19 L Hgb 10.0 L Hct 30.5 L MCV 72.9 L MCH 23.9 L MCHC 32.8 RDW 20.4 H Plt Count 141 L D MPV 8.0 Neut % (Auto) 73.1 H Lymph % (Auto) 13.8 Cocke % (Auto) 12.9 H Eos % (Auto) 0.1 Baso % (Auto) 0.1 Neut # (Auto) 3.3 Lymph # (Auto) 0.6 L Cocke # (Auto) 0.6 Eos # (Auto) 0.0 Baso # (Auto) 0.0 WBC Differential . Differential Comment Auto diff final APTT 28.3 Puncture Site Patient Temperature O2 Saturation ABG pH ABG pCO2 ABG pO2 ABG HCO3 ABG O2 Content ABG Base Excess ABG Methemoglobin Irvin Test Hemoglobin Carboxyhemoglobin O2 Delivery Device Liter Flow Critical Value Sodium Potassium Chloride Carbon Dioxide Anion Gap BUN Creatinine Estimated GFR POC Glucose Random Glucose Lactic Acid 2.0 Calcium Magnesium Ammonia 01/19/18 04:54 WBC RBC Hgb Hct MCV MCH MCHC RDW Plt Count MPV Neut % (Auto) Lymph % (Auto) Cocke % (Auto) Eos % (Auto) Baso % (Auto) Neut # (Auto) Lymph # (Auto) Cocke # (Auto) Eos # (Auto) Baso # (Auto) WBC Differential Differential Comment APTT Puncture Site Patient Temperature O2 Saturation ABG pH ABG pCO2 ABG pO2 ABG HCO3 ABG O2 Content ABG Base Excess ABG Methemoglobin Irvin Test Hemoglobin Carboxyhemoglobin O2 Delivery Device Liter Flow Critical Value Sodium 138 Potassium 4.3 Chloride 101 Carbon Dioxide 26.9 Anion Gap 10 BUN 81 H Creatinine 2.03 H Estimated GFR 33 L POC Glucose Random Glucose 143 H Lactic Acid Calcium 7.6 L Magnesium 2.8 H Ammonia - Imaging Impressions Chest X-Ray 01/18/18 12:08 CONCLUSION: No significant interval change with the bibasilar infiltrates and effusions compared to the prior examination. Abdomen/Pelvis CT 01/18/18 13:08 CONCLUSION: 1. Postoperative features of partial right hemicolectomy with decreasing postoperative free air. 2. Progressive fluid-filled slightly dilated loops of small bowel with relative transition point in the mid abdomen. Differential considerations include worsening adynamic ileus versus developing partial small bowel obstruction. 3. Redemonstration of extensive hepatic metastatic disease with stable 1.7 cm left adrenal mass. 4. Stable small bilateral pleural effusions and associated bibasilar airspace disease, presumably compressive atelectasis. - Procedures resection of colonic mass, liver biopsy and [id number] placement Vas-Cath placement Assessment and Plan - Plan 67 yo Male with Liver and Left Adrenal Gland Metastasis and Hepatosplenomegaly secondary to possible primary fungating lesion at hepatic flexure identified and biopsied via colonoscopy. Hx of Hep C, in remission per pt s/p Harvoni Treatment 3yrs ago. Patient presented with persistent abdominal pain and symptoms consistent with impending obstruction. He underwent colon resection with Dr. Cotton, [id number] placement and Emeterio-Cut liver biopsy right lobe of liver x2 01/13/18. Colon cancer with metastasis to the liver and adrenal gland - S/P colon resection -s/p Colonoscopy and EGD, A near circumferential ulcerated, firm and fungating mass was found at the hepatic flexure. Multiple biopsies were performed using cold forceps. -Oncology recommended colon resection prior to initiation of palliative chemotherapy when he recovers from surgery. -General surgery following and patient underwent colon resection, liver biopsy and port placement -Diet per surgery. Pain control dw GS, dc CATEGORY CONSULTANT ct Percocet and IV dilaudid, will decrease doses -Follow-up abdomen CT shows worsening ileus versus partial SBO. Will monitor increase activity (patient encouraged) Ct IVF. Reglan started. Minimize use of narcotics -TPN/PPN dietitian consult. CXR unchanged ABG unremarkable Hyponatremia - Likely hypovolemic hyponatremia. Liver disease may be contributing. - Stable. Continue to monitor. - Follow labs. Acute kidney injury with persistent hyperkalemia and anuria despite aggressive IV hydration and multiple treatments for hyperkalemia. Underwent hemodialysis x 2 . Sl improved UO, improving creatinine and resolved hyperkalemia. Cautious IV hydration monitor for fluid overload. Robert Boswell pt request. Avoid nephrotoxins Iron Deficiency Anemia -Continue Iron Supplement Type 2 diabetes Metformin held Continue Sliding scale insulin with Accu-Cheks as ordered History of CAD/CABG Continue beta-moshe. Hold Lipitor secondary to transaminitis. Restart Asa if ok with GS Monitor for EKG changes Unremarkable ECHO Hypertension Stable, Continue beta-moshe Monitor BP and HR insomnia: -Patient was taking Ambien from home in the hospital along with trazodone. He has been lethargic at times. He does better with Ambien and trazodone does not help him much. I advised him to not use medications from home while in the hospital. Trazodone discontinued and he can use Ambien at night as needed for insomnia. Add vistaril for anxiety Hx of Hepatitis C Treated w/ [facility] 4yrs ago, reportedly in remission LFTs slightly elevated which is likely to liver metastasis and/or statins/ fibrate therapy. Worse status post liver biopsy. Could also be ischemic GERD. + H pylori. Increase PPI add Tums. Antireflux dw pt. Start quadruple tx when tolerating reg diet. Clarithromycin has significant interactions BLE edema. US doppler negative for DVT. SQ heparin for proph when cleared by general surgery GI prophylaxis -Stool softener PRN constipation. Discharge Planning: Dw Onc, poor prognosis. Transferred to ICU for close monitoring
--- NOTE | 2018-01-19 09:17 | P.PNGS ---
Subjective Interval history: Resting in bed Thirsty--would like a swab Physical Exam Vital signs: Vital Signs 01/18/18 12:28 01/18/18 12:35 01/18/18 12:36 Temperature Pulse Rate 102 H 103 H Respiratory Rate 23 28 H Blood Pressure 181/90 H Pulse Oximetry 96 94 L 93 L 01/18/18 13:00 01/18/18 13:23 01/18/18 13:24 Temperature Pulse Rate 103 H 92 H 93 H Respiratory Rate 31 H 17 19 Blood Pressure 89/53 L 95/52 L Pulse Oximetry 93 L 98 99 01/18/18 14:00 01/18/18 14:23 01/18/18 15:00 Temperature Pulse Rate 91 H 90 89 Respiratory Rate 17 14 14 Blood Pressure 101/55 L Pulse Oximetry 98 97 98 01/18/18 15:11 01/18/18 15:23 01/18/18 16:00 Temperature Pulse Rate 90 91 H 103 H Respiratory Rate 16 14 23 Blood Pressure 107/54 L Pulse Oximetry 98 97 01/18/18 16:23 01/18/18 17:00 01/18/18 17:23 Temperature Pulse Rate 104 H 104 H 104 H Respiratory Rate 24 23 24 Blood Pressure 123/63 120/69 Pulse Oximetry 98 99 01/18/18 18:00 01/18/18 18:23 01/18/18 19:00 Temperature 97.8 F Pulse Rate 106 H 103 H 95 H Respiratory Rate 24 15 12 Blood Pressure 128/59 L Pulse Oximetry 99 97 01/18/18 19:23 01/18/18 20:00 01/18/18 20:23 Temperature 98.1 F Pulse Rate 96 H 103 H 108 H Respiratory Rate 12 23 21 Blood Pressure 104/55 L 104/55 L 161/70 H Pulse Oximetry 100 100 97 01/18/18 20:28 01/18/18 21:00 01/18/18 21:23 Temperature Pulse Rate 104 H 110 H 112 H Respiratory Rate 22 31 H 22 Blood Pressure 153/63 H Pulse Oximetry 100 91 L 97 01/18/18 22:00 01/18/18 22:23 01/18/18 23:00 Temperature Pulse Rate 106 H 108 H 110 H Respiratory Rate 34 H 24 21 Blood Pressure 139/65 Pulse Oximetry 91 L 93 L 92 L 12/02/18 23:23 01/18/18 23:34 01/19/18 00:00 Temperature 98.3 F Pulse Rate 109 H 103 H Respiratory Rate 27 H 20 14 Blood Pressure 127/59 L 111/65 Pulse Oximetry 94 L 92 L 01/19/18 00:23 01/19/18 00:29 01/19/18 00:32 Temperature Pulse Rate 97 H 96 H 112 H Respiratory Rate 14 13 15 Blood Pressure 107/52 L 127/80 153/100 H Pulse Oximetry 98 97 100 01/19/18 00:45 01/19/18 00:50 01/19/18 00:54 Temperature Pulse Rate 93 H 93 H 128 H Respiratory Rate 14 14 30 H Blood Pressure 151/104 H 146/79 H 209/170 H Pulse Oximetry 99 100 100 01/19/18 00:58 01/19/18 01:00 01/19/18 01:23 Temperature Pulse Rate 99 H 99 H 92 H Respiratory Rate 14 14 14 Blood Pressure 134/72 123/74 116/56 L Pulse Oximetry 100 100 95 01/19/18 02:00 01/19/18 02:23 01/19/18 03:00 Temperature Pulse Rate 109 H 105 H 104 H Respiratory Rate 20 18 21 Blood Pressure 155/69 H Pulse Oximetry 100 100 01/19/18 03:23 01/19/18 04:00 01/19/18 04:23 Temperature 97.6 F Pulse Rate 150 H 145 H 98 H Respiratory Rate 18 15 19 Blood Pressure 138/67 148/68 H Pulse Oximetry 100 100 98 Intake & Output 01/18/18 01/19/18 01/19/18 18:59 06:59 18:59 Output Total 3200 / 3200 650 / 650 Balance -3200 / -3200 -650 / -650 Weight 88.5 kg Output: Urine 0 / 0 350 / 350 Gastric Drainage 3200 / 3200 300 / 300 Right Nare Nasogastric Tube 3200 / 3200 300 / 300 Other: Date of Last Bowel Movement 01/11/18 01/11/18 # Bowel Movements 0 Narrative: Alert and awake Abd: distended; moderate amount of drainage on SURI Generalized edema improved - Urinary Catheter Management Indwelling Urethral Catheter Cath placed during this visit: yes, but has since been removed by the nurse Reason for continuing: Hourly intake/output Insertion date: 11/29/18 Insertion time: 03:30 Removal date: 01/14/18 Removal time: 03:20 Results - Labs 01/20/18 06:33 01/20/18 06:33 Laboratory Results - last 24 hr 01/18/18 01/18/18 01/18/18 12:09 12:18 12:55 WBC RBC Hgb Hct MCV MCH MCHC RDW Plt Count MPV Neut % (Auto) Lymph % (Auto) Hawkins % (Auto) Eos % (Auto) Baso % (Auto) Neut # (Auto) Lymph # (Auto) Hawkins # (Auto) Eos # (Auto) Baso # (Auto) WBC Differential Differential Comment APTT Puncture Site Left radial Patient Temperature 98.6 O2 Saturation 93 ABG pH 7.40 ABG pCO2 40 ABG pO2 82 ABG HCO3 24 ABG O2 Content 14.9 ABG Base Excess 0.2 ABG Methemoglobin 1.1 Irvin Test Y Hemoglobin 11.4 L Carboxyhemoglobin 1.5 O2 Delivery Device Nasal cannula Liter Flow 3.00 Critical Value No Sodium Potassium Chloride Carbon Dioxide Anion Gap BUN Creatinine Estimated GFR POC Glucose 185 H Random Glucose Lactic Acid Calcium Magnesium Ammonia 38 H 01/18/18 01/18/18 01/19/18 13:25 13:25 04:53 WBC 4.5 RBC 4.19 L Hgb 10.0 L Hct 30.5 L MCV 72.9 L MCH 23.9 L MCHC 32.8 RDW 20.4 H Plt Count 141 L D MPV 8.0 Neut % (Auto) 73.1 H Lymph % (Auto) 13.8 Hawkins % (Auto) 12.9 H Eos % (Auto) 0.1 Baso % (Auto) 0.1 Neut # (Auto) 3.3 Lymph # (Auto) 0.6 L Hawkins # (Auto) 0.6 Eos # (Auto) 0.0 Baso # (Auto) 0.0 WBC Differential . Differential Comment Auto diff final APTT 28.3 Puncture Site Patient Temperature O2 Saturation ABG pH ABG pCO2 ABG pO2 ABG HCO3 ABG O2 Content ABG Base Excess ABG Methemoglobin Irvin Test Hemoglobin Carboxyhemoglobin O2 Delivery Device Liter Flow Critical Value Sodium Potassium Chloride Carbon Dioxide Anion Gap BUN Creatinine Estimated GFR POC Glucose Random Glucose Lactic Acid 2.0 Calcium Magnesium Ammonia 01/19/18 04:54 WBC RBC Hgb Hct MCV MCH MCHC RDW Plt Count MPV Neut % (Auto) Lymph % (Auto) Hawkins % (Auto) Eos % (Auto) Baso % (Auto) Neut # (Auto) Lymph # (Auto) Hawkins # (Auto) Eos # (Auto) Baso # (Auto) WBC Differential Differential Comment APTT Puncture Site Patient Temperature O2 Saturation ABG pH ABG pCO2 ABG pO2 ABG HCO3 ABG O2 Content ABG Base Excess ABG Methemoglobin Irvin Test Hemoglobin Carboxyhemoglobin O2 Delivery Device Liter Flow Critical Value Sodium 138 Potassium 4.3 Chloride 101 Carbon Dioxide 26.9 Anion Gap 10 BUN 81 H Creatinine 2.03 H Estimated GFR 33 L POC Glucose Random Glucose 143 H Lactic Acid Calcium 7.6 L Magnesium 2.8 H Ammonia - Imaging Imaging: ITS Impressions Chest CTA 01/06/18 11:04 CONCLUSION: 1. Nodular thickening of an azygos fissure which may be scarring however short- term follow-up may be indicated. 2. No evidence of acute airspace disease or pulmonary emboli. 3. Multiple low density lesions in the liver and enlarged left adrenal gland. Abdomen X-Ray 01/10/18 00:00 CONCLUSION: 1. Nonobstructive bowel gas pattern. Venous Doppler Study 01/14/18 00:00 CONCLUSION: 1. The study is negative for bilateral lower extremity deep venous thrombosis. Abdomen/Bladder Ultrasound 01/15/18 00:00 CONCLUSION: 1. No obstruction. The kidneys are sonographically unremarkable. 2. Metastatic lesions involving the liver previously described and better seen on the prior CT. 3. Trace amount of ascites. Catheter Placement 01/15/18 10:39 CONCLUSION: 1. Uncomplicated line placement as above. Chest X-Ray 01/18/18 12:08 CONCLUSION: No significant interval change with the bibasilar infiltrates and effusions compared to the prior examination. Abdomen/Pelvis CT 01/18/18 13:08 CONCLUSION: 1. Postoperative features of partial right hemicolectomy with decreasing postoperative free air. 2. Progressive fluid-filled slightly dilated loops of small bowel with relative transition point in the mid abdomen. Differential considerations include worsening adynamic ileus versus developing partial small bowel obstruction. 3. Redemonstration of extensive hepatic metastatic disease with stable 1.7 cm left adrenal mass. 4. Stable small bilateral pleural effusions and associated bibasilar airspace disease, presumably compressive atelectasis. 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 Discussed with ex- and son at bedside. The exam, history, and the medical decision-making described in the above note were completed with the assistance of the mid-level provider. I reviewed and agree with the findings presented. I attest that I had a [id number] encounter with the patient on the same day, and personally performed and documented my assessment and findings in the medical record.
--- NOTE | 2018-01-19 12:03 | P.PNNP ---
Subjective Interval history: Patient seen, no distress, complaints of thirst. Patient was dialyzed on Friday. Patient's renal function has improved, Creatinine is 2.03. Patient no longer has johns. Per nurse, patient is incontinent of urine and had 2 large voids this morning. Will continue to monitor renal function to determine if dialysis is needed. Currently on NS at 50 ml/hr. <Raegan Bryan - Last Filed: 01/19/18 12:23> Physical Exam Vital signs: Vital Signs 01/18/18 12:28 01/18/18 12:35 01/18/18 12:36 Temperature Pulse Rate 102 H 103 H Respiratory Rate 23 28 H Blood Pressure 181/90 H Pulse Oximetry 96 94 L 93 L 01/18/18 13:00 01/18/18 13:23 01/18/18 13:24 Temperature Pulse Rate 103 H 92 H 93 H Respiratory Rate 31 H 17 19 Blood Pressure 89/53 L 95/52 L Pulse Oximetry 93 L 98 99 01/18/18 14:00 01/18/18 14:23 01/18/18 15:00 Temperature Pulse Rate 91 H 90 89 Respiratory Rate 17 14 14 Blood Pressure 101/55 L Pulse Oximetry 98 97 98 01/18/18 15:11 01/18/18 15:23 01/18/18 16:00 Temperature Pulse Rate 90 91 H 103 H Respiratory Rate 16 14 23 Blood Pressure 107/54 L Pulse Oximetry 98 97 01/18/18 16:23 01/18/18 17:00 01/18/18 17:23 Temperature Pulse Rate 104 H 104 H 104 H Respiratory Rate 24 23 24 Blood Pressure 123/63 120/69 Pulse Oximetry 98 99 01/18/18 18:00 01/18/18 18:23 01/18/18 19:00 Temperature 97.8 F Pulse Rate 106 H 103 H 95 H Respiratory Rate 24 15 12 Blood Pressure 128/59 L Pulse Oximetry 99 97 01/18/18 19:23 01/18/18 20:00 01/18/18 20:23 Temperature 98.1 F Pulse Rate 96 H 103 H 108 H Respiratory Rate 12 23 21 Blood Pressure 104/55 L 104/55 L 161/70 H Pulse Oximetry 100 100 97 01/18/18 20:28 01/18/18 21:00 01/18/18 21:23 Temperature Pulse Rate 104 H 110 H 112 H Respiratory Rate 22 31 H 22 Blood Pressure 153/63 H Pulse Oximetry 100 91 L 97 01/18/18 22:00 01/18/18 22:23 01/18/18 23:00 Temperature Pulse Rate 106 H 108 H 110 H Respiratory Rate 34 H 24 21 Blood Pressure 139/65 Pulse Oximetry 91 L 93 L 92 L 01/18/18 23:23 01/18/18 23:34 01/19/18 00:00 Temperature 98.3 F Pulse Rate 109 H 103 H Respiratory Rate 27 H 20 14 Blood Pressure 127/59 L 111/65 Pulse Oximetry 94 L 92 L 01/19/18 00:23 01/19/18 00:29 01/19/18 00:32 Temperature Pulse Rate 97 H 96 H 112 H Respiratory Rate 14 13 15 Blood Pressure 107/52 L 127/80 153/100 H Pulse Oximetry 98 97 100 01/19/18 00:45 01/19/18 00:50 01/19/18 00:54 Temperature Pulse Rate 93 H 93 H 128 H Respiratory Rate 14 14 30 H Blood Pressure 151/104 H 146/79 H 209/170 H Pulse Oximetry 99 100 100 01/19/18 00:58 01/19/18 01:00 01/19/18 01:23 Temperature Pulse Rate 99 H 99 H 92 H Respiratory Rate 14 14 14 Blood Pressure 134/72 123/74 116/56 L Pulse Oximetry 100 100 95 01/19/18 02:00 01/19/18 02:23 01/19/18 03:00 Temperature Pulse Rate 109 H 105 H 104 H Respiratory Rate 20 18 21 Blood Pressure 155/69 H Pulse Oximetry 100 100 01/19/18 03:23 01/19/18 04:00 01/19/18 04:23 Temperature 97.6 F Pulse Rate 150 H 145 H 98 H Respiratory Rate 18 15 19 Blood Pressure 138/67 148/68 H Pulse Oximetry 100 100 98 01/19/18 09:53 01/19/18 09:55 01/19/18 09:56 Temperature Pulse Rate 95 H Respiratory Rate 18 Blood Pressure Pulse Oximetry 99 98 Intake & Output 01/18/18 01/19/18 01/19/18 18:59 06:59 18:59 Output Total 3200 / 3200 650 / 650 Balance -3200 / -3200 -650 / -650 Weight 88.5 kg Output: Urine 0 / 0 350 / 350 Gastric Drainage 3200 / 3200 300 / 300 Right Nare Nasogastric Tube 3200 / 3200 300 / 300 Other: Date of Last Bowel Movement 01/11/18 01/11/18 # Bowel Movements 0 - Constitutional no acute distress - Routine HEENT Exam Head: Present: normocephalic Eye: Present: EOMI, PERRL ENT: Present: mucous membranes moist - Routine Neck Exam Present: trachea midline. Absent: JVD, tracheal deviation - Routine Respiratory Exam Absent: accessory muscle use - Routine Cardiovascular Exam Present: RRR - Routine Abdominal Exam Present: tenderness, firm. Absent: soft - Routine Extremities Exam Present: pulses intact. Absent: cyanosis, clubbing - Routine Neurological Exam Present: alert, oriented X3 - Routine Psychiatric Exam Present: normal affect - Urinary Catheter Management Indwelling Urethral Catheter Cath placed during this visit: yes, but has since been removed by the nurse Reason for continuing: Hourly intake/output Insertion date: 01/15/18 Insertion time: 03:30 Removal date: 01/14/18 Removal time: 03:20 <Raegan Bryan - Last Filed: 01/19/18 12:23> Vital signs: Vital Signs 01/18/18 22:00 01/18/18 22:23 01/18/18 23:00 Temperature Pulse Rate 106 H 108 H 110 H Respiratory Rate 34 H 24 21 Blood Pressure 139/65 Pulse Oximetry 91 L 93 L 92 L 01/18/18 23:23 01/18/18 23:34 01/19/18 00:00 Temperature 98.3 F Pulse Rate 109 H 103 H Respiratory Rate 27 H 20 14 Blood Pressure 127/59 L 111/65 Pulse Oximetry 94 L 92 L 01/19/18 00:23 01/19/18 00:29 01/19/18 00:32 Temperature Pulse Rate 97 H 96 H 112 H Respiratory Rate 14 13 15 Blood Pressure 107/52 L 127/80 153/100 H Pulse Oximetry 98 97 100 01/19/18 00:45 01/19/18 00:50 01/19/18 00:54 Temperature Pulse Rate 93 H 93 H 128 H Respiratory Rate 14 14 30 H Blood Pressure 151/104 H 146/79 H 209/170 H Pulse Oximetry 99 100 100 01/19/18 00:58 01/19/18 01:00 01/19/18 01:23 Temperature Pulse Rate 99 H 99 H 92 H Respiratory Rate 14 14 14 Blood Pressure 134/72 123/74 116/56 L Pulse Oximetry 100 100 95 01/19/18 02:00 01/19/18 02:23 01/19/18 03:00 Temperature Pulse Rate 109 H 105 H 104 H Respiratory Rate 20 18 21 Blood Pressure 155/69 H Pulse Oximetry 100 100 01/19/18 03:23 01/19/18 04:00 01/19/18 04:23 Temperature 97.6 F Pulse Rate 150 H 145 H 98 H Respiratory Rate 18 15 19 Blood Pressure 138/67 148/68 H Pulse Oximetry 100 100 98 01/19/18 05:00 01/19/18 05:23 01/19/18 06:00 Temperature Pulse Rate 93 H 87 88 Respiratory Rate 13 11 L 11 L Blood Pressure 115/57 L Pulse Oximetry 100 100 100 01/19/18 06:23 01/19/18 07:00 01/19/18 07:23 Temperature Pulse Rate 88 84 88 Respiratory Rate 11 L 10 L 12 Blood Pressure 116/57 L 145/65 H Pulse Oximetry 100 100 99 01/19/18 08:00 01/19/18 08:23 01/19/18 09:00 Temperature 97.8 F Pulse Rate 97 H 97 H 98 H Respiratory Rate 16 17 13 Blood Pressure 156/74 H Pulse Oximetry 99 99 99 01/19/18 09:23 01/19/18 09:53 01/19/18 09:54 Temperature Pulse Rate 99 H 99 H Respiratory Rate 16 19 Blood Pressure 181/81 H 180/75 H Pulse Oximetry 100 99 96 01/19/18 09:55 01/19/18 09:56 01/19/18 10:00 Temperature Pulse Rate 95 H 101 H Respiratory Rate 18 9 L Blood Pressure Pulse Oximetry 98 100 01/19/18 10:05 01/19/18 10:23 01/19/18 11:00 Temperature Pulse Rate 103 H 100 H 104 H Respiratory Rate 26 H 13 15 Blood Pressure 159/72 H 135/63 Pulse Oximetry 100 100 93 L 01/19/18 11:23 01/19/18 12:00 01/19/18 12:23 Temperature Pulse Rate 104 H 97 H 96 H Respiratory Rate 18 11 L 12 Blood Pressure 157/68 H 132/61 Pulse Oximetry 96 94 L 95 01/19/18 13:00 01/19/18 13:23 01/19/18 14:00 Temperature Pulse Rate 100 H 100 H 91 H Respiratory Rate 15 15 15 Blood Pressure 151/67 H Pulse Oximetry 95 97 95 01/19/18 14:23 01/19/18 15:00 01/19/18 15:37 Temperature Pulse Rate 87 97 H 105 H Respiratory Rate 12 17 20 Blood Pressure 124/57 L 157/73 H Pulse Oximetry 94 L 95 93 L 01/19/18 16:11 01/19/18 16:23 01/19/18 17:00 Temperature 97.6 F Pulse Rate 121 H 112 H 106 H Respiratory Rate 34 H 22 19 Blood Pressure 147/69 H Pulse Oximetry 95 95 01/19/18 17:08 01/19/18 17:25 01/19/18 18:00 Temperature Pulse Rate 103 H 105 H 108 H Respiratory Rate 17 18 19 Blood Pressure 140/61 Pulse Oximetry 96 96 01/19/18 18:23 01/19/18 19:00 01/19/18 19:23 Temperature Pulse Rate 109 H 107 H 99 H Respiratory Rate 18 18 14 Blood Pressure 143/65 H 136/64 Pulse Oximetry 98 96 94 L 01/19/18 20:00 01/19/18 20:23 01/19/18 20:36 Temperature 97.6 F Pulse Rate 97 H 99 H 107 H Respiratory Rate 15 16 18 Blood Pressure 133/61 Pulse Oximetry 97 96 97 Intake & Output 01/19/18 01/19/18 01/20/18 06:59 18:59 06:59 Output Total 650 / 650 250 / 250 Balance -650 / -650 -250 / -250 Weight 88.5 kg Output: Urine 350 / 350 Gastric Drainage 300 / 300 250 / 250 Right Nare Nasogastric Tube 300 / 300 250 / 250 Other: # Incontinent Voids 2 # Urine Diapers 2 Date of Last Bowel Movement 01/11/18 01/19/18 # Bowel Movements 0 1 - Urinary Catheter Management Indwelling Urethral Catheter Cath placed during this visit: no <Bill Deras - Last Filed: 01/19/18 21:29> Assessment and Plan - Assessment (1) Acute kidney failure Code(s): N17.9 - Acute kidney failure, unspecified Status: Acute Plan: Patient was dialyzed on Friday. Patient's renal function has improved, Creatinine is 2.03. Continue to monitor for renal recovery to determine if dialysis is needed. Monitor urine output. Monitor fluid and electrolytes. Avoid nephrotoxic agents. - Plan Colon cancer with metastasis to the liver and adrenal gland s/p Colonoscopy and EGD, A near circumferential ulcerated, firm and fungating mass was found at the hepatic flexure. Oncology recommended colon resection prior to initiation of palliative chemotherapy when he recovers from surgery. General surgery following and patient underwent [id number] placement, Resection of hepatic flexure of the colon, Emeterio-Cut liver biopsy right lobe of liver x2. Follow-up abdomen CT showed recent laparotomy and right hemicolectomy with subcutaneous air in the anterior abdominal wall and a small amount of free air, extensive metastatic disease in the liver, stable enlarged left adrenal gland, new small bilateral pleural effusions and basilar atelectasis and mild ileus. Hypertension Monitor BP. Continue medications. Iron Deficiency Anemia Patient on Iron Supplement. Type 2 diabetes Continue insulin to maintain blood glucose level between 140 and 180. <Raegan Bryan - Last Filed: 01/19/18 12:23> - Assessment (1) Acute kidney failure Code(s): N17.9 - Acute kidney failure, unspecified Status: Acute - Attending Attestation patient was seen and examined. Monitor renal panel. Creatinine has improved, will defer dialysis today. <Bill Deras - Last Filed: 01/19/18 21:29>
[2018-01-19] MEDS: Sodium Chloride 0.9% 2 ML Flush BID IV.FLUSH SCH ×2 (13:17→21:04)
[2018-01-19 14:39] LABS: Total Protein 5.5 g/dL (6.4-8.2)
--- NOTE | 2018-01-19 14:50 | P.PNONC ---
Subjective Interval history: Afebrile, lethargic. Awakens to voice, answers some questions. Patient reports he had a bowel movement. He requests his mouth swab. Objective Vital Signs/Intake & Output: Vital Signs 01/18/18 15:00 01/18/18 15:11 01/18/18 15:23 Temperature Pulse Rate 89 90 91 H Respiratory Rate 14 16 14 Blood Pressure 107/54 L Pulse Oximetry 98 98 01/18/18 16:00 01/18/18 16:23 01/18/18 17:00 Temperature Pulse Rate 103 H 104 H 104 H Respiratory Rate 23 24 23 Blood Pressure 123/63 Pulse Oximetry 97 98 01/18/18 17:23 01/18/18 18:00 01/18/18 18:23 Temperature 97.8 F Pulse Rate 104 H 106 H 103 H Respiratory Rate 24 24 15 Blood Pressure 120/69 128/59 L Pulse Oximetry 99 99 01/18/18 19:00 18 19:23 01/18/18 20:00 Temperature 98.1 F Pulse Rate 95 H 96 H 103 H Respiratory Rate 12 12 23 Blood Pressure 104/55 L 104/55 L Pulse Oximetry 97 100 100 01/18/18 20:23 18 20:28 01/18/18 21:00 Temperature Pulse Rate 108 H 104 H 110 H Respiratory Rate 21 22 31 H Blood Pressure 161/70 H Pulse Oximetry 97 100 91 L 01/18/18 21:23 01/18/18 22:00 01/18/18 22:23 Temperature Pulse Rate 112 H 106 H 108 H Respiratory Rate 22 34 H 24 Blood Pressure 153/63 H 139/65 Pulse Oximetry 97 91 L 93 L 01/18/18 23:00 01/18/18 23:23 01/18/18 23:34 Temperature Pulse Rate 110 H 109 H Respiratory Rate 21 27 H 20 Blood Pressure 127/59 L Pulse Oximetry 92 L 94 L 01/19/18 00:00 01/19/18 00:23 01/19/18 00:29 Temperature 98.3 F Pulse Rate 103 H 97 H 96 H Respiratory Rate 14 14 13 Blood Pressure 111/65 107/52 L 127/80 Pulse Oximetry 92 L 98 97 01/19/18 00:32 01/19/18 00:45 01/19/18 00:50 Temperature Pulse Rate 112 H 93 H 93 H Respiratory Rate 15 14 14 Blood Pressure 153/100 H 151/104 H 146/79 H Pulse Oximetry 100 99 100 01/19/18 00:54 01/19/18 00:58 01/19/18 01:00 Temperature Pulse Rate 128 H 99 H 99 H Respiratory Rate 30 H 14 14 Blood Pressure 209/170 H 134/72 123/74 Pulse Oximetry 100 100 100 01/19/18 01:23 01/19/18 02:00 01/19/18 02:23 Temperature Pulse Rate 92 H 109 H 105 H Respiratory Rate 14 20 18 Blood Pressure 116/56 L 155/69 H Pulse Oximetry 95 100 01/19/18 03:00 01/19/18 03:23 01/19/18 04:00 Temperature 97.6 F Pulse Rate 104 H 150 H 145 H Respiratory Rate 21 18 15 Blood Pressure 138/67 148/68 H Pulse Oximetry 100 100 100 01/19/18 04:23 01/19/18 05:00 01/19/18 05:23 Temperature Pulse Rate 98 H 93 H 87 Respiratory Rate 19 13 11 L Blood Pressure 115/57 L Pulse Oximetry 98 100 100 01/19/18 06:00 01/19/18 06:23 01/19/18 07:00 Temperature Pulse Rate 88 88 84 Respiratory Rate 11 L 11 L 10 L Blood Pressure 116/57 L Pulse Oximetry 100 100 100 01/19/18 07:23 01/19/18 08:00 01/19/18 08:23 Temperature 97.8 F Pulse Rate 88 97 H 97 H Respiratory Rate 12 16 17 Blood Pressure 145/65 H 156/74 H Pulse Oximetry 99 99 99 01/19/18 09:00 01/19/18 09:23 01/19/18 09:53 Temperature Pulse Rate 98 H 99 H Respiratory Rate 13 16 Blood Pressure 181/81 H Pulse Oximetry 99 100 99 01/19/18 09:54 01/19/18 09:55 01/19/18 09:56 Temperature Pulse Rate 99 H 95 H Respiratory Rate 19 18 Blood Pressure 180/75 H Pulse Oximetry 96 98 01/19/18 10:00 01/19/18 10:05 01/19/18 10:23 Temperature Pulse Rate 101 H 103 H 100 H Respiratory Rate 9 L 26 H 13 Blood Pressure 159/72 H 135/63 Pulse Oximetry 100 100 100 01/19/18 11:00 01/19/18 11:23 01/19/18 12:00 Temperature Pulse Rate 104 H 104 H 97 H Respiratory Rate 15 18 11 L Blood Pressure 157/68 H Pulse Oximetry 93 L 96 94 L Intake & Output 01/18/18 01/19/18 01/19/18 18:59 06:59 18:59 Output Total 3200 / 3200 650 / 650 Balance -3200 / -3200 -650 / -650 Weight 88.5 kg Output: Urine 0 / 0 350 / 350 Gastric Drainage 3200 / 3200 300 / 300 Right Nare Nasogastric Tube 3200 / 3200 300 / 300 Other: Date of Last Bowel Movement 01/11/18 01/11/18 01/19/18 # Bowel Movements 0 Result Diagrams: 01/19/18 04:53 01/19/18 04:54 Laboratory Results: Laboratory Results - last 24 hr 01/19/18 01/19/18 01/19/18 04:53 04:54 10:10 WBC 4.5 RBC 4.19 L Hgb 10.0 L Hct 30.5 L MCV 72.9 L MCH 23.9 L MCHC 32.8 RDW 20.4 H Plt Count 141 L D MPV 8.0 Neut % (Auto) 73.1 H Lymph % (Auto) 13.8 Braxton % (Auto) 12.9 H Eos % (Auto) 0.1 Baso % (Auto) 0.1 Neut # (Auto) 3.3 Lymph # (Auto) 0.6 L Braxton # (Auto) 0.6 Eos # (Auto) 0.0 Baso # (Auto) 0.0 WBC Differential . Differential Comment Auto diff final Sodium 138 Potassium 4.3 Chloride 101 Carbon Dioxide 26.9 Anion Gap 10 BUN 81 H Creatinine 2.03 H Estimated GFR 33 L Random Glucose 143 H Calcium 7.6 L Magnesium 2.8 H 2.7 H Total Bilirubin Direct Bilirubin Indirect Bilirubin AST ALT Alkaline Phosphatase Total Protein Albumin 01/19/18 10:10 WBC RBC Hgb Hct MCV MCH MCHC RDW Plt Count MPV Neut % (Auto) Lymph % (Auto) Braxton % (Auto) Eos % (Auto) Baso % (Auto) Neut # (Auto) Lymph # (Auto) Braxton # (Auto) Eos # (Auto) Baso # (Auto) WBC Differential Differential Comment Sodium Potassium Chloride Carbon Dioxide Anion Gap BUN Creatinine Estimated GFR Random Glucose Calcium Magnesium Total Bilirubin 1.0 Direct Bilirubin 0.7 H Indirect Bilirubin 0.3 AST 127 H ALT 115 H Alkaline Phosphatase 214 H Total Protein 5.5 L Albumin 2.0 L Culture Results: Microbiology 01/15/18 04:35 Urine Culture - Final Catheterized Urine No growth in 48 hours Imaging Studies: Impressions Abdomen/Pelvis CT 01/18/18 13:08 CONCLUSION: 1. Postoperative features of partial right hemicolectomy with decreasing postoperative free air. 2. Progressive fluid-filled slightly dilated loops of small bowel with relative transition point in the mid abdomen. Differential considerations include worsening adynamic ileus versus developing partial small bowel obstruction. 3. Redemonstration of extensive hepatic metastatic disease with stable 1.7 cm left adrenal mass. 4. Stable small bilateral pleural effusions and associated bibasilar airspace disease, presumably compressive atelectasis. Medications: Active Medications Generic Name Dose Route Start Last Admin Trade Name Freq PRN Reason Stop Dose Admin Albuterol 1 ampul 01/18/18 16:00 01/19/18 03:50 Duoneb Neb (Jr) NEB Not Given Q6HR NEB JR Aspirin 81 mg 01/07/18 09:00 01/10/18 10:20 Ecotrin PO 81 mg DAILY JR Administration Calcium Carbonate 500 mg 01/17/18 12:16 01/17/18 20:43 Tums Chew CHEW 500 mg Q6H PRN Administration DYSPEPSIA OR HEARTBURN Ferrous Sulfate 325 mg 01/07/18 09:00 01/19/18 08:21 Ferosul PO Not Given DAILY JR Furosemide 40 mg 01/17/18 18:00 01/19/18 13:30 Lasix Inj IV.PUSH Not Given BID@0900,1800 JR Gentamicin Sulfate 20 mg 01/15/18 10:40 01/15/18 16:46 Gentamicin Inj OTHER 20 mg WITH DIALYSIS PRN Administration Dwell Gentamycin Lock Heparin Sodium (Porcine) 5,000 units 01/14/18 14:15 01/15/18 08:29 Heparin Inj SQ 5,000 units Q12HR JR Administration Heparin Sodium (Porcine) 1,000 units 01/15/18 10:40 01/15/18 16:47 Heparin Inj OTHER 1,000 units WITH DIALYSIS PRN Administration Dwell Heparin to Fill Catheter Hydromorphone HCl 0.5 mg 01/19/18 11:53 01/19/18 13:37 Dilaudid Pf Inj IV.PUSH 0.5 mg Q6H PRN Administration breakthrough pain Hydroxyzine Pamoate 25 mg 01/17/18 12:20 01/17/18 23:34 Vistaril PO 25 mg Q8H PRN Administration ANXIETY AND/OR AGITATION Sodium Chloride 500 mls @ 30 mls/hr 01/13/18 05:00 01/13/18 16:01 Ns Inj IV.SIG Not Given .Q10H JR Albumin Human 100 mls @ 60 mls/hr 01/15/18 10:40 01/16/18 10:56 Flexbumin 25% Inj IV.SIG Infused WITH DIALYSIS PRN Infusion hypotension / volume replace Sodium Chloride 1,000 mls @ 50 mls/hr 01/18/18 17:15 01/18/18 20:42 Ns Inj IV.SIG 50 mls/hr .Q20H JR Administration Lactulose 30 ml 01/06/18 15:47 01/09/18 14:31 Lactulose Liq PO 30 ml DAILY PRN Administration SEVERE CONSITIPATION Metoclopramide HCl 5 mg 01/18/18 21:00 01/19/18 13:17 Reglan Inj IV.PUSH 5 mg Q8H JR Administration Protocol Metoprolol Tartrate 2.5 mg 01/18/18 14:00 01/19/18 13:18 Lopressor Inj IV.PUSH 2.5 mg Q8H JR Administration Ondansetron HCl 4 mg 01/06/18 15:47 01/18/18 20:41 Zofran Inj IV.PUSH 4 mg Q6H PRN Administration NAUSEA OR VOMITING Pantoprazole Sodium 40 mg 01/18/18 14:00 01/19/18 13:18 Protonix Inj IV.PUSH 40 mg Q12H JR Administration Sennosides 17.2 mg 01/06/18 15:47 01/09/18 12:39 Senokot PO 17.2 mg Q12H PRN Administration Moderate Constipation Simethicone 125 mg 01/16/18 22:35 01/17/18 08:59 Phazyme Chew PO 125 mg TID PRN Administration gas relief Sodium Chloride 2 ml 01/13/18 09:00 01/19/18 13:17 Ns Flush IV.FLUSH Not Given BID JR Sodium Chloride 2 ml 01/13/18 08:20 01/17/18 17:48 Ns Flush IV.FLUSH 2 ml PRN PRN Administration FLUSH AFTER USING IV ACCESS Zolpidem Tartrate 5 mg 01/11/18 15:25 01/17/18 22:11 Ambien PO 5 mg HS PRN Administration INSOMNIA Objective Remarks: GENERAL: Ill-appearing male patient, in no acute distress, lethargic. SKIN: Warm and dry. HEAD: Normocephalic. EYES: No scleral icterus. No injection or drainage. NECK: Supple, trachea midline. CARDIOVASCULAR: Regular rate and rhythm without murmurs. RESPIRATORY: Breath sounds equal bilaterally. No accessory muscle use. GASTROINTESTINAL: Abdomen soft, nontender. Surgical site no bleeding noted. EXTREMITIES: No cyanosis, or edema. SCD's in place. MUSCULOSKELETAL: Adequate muscle tone. NEUROLOGICAL: Sleeping on approach, awakens to voice, lethargic. Assessment/Plan - Plan 1. Multiple liver masses worrisome for metastatic disease. He has had right upper quadrant pain intermittently for several months. Over the last 4 weeks the pain become more constant. He also has nausea and vomiting. He lost about 10 pounds. He had anemia with microcytosis worrisome for iron deficiency anemia. He, however, denies any gross gastrointestinal bleed. His colonoscopy 4 years ago did not show any masses, but reportedly had polyps. CT of the chest did not show any metastatic disease. A CT of the abdomen and pelvis showed numerous hepatic lesions, largest measured 7 cm. There were also multiple retroperitoneal enlarged lymph nodes. There was an enlarged left adrenal gland lesion measured 4.1 cm, which could also be metastatic disease. I suspect he possibly has a primary GI tumor. January 07: CEA elevated at 42.9 with normal alpha-fetoprotein and CA 19 9. This is suggestive of primary GI tumor. He is going to have EGD and colonoscopy today. January 08:. Colonoscopy yesterday showed near circumferential mass at the hepatic flexure Worrisome for colon cancer. Biopsy was done and pathology is pending at this time. It appears that patient has primary colon cancer with metastasis to liver. EGD did not show any obvious mass. January 09: Biopsy from colonic mass is still pending. 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 Gastric cancer cannot be ruled out but EGD did not reveal any gastric mass. Patient is going to have surgery today for impending obstruction. He is also going to have port placement for eventual chemotherapy. January 14: Postop day 1. Patient had resection of hepatic flexure colonic mass and liver biopsy. He also had port placement. During surgery large tumor burden was noted in the liver with a small tumor in the hepatic flexure causing partial obstruction. The omentum was fixed to the liver mass. Final pathology pending. January 15: Postop day 2. Worsening renal function, patient going for dialysis today. Potassium 6.3, currently being treated for this, nephrology has been consulted. Liver enzymes have increased significantly. Total bilirubin 1.0. January 16: Postop day 3. Patient had worsening renal function and started dialysis yesterday. Liver enzymes are still elevated. Final pathology from colon resection and liver biopsy is still pending. January 17: Postop day 4. Liver pathology shows metastatic disease with colonic primary January 18: Postop day 5. Patient is mildly confused which may be medication induced. His liver enzymes continue to trend down. Creatinine stable. He is scheduled for dialysis tomorrow. 2. Left adrenal gland lesion measured 4.1 cm. This could be metastatic disease and less likely to be a primary tumor. 3. Anemia with microcytosis suggestive of iron deficiency anemia. The patient denies any gross gastrointestinal bleed. 4. History of hepatitis C, treated with Harvoni 4 years ago, reportedly went into remission. His liver enzymes trended up again which could be due to metastatic disease in the liver versus activation hepatitis C and liver biopsy. Liver enzyme is trending down. RECOMMENDATIONS: 1. Colonic mass showed poorly differentiated carcinoma, liver biopsy shows colonic primary. Family is planning to take patient back to [place] for palliative treatment, once recovered. 2. Acute kidney injury with hyperkalemia,. Management per attending and nephrology, patient has been receiving hemodialysis. 3. Postop ileus, now with NG tube. Subjectively reports bowel movement today. 4. Pain management per attending. - Attending Statement The exam, history, and the medical decision-making described in the above note were completed with the assistance of the mid-level provider. I reviewed and agree with the findings presented. I attest that I had a [id number] encounter with the patient on the same day, and personally performed and documented my assessment and findings in the medical record.Patient was transferred to ICU. NGT was placed and he is slightly better today. Abdomen is softer. He is less confused but still very weak. No BM yet. CT showed adynamic ileus vs SBO. Continue supportive care.
--- NOTE | 2018-01-19 14:58 | P.DIET ---
Nutritional Evaluation Type of nutrition evaluation: follow-up Nutrition screening: Weight Loss > 10 lbs, MDC (01/19 MDC for TPN/PPN) Subjective Subjective Comments: Reports poor appetite and weight loss [employer]. Prefers Gluten free, no hx of Celiac. Objective - Diagnosis Intractable Abdominal Pain, Hyponatremia - Objective % IBW: 120 (IBW = 142#) Body Weight Used for Calculations: Actual (77.6 kg) Energy Needs - Lower Range (kCal/kg): 28 Energy Needs - Upper Range (kCal/kg): 32 Lower Limit kCal/kg (kCals): 2,173 Upper Limit kCal/kg (kCals): 2,483 Lower Limit Protein Factor (Grams per Kg): 1.0 Upper Limit Protein Factor (Grams per Kg): 1.5 Lower Protein Needs (Protein): 78 Upper Protein Needs (Protein): 116 Fluid Factor (ml/kg): 32 Estimated Fluid Needs (ml): 2,483 Dietitian Reviewed in Medical Record: Current diet, Curent medications, Intake & Output, Labs, Medical history Diet Order: Full Liquid Objective Comments: Hx includes Hep C s/p treatment, CAD s/p CABG, DM, HTN 11 Colonoscopy with biopsy Esophagogastroduodenoscopy with biopsy 01/13 Diagnostic and exploratory lap with proximal transverse colectomy and liver biopsy Assessment Assessment: Pt is at high nutrition risk 2' to met liver dz, weight loss and reported poor po intake. Pt is POD #7 for resection of colon CA and diet is NPO d/t ileus and ng-t is to LIWS. To meet needs with TPN, recommend Clinimix 5/20 @ 70 mls/ hr with 20% lipids @ 10 mls/hr to provide a total of 1958 kcals and 84 gms protein. Weekly TG requested while on lipids/ Labs, wts and clinical course reviewed. Significant wt changes noted: CBW = 88.5 kg Recommendations: Diet advance per Surgery For TPN: Clinimx 5/20 @ 70 mls/hr goal Lipids: 20% lipids @ 10 mls/hr Dietitian to Monitor: Lab values, Intake & Output, Diet tolerance, TPN/PPN tolerance, Weight change, PO Intake, Diet advancement, Medical course
--- NOTE | 2018-01-19 20:19 | ECG ---
Date Performed: 01/19/2018 Time Performed: 03:46:50 PTAGE: 67 years EKG: Probable sinus tachycardia. Extensive ST-T changes are nonspecific Borderline ECG PREVIOUS TRACING : 01/16/2018 08.31 Since the previous tracing, no significant change noted DOCTOR: Tegan Joseph Interpretating Date/Time 01/19/2018 20:08:54
[2018-01-19] MEDS: Zolpidem Tartrate 5 MG Tablet PO PRN (22:43)
[2018-01-20] MEDS: Pantoprazole Inj 40 MG Vial IV.PUSH SCH ×2 (02:38→13:59)
[2018-01-20] MEDS: HYDROmorphone PF Inj 0.5 MG/0.5 ML Syringe IV.PUSH PRN ×4 (02:39→21:04)
[2018-01-20] MEDS: Metoprolol Inj 5 MG/5 ML Vial IV.PUSH SCH ×3 (05:58→21:04)
[2018-01-20 06:54] LABS: Eos % (Auto) 0.1 % (0.0-4.0); Hematocrit 31.6 % (39.0-51.0); Hemoglobin 10.1 gm/dL (13.0-17.0); Lymph # (Auto) 0.4 th/mm3 (1.0-4.8); Lymph % (Auto) 6.5 % (9.0-44.0); Mean Corpuscular Hemoglobin 23.5 pg (27.0-34.0); Mean Corpuscular Volume 73.5 fL (80.0-100.0); Mean Platelet Volume 8.3 fL (7.0-11.0); Mono # (Auto) 0.7 th/mm3 (0.0-0.9); Mono % (Auto) 11.1 % (0.0-8.0); Neut # (Auto) 5.4 th/mm3 (1.8-7.7); Neut % (Auto) 82.3 % (16.0-70.0); Platelet Count 143 th/mm3 (150-450); Red Cell Distribution Width 21.4 % (11.6-17.2); White Blood Count 6.5 th/mm3 (4.0-11.0)
[2018-01-20 07:20] LABS: Calcium 7.3 mg/dL (8.5-10.1); Carbon Dioxide 25.3 meq/L (21.0-32.0); Magnesium 2.6 mg/dL (1.5-2.5); Potassium 3.7 meq/L (3.5-5.1)
[2018-01-20 07:32] LABS: Albumin 1.9 g/dL (3.4-5.0)
[2018-01-20] MEDS ORDERED: Sodium Chloride 0.45 % Inj 1,000 ML IV.CONT SCH (08:15)
[2018-01-20] MEDS: Ferrous Sulfate 325 MG Tablet PO SCH (08:44)
[2018-01-20] MEDS: Sodium Chloride 0.9% 2 ML Flush BID IV.FLUSH SCH ×2 (08:44→20:59)
--- NOTE | 2018-01-20 09:17 | P.PN ---
Subjective Interval history: Follow-up ileus versus SBO. Positive bowel movement. NG output 400 mL. Urine output 300 mL. Patient feeling better out of bed to chair seen with family. Discussed with general surgery Physical Exam Vital signs: Vital Signs 01/19/18 09:23 01/19/18 09:53 01/19/18 09:54 Temperature Pulse Rate 99 H 99 H Respiratory Rate 16 19 Blood Pressure 181/81 H 180/75 H Pulse Oximetry 100 99 96 01/19/18 09:55 01/19/18 09:56 01/19/18 10:00 Temperature Pulse Rate 95 H 101 H Respiratory Rate 18 9 L Blood Pressure Pulse Oximetry 98 100 01/19/18 10:05 01/19/18 10:23 01/19/18 11:00 Temperature Pulse Rate 103 H 100 H 104 H Respiratory Rate 26 H 13 15 Blood Pressure 159/72 H 135/63 Pulse Oximetry 100 100 93 L 01/19/18 11:23 01/19/18 12:00 01/19/18 12:23 Temperature Pulse Rate 104 H 97 H 96 H Respiratory Rate 18 11 L 12 Blood Pressure 157/68 H 132/61 Pulse Oximetry 96 94 L 95 01/19/18 13:00 01/19/18 13:23 01/19/18 14:00 Temperature Pulse Rate 100 H 100 H 91 H Respiratory Rate 15 15 15 Blood Pressure 151/67 H Pulse Oximetry 95 97 95 01/19/18 14:23 01/19/18 15:00 01/19/18 15:37 Temperature Pulse Rate 87 97 H 105 H Respiratory Rate 12 17 20 Blood Pressure 124/57 L 157/73 H Pulse Oximetry 94 L 95 93 L 01/19/18 16:11 01/19/18 16:23 01/19/18 17:00 Temperature 97.6 F Pulse Rate 121 H 112 H 106 H Respiratory Rate 34 H 22 19 Blood Pressure 147/69 H Pulse Oximetry 95 95 01/19/18 17:08 01/19/18 17:25 01/19/18 18:00 Temperature Pulse Rate 103 H 105 H 108 H Respiratory Rate 17 18 19 Blood Pressure 140/61 Pulse Oximetry 96 96 01/19/18 18:23 01/19/18 19:00 01/19/18 19:23 Temperature Pulse Rate 109 H 107 H 99 H Respiratory Rate 18 18 14 Blood Pressure 143/65 H 136/64 Pulse Oximetry 98 96 94 L 01/19/18 20:00 01/19/18 20:23 01/19/18 20:36 Temperature 97.6 F Pulse Rate 97 H 99 H 107 H Respiratory Rate 15 16 18 Blood Pressure 133/61 Pulse Oximetry 97 96 97 01/19/18 21:00 01/19/18 21:23 18 21:35 Temperature Pulse Rate 117 H 107 H Respiratory Rate 18 19 18 Blood Pressure 175/75 H Pulse Oximetry 97 90 L 01/19/18 22:00 01/19/18 22:23 01/19/18 23:00 Temperature Pulse Rate 114 H 114 H 115 H Respiratory Rate 20 19 20 Blood Pressure 154/67 H Pulse Oximetry 80 L 96 96 01/19/18 23:23 01/20/18 00:00 01/20/18 00:29 Temperature 97.6 F Pulse Rate 115 H 116 H 115 H Respiratory Rate 19 22 22 Blood Pressure 167/76 H 149/69 H Pulse Oximetry 95 95 94 L 01/20/18 01:00 01/20/18 01:23 01/20/18 02:00 Temperature Pulse Rate 115 H 117 H 116 H Respiratory Rate 21 24 20 Blood Pressure 177/81 H Pulse Oximetry 94 L 95 95 01/20/18 02:23 01/20/18 03:00 01/20/18 03:15 Temperature Pulse Rate 121 H 113 H 115 H Respiratory Rate 24 19 18 Blood Pressure 169/81 H Pulse Oximetry 96 93 L 01/20/18 03:23 01/20/18 04:00 01/20/18 08:57 Temperature 98.6 F Pulse Rate 117 H 125 H 108 H Respiratory Rate 21 18 18 Blood Pressure 177/80 H Pulse Oximetry 100 94 L Intake & Output 01/19/18 01/20/18 01/20/18 18:59 06:59 18:59 Intake Total 3000 / 3000 Output Total 250 / 250 450 / 450 Balance -250 / -250 2550 / 2550 Weight 86.9 kg Intake: Oral 200 / 200 Anesthesia Amount 2800 / 2800 Output: Urine 300 / 300 Gastric Drainage 250 / 250 150 / 150 Right Nare Nasogastric Tube 250 / 250 150 / 150 Other: # Incontinent Voids 2 # Urine Diapers 2 Date of Last Bowel Movement 01/19/18 # Bowel Movements 1 Narrative: GENERAL: Well-developed, well-nourished with NGT in place CARDIOVASCULAR: Normal rate and regular rhythm without murmurs, gallops, or rubs. Right IJ vas cath RESPIRATORY: Breath sounds equal and clear to auscultation anteriorly. + rhonchi GASTROINTESTINAL: Midline abdominal SURI dressing in place. Abdomen is soft.+ BS. Appropriately tender GENITOURINARY: Swollen scrotum MUSCULOSKELETAL: Extremities without cyanosis BLE edema. NEURO: Alert and oriented. Moves all ext x4 - Urinary Catheter Management Indwelling Urethral Catheter Cath placed during this visit: yes, but has since been removed by the nurse Reason for continuing: Hourly intake/output Insertion date: 01/15/18 Insertion time: 03:30 Removal date: 01/14/18 Removal time: 03:20 Results - Labs CBC & Chem 7: 01/20/18 06:33 01/20/18 06:33 Laboratory Results - last 24 hr 01/19/18 01/19/18 01/20/18 10:10 10:10 06:33 WBC 6.5 RBC 4.30 L Hgb 10.1 L Hct 31.6 L MCV 73.5 L MCH 23.5 L MCHC 32.0 RDW 21.4 H Plt Count 143 L MPV 8.3 Neut % (Auto) 82.3 H Lymph % (Auto) 6.5 L [place] % (Auto) 11.1 H Eos % (Auto) 0.1 Baso % (Auto) 0.0 Neut # (Auto) 5.4 Lymph # (Auto) 0.4 L [place] # (Auto) 0.7 Eos # (Auto) 0.0 Baso # (Auto) 0.0 WBC Differential . Differential Comment Auto diff final Sodium Potassium Chloride Carbon Dioxide Anion Gap BUN Creatinine Estimated GFR Random Glucose Calcium Calcium Adj for Albumin Magnesium 2.7 H Total Bilirubin 1.0 Direct Bilirubin 0.7 H Indirect Bilirubin 0.3 AST 127 H ALT 115 H Alkaline Phosphatase 214 H Total Protein 5.5 L Albumin 2.0 L 01/20/18 06:33 WBC RBC Hgb Hct MCV MCH MCHC RDW Plt Count MPV Neut % (Auto) Lymph % (Auto) [place] % (Auto) Eos % (Auto) Baso % (Auto) Neut # (Auto) Lymph # (Auto) [place] # (Auto) Eos # (Auto) Baso # (Auto) WBC Differential Differential Comment Sodium 140 Potassium 3.7 Chloride 105 Carbon Dioxide 25.3 Anion Gap 10 BUN 73 H Creatinine 1.16 Estimated GFR 63 L Random Glucose 175 H Calcium 7.3 L* Calcium Adj for Albumin 9.0 Magnesium 2.6 H Total Bilirubin Direct Bilirubin Indirect Bilirubin AST ALT Alkaline Phosphatase Total Protein Albumin 1.9 L - Imaging ITS Impressions Chest CTA 01/06/18 11:04 CONCLUSION: 1. Nodular thickening of an azygos fissure which may be scarring however short- term follow-up may be indicated. 2. No evidence of acute airspace disease or pulmonary emboli. 3. Multiple low density lesions in the liver and enlarged left adrenal gland. Abdomen X-Ray 01/10/18 00:00 CONCLUSION: 1. Nonobstructive bowel gas pattern. Venous Doppler Study 01/14/18 00:00 CONCLUSION: 1. The study is negative for bilateral lower extremity deep venous thrombosis. Abdomen/Bladder Ultrasound 01/15/18 00:00 CONCLUSION: 1. No obstruction. The kidneys are sonographically unremarkable. 2. Metastatic lesions involving the liver previously described and better seen on the prior CT. 3. Trace amount of ascites. Catheter Placement 01/15/18 10:39 CONCLUSION: 1. Uncomplicated line placement as above. Chest X-Ray 01/18/18 12:08 CONCLUSION: No significant interval change with the bibasilar infiltrates and effusions compared to the prior examination. Abdomen/Pelvis CT 01/18/18 13:08 CONCLUSION: 1. Postoperative features of partial right hemicolectomy with decreasing postoperative free air. 2. Progressive fluid-filled slightly dilated loops of small bowel with relative transition point in the mid abdomen. Differential considerations include worsening adynamic ileus versus developing partial small bowel obstruction. 3. Redemonstration of extensive hepatic metastatic disease with stable 1.7 cm left adrenal mass. 4. Stable small bilateral pleural effusions and associated bibasilar airspace disease, presumably compressive atelectasis. - Procedures resection of colonic mass, liver biopsy and Npmija-o-Cimm placement Vas-Cath placement Assessment and Plan - Plan 67 yo Male with Liver and Left Adrenal Gland Metastasis and Hepatosplenomegaly secondary to possible primary fungating lesion at hepatic flexure identified and biopsied via colonoscopy. Hx of Hep C, in remission per pt s/p Harvoni Treatment 3yrs ago. Patient presented with persistent abdominal pain and symptoms consistent with impending obstruction. He underwent colon resection with Dr. Cotton, [id number] placement and Emeterio-Cut liver biopsy right lobe of liver x2 01/13/18. Colon cancer with metastasis to the liver and adrenal gland - S/P colon resection -s/p Colonoscopy and EGD, A near circumferential ulcerated, firm and fungating mass was found at the hepatic flexure. Multiple biopsies were performed using cold forceps. -Oncology recommended colon resection prior to initiation of palliative chemotherapy when he recovers from surgery. -General surgery following and patient underwent colon resection, liver biopsy and port placement -Diet per surgery. Pain control dw GS, dc FLORICULTURIST ct Percocet and IV dilaudid, will decrease doses -Follow-up abdomen CT shows worsening ileus versus partial SBO. Improving positive bowel movement. Will monitor increase activity (patient encouraged) Ct IVF for now. Reglan started. Minimize use of narcotics, reiterated to pt -Discussed with general surgery, clamp NGT today if residual less than 250 cc we will removed NG. Ice chips for now advance as tolerated. Consider TPN/PPN dietitian consult. CXR unchanged ABG unremarkable Hyponatremia - Likely hypovolemic hyponatremia. Liver disease may be contributing. - Stable. Continue to monitor. - Follow labs. Acute kidney injury with persistent hyperkalemia and anuria despite aggressive IV hydration and multiple treatments for hyperkalemia. Underwent hemodialysis x 2 . This is resolving. Cautious IV hydration monitor for fluid overload. Dc Elbert pt request. Avoid nephrotoxins. Discontinue Vas-Cath if okay with nephrology Iron Deficiency Anemia -Continue Iron Supplement Type 2 diabetes Metformin held Continue Sliding scale insulin with Accu-Cheks as ordered History of CAD/CABG Continue beta-moshe. Hold Lipitor secondary to transaminitis. Restart Asa if ok with GS Monitor for EKG changes Unremarkable ECHO Hypertension Stable, Continue beta-moshe Monitor BP and HR insomnia: -Patient was taking Ambien from home in the hospital along with trazodone. He has been lethargic at times. He does better with Ambien and trazodone does not help him much. I advised him to not use medications from home while in the hospital. Trazodone discontinued and he can use Ambien at night as needed for insomnia. Added vistaril for anxiety Hx of Hepatitis C Treated heather/ Harvoni 4yrs ago, reportedly in remission LFTs elevated which is likely to liver metastasis and/or statins/fibrate therapy. Worse status post liver biopsy. Could also be ischemic. Improving GERD. + H pylori. Increase PPI add Tums. Antireflux dw pt. Start quadruple tx when tolerating reg diet. Clarithromycin has significant interactions BLE edema. US doppler negative for DVT. SQ heparin for proph when cleared by general surgery GI prophylaxis -Stool softener PRN constipation. Discharge Planning: Dw Onc, poor prognosis. May transfer to medical floor
--- NOTE | 2018-01-20 09:36 | P.PNNP ---
Subjective Interval history: renal function has improved. Has NG tube connected to suction. He apparently has had a bowel movement yesterday and again one today. Physical Exam Vital signs: Vital Signs 01/19/18 09:53 01/19/18 09:54 01/19/18 09:55 Temperature Pulse Rate 99 H 95 H Respiratory Rate 19 18 Blood Pressure 180/75 H Pulse Oximetry 99 96 01/19/18 09:56 01/19/18 10:00 01/19/18 10:05 Temperature Pulse Rate 101 H 103 H Respiratory Rate 9 L 26 H Blood Pressure 159/72 H Pulse Oximetry 98 100 100 01/19/18 10:23 01/19/18 11:00 01/19/18 11:23 Temperature Pulse Rate 100 H 104 H 104 H Respiratory Rate 13 15 18 Blood Pressure 135/63 157/68 H Pulse Oximetry 100 93 L 96 01/19/18 12:00 01/19/18 12:23 01/19/18 13:00 Temperature Pulse Rate 97 H 96 H 100 H Respiratory Rate 11 L 12 15 Blood Pressure 132/61 Pulse Oximetry 94 L 95 95 01/19/18 13:23 01/19/18 14:00 01/19/18 14:23 Temperature Pulse Rate 100 H 91 H 87 Respiratory Rate 15 15 12 Blood Pressure 151/67 H 124/57 L Pulse Oximetry 97 95 94 L 01/19/18 15:00 01/19/18 15:37 01/19/18 16:11 Temperature 97.6 F Pulse Rate 97 H 105 H 121 H Respiratory Rate 17 20 34 H Blood Pressure 157/73 H Pulse Oximetry 95 93 L 01/19/18 16:23 01/19/18 17:00 01/19/18 17:08 Temperature Pulse Rate 112 H 106 H 103 H Respiratory Rate 22 19 17 Blood Pressure 147/69 H Pulse Oximetry 95 95 01/19/18 17:25 01/19/18 18:00 01/19/18 18:23 Temperature Pulse Rate 105 H 108 H 109 H Respiratory Rate 18 19 18 Blood Pressure 140/61 143/65 H Pulse Oximetry 96 96 98 01/19/18 19:00 01/19/18 19:23 01/19/18 20:00 Temperature 97.6 F Pulse Rate 107 H 99 H 97 H Respiratory Rate 18 14 15 Blood Pressure 136/64 133/61 Pulse Oximetry 96 94 L 97 01/19/18 20:23 01/19/18 20:36 01/19/18 21:00 Temperature Pulse Rate 99 H 107 H 117 H Respiratory Rate 16 18 18 Blood Pressure Pulse Oximetry 96 97 97 01/19/18 21:23 01/19/18 21:35 01/19/18 22:00 Temperature Pulse Rate 107 H 114 H Respiratory Rate 19 18 20 Blood Pressure 175/75 H Pulse Oximetry 90 L 80 L 01/19/18 22:23 01/19/18 23:00 01/19/18 23:23 Temperature Pulse Rate 114 H 115 H 115 H Respiratory Rate 19 20 19 Blood Pressure 154/67 H 167/76 H Pulse Oximetry 96 96 95 01/20/18 00:00 01/20/18 00:29 01/20/18 01:00 Temperature 97.6 F Pulse Rate 116 H 115 H 115 H Respiratory Rate 22 22 21 Blood Pressure 149/69 H Pulse Oximetry 95 94 L 94 L 01/20/18 01:23 01/20/18 02:00 01/20/18 02:23 Temperature Pulse Rate 117 H 116 H 121 H Respiratory Rate 24 20 24 Blood Pressure 177/81 H 169/81 H Pulse Oximetry 95 95 96 01/20/18 03:00 01/20/18 03:15 01/20/18 03:23 Temperature Pulse Rate 113 H 115 H 117 H Respiratory Rate 19 18 21 Blood Pressure 177/80 H Pulse Oximetry 93 L 100 01/20/18 04:00 01/20/18 08:57 Temperature 98.6 F Pulse Rate 125 H 108 H Respiratory Rate 18 18 Blood Pressure Pulse Oximetry 94 L Intake & Output 01/19/18 01/20/18 01/20/18 18:59 06:59 18:59 Intake Total 3000 / 3000 Output Total 250 / 250 450 / 450 Balance -250 / -250 2550 / 2550 Weight 86.9 kg Intake: Oral 200 / 200 Anesthesia Amount 2800 / 2800 Output: Urine 300 / 300 Gastric Drainage 250 / 250 150 / 150 Right Nare Nasogastric Tube 250 / 250 150 / 150 Other: # Incontinent Voids 2 # Urine Diapers 2 Date of Last Bowel Movement 01/19/18 # Bowel Movements 1 Narrative: GENERAL: Well-developed, frail, malnourished, with NGT in place CARDIOVASCULAR: Normal rate and regular rhythm without murmurs, gallops, or rubs. Right IJ vas cath RESPIRATORY: Breath sounds equal and clear to auscultation anteriorly. + rhonchi GASTROINTESTINAL: Midline abdominal SURI dressing in place. Distended. Soft. MUSCULOSKELETAL: 1+ edema. No focal deficits. - Urinary Catheter Management Indwelling Urethral Catheter Cath placed during this visit: yes, but has since been removed by the nurse Reason for continuing: Hourly intake/output Insertion date: 01/15/18 Insertion time: 03:30 Removal date: 01/14/18 Removal time: 03:20 Assessment and Plan - Assessment (1) Acute kidney failure Code(s): N17.9 - Acute kidney failure, unspecified Status: Acute Plan: Renal function has improved. No need for dialysis. I have stopped Lasix as he now has NG tube, and had significant output in the past 24 hours. VasCath can be removed tomorrow if renal function remains stable. Monitor fluid and electrolytes. Avoid nephrotoxic agents. Stop IVF if ileus resolves and he is able to take orally. - Plan Colon cancer with metastasis to the liver and adrenal gland s/p Colonoscopy and EGD, A near circumferential ulcerated, firm and fungating mass was found at the hepatic flexure. Oncology recommended colon resection prior to initiation of palliative chemotherapy when he recovers from surgery. General surgery following and patient underwent [id number] placement, Resection of hepatic flexure of the colon, Emeterio-Cut liver biopsy right lobe of liver x2. Follow-up abdomen CT showed recent laparotomy and right hemicolectomy with subcutaneous air in the anterior abdominal wall and a small amount of free air, extensive metastatic disease in the liver, stable enlarged left adrenal gland, new small bilateral pleural effusions and basilar atelectasis and mild ileus. Hypertension Monitor BP. Continue medications. Iron Deficiency Anemia Patient on Iron Supplement. Type 2 diabetes Continue insulin to maintain blood glucose level between 140 and 180.
--- NOTE | 2018-01-20 10:12 | P.PNONC ---
Subjective Interval history: Pt awake, resting in bed. Reports continued abdominal pain, denies nausea. States he just had a BM and is waiting for his nurse to clean him up. Objective Vital Signs/Intake & Output: Vital Signs 01/19/18 10:23 01/19/18 11:00 01/19/18 11:23 Temperature Pulse Rate 100 H 104 H 104 H Respiratory Rate 13 15 18 Blood Pressure 135/63 157/68 H Pulse Oximetry 100 93 L 96 01/19/18 12:00 01/19/18 12:23 01/19/18 13:00 Temperature Pulse Rate 97 H 96 H 100 H Respiratory Rate 11 L 12 15 Blood Pressure 132/61 Pulse Oximetry 94 L 95 95 01/19/18 13:23 01/19/18 14:00 01/19/18 14:23 Temperature Pulse Rate 100 H 91 H 87 Respiratory Rate 15 15 12 Blood Pressure 151/67 H 124/57 L Pulse Oximetry 97 95 94 L 01/19/18 15:00 01/19/18 15:37 01/19/18 16:11 Temperature 97.6 F Pulse Rate 97 H 105 H 121 H Respiratory Rate 17 20 34 H Blood Pressure 157/73 H Pulse Oximetry 95 93 L 01/19/18 16:23 01/19/18 17:00 01/19/18 17:08 Temperature Pulse Rate 112 H 106 H 103 H Respiratory Rate 22 19 17 Blood Pressure 147/69 H Pulse Oximetry 95 95 01/19/18 17:25 01/19/18 18:00 01/19/18 18:23 Temperature Pulse Rate 105 H 108 H 109 H Respiratory Rate 18 19 18 Blood Pressure 140/61 143/65 H Pulse Oximetry 96 96 98 01/19/18 19:00 01/19/18 19:23 01/19/18 20:00 Temperature 97.6 F Pulse Rate 107 H 99 H 97 H Respiratory Rate 18 14 15 Blood Pressure 136/64 133/61 Pulse Oximetry 96 94 L 97 01/19/18 20:23 01/19/18 20:36 01/19/18 21:00 Temperature Pulse Rate 99 H 107 H 117 H Respiratory Rate 16 18 18 Blood Pressure Pulse Oximetry 96 97 97 01/19/18 21:23 01/19/18 21:35 01/19/18 22:00 Temperature Pulse Rate 107 H 114 H Respiratory Rate 19 18 20 Blood Pressure 175/75 H Pulse Oximetry 90 L 80 L 01/19/18 22:23 01/19/18 23:00 01/19/18 23:23 Temperature Pulse Rate 114 H 115 H 115 H Respiratory Rate 19 20 19 Blood Pressure 154/67 H 167/76 H Pulse Oximetry 96 96 95 01/20/18 00:00 01/20/18 00:29 01/20/18 01:00 Temperature 97.6 F Pulse Rate 116 H 115 H 115 H Respiratory Rate 22 22 21 Blood Pressure 149/69 H Pulse Oximetry 95 94 L 94 L 01/20/18 01:23 01/20/18 02:00 01/20/18 02:23 Temperature Pulse Rate 117 H 116 H 121 H Respiratory Rate 24 20 24 Blood Pressure 177/81 H 169/81 H Pulse Oximetry 95 95 96 01/20/18 03:00 01/20/18 03:15 01/20/18 03:23 Temperature Pulse Rate 113 H 115 H 117 H Respiratory Rate 19 18 21 Blood Pressure 177/80 H Pulse Oximetry 93 L 100 01/20/18 04:00 01/20/18 08:00 01/20/18 08:57 Temperature 98.6 F Pulse Rate 125 H 108 H Respiratory Rate 18 18 Blood Pressure Pulse Oximetry 94 L 95 Intake & Output 01/19/18 01/20/18 01/20/18 18:59 06:59 18:59 Intake Total 3000 / 3000 Output Total 250 / 250 450 / 450 Balance -250 / -250 2550 / 2550 Weight 86.9 kg Intake: Oral 200 / 200 Anesthesia Amount 2800 / 2800 Output: Urine 300 / 300 Gastric Drainage 250 / 250 150 / 150 Right Nare Nasogastric Tube 250 / 250 150 / 150 Other: # Incontinent Voids 2 # Urine Diapers 2 Date of Last Bowel Movement 01/19/18 # Bowel Movements 1 Result Diagrams: 01/20/18 06:33 01/20/18 06:33 Laboratory Results: Laboratory Results - last 24 hr 01/19/18 01/19/18 01/20/18 10:10 10:10 06:33 WBC 6.5 RBC 4.30 L Hgb 10.1 L Hct 31.6 L MCV 73.5 L MCH 23.5 L MCHC 32.0 RDW 21.4 H Plt Count 143 L MPV 8.3 Neut % (Auto) 82.3 H Lymph % (Auto) 6.5 L [place] % (Auto) 11.1 H Eos % (Auto) 0.1 Baso % (Auto) 0.0 Neut # (Auto) 5.4 Lymph # (Auto) 0.4 L [place] # (Auto) 0.7 Eos # (Auto) 0.0 Baso # (Auto) 0.0 WBC Differential . Differential Comment Auto diff final Sodium Potassium Chloride Carbon Dioxide Anion Gap BUN Creatinine Estimated GFR Random Glucose Calcium Calcium Adj for Albumin Magnesium 2.7 H Total Bilirubin 1.0 Direct Bilirubin 0.7 H Indirect Bilirubin 0.3 AST 127 H ALT 115 H Alkaline Phosphatase 214 H Total Protein 5.5 L Albumin 2.0 L 01/20/18 06:33 WBC RBC Hgb Hct MCV MCH MCHC RDW Plt Count MPV Neut % (Auto) Lymph % (Auto) [place] % (Auto) Eos % (Auto) Baso % (Auto) Neut # (Auto) Lymph # (Auto) [place] # (Auto) Eos # (Auto) Baso # (Auto) WBC Differential Differential Comment Sodium 140 Potassium 3.7 Chloride 105 Carbon Dioxide 25.3 Anion Gap 10 BUN 73 H Creatinine 1.16 Estimated GFR 63 L Random Glucose 175 H Calcium 7.3 L* Calcium Adj for Albumin 9.0 Magnesium 2.6 H Total Bilirubin Direct Bilirubin Indirect Bilirubin AST ALT Alkaline Phosphatase Total Protein Albumin 1.9 L Culture Results: Microbiology 01/15/18 04:35 Urine Culture - Final Catheterized Urine No growth in 48 hours Medications: Active Medications Generic Name Dose Route Start Last Admin Trade Name Freq PRN Reason Stop Dose Admin Albuterol 1 ampul 01/18/18 16:00 01/20/18 08:56 Duoneb Neb ([facility]) NEB 1 ampul Q6HR [facility] Administration Aspirin 81 mg 01/07/18 09:00 01/10/18 10:20 Ecotrin PO 81 mg DAILY MALCOL[place] Administration Calcium Carbonate 500 mg 01/17/18 12:16 01/17/18 20:43 Tums Chew CHEW 500 mg Q6H PRN Administration DYSPEPSIA OR HEARTBURN Ferrous Sulfate 325 mg 01/07/18 09:00 01/20/18 08:44 Ferosul PO Not Given DAILY MALCOL[place] Gentamicin Sulfate 20 mg 01/15/18 10:40 01/15/18 16:46 Gentamicin Inj OTHER 20 mg WITH DIALYSIS PRN Administration Dwell Gentamycin Lock Heparin Sodium (Porcine) 5,000 units 01/14/18 14:15 01/15/18 08:29 Heparin Inj SQ 5,000 units Q12HR [facility]COL[place] Administration Heparin Sodium (Porcine) 1,000 units 01/15/18 10:40 01/15/18 16:47 Heparin Inj OTHER 1,000 units WITH DIALYSIS PRN Administration Dwell Heparin to Fill Catheter Hydromorphone HCl 0.5 mg 01/19/18 11:53 01/20/18 08:43 Dilaudid Pf Inj IV.PUSH 0.5 mg Q6H PRN Administration breakthrough pain Hydroxyzine Pamoate 25 mg 01/17/18 12:20 01/17/18 23:34 Vistaril PO 25 mg Q8H PRN Administration ANXIETY AND/OR AGITATION Albumin Human 100 mls @ 60 mls/hr 01/15/18 10:40 01/16/18 10:56 Flexbumin 25% Inj IV.SIG Infused WITH DIALYSIS PRN Infusion hypotension / volume replace Sodium Chloride 1,000 mls @ 65 mls/hr 01/20/18 08:15 01/20/18 08:44 1/2 Normal Saline Inj IV.CONT 65 mls/hr .[id number] MALCOLM Administration Lactulose 30 ml 01/06/18 15:47 01/09/18 14:31 Lactulose Liq PO 30 ml DAILY PRN Administration SEVERE CONSITIPATION Metoclopramide HCl 5 mg 01/18/18 21:00 01/20/18 05:57 Reglan Inj IV.PUSH 5 mg Q8H [place]COL[place] Administration Protocol Metoprolol Tartrate 2.5 mg 01/18/18 14:00 01/20/18 05:58 Lopressor Inj IV.PUSH 2.5 mg Q8H [facility] Administration Ondansetron HCl 4 mg 01/06/18 15:47 01/20/18 06:08 Zofran Inj IV.PUSH 4 mg Q6H PRN Administration NAUSEA OR VOMITING Pantoprazole Sodium 40 mg 01/18/18 14:00 01/20/18 02:38 Protonix Inj IV.PUSH 40 mg Q12H [place] Administration Sennosides 17.2 mg 01/06/18 15:47 01/09/18 12:39 Senokot PO 17.2 mg Q12H PRN Administration Moderate Constipation Simethicone 125 mg 01/16/18 22:35 01/17/18 08:59 Phazyme Chew PO 125 mg TID PRN Administration gas relief Sodium Chloride 2 ml 01/13/18 09:00 01/20/18 08:44 Ns Flush IV.FLUSH 2 ml BID [facility]COL[place] Administration Sodium Chloride 2 ml 01/13/18 08:20 01/17/18 17:48 Ns Flush IV.FLUSH 2 ml PRN PRN Administration FLUSH AFTER USING IV ACCESS Zolpidem Tartrate 5 mg 01/11/18 15:25 01/19/18 22:43 Ambien PO 5 mg HS PRN Administration INSOMNIA Objective Remarks: GENERAL: Ill-appearing male patient, in no acute distress. SKIN: Warm and dry. surgical drsg to mid abdomen HEAD: Normocephalic. EYES: No scleral icterus. No injection or drainage. NECK: Supple, trachea midline. CARDIOVASCULAR: Regular rate and rhythm without murmurs. RESPIRATORY: Breath sounds equal bilaterally. No accessory muscle use. GASTROINTESTINAL: Abdomen large, distended. Surgical site no bleeding noted. EXTREMITIES: No cyanosis, or edema. SCD's in place. MUSCULOSKELETAL: Adequate muscle tone. NEUROLOGICAL: Awake and alert. Assessment/Plan - Plan 1. Multiple liver masses worrisome for metastatic disease. He has had right upper quadrant pain intermittently for several months. Over the last 4 weeks the pain become more constant. He also has nausea and vomiting. He lost about 10 pounds. He had anemia with microcytosis worrisome for iron deficiency anemia. He, however, denies any gross gastrointestinal bleed. His colonoscopy 4 years ago did not show any masses, but reportedly had polyps. CT of the chest did not show any metastatic disease. A CT of the abdomen and pelvis showed numerous hepatic lesions, largest measured 7 cm. There were also multiple retroperitoneal enlarged lymph nodes. There was an enlarged left adrenal gland lesion measured 4.1 cm, which could also be metastatic disease. I suspect he possibly has a primary GI tumor. January 07: CEA elevated at 42.9 with normal alpha-fetoprotein and CA 19 9. This is suggestive of primary GI tumor. He is going to have EGD and colonoscopy today. January 08:. Colonoscopy yesterday showed near circumferential mass at the hepatic flexure Worrisome for colon cancer. Biopsy was done and pathology is pending at this time. It appears that patient has primary colon cancer with metastasis to liver. EGD did not show any obvious mass. January 09: Biopsy from colonic mass is still pending. 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 Gastric cancer cannot be ruled out but EGD did not reveal any gastric mass. Patient is going to have surgery today for impending obstruction. He is also going to have port placement for eventual chemotherapy. January 14: Postop day 1. Patient had resection of hepatic flexure colonic mass and liver biopsy. He also had port placement. During surgery large tumor burden was noted in the liver with a small tumor in the hepatic flexure causing partial obstruction. The omentum was fixed to the liver mass. Final pathology pending. January 15: Postop day 2. Worsening renal function, patient going for dialysis today. Potassium 6.3, currently being treated for this, nephrology has been consulted. Liver enzymes have increased significantly. Total bilirubin 1.0. January 16: Postop day 3. Patient had worsening renal function and started dialysis yesterday. Liver enzymes are still elevated. Final pathology from colon resection and liver biopsy is still pending. January 17: Postop day 4. Liver pathology shows metastatic disease with colonic primary January 18: Postop day 5. Patient is mildly confused which may be medication induced. His liver enzymes continue to trend down. Creatinine stable. He is scheduled for dialysis tomorrow. 2. Left adrenal gland lesion measured 4.1 cm. This could be metastatic disease and less likely to be a primary tumor. 3. Anemia with microcytosis suggestive of iron deficiency anemia. The patient denies any gross gastrointestinal bleed. 4. History of hepatitis C, treated with Harvoni 4 years ago, reportedly went into remission. His liver enzymes trended up again which could be due to metastatic disease in the liver versus activation hepatitis C and liver biopsy. Liver enzyme is trending down. RECOMMENDATIONS: 1. Colonic mass showed poorly differentiated carcinoma, liver biopsy shows colonic primary. Family is planning to take patient back to [place] for palliative treatment, once recovered. 2. Acute kidney injury with hyperkalemia, improving. Management per attending and nephrology. 3. Postop ileus, now with NG tube. 4. Pain management per attending. - Attending Statement The exam, history, and the medical decision-making described in the above note were completed with the assistance of the mid-level provider. I reviewed and agree with the findings presented. I attest that I had a [id number] encounter with the patient on the same day, and personally performed and documented my assessment and findings in the medical record. Patient is mildly confused but improved. He had a bowel movement. His abdomen is still distended. NG tube is still in place. Liver enzyme have trended down. His kidney function is stable. He is awaiting for more dialysis. Continue supportive care. He will need palliative chemotherapy once his condition improved and when he is stronger.
--- NOTE | 2018-01-20 12:23 | P.PNGS ---
Subjective Interval history: Up to chair Family at bedside +BM Less painful according to patient. Physical Exam Vital signs: Vital Signs 01/19/18 12:23 01/19/18 13:00 01/19/18 13:23 Temperature Pulse Rate 96 H 100 H 100 H Respiratory Rate 12 15 15 Blood Pressure 132/61 151/67 H Pulse Oximetry 95 95 97 01/19/18 14:00 01/19/18 14:23 01/19/18 15:00 Temperature Pulse Rate 91 H 87 97 H Respiratory Rate 15 12 17 Blood Pressure 124/57 L Pulse Oximetry 95 94 L 95 01/19/18 15:37 01/19/18 16:11 01/19/18 16:23 Temperature 97.6 F Pulse Rate 105 H 121 H 112 H Respiratory Rate 20 34 H 22 Blood Pressure 157/73 H 147/69 H Pulse Oximetry 93 L 95 01/19/18 17:00 01/19/18 17:08 01/19/18 17:25 Temperature Pulse Rate 106 H 103 H 105 H Respiratory Rate 19 17 18 Blood Pressure 140/61 Pulse Oximetry 95 96 01/19/18 18:00 01/19/18 18:23 01/19/18 19:00 Temperature Pulse Rate 108 H 109 H 107 H Respiratory Rate 19 18 18 Blood Pressure 143/65 H Pulse Oximetry 96 98 96 01/19/18 19:23 01/19/18 20:00 01/19/18 20:23 Temperature 97.6 F Pulse Rate 99 H 97 H 99 H Respiratory Rate 14 15 16 Blood Pressure 136/64 133/61 Pulse Oximetry 94 L 97 96 01/19/18 20:36 01/19/18 21:00 01/19/18 21:23 Temperature Pulse Rate 107 H 117 H 107 H Respiratory Rate 18 18 19 Blood Pressure 175/75 H Pulse Oximetry 97 97 90 L 01/19/18 21:35 01/19/18 22:00 01/19/18 22:23 Temperature Pulse Rate 114 H 114 H Respiratory Rate 18 20 19 Blood Pressure 154/67 H Pulse Oximetry 80 L 96 01/19/18 23:00 18 23:23 01/20/18 00:00 Temperature 97.6 F Pulse Rate 115 H 115 H 116 H Respiratory Rate 20 19 22 Blood Pressure 167/76 H 149/69 H Pulse Oximetry 96 95 95 01/20/18 00:29 01/20/18 01:00 01/20/18 01:23 Temperature Pulse Rate 115 H 115 H 117 H Respiratory Rate 22 21 24 Blood Pressure 177/81 H Pulse Oximetry 94 L 94 L 95 01/20/18 02:00 01/20/18 02:23 01/20/18 03:00 Temperature Pulse Rate 116 H 121 H 113 H Respiratory Rate 20 24 19 Blood Pressure 169/81 H Pulse Oximetry 95 96 93 L 01/20/18 03:15 01/20/18 03:23 01/20/18 04:00 Temperature 98.6 F Pulse Rate 115 H 117 H 125 H Respiratory Rate 18 21 18 Blood Pressure 177/80 H Pulse Oximetry 100 94 L 01/20/18 08:00 01/20/18 08:57 Temperature Pulse Rate 108 H Respiratory Rate 18 Blood Pressure Pulse Oximetry 95 Intake & Output 01/19/18 01/20/18 01/20/18 18:59 06:59 18:59 Intake Total 3000 / 3000 Output Total 250 / 250 450 / 450 Balance -250 / -250 2550 / 2550 Weight 86.9 kg Intake: Oral 200 / 200 Anesthesia Amount 2800 / 2800 Output: Urine 300 / 300 Gastric Drainage 250 / 250 150 / 150 Right Nare Nasogastric Tube 250 / 250 150 / 150 Other: # Incontinent Voids 2 # Urine Diapers 2 Date of Last Bowel Movement 01/19/18 # Bowel Movements 1 Narrative: Alert and awake Abd: much softer today on exam; minimally tender to palpation; SURI in place Generalized edema improved - Routine Abdominal Exam Present: soft, distended, wound (suri with moderate old dry drainage present) - Urinary Catheter Management Indwelling Urethral Catheter Cath placed during this visit: yes, but has since been removed by the nurse Reason for continuing: Hourly intake/output Insertion date: 01/15/18 Insertion time: 03:30 Removal date: 01/14/18 Removal time: 03:20 Results - Labs 01/20/18 06:33 01/20/18 06:33 Laboratory Results - last 24 hr 01/19/18 01/20/18 01/20/18 10:10 06:33 06:33 WBC 6.5 RBC 4.30 L Hgb 10.1 L Hct 31.6 L MCV 73.5 L MCH 23.5 L MCHC 32.0 RDW 21.4 H Plt Count 143 L MPV 8.3 Neut % (Auto) 82.3 H Lymph % (Auto) 6.5 L [place] % (Auto) 11.1 H Eos % (Auto) 0.1 Baso % (Auto) 0.0 Neut # (Auto) 5.4 Lymph # (Auto) 0.4 L [place] # (Auto) 0.7 Eos # (Auto) 0.0 Baso # (Auto) 0.0 WBC Differential . Differential Comment Auto diff final Sodium 140 Potassium 3.7 Chloride 105 Carbon Dioxide 25.3 Anion Gap 10 BUN 73 H Creatinine 1.16 Estimated GFR 63 L Random Glucose 175 H Calcium 7.3 L* Calcium Adj for Albumin 9.0 Magnesium 2.6 H Total Bilirubin 1.0 Direct Bilirubin 0.7 H Indirect Bilirubin 0.3 AST 127 H ALT 115 H Alkaline Phosphatase 214 H Total Protein 5.5 L Albumin 2.0 L 1.9 L - Imaging Imaging: ITS Impressions Chest CTA 01/06/18 11:04 CONCLUSION: 1. Nodular thickening of an azygos fissure which may be scarring however short- term follow-up may be indicated. 2. No evidence of acute airspace disease or pulmonary emboli. 3. Multiple low density lesions in the liver and enlarged left adrenal gland. Abdomen X-Ray 01/10/18 00:00 CONCLUSION: 1. Nonobstructive bowel gas pattern. Venous Doppler Study 01/14/18 00:00 CONCLUSION: 1. The study is negative for bilateral lower extremity deep venous thrombosis. Abdomen/Bladder Ultrasound 01/15/18 00:00 CONCLUSION: 1. No obstruction. The kidneys are sonographically unremarkable. 2. Metastatic lesions involving the liver previously described and better seen on the prior CT. 3. Trace amount of ascites. Catheter Placement 01/15/18 10:39 CONCLUSION: 1. Uncomplicated line placement as above. Chest X-Ray 01/18/18 12:08 CONCLUSION: No significant interval change with the bibasilar infiltrates and effusions compared to the prior examination. Abdomen/Pelvis CT 01/18/18 13:08 CONCLUSION: 1. Postoperative features of partial right hemicolectomy with decreasing postoperative free air. 2. Progressive fluid-filled slightly dilated loops of small bowel with relative transition point in the mid abdomen. Differential considerations include worsening adynamic ileus versus developing partial small bowel obstruction. 3. Redemonstration of extensive hepatic metastatic disease with stable 1.7 cm left adrenal mass. 4. Stable small bilateral pleural effusions and associated bibasilar airspace disease, presumably compressive atelectasis. 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 Deras (nephrology); no further dialysis needed at the present time. Abdomen is still distended, but less so, and patient has had liquid BM's SURI dressing intact with no change Will go slowly with diet, as he still appears to have some residual ileus The exam, history, and the medical decision-making described in the above note were completed with the assistance of the mid-level provider. I reviewed and agree with the findings presented. I attest that I had a [id number] encounter with the patient on the same day, and personally performed and documented my assessment and findings in the medical record.
[2018-01-20] MEDS: Heparin - SQ 10,000 UNITS/ML Vial SQ SCH (20:57)
[2018-01-20] MEDS: Zolpidem Tartrate 5 MG Tablet PO PRN (23:58)
[2018-01-21] MEDS: Pantoprazole Inj 40 MG Vial IV.PUSH SCH ×2 (01:36→13:54)
[2018-01-21] MEDS: HYDROmorphone PF Inj 0.5 MG/0.5 ML Syringe IV.PUSH PRN ×3 (02:55→14:50)
[2018-01-21] MEDS: Metoprolol Inj 5 MG/5 ML Vial IV.PUSH SCH ×3 (05:14→21:51)
[2018-01-21 06:03] LABS: Calcium 7.2 mg/dL (8.5-10.1); Carbon Dioxide 25.9 meq/L (21.0-32.0); Magnesium 2.5 mg/dL (1.5-2.5); Potassium 3.9 meq/L (3.5-5.1)
[2018-01-21 06:10] LABS: Calcium-Albumin Corrected 8.8 mg/dL (8.5-10.1)
[2018-01-21] MEDS: Ferrous Sulfate 325 MG Tablet PO SCH (08:36)
[2018-01-21] MEDS: Sodium Chloride 0.9% 2 ML Flush BID IV.FLUSH SCH ×2 (08:36→21:48)
[2018-01-21] MEDS: Heparin - SQ 10,000 UNITS/ML Vial SQ SCH (08:36)
--- NOTE | 2018-01-21 10:19 | P.PNGS ---
Subjective Interval history: Resting in bed Reports BM this AM Thirsty Physical Exam Vital signs: Vital Signs 01/20/18 10:34 01/20/18 11:00 01/20/18 11:23 Temperature Pulse Rate 116 H 121 H 119 H Respiratory Rate 22 20 26 H Blood Pressure 134/63 178/84 H Pulse Oximetry 96 98 95 01/20/18 12:00 01/20/18 12:23 01/20/18 13:00 Temperature 98.5 F Pulse Rate 120 H 120 H 103 H Respiratory Rate 23 24 23 Blood Pressure 174/80 H Pulse Oximetry 97 98 96 01/20/18 13:23 01/20/18 14:00 01/20/18 14:23 Temperature Pulse Rate 103 H 109 H 109 H Respiratory Rate 22 23 22 Blood Pressure 167/77 H 187/88 H Pulse Oximetry 96 95 95 01/20/18 14:41 01/20/18 14:46 01/20/18 15:00 Temperature Pulse Rate 109 H 106 H 104 H Respiratory Rate 23 19 17 Blood Pressure 182/86 H 155/75 H Pulse Oximetry 86 L 97 100 01/20/18 15:01 01/20/18 15:16 01/20/18 15:31 Temperature Pulse Rate 103 H 103 H 104 H Respiratory Rate 17 17 18 Blood Pressure 155/74 H 153/79 H 146/73 H Pulse Oximetry 100 100 100 01/20/18 16:10 01/20/18 16:15 01/20/18 17:00 Temperature 98.5 F Pulse Rate 124 H 117 H 108 H Respiratory Rate 23 23 18 Blood Pressure 148/72 H Pulse Oximetry 95 95 95 01/20/18 17:16 01/20/18 18:00 01/20/18 19:00 Temperature Pulse Rate 89 112 H 113 H Respiratory Rate 20 21 21 Blood Pressure Pulse Oximetry 96 98 01/20/18 20:00 01/20/18 20:46 01/20/18 21:00 Temperature 97.4 F L Pulse Rate 112 H 114 H 114 H Respiratory Rate 23 26 H 22 Blood Pressure 157/72 H Pulse Oximetry 98 99 97 01/20/18 21:18 01/20/18 22:00 01/20/18 23:00 Temperature Pulse Rate 117 H 103 H 112 H Respiratory Rate 22 17 23 Blood Pressure Pulse Oximetry 97 100 97 01/21/18 00:00 01/21/18 00:18 01/21/18 01:00 Temperature 97.2 F L Pulse Rate 112 H 111 H 116 H Respiratory Rate 22 20 23 Blood Pressure 134/64 Pulse Oximetry 98 99 100 01/21/18 02:00 01/21/18 03:00 01/21/18 04:00 Temperature 97.8 F Pulse Rate 107 H 116 H 125 H Respiratory Rate 18 23 Blood Pressure Pulse Oximetry 94 L 96 01/21/18 04:02 01/21/18 07:00 01/21/18 08:00 Temperature 98.2 F Pulse Rate 125 H 120 H 107 H Respiratory Rate 22 27 H 21 Blood Pressure 157/74 H 178/81 H Pulse Oximetry 96 96 99 01/21/18 08:09 01/21/18 08:26 01/21/18 08:28 Temperature Pulse Rate 114 H 109 H Respiratory Rate 23 16 Blood Pressure 165/72 H Pulse Oximetry 97 98 Intake & Output 01/20/18 01/21/18 01/21/18 18:59 06:59 18:59 Intake Total 100 / 100 Output Total 300 / 300 Balance -200 / -200 Weight 86.2 kg Intake: Oral 100 / 100 Output: Gastric Drainage 300 / 300 Right Nare Nasogastric Tube 300 / 300 Other: # Urine Diapers 3 4 Date of Last Bowel Movement 01/20/18 01/21/18 # Bowel Movements 3 1 Narrative: Alert and awake Abd: mildly distended although improved; SURI removed; minimall tender Generalized edema improving - Urinary Catheter Management Indwelling Urethral Catheter Cath placed during this visit: yes, but has since been removed by the nurse Reason for continuing: Hourly intake/output Insertion date: 01/15/18 Insertion time: 03:30 Removal date: 01/14/18 Removal time: 03:20 Results - Labs 01/20/18 06:33 01/21/18 05:07 Laboratory Results - last 24 hr 01/21/18 05:07 Sodium 139 Potassium 3.9 Chloride 103 Carbon Dioxide 25.9 Anion Gap 10 BUN 58 H Creatinine 0.95 Estimated GFR 79 L Random Glucose 155 H Calcium 7.2 L* Calcium Adj for Albumin 8.8 Magnesium 2.5 Albumin 2.0 L - Imaging Imaging: ITS Impressions Chest CTA 01/06/18 11:04 CONCLUSION: 1. Nodular thickening of an azygos fissure which may be scarring however short- term follow-up may be indicated. 2. No evidence of acute airspace disease or pulmonary emboli. 3. Multiple low density lesions in the liver and enlarged left adrenal gland. Abdomen X-Ray 01/10/18 00:00 CONCLUSION: 1. Nonobstructive bowel gas pattern. Venous Doppler Study 01/14/18 00:00 CONCLUSION: 1. The study is negative for bilateral lower extremity deep venous thrombosis. Abdomen/Bladder Ultrasound 01/15/18 00:00 CONCLUSION: 1. No obstruction. The kidneys are sonographically unremarkable. 2. Metastatic lesions involving the liver previously described and better seen on the prior CT. 3. Trace amount of ascites. Catheter Placement 01/15/18 10:39 CONCLUSION: 1. Uncomplicated line placement as above. Chest X-Ray 01/18/18 12:08 CONCLUSION: No significant interval change with the bibasilar infiltrates and effusions compared to the prior examination. Abdomen/Pelvis CT 01/18/18 13:08 CONCLUSION: 1. Postoperative features of partial right hemicolectomy with decreasing postoperative free air. 2. Progressive fluid-filled slightly dilated loops of small bowel with relative transition point in the mid abdomen. Differential considerations include worsening adynamic ileus versus developing partial small bowel obstruction. 3. Redemonstration of extensive hepatic metastatic disease with stable 1.7 cm left adrenal mass. 4. Stable small bilateral pleural effusions and associated bibasilar airspace disease, presumably compressive atelectasis. 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 Campuzano; obtained assistance with critical care. If he continues to remain distended and have an ileus, he may require TPN. Fluid from wound is likely malignant ascites; I have some concern for early sepsis as well due to this leak. Have empirically started him on antibiotics. Will defer to critical care if they feel it is unnecessary. The exam, history, and the medical decision-making described in the above note were completed with the assistance of the mid-level provider. I reviewed and agree with the findings presented. I attest that I had a [id number] encounter with the patient on the same day, and personally performed and documented my assessment and findings in the medical record.
--- NOTE | 2018-01-21 12:10 | P.PNONC ---
Subjective Interval history: Afebrile. Patient lying in bed, RN changing dressing to abdomen. Patient reports a "bellyache", denies nausea, points to his surgical site. He is requesting if it is time for his pain medications. His ex- is at the bedside and family's plan is to take him home to [place] upon discharge. She states the patient has elected for treatment and will be established with oncology there. She reports that when the patient had his [employer]PARED[employer]NAGER pump, her daughter was pushing the button for him even when he was sleeping. She therefore feels like this contributed to his postop ileus. Objective Vital Signs/Intake & Output: Vital Signs 01/20/18 12:23 01/20/18 13:00 01/20/18 13:23 Temperature Pulse Rate 120 H 103 H 103 H Respiratory Rate 24 23 22 Blood Pressure 174/80 H 167/77 H Pulse Oximetry 98 96 96 01/20/18 14:00 01/20/18 14:23 01/20/18 14:41 Temperature Pulse Rate 109 H 109 H 109 H Respiratory Rate 23 22 23 Blood Pressure 187/88 H 182/86 H Pulse Oximetry 95 95 86 L 01/20/18 14:46 01/20/18 15:00 01/20/18 15:01 Temperature Pulse Rate 106 H 104 H 103 H Respiratory Rate 19 17 17 Blood Pressure 155/75 H 155/74 H Pulse Oximetry 97 100 100 01/20/18 15:16 01/20/18 15:31 01/20/18 16:10 Temperature 98.5 F Pulse Rate 103 H 104 H 124 H Respiratory Rate 17 18 23 Blood Pressure 153/79 H 146/73 H Pulse Oximetry 100 100 95 01/20/18 16:15 01/20/18 17:00 01/20/18 17:16 Temperature Pulse Rate 117 H 108 H 89 Respiratory Rate 23 18 20 Blood Pressure 148/72 H Pulse Oximetry 95 95 01/20/18 18:00 01/20/18 19:00 01/20/18 20:00 Temperature 97.4 F L Pulse Rate 112 H 113 H 112 H Respiratory Rate 21 21 23 Blood Pressure Pulse Oximetry 96 98 98 01/20/18 20:46 01/20/18 21:00 01/20/18 21:18 Temperature Pulse Rate 114 H 114 H 117 H Respiratory Rate 26 H 22 22 Blood Pressure 157/72 H Pulse Oximetry 99 97 97 01/20/18 22:00 01/20/18 23:00 01/21/18 00:00 Temperature 97.2 F L Pulse Rate 103 H 112 H 112 H Respiratory Rate 17 23 22 Blood Pressure Pulse Oximetry 100 97 98 01/21/18 00:18 01/21/18 01:00 01/21/18 02:00 Temperature Pulse Rate 111 H 116 H 107 H Respiratory Rate 20 23 18 Blood Pressure 134/64 Pulse Oximetry 99 100 94 L 01/21/18 03:00 01/21/18 04:00 01/21/18 04:02 Temperature 97.8 F Pulse Rate 116 H 125 H 125 H Respiratory Rate 23 22 Blood Pressure 157/74 H Pulse Oximetry 96 96 01/21/18 07:00 01/21/18 08:00 01/21/18 08:09 Temperature 98.2 F Pulse Rate 120 H 107 H 114 H Respiratory Rate 27 H 21 23 Blood Pressure 178/81 H 165/72 H Pulse Oximetry 96 99 97 01/21/18 08:26 01/21/18 08:28 Temperature Pulse Rate 109 H Respiratory Rate 16 Blood Pressure Pulse Oximetry 98 Intake & Output 01/20/18 01/21/18 01/21/18 18:59 06:59 18:59 Intake Total 100 / 100 Output Total 300 / 300 Balance -200 / -200 Weight 86.2 kg Intake: Oral 100 / 100 Output: Gastric Drainage 300 / 300 Right Nare Nasogastric Tube 300 / 300 Other: # Urine Diapers 3 4 Date of Last Bowel Movement 01/20/18 01/21/18 01/21/18 # Bowel Movements 3 1 Result Diagrams: 01/20/18 06:33 01/21/18 05:07 Laboratory Results: Laboratory Results - last 24 hr 01/21/18 05:07 Sodium 139 Potassium 3.9 Chloride 103 Carbon Dioxide 25.9 Anion Gap 10 BUN 58 H Creatinine 0.95 Estimated GFR 79 L Random Glucose 155 H Calcium 7.2 L* Calcium Adj for Albumin 8.8 Magnesium 2.5 Albumin 2.0 L Medications: Active Medications Generic Name Dose Route Start Last Admin Trade Name Freq PRN Reason Stop Dose Admin Albuterol 1 ampul 01/18/18 16:00 01/21/18 08:26 Duoneb Neb (Jr) NEB 1 ampul Q6HR NEB JR Administration Aspirin 81 mg 01/07/18 09:00 01/21/18 08:36 Ecotrin PO 81 mg DAILY JR Administration Calcium Carbonate 500 mg 01/17/18 12:16 01/17/18 20:43 Tums Chew CHEW 500 mg Q6H PRN Administration DYSPEPSIA OR HEARTBURN Ferrous Sulfate 325 mg 01/07/18 09:00 01/21/18 08:36 Ferosul PO 325 mg DAILY JR Administration Gentamicin Sulfate 20 mg 01/15/18 10:40 01/15/18 16:46 Gentamicin Inj OTHER 20 mg WITH DIALYSIS PRN Administration Dwell Gentamycin Lock Heparin Sodium (Porcine) 5,000 units 01/14/18 14:15 01/21/18 08:36 Heparin Inj SQ 5,000 units Q12HR JR Administration Heparin Sodium (Porcine) 1,000 units 01/15/18 10:40 01/15/18 16:47 Heparin Inj OTHER 1,000 units WITH DIALYSIS PRN Administration Dwell Heparin to Fill Catheter Hydromorphone HCl 0.5 mg 01/19/18 11:53 01/21/18 08:37 Dilaudid Pf Inj IV.PUSH 0.5 mg Q6H PRN Administration breakthrough pain Hydroxyzine Pamoate 25 mg 01/17/18 12:20 01/21/18 06:00 Vistaril PO 25 mg Q8H PRN Administration ANXIETY AND/OR AGITATION Albumin Human 100 mls @ 60 mls/hr 01/15/18 10:40 01/16/18 10:56 Flexbumin 25% Inj IV.SIG Infused WITH DIALYSIS PRN Infusion hypotension / volume replace Sodium Chloride 1,000 mls @ 40 mls/hr 01/20/18 08:15 01/20/18 08:44 1/2 Normal Saline Inj IV.CONT 65 mls/hr .Q24H JR Administration Lactulose 30 ml 01/06/18 15:47 01/09/18 14:31 Lactulose Liq PO 30 ml DAILY PRN Administration SEVERE CONSITIPATION Metoclopramide HCl 5 mg 01/18/18 21:00 01/21/18 05:14 Reglan Inj IV.PUSH 5 mg Q8H JR Administration Protocol Metoprolol Tartrate 2.5 mg 01/18/18 14:00 01/21/18 05:14 Lopressor Inj IV.PUSH 2.5 mg Q8H JR Administration Ondansetron HCl 4 mg 01/06/18 15:47 01/21/18 09:16 Zofran Inj IV.PUSH 4 mg Q6H PRN Administration NAUSEA OR VOMITING Pantoprazole Sodium 40 mg 01/18/18 14:00 01/21/18 01:36 Protonix Inj IV.PUSH 40 mg Q12H JR Administration Sennosides 17.2 mg 01/06/18 15:47 01/09/18 12:39 Senokot PO 17.2 mg Q12H PRN Administration Moderate Constipation Simethicone 125 mg 01/16/18 22:35 01/17/18 08:59 Phazyme Chew PO 125 mg TID PRN Administration gas relief Sodium Chloride 2 ml 01/13/18 09:00 01/21/18 08:36 Ns Flush IV.FLUSH Not Given BID JR Sodium Chloride 2 ml 01/13/18 08:20 01/17/18 17:48 Ns Flush IV.FLUSH 2 ml PRN PRN Administration FLUSH AFTER USING IV ACCESS Zolpidem Tartrate 5 mg 01/11/18 15:25 01/20/18 23:58 Ambien PO 5 mg HS PRN Administration INSOMNIA Objective Remarks: GENERAL: Ill-appearing male patient, in no acute distress. SKIN: Warm and dry. Abdomen with henrik to mid-line, no redness. HEAD: Normocephalic. EYES: No scleral icterus. No injection or drainage. NECK: Supple, trachea midline. CARDIOVASCULAR: Regular rate and rhythm without murmurs. RESPIRATORY: Breath sounds equal bilaterally. No accessory muscle use. GASTROINTESTINAL: Abdomen large, distended. Surgical site no bleeding noted. EXTREMITIES: No cyanosis. SCD's in place. 1+ BLE edema. MUSCULOSKELETAL: Adequate muscle tone. NEUROLOGICAL: Awake and alert. Assessment/Plan - Plan 1. Multiple liver masses worrisome for metastatic disease. He has had right upper quadrant pain intermittently for several months. Over the last 4 weeks the pain become more constant. He also has nausea and vomiting. He lost about 10 pounds. He had anemia with microcytosis worrisome for iron deficiency anemia. He, however, denies any gross gastrointestinal bleed. His colonoscopy 4 years ago did not show any masses, but reportedly had polyps. CT of the chest did not show any metastatic disease. A CT of the abdomen and pelvis showed numerous hepatic lesions, largest measured 7 cm. There were also multiple retroperitoneal enlarged lymph nodes. There was an enlarged left adrenal gland lesion measured 4.1 cm, which could also be metastatic disease. I suspect he possibly has a primary GI tumor. January 07: CEA elevated at 42.9 with normal alpha-fetoprotein and CA 19 9. This is suggestive of primary GI tumor. He is going to have EGD and colonoscopy today. January 08:. Colonoscopy yesterday showed near circumferential mass at the hepatic flexure Worrisome for colon cancer. Biopsy was done and pathology is pending at this time. It appears that patient has primary colon cancer with metastasis to liver. EGD did not show any obvious mass. January 09: Biopsy from colonic mass is still pending. 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 Gastric cancer cannot be ruled out but EGD did not reveal any gastric mass. Patient is going to have surgery today for impending obstruction. He is also going to have port placement for eventual chemotherapy. January 14: Postop day 1. Patient had resection of hepatic flexure colonic mass and liver biopsy. He also had port placement. During surgery large tumor burden was noted in the liver with a small tumor in the hepatic flexure causing partial obstruction. The omentum was fixed to the liver mass. Final pathology pending. January 15: Postop day 2. Worsening renal function, patient going for dialysis today. Potassium 6.3, currently being treated for this, nephrology has been consulted. Liver enzymes have increased significantly. Total bilirubin 1.0. January 16: Postop day 3. Patient had worsening renal function and started dialysis yesterday. Liver enzymes are still elevated. Final pathology from colon resection and liver biopsy is still pending. January 17: Postop day 4. Liver pathology shows metastatic disease with colonic primary January 18: Postop day 5. Patient is mildly confused which may be medication induced. His liver enzymes continue to trend down. Creatinine stable. He is scheduled for dialysis tomorrow. 2. Left adrenal gland lesion measured 4.1 cm. This could be metastatic disease and less likely to be a primary tumor. 3. Anemia with microcytosis suggestive of iron deficiency anemia. The patient denies any gross gastrointestinal bleed. 4. History of hepatitis C, treated with Harvoni 4 years ago, reportedly went into remission. His liver enzymes trended up again which could be due to metastatic disease in the liver versus activation hepatitis C and liver biopsy. Liver enzyme is trending down. RECOMMENDATIONS: 1. Colonic mass showed poorly differentiated carcinoma, liver biopsy shows colonic primary. Family is planning to take patient back to [place] for palliative treatment, once recovered. 2. Acute kidney injury with hyperkalemia, improving. Management per attending and nephrology. Creatinine is improving, hemodialysis is on hold. 3. Postop ileus, NG tube currently clamped and surgery has advanced him to sips of clear liquids. 4. Pain management per attending. - Attending Statement The exam, history, and the medical decision-making described in the above note were completed with the assistance of the mid-level provider. I reviewed and agree with the findings presented. I attest that I had a [id number] encounter with the patient on the same day, and personally performed and documented my assessment and findings in the medical record. Patient still has abdominal pain. The NG tube is now clamped. He is tolerating sips of fluid. He had bowel movement. Renal function has improved. His liver enzymes also have trended down. Continue supportive care.
--- NOTE | 2018-01-21 12:13 | P.PNIM ---
Subjective Interval history: f/u; colon cancer ill-looking. complaining of abdominal pain. NG tube in place. d/w the RN at the bedside. Physical Exam Vital signs: Vital Signs 01/20/18 12:23 01/20/18 13:00 01/20/18 13:23 Temperature Pulse Rate 120 H 103 H 103 H Respiratory Rate 24 23 22 Blood Pressure 174/80 H 167/77 H Pulse Oximetry 98 96 96 01/20/18 14:00 01/20/18 14:23 01/20/18 14:41 Temperature Pulse Rate 109 H 109 H 109 H Respiratory Rate 23 22 23 Blood Pressure 187/88 H 182/86 H Pulse Oximetry 95 95 86 L 01/20/18 14:46 01/20/18 15:00 01/20/18 15:01 Temperature Pulse Rate 106 H 104 H 103 H Respiratory Rate 19 17 17 Blood Pressure 155/75 H 155/74 H Pulse Oximetry 97 100 100 01/20/18 15:16 01/20/18 15:31 01/20/18 16:10 Temperature 98.5 F Pulse Rate 103 H 104 H 124 H Respiratory Rate 17 18 23 Blood Pressure 153/79 H 146/73 H Pulse Oximetry 100 100 95 01/20/18 16:15 01/20/18 17:00 01/20/18 17:16 Temperature Pulse Rate 117 H 108 H 89 Respiratory Rate 23 18 20 Blood Pressure 148/72 H Pulse Oximetry 95 95 01/20/18 18:00 01/20/18 19:00 01/20/18 20:00 Temperature 97.4 F L Pulse Rate 112 H 113 H 112 H Respiratory Rate 21 21 23 Blood Pressure Pulse Oximetry 96 98 98 01/20/18 20:46 01/20/18 21:00 01/20/18 21:18 Temperature Pulse Rate 114 H 114 H 117 H Respiratory Rate 26 H 22 22 Blood Pressure 157/72 H Pulse Oximetry 99 97 97 01/20/18 22:00 01/20/18 23:00 01/21/18 00:00 Temperature 97.2 F L Pulse Rate 103 H 112 H 112 H Respiratory Rate 17 23 22 Blood Pressure Pulse Oximetry 100 97 98 01/21/18 00:18 01/21/18 01:00 01/21/18 02:00 Temperature Pulse Rate 111 H 116 H 107 H Respiratory Rate 20 23 18 Blood Pressure 134/64 Pulse Oximetry 99 100 94 L 01/21/18 03:00 01/21/18 04:00 01/21/18 04:02 Temperature 97.8 F Pulse Rate 116 H 125 H 125 H Respiratory Rate 23 22 Blood Pressure 157/74 H Pulse Oximetry 96 96 01/21/18 07:00 01/21/18 08:00 01/21/18 08:09 Temperature 98.2 F Pulse Rate 120 H 107 H 114 H Respiratory Rate 27 H 21 23 Blood Pressure 178/81 H 165/72 H Pulse Oximetry 96 99 97 01/21/18 08:26 01/21/18 08:28 Temperature Pulse Rate 109 H Respiratory Rate 16 Blood Pressure Pulse Oximetry 98 Intake & Output 01/20/18 01/21/18 01/21/18 18:59 06:59 18:59 Intake Total 100 / 100 Output Total 300 / 300 Balance -200 / -200 Weight 86.2 kg Intake: Oral 100 / 100 Output: Gastric Drainage 300 / 300 Right Nare Nasogastric Tube 300 / 300 Other: # Urine Diapers 3 4 Date of Last Bowel Movement 01/20/18 01/21/18 01/21/18 # Bowel Movements 3 1 - Constitutional chronically ill appearing - Routine Respiratory Exam Present: CTA bilaterally - Routine Cardiovascular Exam Present: tachycardia - Routine Abdominal Exam Present: soft, tenderness, distended - Routine Extremities Exam Comments: bilateral pedal edema. - Routine Neurological Exam Present: alert, oriented X3 - Urinary Catheter Management Indwelling Urethral Catheter Cath placed during this visit: yes, but has since been removed by the nurse Reason for continuing: Hourly intake/output Insertion date: 01/15/18 Insertion time: 03:30 Removal date: 01/14/18 Removal time: 03:20 Results - Labs CBC & Chem 7: 01/20/18 06:33 01/21/18 05:07 Laboratory Results - last 24 hr 01/21/18 05:07 Sodium 139 Potassium 3.9 Chloride 103 Carbon Dioxide 25.9 Anion Gap 10 BUN 58 H Creatinine 0.95 Estimated GFR 79 L Random Glucose 155 H Calcium 7.2 L* Calcium Adj for Albumin 8.8 Magnesium 2.5 Albumin 2.0 L - Procedures resection of colonic mass, liver biopsy and Casafe-y-Lzli placement Vas-Cath placement Assessment and Plan - Plan Colon cancer with metastasis to the liver and adrenal gland - S/P colon resection -s/p Colonoscopy and EGD, A near circumferential ulcerated, firm and fungating mass was found at the hepatic flexure. Multiple biopsies were performed using cold forceps. -General surgery following and patient underwent colon resection, liver biopsy and port placement -Diet and pain control per surgery. -Follow-up abdomen CT shows worsening ileus versus partial SBO. Improving positive bowel movement. Will monitor increase activity (patient encouraged) Ct IVF for now. Reglan started. Minimize use of narcotics. Hyponatremia - Likely hypovolemic hyponatremia. Liver disease may be contributing. - Stable. Continue to monitor. - Follow labs. Acute kidney injury with persistent hyperkalemia and anuria despite aggressive IV hydration and multiple treatments for hyperkalemia. Underwent hemodialysis x 2 . This is resolving. Cautious IV hydration monitor for fluid overload. Robert Boswell pt request. Avoid nephrotoxins. Discontinue Vas-Cath if okay with nephrology Iron Deficiency Anemia -Continue Iron Supplement Type 2 diabetes Metformin held Continue Sliding scale insulin with Accu-Cheks as ordered History of CAD/CABG Continue beta-moshe. Hold Lipitor secondary to transaminitis. Restart Asa if ok with GS Monitor for EKG changes Unremarkable ECHO Hypertension Stable, Continue beta-moshe Monitor BP and HR insomnia: -Patient was taking Ambien from home in the hospital along with trazodone. He has been lethargic at times. He does better with Ambien and trazodone does not help him much. Trazodone discontinued and he can use Ambien at night as needed for insomnia. Added vistaril for anxiety Hx of Hepatitis C Treated heather/ [facility] 4yrs ago, reportedly in remission LFTs elevated which is likely to liver metastasis and/or statins/fibrate therapy. Worse status post liver biopsy. Could also be ischemic. Improving GERD. + H pylori. Increase PPI add Tums. Antireflux dw pt. Start quadruple tx when tolerating reg diet. Clarithromycin has significant interactions BLE edema. US doppler negative for DVT. SQ heparin for proph when cleared by general surgery GI prophylaxis -Stool softener PRN constipation.
--- NOTE | 2018-01-21 13:14 | P.PNNP ---
Subjective Interval history: Patient was seen, no distress. Patient's renal function has improved. VasCath used for dialysis to be removed. If patient is tolerating PO then discontinue IV fluid. <IrvinRaegan - Last Filed: 01/21/18 13:08> Physical Exam Vital signs: Vital Signs 01/20/18 13:23 01/20/18 14:00 01/20/18 14:23 Temperature Pulse Rate 103 H 109 H 109 H Respiratory Rate 22 23 22 Blood Pressure 167/77 H 187/88 H Pulse Oximetry 96 95 95 01/20/18 14:41 01/20/18 14:46 01/20/18 15:00 Temperature Pulse Rate 109 H 106 H 104 H Respiratory Rate 23 19 17 Blood Pressure 182/86 H 155/75 H Pulse Oximetry 86 L 97 100 01/20/18 15:01 01/20/18 15:16 01/20/18 15:31 Temperature Pulse Rate 103 H 103 H 104 H Respiratory Rate 17 17 18 Blood Pressure 155/74 H 153/79 H 146/73 H Pulse Oximetry 100 100 100 01/20/18 16:10 01/20/18 16:15 01/20/18 17:00 Temperature 98.5 F Pulse Rate 124 H 117 H 108 H Respiratory Rate 23 23 18 Blood Pressure 148/72 H Pulse Oximetry 95 95 95 01/20/18 17:16 01/20/18 18:00 01/20/18 19:00 Temperature Pulse Rate 89 112 H 113 H Respiratory Rate 20 21 21 Blood Pressure Pulse Oximetry 96 98 01/20/18 20:00 01/20/18 20:46 01/20/18 21:00 Temperature 97.4 F L Pulse Rate 112 H 114 H 114 H Respiratory Rate 23 26 H 22 Blood Pressure 157/72 H Pulse Oximetry 98 99 97 01/20/18 21:18 01/20/18 22:00 01/20/18 23:00 Temperature Pulse Rate 117 H 103 H 112 H Respiratory Rate 22 17 23 Blood Pressure Pulse Oximetry 97 100 97 01/21/18 00:00 01/21/18 00:18 01/21/18 01:00 Temperature 97.2 F L Pulse Rate 112 H 111 H 116 H Respiratory Rate 22 20 23 Blood Pressure 134/64 Pulse Oximetry 98 99 100 01/21/18 02:00 01/21/18 03:00 01/21/18 04:00 Temperature 97.8 F Pulse Rate 107 H 116 H 125 H Respiratory Rate 18 23 Blood Pressure Pulse Oximetry 94 L 96 01/21/18 04:02 01/21/18 07:00 01/21/18 08:00 Temperature 98.2 F Pulse Rate 125 H 120 H 107 H Respiratory Rate 22 27 H 21 Blood Pressure 157/74 H 178/81 H Pulse Oximetry 96 96 99 01/21/18 08:09 01/21/18 08:26 01/21/18 08:28 Temperature Pulse Rate 114 H 109 H Respiratory Rate 23 16 Blood Pressure 165/72 H Pulse Oximetry 97 98 Intake & Output 01/20/18 01/21/18 01/21/18 18:59 06:59 18:59 Intake Total 100 / 100 Output Total 300 / 300 Balance -200 / -200 Weight 86.2 kg Intake: Oral 100 / 100 Output: Gastric Drainage 300 / 300 Right Nare Nasogastric Tube 300 / 300 Other: # Urine Diapers 3 4 Date of Last Bowel Movement 01/20/18 01/21/18 01/21/18 # Bowel Movements 3 1 - Constitutional no acute distress - Routine HEENT Exam Head: Present: normocephalic Eye: Present: EOMI, PERRL ENT: Present: mucous membranes moist - Routine Neck Exam Present: trachea midline. Absent: JVD, tracheal deviation - Routine Respiratory Exam Absent: accessory muscle use, respiratory distress - Routine Cardiovascular Exam Present: RRR - Routine Abdominal Exam Present: normoactive bowel sounds - Routine Extremities Exam Present: edema - Routine Neurological Exam Present: alert, oriented X3 - Routine Psychiatric Exam Present: normal affect - Urinary Catheter Management Indwelling Urethral Catheter Cath placed during this visit: yes, but has since been removed by the nurse Reason for continuing: Hourly intake/output Insertion date: 01/15/18 Insertion time: 03:30 Removal date: 01/14/18 Removal time: 03:20 <Raegan Bryan - Last Filed: 01/21/18 13:08> Vital signs: Vital Signs 01/20/18 20:46 01/20/18 21:00 01/20/18 21:18 Temperature Pulse Rate 114 H 114 H 117 H Respiratory Rate 26 H 22 22 Blood Pressure 157/72 H Pulse Oximetry 99 97 97 01/20/18 22:00 01/20/18 23:00 01/21/18 00:00 Temperature 97.2 F L Pulse Rate 103 H 112 H 112 H Respiratory Rate 17 23 22 Blood Pressure Pulse Oximetry 100 97 98 01/21/18 00:18 01/21/18 01:00 01/21/18 02:00 Temperature Pulse Rate 111 H 116 H 107 H Respiratory Rate 20 23 18 Blood Pressure 134/64 Pulse Oximetry 99 100 94 L 01/21/18 03:00 01/21/18 04:00 01/21/18 04:02 Temperature 97.8 F Pulse Rate 116 H 125 H 125 H Respiratory Rate 23 22 Blood Pressure 157/74 H Pulse Oximetry 96 96 01/21/18 07:00 01/21/18 08:00 01/21/18 08:09 Temperature 98.2 F Pulse Rate 120 H 107 H 114 H Respiratory Rate 27 H 21 23 Blood Pressure 178/81 H 165/72 H Pulse Oximetry 96 99 97 01/21/18 08:26 01/21/18 08:28 Temperature Pulse Rate 109 H Respiratory Rate 16 Blood Pressure Pulse Oximetry 98 Intake & Output 01/21/18 01/21/18 01/22/18 06:59 18:59 06:59 Weight 86.2 kg Other: # Urine Diapers 4 Date of Last Bowel Movement 01/21/18 01/21/18 # Bowel Movements 1 - Urinary Catheter Management Indwelling Urethral Catheter Cath placed during this visit: no <Bill Deras - Last Filed: 01/21/18 20:12> Assessment and Plan - Assessment (1) Acute kidney failure Code(s): N17.9 - Acute kidney failure, unspecified Status: Acute Plan: Renal function has improved. No need for dialysis. VasCath can be removed. Monitor fluid and electrolytes. Avoid nephrotoxic agents. Stop IVF if patient is tolerating PO fluids. Nephrology is signing off. - Plan Colon cancer with metastasis to the liver and adrenal gland s/p Colonoscopy and EGD, A near circumferential ulcerated, firm and fungating mass was found at the hepatic flexure. Oncology recommended colon resection prior to initiation of palliative chemotherapy when he recovers from surgery. General surgery following and patient underwent [id number] placement, Resection of hepatic flexure of the colon, Emeterio-Cut liver biopsy right lobe of liver x2. Follow-up abdomen CT showed recent laparotomy and right hemicolectomy with subcutaneous air in the anterior abdominal wall and a small amount of free air, extensive metastatic disease in the liver, stable enlarged left adrenal gland, new small bilateral pleural effusions and basilar atelectasis and mild ileus. Hypertension Monitor BP. Continue medications. Iron Deficiency Anemia Patient on Iron Supplement. Type 2 diabetes Continue insulin to maintain blood glucose level between 140 and 180. <Raegan Bryan - Last Filed: 01/21/18 13:08> - Assessment (1) Acute kidney failure Code(s): N17.9 - Acute kidney failure, unspecified Status: Acute - Attending Attestation patient was seen and examined. Renal function has improved. Discontinue IVF if he tolerates oral intake. Please call if needed. VasCath can be removed. <Bill Deras - Last Filed: 01/21/18 20:12>
[2018-01-21] MEDS ORDERED: Piperacil/Tazo 3.375 GM Premix 50 ML IV.SIG SCH (16:00)
[2018-01-21] MEDS ORDERED: HYDROmorphone PF Inj 2 MG/ML Vial IV.PUSH STA (16:28)
--- NOTE | 2018-01-21 16:50 | XR ---
EXAM DATE: 01/21/2018 4:46 PM EST AGE/SEX: 67 years / Male INDICATIONS: Shortness of breath. CLINICAL DATA: This is the patient's subsequent encounter. Patient reports that signs and symptoms h ave been present for 1 week and indicates a pain score of Nonresponsive. MEDICAL/SURGICAL HISTORY: . Diabetes mellitus type II. Hepatitis C. Coronary artery disease. C arpal tunnel syndrome. . Cholecystectomy. Open heart surgery. COMPARISON: C, CHEST 1V SINGLE AP, 01/18/2018. . FINDINGS: Nasogastric tube, dialysis catheter and [id number] in good position. Minimal parenchymal changes l eft base with trace pleural effusion. Right lung is clearing. No pneumothorax. CONCLUSION: Interval improvement as above Electronically signed by: Etienne Joel MD 01/21/2018 4:48 PM EST
[2018-01-21] MEDS ORDERED: HYDROmorphone PF Inj 0.5 MG/0.5 ML Syringe IV.PUSH PRN (17:15)
[2018-01-21] MEDS ORDERED: Sodium Chlor 0.9% Inj 500 ML IV.SIG SCH (17:22)
[2018-01-21] MEDS ORDERED: Sod Chloride 0.9% Inj 1,000 ML IV.CONT SCH (17:23)
[2018-01-21 17:40] LABS: Bacteria,Urine Rare /hpf; Bilirubin,Urine Negative (Negative); Clarity,Urine Clear (Clear); Color,Urine Yellow (Yellw/Straw); Glucose,Urine (UA) Negative (Negative); Leukocyte Esterase,Urine Trace (Negative); Mucus,Urine Few /lpf (Occasional); Nitrite,Urine Negative (Negative); Specific Gravity,Urine 1.009 (1.002-1.035)
--- NOTE | 2018-01-21 17:54 | P.CONCC ---
History of Present Illness Service: critical care medicine Consult date: 01/21/18 Requesting Physician: Ezequiel Cotton Reason for Consult: Tachycardia Primary Care Provider: Jana Dukes MD Chief Complaint: Worsening abdominal pain History of Present Illness: 67-year-old male with a medical history significant for hepatitis C status post treatment, CAD status post previous CABG, diabetes mellitus, hypertension, prior smoker who was admitted on 01/06 with abdominal pain and shortness of breath and was found to have metastatic lesions in the liver and recent colonoscopy showed adenocarcinoma involving hepatic flexure of the colon. Patient was evaluated by [facility] as well as general surgery Dr. Cotton and on 01/13 underwent resection of hepatic flexure of colon as well as to cut liver biopsy x2 of large liver metastatic lesion and left-sided Port-A-Cath placement. Postop course was complicated by poor urine output with acute kidney injury for which patient underwent hemodialysis for hyperkalemia. Subsequently he has had problems with ileus and pain control. He remains on Dilaudid as needed and Percocet however today developed increasing tachycardia and abdominal pain. He has some oozing from his incision site. Critical care consult was requested by Dr. Cotton for tachycardia/suspected sepsis. When I evaluated the patient he was writhing in pain and appeared extremely uncomfortable. His heart rate was 140 sinus tachycardia systolic blood pressure 170s and O2 sats mid 90s on room air. He did not appear to be in any respiratory distress at the time. History was obtained by reviewing records and discussion with Dr. Cotton as well as patient's ex- and nursing staff. He denies any chest pain. Review of Systems All other systems reviewed negative except as stated in HPI PMFSH - History History Provided By: Patient - Medical History Medical History: Medical History (Last Reviewed 01/21/18 @ 12:19 by Yoli Swenson) CAD (coronary artery disease) Carpal tunnel syndrome Hepatitis C virus infection cured after antiviral drug therapy Type 2 diabetes mellitus - Surgical History Surgical History: Surgical History (Last Reviewed 01/21/18 @ 12:19 by Yoli Swenson) History of open heart surgery Hx of cholecystectomy - Family History Family History: Family History (Last Reviewed 01/19/18 @ 08:07 by Renetta Kyle) Mother Lung cancer - Tobacco History Second Hand Smoke Exposure: No Tobacco Use In Past 30 Days: No Smoking Status: Former smoker Tobacco Type: Cigarettes - Alcohol History How Often Do You Have a Drink Containing Alcohol: Never - Substance Use History Substance History: No History of Abuse - Travel History Recent Travel in the [place] Within the Last 8 Weeks: No Recent Travel Out of the Country Within the Last 8 Weeks: No - Immunization History Tetanus Immunization: Unsure Hx Influenza Vaccine This Season: No Medications and Allergies Active Medications: Active Medications Acetaminophen (Tylenol) 650 mg PO Q4H PRN PRN Reason: Temp > 100.4 Acetaminophen (Tylenol) 650 mg PO UNSCH PRN PRN Reason: SEE LABEL COMMENTS Albuterol (Albuterol Neb (Prn)) 0.63 mg NEB Q6HR NEB PRN PRN Reason: DYSPNEA Albuterol (Duoneb Neb (Jr)) 1 ampul NEB Q6HR NEB JR Last Admin: 01/21/18 08:26 Dose: 1 ampul Aspirin (Ecotrin) 81 mg PO DAILY [facility] Last Admin: 01/21/18 08:36 Dose: 81 mg Bisacodyl (Dulcolax Supp) 10 mg RECTAL DAILY PRN PRN Reason: SEVERE CONSITIPATION Calcium Carbonate (Tums Chew) 500 mg CHEW Q6H PRN PRN Reason: DYSPEPSIA OR HEARTBURN Last Admin: 01/17/18 20:43 Dose: 500 mg Clonidine HCl (Catapres) 0.1 mg PO UNSCH PRN PRN Reason: SEE LABEL COMMENTS Diphenhydramine HCl (Benadryl) 25 mg PO UNSCH PRN PRN Reason: SEE LABEL COMMENTS Ferrous Sulfate (Ferosul) 325 mg PO DAILY [facility] Last Admin: 01/21/18 08:36 Dose: 325 mg Gelatin (Gelfoam 12 Mm/7 Mm Topical) 1 foam TOPICAL PRN PRN PRN Reason: help stop bleeding from site Gentamicin Sulfate (Gentamicin Inj) 20 mg OTHER WITH DIALYSIS PRN PRN Reason: Dwell Gentamycin Lock Last Admin: 01/15/18 16:46 Dose: 20 mg Heparin Sodium (Porcine) (Heparin Inj) 5,000 units SQ Q12HR JR Last Admin: 01/21/18 08:36 Dose: 5,000 units Heparin Sodium (Porcine) (Heparin Inj) 8,000 units OTHER WITH DIALYSIS PRN PRN Reason: for machine prime Heparin Sodium (Porcine) (Heparin Inj) 1,000 units OTHER WITH DIALYSIS PRN PRN Reason: Dwell Heparin to Fill Catheter Last Admin: 01/15/18 16:47 Dose: 1,000 units Heparin Sodium (Porcine) (Heparin Central Flush) 0 unit IV.FLUSH DAILY PRN PRN Reason: SEE DOSE INSTRUCTIONS Hydromorphone HCl (Dilaudid Pf Inj) 1 mg IV.PUSH Q6H PRN PRN Reason: breakthrough pain Hydroxyzine Pamoate (Vistaril) 25 mg PO Q8H PRN PRN Reason: ANXIETY AND/OR AGITATION Last Admin: 01/21/18 06:00 Dose: 25 mg Albumin Human (Flexbumin 25% Inj) 100 mls @ 60 mls/hr IV.SIG WITH DIALYSIS PRN PRN Reason: hypotension / volume replace Last Infusion: 01/16/18 10:56 Dose: Infused Sodium Chloride (Ns Inj) 1,000 mls @ 200 mls/hr OTHER .Q5H PRN PRN Reason: for dialyzer flush PRN Sodium Chloride (Ns Inj) 1,000 mls @ 0 mls/hr IV.CONT .Q0M PRN PRN Reason: hypotension / volume replace Sodium Chloride (Ns Inj) 1,000 mls @ 0 mls/hr OTHER .Q0M PRN PRN Reason: for prime and rinse back Piperacillin/Tazobactam/Dextrose (Zosyn 3.375 Gm Premix) 50 mls @ 100 mls/hr IV.SIG Q8H JR Last Admin: 01/21/18 16:28 Dose: 100 mls/hr Sodium Chloride (Ns Inj) 500 mls @ 1,000 mls/hr IV.SIG BOLUS JR Stop: 01/21/18 17:51 Last Admin: 01/21/18 17:23 Dose: 1,000 mls/hr Sodium Chloride (Ns Inj) 1,000 mls @ 100 mls/hr IV.CONT .Q10H RJ Lactulose (Lactulose Liq) 30 ml PO DAILY PRN PRN Reason: SEVERE CONSITIPATION Last Admin: 01/09/18 14:31 Dose: 30 ml Mannitol (Mannitol Inj) 12.5 gm IV.PUSH UNSCH PRN PRN Reason: hypotension / volume replace Metoclopramide HCl (Reglan Inj) 5 mg IV.PUSH Q8H JR; Protocol Last Admin: 01/21/18 13:56 Dose: 5 mg Metoprolol Tartrate (Lopressor Inj) 2.5 mg IV.PUSH Q8H JR Last Admin: 01/21/18 13:54 Dose: 2.5 mg Naloxone HCl (Narcan Inj) 0.4 mg IV.PUSH PRN PRN PRN Reason: Resp rate < 10 Nitroglycerin (Nitrostat Sl) 0.4 mg SL Q5M PRN PRN Reason: CHEST PAIN Ondansetron HCl (Zofran Inj) 4 mg IV.PUSH Q6H PRN PRN Reason: NAUSEA OR VOMITING Last Admin: 01/21/18 14:50 Dose: 4 mg Ondansetron HCl (Zofran Inj) 4 mg IV.PUSH UNSCH PRN PRN Reason: NAUSEA OR VOMITING Oxycodone/Acetaminophen (Percocet 7.5/325 Mg) 1 tab PO Q6H PRN PRN Reason: PAIN 6-10 Last Admin: 01/21/18 12:21 Dose: 1 tab Pantoprazole Sodium (Protonix Inj) 40 mg IV.PUSH Q12H [facility] Last Admin: 01/21/18 13:54 Dose: 40 mg Sennosides (Senokot) 17.2 mg PO Q12H PRN PRN Reason: Moderate Constipation Last Admin: 01/09/18 12:39 Dose: 17.2 mg Simethicone (Phazyme Chew) 125 mg PO TID PRN PRN Reason: gas relief Last Admin: 01/17/18 08:59 Dose: 125 mg Sodium Chloride (Ns Flush) 2 ml IV.FLUSH BID [facility] Last Admin: 01/21/18 08:36 Dose: Not Given Sodium Chloride (Ns Flush) 2 ml IV.FLUSH PRN PRN PRN Reason: FLUSH AFTER USING IV ACCESS Last Admin: 01/17/18 17:48 Dose: 2 ml Sodium Chloride (Ns Flush) 5 ml IV.FLUSH PRN PRN PRN Reason: flush each lumen during HD Zolpidem Tartrate (Ambien) 5 mg PO HS PRN PRN Reason: INSOMNIA Last Admin: 01/20/18 23:58 Dose: 5 mg Allergies Allergy/AdvReac Type Severity Reaction Status Date / Time No Known Allergies Allergy Verified 01/06/18 11:03 Home Medications Medication Instructions Recorded Confirmed Type aspirin [Aspir-81] 81 mg PO DAILY 01/06/18 01/06/18 History atorvastatin 80 mg PO DAILY 01/06/18 01/06/18 History cetirizine 10 mg PO DAILY 01/06/18 01/06/18 History fenofibrate 160 mg PO DAILY 01/06/18 01/06/18 History ferrous sulfate 325 mg PO DAILY 01/06/18 01/06/18 History glimepiride 4 mg PO QAM 01/06/18 01/06/18 History lisinopril 10 mg PO DAILY 01/06/18 01/06/18 History metformin 500 mg PO BID 01/06/18 01/06/18 History metoprolol tartrate 50 mg PO BID 01/06/18 01/06/18 History tadalafil [Cialis] 5 mg PO DAILY 01/06/18 01/06/18 History trazodone 150 mg PO DAILY 01/06/18 01/06/18 History Physical Exam Vital signs: Vital Signs 01/20/18 18:00 01/20/18 19:00 01/20/18 20:00 Temperature 97.4 F L Pulse Rate 112 H 113 H 112 H Respiratory Rate 21 21 23 Blood Pressure Pulse Oximetry 96 98 98 01/20/18 20:46 01/20/18 21:00 01/20/18 21:18 Temperature Pulse Rate 114 H 114 H 117 H Respiratory Rate 26 H 22 22 Blood Pressure 157/72 H Pulse Oximetry 99 97 97 01/20/18 22:00 01/20/18 23:00 01/21/18 00:00 Temperature 97.2 F L Pulse Rate 103 H 112 H 112 H Respiratory Rate 17 23 22 Blood Pressure Pulse Oximetry 100 97 98 01/21/18 00:18 01/21/18 01:00 01/21/18 02:00 Temperature Pulse Rate 111 H 116 H 107 H Respiratory Rate 20 23 18 Blood Pressure 134/64 Pulse Oximetry 99 100 94 L 01/21/18 03:00 01/21/18 04:00 01/21/18 04:02 Temperature 97.8 F Pulse Rate 116 H 125 H 125 H Respiratory Rate 23 22 Blood Pressure 157/74 H Pulse Oximetry 96 96 01/21/18 07:00 01/21/18 08:00 01/21/18 08:09 Temperature 98.2 F Pulse Rate 120 H 107 H 114 H Respiratory Rate 27 H 21 23 Blood Pressure 178/81 H 165/72 H Pulse Oximetry 96 99 97 01/21/18 08:26 01/21/18 08:28 Temperature Pulse Rate 109 H Respiratory Rate 16 Blood Pressure Pulse Oximetry 98 Intake & Output 01/20/18 01/21/18 01/21/18 18:59 06:59 18:59 Intake Total 100 / 100 Output Total 300 / 300 Balance -200 / -200 Weight 86.2 kg Intake: Oral 100 / 100 Output: Gastric Drainage 300 / 300 Right Nare Nasogastric Tube 300 / 300 Other: # Urine Diapers 3 4 Date of Last Bowel Movement 01/20/18 01/21/18 01/21/18 # Bowel Movements 3 1 Narrative: HEENT/Neuro: No pallor or icterus, tongue moist, ELIA, Awake alert oriented 3 , nonfocal grossly, moving all 4 extremities Neck: Right IJ Vas-Cath in place Chest/pulmonary: CTA bilaterally Cardiovascular: S1-S2 regular no gallop or murmur GI/abdomen: firm, distended, diffusely tender, dressing over midline incision site with drainage, bowel sounds not appreciated Extremities: Warm bilaterally, trace edema - Urinary Catheter Management Indwelling Urethral Catheter Cath placed during this visit: yes, but has since been removed by the nurse Reason for continuing: Hourly intake/output Insertion date: 01/15/18 Insertion time: 03:30 Removal date: 01/14/18 Removal time: 03:20 Assessment and Plan - Assessment and Plan Plan: 67-year-old male with Sinus tachycardia: Possibly related to pain versus sepsis versus embolic event Postop pain Metastatic colon cancer with liver metastases status post resection of hepatic flexure of colon with liver biopsy on 01/13 Diabetes mellitus SHAYE status post hemodialysis which is now resolved CAD status post CABG previously Plan: Neuro: Increase Dilaudid to 1 mg IV q. 6 hourly as needed pain. Continue Percocet as needed. Discussed option of celiac block with Dr. Cotton if pain remains uncontrolled. Cardiovascular: 500 cc normal saline bolus and increased IV fluids 200 cc an hour normal saline. Sinus tachycardia possibly related to pain versus infection versus embolic event. Does not appear to be hypovolemic at this time. Elevated BP noted. Check lactic acid. Lower extremity venous Dopplers to evaluate for DVT. May consider getting VQ scan. Check troponin and twelve- lead EKG. Pulmonary: Supplemental O2 as needed, bronco dilators as needed. Currently maintaining O2 sats well. Watch for airway protection with increased dose of narcotics. GI/liver: Continue NG suction. Recent CT done on 01/18 with ileus versus possible early SBO. General surgery following. Renal/: IV hydration, strict intake output, monitor and replete electrolytes, follow BUN and creatinine. Nephrology following. Ordered to discontinue Vas- Cath as patient has not required hemodialysis with recovery of renal function. ID: Ordered blood cultures x2, UA and urine cultures. Empiric Zosyn initiated by Dr. Cotton. Check lactic acid. Heme-onc: Being followed by heme-onc for hepatic flexure colon cancer with liver metastases. Endocrine: SSI for glycemic control Prophylaxis: PPI/SCDs/subcu heparin dose increased to 5000 units subcu densely every 8 hourly in view of improvement in renal function. Discussed with patient's ex- at bedside in detail regarding plan of care and she voiced understanding. Discussed with Dr. Cotton, discussed with GYMNASTIC COACH.
--- NOTE | 2018-01-21 18:16 | US ---
EXAM DATE: 01/21/2018 6:02 PM EST AGE/SEX: 67 years / Male INDICATIONS: Bilateral leg swelling. CLINICAL DATA: This is the patient's subsequent encounter. Patient reports that signs and symptoms h ave been present for 1 month and indicates a pain score of Nonresponsive. MEDICAL/SURGICAL HISTORY: Hepatitis C. Diabetes. CAD. Carpal tunnel. Cholecystectomy. Open h eart surgery. COMPARISON: [facility] [place] VENOUS DOPPLER LEG BI, 01/14/2018. . TECHNIQUE: Venous ultrasound of both lower extremities was performed from the inguinal ligament to t he proximal calf. Real-time, color Doppler and spectral tracing, compression and augmentation techni ques were used. FINDINGS: Right Leg: Normal compression of the deep venous system from the inguinal region to the proximal parviz f. No echogenic clot is seen. Normal response of the venous system to augmentation and respiration. Left Leg: Normal compression of the deep venous system from the inguinal region to the proximal calf . No echogenic clot is seen. Normal response of the venous system to augmentation and respiration. Other: Diffuse subcutaneous edema both lower extremities. CONCLUSION: 1. No venous thrombosis. 2. Nonspecific subcutaneous edema. Electronically signed by: Cr Braswell MD 01/21/2018 6:15 PM EST
[2018-01-21] MEDS ORDERED: Dexmedetomidine Inj 200 MCG in Sodium Chlor 0.9% Inj 48 ML IV.CONT PRN (19:05)
[2018-01-21 19:57] LABS: Hematocrit 43.2 % (39.0-51.0); Hemoglobin 13.5 gm/dL (13.0-17.0); Mean Corpuscular HGB Conc 31.2 % (32.0-36.0); Mean Corpuscular Hemoglobin 23.4 pg (27.0-34.0); Mean Corpuscular Volume 74.8 fL (80.0-100.0); Mean Platelet Volume 8.8 fL (7.0-11.0); Platelet Count 218 th/mm3 (150-450); Red Blood Count 5.77 mil/mm3 (4.50-5.90); Red Cell Distribution Width 21.8 % (11.6-17.2); White Blood Count 10.7 th/mm3 (4.0-11.0)
[2018-01-21] MEDS ORDERED: Sod Chloride 0.9% Inj 1,000 ML IV.SIG ONE (20:44)
[2018-01-21 20:56] LABS: ABG Base Excess -2.6 mmol/L (-2-2); ABG PCO2 34 mmHg (38-42); ABG PO2 126 mmHg (61-120)
[2018-01-21] MEDS ORDERED: Diatrizoate Meglum/Diatrizoate Sod Liq 9 ML UDC PO ONE (21:00)
[2018-01-21] MEDS ORDERED: Phenylephrine Inj 160 MG in Sodium Chlor 0.9% Inj 484 ML IV.CONT PRN (21:00)
[2018-01-21] MEDS ORDERED: Heparin - SQ 10,000 UNITS/ML Vial SQ SCH (22:00)
[2018-01-21] MEDS ORDERED: HYDROmorphone PF Inj 2 MG/ML Vial IV.PUSH SCH (22:30)
[2018-01-21 22:43] LABS: Phosphorus 2.8 mg/dL (2.5-4.9)
[2018-01-21 22:52] LABS: Thyroid Stimulating Hormone 3.49 uIU/mL (0.358-3.740)
--- NOTE | 2018-01-22 00:22 | P.PNCC ---
Critical Care Event Note Code activated: Yes Narrative: Case was discussed with Dr. Cotton and the ex- Yaneth Coates. Was asked to see the patient for family request due to sinus tachycardia. Heart rate by EKG was in the 170s. Patient received 2 L normal saline wide open. By examination , patient had mottled extremities with distended abdomen. Intra-abdominal bladder pressure was 24. Discussed with Dr. Cotton. CT of the abdomen/pelvis was performed with oral contrast only ordered per his request to evaluate possible intra-abdominal findings of sepsis. I also ordered a CT of the thorax without contrast. Patient received oral contrast. In CT, patient had aspiration events after which CODE BLUE was called. Initiated at 2244. Patient was intubated 2248 by ED physician. Chest compressions were performed and patient was receiving fluids wide open. Today, patient received 0.5 mg atropine x1 due to sinus bradycardia. Patient received 11 mg epinephrine, 2 ampoules of sodium bicarbonate and 1 g of calcium chloride. Patient went into V. fib and was defibrillated 200 J received 300 mg amiodarone. Ex- was notified she saw patient. After 31 minutes, no perfusable rhythm code was called at 2315. This case had a high probability of a clinically significant, sudden, or life threatening deterioration of this patient's condition which required my full and direct attention, intervention and personal management. Critical care time: 30 - 74 mins
--- NOTE | 2018-01-22 16:46 | ECG ---
Date Performed: 01/21/2018 Time Performed: 18:32:22 PTAGE: 67 years EKG: Sinus tachycardia Lead(s) unsuitable for analysis: V1 Inferior/lateral ST-T changes are non specific Since the previous tracing, no significant change noted Borderline ECG PREVIOUS TRACING : 01/19/2018 03.46 DOCTOR: Gracie Rosales Interpretating Date/Time 01/22/2018 16:44:56
--- NOTE | 2018-01-22 16:48 | ECG ---
Date Performed: 01/21/2018 Time Performed: 20:21:56 PTAGE: 67 years EKG: Probable supraventricular tachycardia. Compared to previous tracing, there has been signifi cant increase in the HR and some variation in the ST-T wave changes. No other significant change. Abn ormal ECG PREVIOUS TRACING : 01/21/2018 18.32 DOCTOR: Gracie Rosales Interpretating Date/Time 01/22/2018 16:48:13
== END 2018-01-21 23:59 | disposition expired ==
LOC: NEPC 10:44 → NEDA 15:02 → N05 16:40 → N07 01-13 11:58 → N03 01-18 12:31
PROVIDERS: ADMIT Internal Medicine; ATTEND Internal Medicine
PROC: COLONOS (2018-01-07 09:59)
PROC: PANENDO (2018-01-07 09:59)
PROC: RSCOLON (2018-01-13 08:07)